=== PATIENT | female | born 1980 | race Caucasian/White ===

== ENCOUNTER → 2016-08-25 | Outpatient (CLI) | payer BC ==
[2016-08-25 12:31] LABS: ALT 38 U/L (9-52); AST 30 U/L (14-36); Alkaline Phosphatase 64 U/L (38-126); Anion Gap 10 mmol/L; Blood Urea Nitrogen 12 mg/dL (7-17); Calcium 10.2 mg/dL (8.4-10.2); Carbon Dioxide 21 mmol/L (22-30); Chloride 110 mmol/L (98-107); Glucose 83 mg/dL (74-99); Non-African American GFR(MDRD) >60 (>60 ml/min/1.73 sqM); Potassium 4.5 mmol/L (3.5-5.1); Sodium 141 mmol/L (137-145); Total Bilirubin 0.5 mg/dL (0.2-1.3)
[2016-08-25 12:33] LABS: CH 31.5; CHCM 33.8; HCT 46.2 % (34.0-46.0); HDW 2.52; HGB 15.7 gm/dL (11.4-16.0); MCH 31.9 pg (25.0-35.0); MCV 93.9 fL (80.0-100.0); Mean Platelet Volume 7.4; RBC 4.91 m/uL (3.80-5.40); RDW 13.9 % (11.5-15.5)
== END | disposition home or self-care (01) ==
LOC: LABWHC1 11:41
PROVIDERS: ATTEND Internal Medicine Cardiovascular Disease
DX: R00.0 Tachycardia, unspecified (principal)
CPT/HCPCS: 36415; 80053; 84439; 84443; 85027

== ENCOUNTER 2017-08-24 07:58 | Emergency (ER) | payer BC ==
[2017-08-24 08:08] VITALS: RESP 18
[2017-08-24] MEDS ORDERED: KETOROLAC 30 MG/ML 1 ML VIAL IVP STA (08:30)
[2017-08-24] MEDS ORDERED: SODIUM CHLORIDE 0.9% 1,000 ML IV STA ×2 (08:30)
[2017-08-24] MEDS ORDERED: METOCLOPRAMIDE 5 MG/ML 2 ML VIAL IVP STA (08:30)
[2017-08-24] MEDS ORDERED: diphenhydrAMINE 50 MG/ML 1 ML VIAL IVP STA (08:30)
[2017-08-24] MEDS ORDERED: MECLIZINE 12.5 MG TAB PO STA (08:32)
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
[2017-08-24 09:12] LABS: Basophils % (A) 1 %; Eosinophils # (A) 0.1 k/uL (0-0.7); Eosinophils % (A) 3 %; HCT 47.1 % (34.0-46.0); HGB 15.8 gm/dL (11.4-16.0); Lymphocytes # (A) 1.4 k/uL (1.0-4.8); Lymphocytes % (A) 27 %; MCH 30.8 pg (25.0-35.0); MCHC 33.6 g/dL (31.0-37.0); MCV 91.5 fL (80.0-100.0); Mean Platelet Volume 7.2; Monocytes # (A) 0.2 k/uL (0-1.0); Monocytes % (A) 5 %; Neutrophils # (A) 3.3 k/uL (1.3-7.7); Neutrophils % (A) 64 %; Platelet Count 214 k/uL (150-450); RBC 5.15 m/uL (3.80-5.40); RDW 12.8 % (11.5-15.5); WBC 5.2 k/uL (3.8-10.6)
[2017-08-24 09:25] LABS: Anion Gap 6 mmol/L; Blood Urea Nitrogen 14 mg/dL (7-17); Carbon Dioxide 23 mmol/L (22-30); Chloride 112 mmol/L (98-107); Glucose 86 mg/dL (74-99); Potassium 4.1 mmol/L (3.5-5.1); Sodium 141 mmol/L (137-145)
[2017-08-24 10:22] VITALS: BP 110/63; PULSE 71; TEMP 97.9
== END 2017-08-24 10:23 | disposition home or self-care (01) ==
LOC: EC 07:58
DX: R42 Dizziness and giddiness (principal); R51 Headache; R11.0 Nausea; J45.909 Unspecified asthma, uncomplicated; Z79.52 Long term (current) use of systemic steroids; Z79.899 Other long term (current) drug therapy; Z88.1 Allergy status to other antibiotic agents; Z88.5 Allergy status to narcotic agent
CPT/HCPCS: 36415; 80048; 85025; 96361; 96374; 96375; 99284

== ENCOUNTER → 2018-01-03 | Outpatient (CLI) | payer BC ==
--- NOTE | 2018-01-04 09:02 | XR ---
EXAM TYPE: LUMBAR SPINE X RAY SERIES COMPARISON: NONE HISTORY: Low back pain TECHNIQUE: 3 views are submitted. FINDINGS: Alignment is anatomic. The pedicles are intact. The transverse processes are intact. There is no s pondylolysis or spondylolisthesis. Degenerative disc disease and hypertrophic change lower thoracic spine. IMPRESSION: 1. Degenerative disc disease lower thoracic spine with minimal changes involving the lumbar spine..
== END | disposition home or self-care (01) ==
LOC: RADXRMAIN 15:26
PROVIDERS: ATTEND Family Medicine
DX: M54.5 Low back pain (principal)
CPT/HCPCS: 72100

== ENCOUNTER → 2018-01-19 | Outpatient (CLI) | payer BC ==
--- NOTE | 2018-01-19 09:21 | CT ---
EXAMINATION TYPE: CT sinus wo con DATE OF EXAM: 01/19/2018 COMPARISON: Prior CT sinus dated 05/14/2014 HISTORY: Chronic sinusitis CT DLP: 583.7 mGycm. Automated Exposure Control for Dose Reduction was Utilized. TECHNIQUE: CT scan of the sinuses is performed without contrast, axial images are obtained, coronal r eformatted images are also reviewed. FINDINGS: The paranasal sinuses including the frontal, ethmoid, sphenoid, and maxillary sinuses bila terally are remarkable for mucoperiosteal thickening in the maxillary and sphenoid sinuses, possible polyp or mucus retention cyst laterally within the right maxillary sinus. Inflammatory change present in the ethmoid air cells. Shayna bullosa present on the right. Visualized portion of mastoid air cells show no abnormal opacification. The globes are intact bilate rally. IMPRESSION: Inflammatory changes as described compatible with chronic sinusitis.
== END | disposition home or self-care (01) ==
LOC: RADCTMAIN 06:50
PROVIDERS: ATTEND Otolaryngology
DX: J32.9 Chronic sinusitis, unspecified (principal)
CPT/HCPCS: 70486

== ENCOUNTER → 2018-03-30 | Outpatient (CLI) | payer BC ==
--- NOTE | 2018-03-30 11:27 | MM ---
Reason for exam: screening (asymptomatic). Baseline mammogram. History: Patient is nulliparous. Family history of breast cancer in mother at age 56. Taking hormonal contraceptives beginning at age 15. Physical Findings: Nurse did not find any significant physical abnormalities on exam. MG Screening Mammo w CAD Bilateral CC and MLO view(s) were taken. The breast tissue is heterogeneously dense. This may lower the sensitivity of mammography. There is no discrete abnormality. These results were verbally communicated with the patient and result sheet given to the patient on 03/30/18. ASSESSMENT: Benign, BI-RAD 2 RECOMMENDATION: Routine screening mammogram of both breasts at age 41.
== END ==
LOC: RADMAMWWP 07:02
PROVIDERS: ATTEND Family Medicine
DX: Z12.31 Encounter for screening mammogram for malignant neoplasm of breast (principal)
CPT/HCPCS: 77067

== ENCOUNTER → 2018-04-16 | Outpatient (CLI) | payer BC ==
--- NOTE | 2018-04-16 16:26 | MR ---
EXAMINATION TYPE: MR cervical spine wo con DATE OF EXAM: 04/16/2018 COMPARISON: None HISTORY: Cervicalgia TECHNIQUE: Multiplanar, multisequence images of the cervical spine were acquired. FINDINGS: The cervical spine vertebral bodies maintain normal vertebral body heights and alignment. B one marrow signal is slightly decreased throughout. C2-C3: There is a small right paracentral disc herniation without spinal canal stenosis or neural for aminal narrowing. C3-C4: There is a small posterior disc osteophyte complex without spinal canal stenosis nor neural fo raminal narrowing. C4-C5: There is a broad-based disc bulge and uncovertebral hypertrophy resulting in minimal neural fo raminal narrowing. No spinal canal stenosis. C5-C6: There is a left foraminal disc herniation superimposed upon a broad-based disc bulge resulting in moderate left neural foraminal narrowing. Right neuroforamen is patent. There is resultant mild s allison canal stenosis. C6-C7: Left eccentric broad-based disc bulge mildly narrows the ventral subarachnoid space. This also results in mild left neural foraminal narrowing and mild spinal canal stenosis. Right neuroforamen i s patent. C7-T1: No evidence for degenerative disc disease. No disc bulge/herniation or protrusion. No Canal stenosis. Foramina are patent bilaterally. IMPRESSION: 1. Left foraminal disc herniation at C5-C6 creating moderate left neural foraminal narrowing. There i s also mild resultant spinal canal stenosis. 2. Broad-based disc bulge at C6-C7 creating mild spinal canal stenosis. 3. Small right paracentral disc herniation at C2-C3 without spinal canal stenosis or neural foraminal narrowing. 4. Diminished bone marrow signal throughout. Correlate with CBC to exclude myeloproliferative disorde r or more commonly anemia.
== END ==
LOC: RADMRIMAIN 15:14
PROVIDERS: ATTEND Family Medicine
DX: M48.02 Spinal stenosis, cervical region (principal); M50.21 Other cervical disc displacement, high cervical region
CPT/HCPCS: 72141

== ENCOUNTER → 2018-10-16 | Outpatient (CLI) | payer BC ==
[2018-10-17 09:03] VITALS: BMI 22.3
== END | disposition home or self-care (01) ==
LOC: DBWHC3 13:01
PROVIDERS: ATTEND Family Medicine
DX: T78.1XXA Other adverse food reactions, not elsewhere classified, initial encounter (principal); Z71.3 Dietary counseling and surveillance
CPT/HCPCS: 97802

== ENCOUNTER → 2018-12-27 | Outpatient (CLI) | payer BC ==
[2018-12-27 17:25] LABS: HCT 39.9 % (34.0-46.0); HGB 13.5 gm/dL (11.4-16.0); MCH 32.2 pg (25.0-35.0); MCHC 33.9 g/dL (31.0-37.0); MCV 94.9 fL (80.0-100.0); Mean Platelet Volume 6.9; Platelet Count 196 k/uL (150-450); RDW 12.6 % (11.5-15.5); WBC 4.9 k/uL (3.8-10.6)
[2018-12-27 17:27] LABS: African American GFR (CKD) >90 (>60 ml/min/1.73 sqM); Anion Gap 6 mmol/L; Blood Urea Nitrogen 12 mg/dL (7-17); Carbon Dioxide 22 mmol/L (22-30); Chloride 111 mmol/L (98-107); Glucose 81 mg/dL (74-99); Non-African American GFR(CKD) 87 (>60 ml/min/1.73 sqM); Potassium 4.2 mmol/L (3.5-5.1); Sodium 139 mmol/L (137-145)
== END ==
LOC: LABPAT 16:32
PROVIDERS: ATTEND Internal Medicine Clinical Cardiac Electrophysiology
DX: Z01.812 Encounter for preprocedural laboratory examination (principal); I47.2 Ventricular tachycardia; R00.2 Palpitations
CPT/HCPCS: 36415; 80051; 82565; 82947; 84520; 85027

== ENCOUNTER 2019-01-08 09:03 | Day surgery (SDC) | payer BC ==
[2019-01-01 14:59] VITALS: BMI 20.7
[~2019-01-08 09:03] MED LIST: LACTATED RINGERS 1,000 ML IV SCH; MIDAZOLAM 2 MG/2 ML VIAL IV PRN; SODIUM CHLORIDE 0.9% 1,000 ML IV SCH; fentaNYL (PF) 50 MCG/ML 2 ML AMP IV PRN
[2019-01-08] MEDS ORDERED: IV FLUID CONTINUATION 1,000 ML IV ONE (10:05)
[2019-01-08] MEDS ORDERED: PROPOFOL 10 MG/ML 20 ML VIAL IV ONE (13:20)
[2019-01-08] MEDS ORDERED: fentaNYL (PF) 50 MCG/ML 2 ML AMP ONE (13:20)
[2019-01-08] MEDS ORDERED: MIDAZOLAM 2 MG/2 ML VIAL ONE (13:20)
--- NOTE | 2019-01-08 13:39 | P.HPCAR ---
History of Present Illness This is Lucy Regan PA-C dictating an H&P on this patient The patient was interviewed and examined by me as well as by Dr. Almendarez Case discussed with Dr. Almendarez and he agrees with the plan of care IMPRESSION / ASSESSMENT: Recurrent palpitations and dizzy spells, long run of nonsustained wide complex tachycardia on event monitor History of hypertension PLAN: Proceed with tilt table test and diagnostic EP study to further evaluate her symptoms and evaluate the wide complex tachycardia, and possible RF ablation if indicated HPI Patient is a 38-year-old female with a past medical history of hypertension who presents for evaluation and management of palpitations and dizzy spells. She has had recurrent episodes of palpitations, chest tightness, and dizziness for the last 3 years. No syncope. She underwent a workup including a stress test which was negative, 2-D echocardiogram showing preserved LV size and systolic function, cardiac MRI showing structurally normal heart, and an event monitor which showed a long run of nonsustained wide complex tachycardia with a short RS duration. Patient seen and examined resting comfortably in bed. States she continues to have mild chest discomfort. She is otherwise feeling well. Denies any shortness of breath, no recent episodes of palpitation or dizziness, no syncope. No recent infections. ROS: No fevers, chills or rigors, no cough, phlegm or expectoration, no nausea, vomiting or diarrhea, no hematuria, dysuria, no musculoskeletal complaints, no strokes or seizures, no skin lesions. EXAMINATION: Patient is afebrile, pulse 94, respirations 18, blood pressure 131/79, oxygen saturation 100% on room air Patient seen and examined resting comfortably in bed, in no acute distress Heart is regular, normal S1 and S2, no murmurs rubs or gallops Lungs clear to auscultation bilaterally No elevated JVD or lower extremity edema Abdomen soft and nontender REVIEW OF LABS, ECG & MEDICAL DATA WBC 4.9, hemoglobin 13.5, platelet 196, potassium 4.2, BUN 12, creatinine 0.86 Previous EKG showed sinus mechanism with incomplete right bundle branch block Physical Exam Vitals: Vital Signs Temp Pulse Resp BP Pulse Ox 01/08/19 09:30 98.3 F 94 18 131/79 100 Intake and Output 01/07/19 01/08/19 01/08/19 22:59 06:59 14:59 Intake Total 70 Balance 70 Intake: IV 70 Past Medical History Past Medical History: Asthma, Chest Pain / Angina, Hypertension Additional Past Medical History / Comment(s): Migraines, asthma R/T allergies, TMJ-D. Tachycardia, palpitations. Feels lightheaded w/ stair climbing. History of Any Multi-Drug Resistant Organisms: None Reported Past Surgical History: Adenoidectomy, Tonsillectomy Additional Past Surgical History / Comment(s): lateral internal sphincterotomy Past Anesthesia/Blood Transfusion Reactions: Previous Problems w/ Anesthesia, Motion Sickness Additional Past Anesthesia/Blood Transfusion Reaction / Comment(s): Itching, red skin after last surg 2016 ("had Versed, Propofol, Zofran, Decadron given") Smoking Status: Former smoker - Past Family History Mother Family Medical History: Cancer Additional Family Medical History / Comment(s): Breast, Pancreatic CA Father Family Medical History: Cancer Additional Family Medical History / Comment(s): Pancreatic CA Physical Examination Vital Signs Temp Pulse Resp BP Pulse Ox 01/08/19 09:30 98.3 F 94 18 131/79 100 Intake and Output 01/07/19 01/08/19 01/08/19 22:59 06:59 14:59 Intake Total 70 Balance 70 Intake: IV 70 Results Current Medications Generic Name Dose Route Start Last Admin Trade Name Freq PRN Reason Stop Dose Admin Fentanyl Citrate 50 mcg 01/08/19 06:14 Sublimaze IV 01/09/19 06:15 Q3M PRN Pain Control Sodium Chloride 1,000 mls @ 20 mls/hr 01/08/19 06:14 01/08/19 09:34 Saline 0.9% IV 20 mls .Q24H LIZETH Administration Sodium Chloride 1,000 mls @ 20 mls/hr 01/08/19 06:14 Saline 0.9% IV .Q24H LIZETH Lactated Ringer's 1,000 mls @ 20 mls/hr 01/08/19 06:14 Lactated Ringers IV .Q24H LIZETH Midazolam HCl 2 mg 01/08/19 06:14 Versed IV 01/09/19 06:15 ONCE PRN Anxiety Intake and Output 01/07/19 01/08/19 01/08/19 22:59 06:59 14:59 Intake Total 70 Balance 70 Intake: IV 70
[2019-01-08] MEDS ORDERED: LIDOCAINE 1% INJ 10MG/ML (20 ML MDV) ONE (13:47)
--- NOTE | 2019-01-08 13:50 | P.PCN ---
Preoperative Diagnosis: Diagnosis: Recurrent dizzy spells Twelve-lead EKG shows sinus mechanism with normal AL, incomplete right bundle branch block morphology, normal ST segments, normal QT interval, no delta or epsilon waves Baseline heart rate was 86 bpm, baseline blood pressure was 127/86 mmHg Patient was tilted upright at 70 per protocol, her heart rate increased to 110 bpm at that time she felt lightheaded. Her heart rate increased to 110s to 120s average within the first ten minutes and remained elevated throughout the study. She was symptomatic with heaviness in her arms chest and legs. Blood pressure remained stable without any significant changes throughout the study. At the end of the procedure she was laid flat and her heart rate came down to 98 bpm. Impression Orthostatic intolerance/mild postural orthostatic tachycardia syndrome Normal 12-lead EKG
[2019-01-08] MEDS ORDERED: LIDOCAINE 1% INJ 10MG/ML (20 ML MDV) SQ ONE (14:02)
[2019-01-08] MEDS ORDERED: ACETAMINOPHEN TAB 325 MG TAB PO PRN (15:22)
[2019-01-08] MEDS ORDERED: MELOXICAM 7.5 MG TAB PO PRN (15:26)
[2019-01-08] MEDS: TOPIRAMATE 25 MG TAB PO SCH (20:17)
[2019-01-08] MEDS ORDERED: METOPROLOL SUCCINATE (ER) 50 MG TAB.ER.24H PO SCH (21:00)
[2019-01-08] MEDS ORDERED: MAGNESIUM OXIDE 400 MG TAB PO SCH (21:00)
--- NOTE | 2019-01-08 23:17 | PCN ---
PROCEDURE NOTE Edel Dunham is a 38-year-old female who has dizzy spells and palpitations. She underwent a diagnostic EP study. She was brought to the EP lab in a fasting state informed consent was obtained prior to the procedure. The right groin was prepped and draped as per protocol. Three venous sheaths were placed in the right femoral vein. Via these, 3 diagnostic catheters were positioned in the right heart (high right atrium, His bundle and RV catheter). Baseline measurements were as follows: Sinus cycle length 818 milliseconds; SD interval 157 milliseconds; QRS 84 milliseconds; QT 389 milliseconds. AH interval 69 milliseconds, HV interval 38 milliseconds. Sinus node recovery times at 600, 500 and 400 milliseconds were 1248, 1381 and 1154 milliseconds, respectively. Corresponding corrected sinus node recovery times were within normal limits. AV node Wenckebach block 300 milliseconds, VA Wenckebach block 590 milliseconds. With atrial pacing at a cycle length of 300 milliseconds, rate-related aberrancy was noted, right bundle branch block type. Atrial extrastimulation from the high right atrium was performed. A jump was noted at 600/240 milliseconds, but no echo beats were noted. Ventricular extrastimulation was performed at 2 drivetrains up to double extrastimuli. No sustained ventricular tachycardia was noted. No runs of nonsustained ventricular tachycardia noted. In the baseline state, no arrhythmias were noted. There was clear evidence for aberrant conduction with atrial pacing. Isuprel was then started wide open and then at 1 mcg. AV node Wenckebach block improved to 220 milliseconds. There was evidence of antegrade slow pathway conduction, but no echo beats were noted. The VA conduction showed minimal improvement. Atrial extrastimulation was performed from the high right atrium. Right ventricular extrastimulation was performed up to double extrastimuli. Burst stimulation was performed in the right ventricle. No arrhythmias were induced. All catheters were then removed. The patient was transferred back to telemetry. RESULT: Diagnostic EP study revealin. Normal baseline measurements. 2. Normal sinus node function. 3. Evidence of dual AV nakul physiology with antegrade slow pathway conduction without any echo beats. 4. No evidence for accessory pathway conduction. 5. No evidence for any atrial or ventricular arrhythmias. 6. Rate-related right bundle branch block aberrancy was noted. This is consistent with the wide-complex tachycardia that she had on the monitor. It is quite likely that she had an atrial tachycardia with aberrancy, nonsustained, rather than ventricular tachycardia. PLAN: Continue low-dose beta blockers. MMODL / IJN: [id number] /
--- NOTE | 2019-01-08 23:23 | PCN ---
PROCEDURE NOTE January 08, 2019 To: Dr. Arthur Burns Re: Edel Dunham (82) Dear Arthur Edel Dunham underwent an EP evaluation in the hospital. She first underwent a tilt table test which revealed orthostatic intolerance and it reproduced some of her symptoms. Thereafter she underwent a diagnostic EP study because her monitor had revealed a run of wide-complex tachycardia, nonsustained. At the EP study, she had clear evidence of right bundle branch block aberrancy with atrial pacing. No ventricular tachycardia was induced. Therefore it is quite likely that she had a short run of atrial tachycardia with aberrant conduction rather than ventricular tachycardia that we noted on her monitor. At this time, I will treat her with beta blockers only and increase her fluid and salt intake and treat her for orthostatic intolerance with lower extremity weight training. Thank you for entrusting me with the care of your patient. Warm regards. Sincerely, Chencho Almendarez M.D. LORA / ESPERANZA: [id number] /
[2019-01-09 00:05] VITALS: RESP 18
--- NOTE | 2019-01-09 07:53 | P.DS ---
Providers Attending physician: Chencho Almendarez Primary care physician: [facility] Course: Patient is doing well. Minimal tenderness in the right groin but no hematoma She's been ablating in the hallways no chest discomfort dizziness lightheadedness or palpitations On examination blood pressure 115/72 mmHg pulse rate in the 60s afebrile Breath sounds are clear no rhonchi no crackles Heart sounds S1 and S2 are normal no murmurs no gallops Abdomen soft Dextrose warm Impression Mild orthostatic intolerance Rate related apparent conduction with atrial pacing Likely nonsustained atrial tachycardia with aberrancy on event monitor as an outpatient Suggest Increase fluid and salt intake Continue beta blockers Lower extremity muscle strengthening exercises/weight training Discussed in detail with the patient We'll see her next week Plan - Discharge Summary Discharge Rx Participant: Yes New Discharge Prescriptions: No Action Magnesium Oxide [Mag-Ox] 250 mg PO HS Topiramate [Topamax] 50 mg PO BID Metoprolol Succinate [Toprol Xl] 50 mg PO HS Cholecalciferol [Vitamin D3] 1,000 unit PO DAILY Ketorolac [Toradol] 10 mg PO Q8HR PRN PRN Reason: Migraine Headache Celecoxib [CeleBREX] 200 mg PO DAILY PRN PRN Reason: Pain Galcanezumab-Gnlm [Emgality Syringe] 120 mg SQ Q30D Levonorgestrel-Ethin Estradiol [Levora-28 Tablet] 1 tab PO DAILY Vitamin B Complex 1 each PO Q48H Gnc Ultra Indra Mvi 1 tab PO DAILY Discharge Medication List Cholecalciferol [Vitamin D3] 1,000 unit PO DAILY 08/24/17 [History] Magnesium Oxide [Mag-Ox] 250 mg PO HS 08/24/17 [History] Metoprolol Succinate [Toprol Xl] 50 mg PO HS 08/24/17 [History] Topiramate [Topamax] 50 mg PO BID 08/24/17 [History] Celecoxib [CeleBREX] 200 mg PO DAILY PRN 01/01/19 [History] Galcanezumab-Gnlm [Emgality Syringe] 120 mg SQ Q30D 01/01/19 [History] Gnc Ultra Indra Mvi 1 tab PO DAILY 01/01/19 [History] Ketorolac [Toradol] 10 mg PO Q8HR PRN 01/01/19 [History] Levonorgestrel-Ethin Estradiol [Levora-28 Tablet] 1 tab PO DAILY 01/01/19 [History] Vitamin B Complex 1 each PO Q48H 01/01/19 [History] Follow up Appointment(s)/Referral(s): Chencho Almendarez MD [STAFF PHYSICIAN] - 1 Week (follow up with Dr. Almendarez/Lucy Regan/Shwetha Lewis in one to 2 weeks) Activity/Diet/Wound Care/Special Instructions: Post EP study - Ablation instructions 1. Keep access sites dry for 2 days. 2. No heavy lifting or straining for 2 days. 3. Avoid bending the hips repeatedly for 2 days. 4. You may go up and down stairs slowly Call if the following is noted 1. Bleeding, increasing swelling or pain at the access sites. 2. Increasing chest discomfort, especially upon taking a deep breath. 3. Increasing shortness of breath, at rest or with exertion. 4. Undue cough / phlegm 5. Difficulty or pain while swallowing. 6. Pain or change in color in the extremities. 7. Fever, chills, rigors. 8. Increasing headache or neurologic symptoms. 9. Dizziness, fainting, palpitations Continue all cardiac medications as previously prescribed Discharge Disposition: HOME SELF-CARE
[2019-01-09 08:05] VITALS: BP 111/70; PULSE 75; TEMP 97.8
[2019-01-09] MEDS: TOPIRAMATE 25 MG TAB PO SCH (08:22)
[2019-01-09] MEDS ORDERED: LEVONORGESTREL ETHIN ESTRADIOL PO SCH (09:00)
== END 2019-01-09 10:00 | disposition home or self-care (01) ==
LOC: CATHEP 09:03 → 1SOBS 15:19 → CATHEP 01-09 10:00
PROVIDERS: ATTEND Internal Medicine Clinical Cardiac Electrophysiology
DX: I49.8 Other specified cardiac arrhythmias (principal); I45.10 Unspecified right bundle-branch block; I10 Essential (primary) hypertension; G43.909 Migraine, unspecified, not intractable, without status migrainosus; J44.9 Chronic obstructive pulmonary disease, unspecified; F39 Unspecified mood [affective] disorder; Z88.1 Allergy status to other antibiotic agents; Z88.5 Allergy status to narcotic agent; Z91.018 Allergy to other foods; Z91.011 Allergy to milk products; Z87.891 Personal history of nicotine dependence; Z79.3 Long term (current) use of hormonal contraceptives; Z79.899 Other long term (current) drug therapy; Z98.890 Other specified postprocedural states; Z90.89 Acquired absence of other organs; Z80.3 Family history of malignant neoplasm of breast; Z80.0 Family history of malignant neoplasm of digestive organs
CPT/HCPCS: 93623; 93620; 93660; C1894; C1769 ×2; C1730 ×3; J2250; J2001; J3010; J2704

== ENCOUNTER → 2019-09-26 | Outpatient (CLI) | payer BC ==
--- NOTE | 2019-09-26 08:49 | FL ---
EXAMINATION TYPE: FL barium swallow DATE OF EXAM: 09/26/2019 CLINICAL HISTORY: Pain TECHNIQUE: A double contrast esophagram is performed utilizing air and barium. A total of 33 second s of fluoroscopic time was utilized during procedure. 23 images submitted. COMPARISON: None FINDINGS: The esophagus shows normal motility and emptying into the stomach. No evidence of hiatal h ernia or stricture noted. No significant gastroesophageal reflux was seen during real time performanc e of this study. IMPRESSION: No significant abnormality is seen to account for patient's symptoms. Correlate with di rect visualization as clinically warranted.
== END | disposition home or self-care (01) ==
LOC: RADUSWWP 07:52
PROVIDERS: ATTEND Surgery Plastic and Reconstructive Surgery
DX: K21.9 Gastro-esophageal reflux disease without esophagitis (principal)
CPT/HCPCS: 74220

== ENCOUNTER 2019-10-03 09:20 | Day surgery (SDC) | payer BC ==
[2019-09-30 13:08] VITALS: BMI 21.8
--- NOTE | 2019-10-03 08:47 | P.GSHP ---
History of Present Illness H&P Date: 10/03/19 CHIEF COMPLAINT: GERD HISTORY OF PRESENT ILLNESS: The patient is a 38-year-old female who presents reports gastroesophageal reflux disease. Upper endoscopy was offered for further evaluation and management. PAST MEDICAL HISTORY: Please see list. PAST SURGICAL HISTORY: Please see list. MEDICATIONS: Please see list. ALLERGIES: Please see list. SOCIAL HISTORY: No illicit drug use FAMILY HISTORY: No reports of Crohn disease or ulcerative colitis. REVIEW OF ORGAN SYSTEMS: CONSTITUTIONAL: No reports of fevers or chills. GI: Denies any blood in stools or constipation. PHYSICAL EXAM: VITAL SIGNS: Stable GENERAL: Well-developed and pleasant in no acute distress. HEENT: No scleral icterus. Extraocular movements grossly intact. Moist buccal mucosa. NECK: Supple without lymphadenopathy. CHEST: Unlabored respirations. Equal bilateral excursions. CARDIOVASCULAR: Regular rate and rhythm. Distal 2+ pulses. ABDOMEN: Soft, nondistended. MUSCULOSKELETAL: No clubbing, cyanosis, or edema. ASSESSMENT: 1. Gastroesophageal reflux disease PLAN: 1. Recommend proceeding with an upper endoscopy Past Medical History Past Medical History: Asthma, Hypertension Additional Past Medical History / Comment(s): Migraines, tachycardia, V-Tach on EKG prevoiusly, had EP Study, everything ok, no problems since. 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 History of Any Multi-Drug Resistant Organisms: None Reported Past Surgical History: Adenoidectomy, Tonsillectomy Additional Past Surgical History / Comment(s): Lateral internal sphincterotomy, EP Study. Past Anesthesia/Blood Transfusion Reactions: Previous Problems w/ Anesthesia, Motion Sickness Additional Past Anesthesia/Blood Transfusion Reaction / Comment(s): Itching, red skin after last surg 2016 ("had Versed, Propofol, Zofran, Decadron") Past Psychological History: No Psychological Hx Reported Smoking Status: Former smoker Past Alcohol Use History: None Reported Additional Past Alcohol Use History / Comment(s): Smoked 13 years, 1/2 ppd, quit 2012. Past Drug Use History: None Reported - Past Family History Mother Family Medical History: Cancer Additional Family Medical History / Comment(s): Breast, Pancreatic CA. Father Family Medical History: Cancer Additional Family Medical History / Comment(s): Pancreatic CA. Medications and Allergies Home Medications Medication Instructions Recorded Confirmed Type Cholecalciferol [Vitamin D3] 1,000 unit PO DAILY 08/24/17 09/30/19 History Magnesium Oxide [Mag-Ox] 500 mg PO HS 08/24/17 09/30/19 History Metoprolol Succinate [Toprol Xl] 50 mg PO HS 08/24/17 09/30/19 History Topiramate [Topamax] 50 mg PO BID 08/24/17 09/30/19 History Galcanezumab-Gnlm [Emgality 120 mg SQ Q30D 01/01/19 09/30/19 History Syringe] Gnc Ultra Indra Mvi 1 tab PO DAILY 01/01/19 09/30/19 History Levonorgestrel-Ethin Estradiol 1 tab PO DAILY 01/01/19 09/30/19 History [Levora-28 Tablet] Vitamin B Complex 1 each PO DAILY 01/01/19 09/30/19 History Omeprazole 20 mg PO DAILY 09/30/19 09/30/19 History Allergies Allergy/AdvReac Type Severity Reaction Status Date / Time Beef Containing Products Allergy Pos on Verified 09/30/19 12:54 allergy test cefuroxime [From Ceftin] Allergy Rash/Hives Verified 09/30/19 12:54 chicken derived [Chicken] Allergy Pos on Verified 09/30/19 12:54 allergy test gluten Allergy Rash/Hives Verified 09/30/19 12:54 hydrocodone Allergy Rash/Hives Verified 09/30/19 12:54 levofloxacin [From Levaquin] Allergy Rash/Hives Verified 09/30/19 12:54 Milk Containing Products Allergy Rash/Hives Verified 09/30/19 12:54 Pork/Porcine Containing Allergy Pos on Verified 09/30/19 12:54 Products allergy [Pork] test soybean Allergy Rash/Hives Verified 09/30/19 12:54
[~2019-10-03 09:20] MED LIST changes: -MIDAZOLAM 2 MG/2 ML VIAL IV PRN; -SODIUM CHLORIDE 0.9% 1,000 ML IV SCH; -fentaNYL (PF) 50 MCG/ML 2 ML AMP IV PRN
[2019-10-03 09:47] VITALS: TEMP 97.6
[2019-10-03] MEDS ORDERED: LACTATED RINGERS 1,000 ML IV ONE (09:48)
[2019-10-03] MEDS ORDERED: LIDOCAINE 1% (10MG/ML) FOR IV START INTRADERMA ONE (09:48)
[2019-10-03] MEDS ORDERED: LIDOCAINE 1% INJ 10MG/ML (20 ML MDV) ONE (10:29)
[2019-10-03] MEDS ORDERED: PROPOFOL 10 MG/ML 20 ML VIAL IV ONE (10:29)
--- NOTE | 2019-10-03 11:21 | P.PCN ---
Date of Procedure: 10/03/19 Description of Procedure: PREOPERATIVE DIAGNOSIS: Gastroesophageal reflux disease. Epigastric abdominal pain POSTOPERATIVE DIAGNOSIS: Gastroesophageal reflux disease. Epigastric abdominal pain Gastritis. OPERATION: Esophagogastroduodenoscopy with biopsies along antrum. SURGEON: Ami Diaz MD ANESTHESIA: MAC. INDICATIONS: The patient is a 38-year-old female who presents with a history of reflux disease. Benefits and risks of the procedure were described. Informed consent was obtained. DESCRIPTION: The patient was brought into the endoscopy suite and laid in the left lateral decubitus position. An Olympus gastroscope was passed along the posterior oropharynx down to the distal esophagus where the squamocolumnar junction was encountered at 37 cm from the incisors. The stomach was entered and no bile reflux was found. Additional findings are listed below. Biopsies with cold forceps were obtained of the antrum. The first through third portion of the duodenum was examined and unremarkable. Retroflexion of the scope confirmed Hill grade 1 lower esophageal valve. The squamocolumnar junction demonstrated no LA grade A erosive esophagitis. The stomach was desufflated. The patient tolerated the procedure well. FINDINGS: Squamocolumnar junction 37 cm from the incisors. Diaphragmatic hiatus at 37 cm. Hill grade 1 lower esophageal valve. No LA grade A erosive esophagitis. No active duodenitis. Chronic gastritis, mild RECOMMENDATIONS: Upper endoscopy as needed. Plan - Discharge Summary Discharge Rx Participant: Yes New Discharge Prescriptions: Continue Magnesium Oxide [Mag-Ox] 500 mg PO HS Topiramate [Topamax] 50 mg PO BID Metoprolol Succinate [Toprol Xl] 50 mg PO HS Cholecalciferol [Vitamin D3 (25 Mcg = 1000 Iu)] 1,000 unit PO DAILY Galcanezumab-Gnlm [Emgality Syringe] 120 mg SQ Q30D Levonorgestrel-Ethin Estradiol [Levora-28 Tablet] 1 tab PO DAILY Vitamin B Complex 1 each PO DAILY Gnc Ultra Indra Mvi 1 tab PO DAILY Omeprazole 20 mg PO DAILY Discharge Medication List Cholecalciferol [Vitamin D3 (25 Mcg = 1000 Iu)] 1,000 unit PO DAILY 08/24/17 [History] Magnesium Oxide [Mag-Ox] 500 mg PO HS 08/24/17 [History] Metoprolol Succinate [Toprol Xl] 50 mg PO HS 08/24/17 [History] Topiramate [Topamax] 50 mg PO BID 08/24/17 [History] Galcanezumab-Gnlm [Emgality Syringe] 120 mg SQ Q30D 01/01/19 [History] Gnc Ultra Indra Mvi 1 tab PO DAILY 01/01/19 [History] Levonorgestrel-Ethin Estradiol [Levora-28 Tablet] 1 tab PO DAILY 01/01/19 [History] Vitamin B Complex 1 each PO DAILY 01/01/19 [History] Omeprazole 20 mg PO DAILY 09/30/19 [History] Follow up Appointment(s)/Referral(s): Ami Diaz MD [STAFF PHYSICIAN] - 10/22/19 Patient Instructions/Handouts: *[facility] - (Anesthesia) Endoscopy Discharge Instructions, *[facility] - (Anesthesia) Discharge Instructions Outpatient Surgery, Upper Endoscopy (DC), Gastritis (DC) Discharge Disposition: HOME SELF-CARE
[2019-10-03 11:40] VITALS: PULSE 88
[2019-10-03 11:41] VITALS: BP 122/74; RESP 14
== END 2019-10-03 11:41 | disposition home or self-care (01) ==
LOC: ORWHC2ENDO 09:20
PROVIDERS: ATTEND Surgery Plastic and Reconstructive Surgery
DX: K21.0 Gastro-esophageal reflux disease with esophagitis (principal); K29.50 Unspecified chronic gastritis without bleeding; I10 Essential (primary) hypertension; J45.909 Unspecified asthma, uncomplicated; G43.909 Migraine, unspecified, not intractable, without status migrainosus; Z90.89 Acquired absence of other organs; Z98.890 Other specified postprocedural states; Z87.891 Personal history of nicotine dependence; Z80.3 Family history of malignant neoplasm of breast; Z80.0 Family history of malignant neoplasm of digestive organs; Z79.890 Hormone replacement therapy; Z79.899 Other long term (current) drug therapy; Z91.018 Allergy to other foods; Z88.1 Allergy status to other antibiotic agents; Z91.02 Food additives allergy status; Z88.5 Allergy status to narcotic agent; Z91.011 Allergy to milk products
CPT/HCPCS: 81025; 88305; 43239; J2001; J2704

== ENCOUNTER → 2019-10-11 | Outpatient (CLI) | payer BC ==
--- NOTE | 2019-10-11 15:48 | US ---
EXAMINATION TYPE: US pelvis complete transvag DATE OF EXAM: 10/11/2019 COMPARISON: NONE CLINICAL HISTORY: 38-year-old female R10.2 Pelvic and perineal pain. Pain TECHNIQUE: Transabdominal sonographic images of the pelvis were acquired. Transvaginal sonographic i mages were medically necessary to better assess the following anatomy: Ovaries FINDINGS: EXAM MEASUREMENTS: Uterus: 6.6 x 2.3 x 3.5 cm Endometrial Stripe: .4 cm 1. Uterus: Anteverted wnl 2. Endometrium: wnl 3. Right Ovary: Obscured by overlying bowel gas 4. Left Ovary: Obscured by overlying bowel gas 5. Bilateral Adnexa: wnl 6. Posterior cul-de-sac: wnl IMPRESSION: Endometrial stripe measured at 4 mm. Anteverted uterus. Neither ovary could be visualized due to overlying bowel gas. No pelvic free fluid.
== END | disposition home or self-care (01) ==
LOC: RADUSWWP 12:46
PROVIDERS: ATTEND Internal Medicine
DX: N85.4 Malposition of uterus (principal)
CPT/HCPCS: 76830; 76856

== ENCOUNTER 2020-01-19 14:50 | Emergency (ER) | payer BC ==
[2020-01-19] MEDS ORDERED: SODIUM CHLORIDE 0.9% 500 ML 500 ML IV STA (15:29)
[2020-01-19] MEDS ORDERED: ONDANSETRON 4 MG/2 ML VIAL IVP STA (15:29)
[2020-01-19] MEDS ORDERED: SODIUM CHLORIDE 0.9% 1,000 ML IV STA ×2 (15:29)
--- NOTE | 2020-01-19 15:36 | ED ---
Abdominal Pain HPI - General Chief Complaint: Abdominal Pain Stated Complaint: fever, abd pain Time Seen by Provider: 01/19/20 15:12 Source: patient Mode of arrival: ambulatory Limitations: no limitations - History of Present Illness Initial Comments: 39-year-old female presenting today for chief complaint of upper abdominal pain nausea vomiting diarrhea fevers. Patient states that Monday she had upper abdominal pain vomiting diarrhea and had a fever she states the fever broke yesterday but the abdominal pain persists. She states she has not had vomiting or diarrhea since the first day of onset of the symptoms. Patient admits to decreased appetite. She denies lower abdominal pain denies urinary symptoms chest pain shortness of breath or upper respiratory symptoms. Patient had talked her primary care provider provided her Zofran and told patient if pain persists to come to the ER patient states that is why she is here today. Remaining review of system negative - Related Data Home Medications Medication Instructions Recorded Confirmed Cholecalciferol [Vitamin D3 (25 1,000 unit PO DAILY 08/24/17 01/19/20 Mcg = 1000 Iu)] Magnesium Oxide [Mag-Ox] 500 mg PO HS 08/24/17 01/19/20 Metoprolol Succinate [Toprol Xl] 50 mg PO HS 08/24/17 01/19/20 Topiramate [Topamax] 50 mg PO BID 08/24/17 01/19/20 Levonorgestrel-Ethin Estradiol 1 tab PO DAILY 01/01/19 01/19/20 [Levora-28 Tablet] Erenumab-Aooe [Aimovig 70 mg SQ Q30D 01/19/20 01/19/20 Autoinjector] Multivitamins, Thera [Multivitamin 1 tab PO DAILY 01/19/20 01/19/20 (formulary)] Naratriptan HCl 2.5 mg PO DAILY PRN 01/19/20 01/19/20 Omeprazole Magnesium [PriLOSEC OTC] 20 mg PO DAILY 01/19/20 01/19/20 Ondansetron HCl [Zofran] 4 mg PO Q8H PRN 01/19/20 01/19/20 Allergies Allergy/AdvReac Type Severity Reaction Status Date / Time Beef Containing Products Allergy Pos on Verified 01/19/20 17:33 allergy test cefuroxime [From Ceftin] Allergy Rash/Hives Verified 01/19/20 17:33 chicken derived [Chicken] Allergy Pos on Verified 01/19/20 17:33 allergy test gluten Allergy Rash/Hives Verified 01/19/20 17:33 hydrocodone Allergy Rash/Hives Verified 01/19/20 17:33 levofloxacin [From Levaquin] Allergy Rash/Hives Verified 01/19/20 17:33 Milk Containing Products Allergy Rash/Hives Verified 01/19/20 17:33 Pork/Porcine Containing Allergy Pos on Verified 01/19/20 17:33 Products allergy [Pork] test soybean Allergy Rash/Hives Verified 01/19/20 17:33 Review of Systems ROS Statement: Those systems with pertinent positive or pertinent negative responses have been documented in the HPI. ROS Other: All systems not noted in ROS Statement are negative. Past Medical History Past Medical History: Asthma, Hypertension Additional Past Medical History / Comment(s): Migraines, tachycardia, V-Tach on EKG prevoiusly, had EP Study, everything ok, no problems since. 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 History of Any Multi-Drug Resistant Organisms: None Reported Past Surgical History: Adenoidectomy, Tonsillectomy Additional Past Surgical History / Comment(s): Lateral internal sphincterotomy, EP Study. Past Anesthesia/Blood Transfusion Reactions: Previous Problems w/ Anesthesia, Motion Sickness Additional Past Anesthesia/Blood Transfusion Reaction / Comment(s): Itching, red skin after last surg 2016 ("had Versed, Propofol, Zofran, Decadron") Past Psychological History: No Psychological Hx Reported Smoking Status: Former smoker Past Alcohol Use History: None Reported Past Drug Use History: None Reported - Past Family History Mother Family Medical History: Cancer Additional Family Medical History / Comment(s): Breast, Pancreatic CA. Father Family Medical History: Cancer Additional Family Medical History / Comment(s): Pancreatic CA. General Exam - General Exam Comments Initial Comments: General: The patient is awake and alert, in no distress Eye: +3 mm pupils are equal, round and reactive to light, extra-ocular movements are intact. No nystagmus. There is normal conjunctiva bilaterally. No signs of icterus. Ears, nose, mouth and throat: There are moist mucous membranes and no oral lesions. Neck: The neck is supple, there is no tenderness or JVD. Cardiovascular: There is a regular rate and rhythm. No murmur, rub or gallop is appreciated. Respiratory: Lungs are clear to auscultation, respirations are non-labored, breath sounds are equal. No wheezes, stridor, rales, or rhonchi. Gastrointestinal: Soft, non-distended, tenderness diffusely to the upper abdomen, abdomen without masses or organomegaly noted. There is no rebound or guarding present. Musculoskeletal: Normal ROM, no tenderness. Strength 5/5. Sensation intact. Radial pulses equal bilaterally 2+. Neurological: A&O x 3. CN II-XII intact grossly, There are no obvious motor or sensory deficits. Coordination appears grossly intact. Speech is normal. Skin: Skin is warm and dry and no rashes or lesions are noted. Psychiatric: Cooperative, appropriate mood & affect, normal judgment. Limitations: no limitations Course Vital Signs 01/19/20 01/19/20 15:04 17:29 Temperature 97.8 F Pulse Rate 99 79 Respiratory 18 16 Rate Blood Pressure 142/96 121/84 O2 Sat by Pulse 100 100 Oximetry Medical Decision Making - Medical Decision Making Lipased elevated but no 3x upper limit of normal. RUQ/epigastric pain that radiates to back. patient pain controlled with dilaudid. pt hydrated. patient case discussed with attending at this time we feel patient is stable for disc harge with repeat lipase and monitoring outpatient including GI f/u. Patient is agreeable to this care plan and discharge. Return parameters discussed including return for increased pain/inability to tolerate oral intake. Recommended liquid diet x 3 days, increased home fluids. - Lab Data Result diagrams: 01/19/20 15:49 01/19/20 15:49 Lab Results 01/19/20 01/19/20 01/19/20 Range/Units 15:49 15:49 15:49 WBC 10.7 H (3.8-10.6) k/uL RBC 5.09 (3.80-5.40) m/uL Hgb 16.0 (11.4-16.0) gm/dL Hct 46.6 H (34.0-46.0) % MCV 91.5 (80.0-100.0) fL MCH 31.5 (25.0-35.0) pg MCHC 34.4 (31.0-37.0) g/dL RDW 12.1 (11.5-15.5) % Plt Count 217 (150-450) k/uL MPV 8.2 Neutrophils % 75 % Lymphocytes % 12 % Monocytes % 7 % Eosinophils % 1 % Basophils % 1 % Neutrophils # 8.1 H (1.3-7.7) k/uL Lymphocytes # 1.3 (1.0-4.8) k/uL Monocytes # 0.7 (0-1.0) k/uL Eosinophils # 0.1 (0-0.7) k/uL Basophils # 0.1 (0-0.2) k/uL Sodium (137-145) mmol/L Potassium (3.5-5.1) mmol/L Chloride (98-107) mmol/L Carbon Dioxide (22-30) mmol/L Anion Gap mmol/L BUN (7-17) mg/dL Creatinine (0.52-1.04) mg/dL Est GFR (CKD-EPI)AfAm (>60 ml/min/1.73 sqM) Est GFR (CKD-EPI)NonAf (>60 ml/min/1.73 sqM) Glucose (74-99) mg/dL Plasma Lactic Acid [place] (0.7-2.0) mmol/L Calcium (8.4-10.2) mg/dL Total Bilirubin (0.2-1.3) mg/dL AST (14-36) U/L ALT (4-34) U/L Alkaline Phosphatase (38-126) U/L Total Protein (6.3-8.2) g/dL Albumin (3.5-5.0) g/dL Amylase (30-110) U/L Lipase (23-300) U/L Urine Color Yellow Urine Appearance Cloudy H (Clear) Urine pH 6.0 (5.0-8.0) Ur Specific Quentin 1.026 (1.001-1.035) Urine Protein 1+ H (Negative) Urine Glucose (UA) Negative (Negative) Urine Ketones 2+ H (Negative) Urine Blood Large H (Negative) Urine Nitrite Negative (Negative) Urine Bilirubin 1+ H (Negative) Urine Urobilinogen 2.0 (<2.0) mg/dL Ur Leukocyte Esterase Trace H (Negative) Urine RBC 34 H (0-5) /hpf Urine WBC 9 H (0-5) /hpf Ur Squamous Epith Cells 6 H (0-4) /hpf Urine Bacteria Rare H (None) /hpf Hyaline Casts 2 (0-2) /lpf Urine Mucus Many H (None) /hpf Urine HCG, Qual Not Detected (Not Detectd) Coronavirus (PCR) (Not Detectd) 01/19/20 01/19/20 01/19/20 Range/Units 15:49 15:49 15:59 WBC (3.8-10.6) k/uL RBC (3.80-5.40) m/uL Hgb (11.4-16.0) gm/dL Hct (34.0-46.0) % MCV (80.0-100.0) fL MCH (25.0-35.0) pg MCHC (31.0-37.0) g/dL RDW (11.5-15.5) % Plt Count (150-450) k/uL MPV Neutrophils % % Lymphocytes % % Monocytes % % Eosinophils % % Basophils % % Neutrophils # (1.3-7.7) k/uL Lymphocytes # (1.0-4.8) k/uL Monocytes # (0-1.0) k/uL Eosinophils # (0-0.7) k/uL Basophils # (0-0.2) k/uL Sodium 137 (137-145) mmol/L Potassium 3.7 (3.5-5.1) mmol/L Chloride 105 (98-107) mmol/L Carbon Dioxide 22 (22-30) mmol/L Anion Gap 10 mmol/L BUN 14 (7-17) mg/dL Creatinine 0.96 (0.52-1.04) mg/dL Est GFR (CKD-EPI)AfAm 87 (>60 ml/min/1.73 sqM) Est GFR (CKD-EPI)NonAf 75 (>60 ml/min/1.73 sqM) Glucose 95 (74-99) mg/dL Plasma Lactic Acid K[place] 0.9 (0.7-2.0) mmol/L Calcium 9.9 (8.4-10.2) mg/dL Total Bilirubin 0.5 (0.2-1.3) mg/dL AST 27 (14-36) U/L ALT 30 (4-34) U/L Alkaline Phosphatase 90 (38-126) U/L Total Protein 7.2 (6.3-8.2) g/dL Albumin 4.1 (3.5-5.0) g/dL Amylase 96 (30-110) U/L Lipase 507 H (23-300) U/L Urine Color Urine Appearance (Clear) Urine pH (5.0-8.0) Ur Specific Quentin (1.001-1.035) Urine Protein (Negative) Urine Glucose (UA) (Negative) Urine Ketones (Negative) Urine Blood (Negative) Urine Nitrite (Negative) Urine Bilirubin (Negative) Urine Urobilinogen (<2.0) mg/dL Ur Leukocyte Esterase (Negative) Urine RBC (0-5) /hpf Urine WBC (0-5) /hpf Ur Squamous Epith Cells (0-4) /hpf Urine Bacteria (None) /hpf Hyaline Casts (0-2) /lpf Urine Mucus (None) /hpf Urine HCG, Qual (Not Detectd) Coronavirus (PCR) Not Detected (Not Detectd) Disposition Clinical Impression: Pancreatitis, Epigastric pain, Nausea vomiting and diarrhea, Hematuria Disposition: HOME SELF-CARE Condition: Good Instructions (If sedation given, give patient instructions): Pancreatitis (ED) Additional Instructions: Please use medication as discussed. Please follow-up with family doctor in the next 2 days, repeat lipase Monday or Monday--return for worsening pain. Please return to emergency room if the symptoms increase or worsen or for any other concerns. Is patient prescribed a controlled substance at d/c from ED?: No Referrals: Arthur Burns DO [Primary Care Provider] - 1-2 days Franc Tobar MD [STAFF PHYSICIAN] - 1-2 days Time of Disposition: 17:53
--- NOTE | 2020-01-19 15:47 | XR ---
EXAMINATION TYPE: XR chest 2V DATE OF EXAM: 01/19/2020 COMPARISON: NONE HISTORY: Pain and fever. TECHNIQUE: Frontal and lateral views of the chest are obtained. FINDINGS: There is no focal air space opacity, pleural effusion, or pneumothorax seen. The cardiac silhouette size is within normal limits. The osseous structures are intact. IMPRESSION: No acute cardiopulmonary process.
[2020-01-19 15:59] LABS: Basophils # (A) 0.1 k/uL (0-0.2); Basophils % (A) 1 %; Eosinophils # (A) 0.1 k/uL (0-0.7); Eosinophils % (A) 1 %; HCT 46.6 % (34.0-46.0); Lymphocytes # (A) 1.3 k/uL (1.0-4.8); Lymphocytes % (A) 12 %; MCH 31.5 pg (25.0-35.0); MCHC 34.4 g/dL (31.0-37.0); MCV 91.5 fL (80.0-100.0); Mean Platelet Volume 8.2; Monocytes # (A) 0.7 k/uL (0-1.0); Monocytes % (A) 7 %; Neutrophils # (A) 8.1 k/uL (1.3-7.7); Neutrophils % (A) 75 %; Platelet Count 217 k/uL (150-450); RBC 5.09 m/uL (3.80-5.40); RDW 12.1 % (11.5-15.5); WBC 10.7 k/uL (3.8-10.6)
[2020-01-19 16:10] LABS: Appearance,Urine Cloudy (Clear); Bacteria,Urine Rare /hpf; Bilirubin,Urine 1+ (Negative); Blood,Urine Large (Negative); Color,Urine Yellow; Glucose,Urine (UA) Negative (Negative); Hyaline Casts,Urine 2 /lpf (0-2); Ketones,Urine 2+ (Negative); Leukocyte Esterase,Urine Trace (Negative); Mucus,Urine Many /hpf; Nitrite,Urine Negative (Negative); Protein,Urine 1+ (Negative); RBC,Urine 34 /hpf (0-5); Specific Gravity,Urine 1.026 (1.001-1.035); Squamous Epithelial Cell,Urine 6 /hpf (0-4); WBC,Urine 9 /hpf (0-5)
[2020-01-19 16:14] LABS: Albumin 4.1 g/dL (3.5-5.0); Calcium 9.9 mg/dL (8.4-10.2); Potassium 3.7 mmol/L (3.5-5.1); Total Bilirubin 0.5 mg/dL (0.2-1.3); Total Protein 7.2 g/dL (6.3-8.2)
[2020-01-19] MEDS ORDERED: HYDROmorphone 0.5 MG/0.5 ML SYRINGE IVP STA (17:03)
--- NOTE | 2020-01-19 17:14 | US ---
EXAMINATION TYPE: US abdomen limited DATE OF EXAM: 01/19/2020 COMPARISON: NONE CLINICAL HISTORY: upper abdominal pain. RUQ pain and N/V x 4 days EXAM MEASUREMENTS: Liver Length: 17.1 cm Gallbladder Wall: 0.2 cm CBD: 0.3 cm Right Kidney: 10.0 x 4.7 x 4.3 cm Pancreas: visualized portions wnl, limited by overlying midline bowel gas Liver: wnl Gallbladder: wnl Evidence for sonographic Pichardo's sign: no CBD: wnl Right Kidney: wnl IMPRESSION: No sonographic evidence of acute abnormality or cholelithiasis.
[2020-01-19 18:27] VITALS: BP 119/79; PULSE 86; RESP 18; TEMP 99.4
== END 2020-01-19 18:27 | disposition home or self-care (01) ==
LOC: EC 14:50
DX: K85.90 Acute pancreatitis without necrosis or infection, unspecified (principal); R19.7 Diarrhea, unspecified; R31.9 Hematuria, unspecified; I10 Essential (primary) hypertension; Z79.899 Other long term (current) drug therapy; Z88.1 Allergy status to other antibiotic agents; Z88.5 Allergy status to narcotic agent; Z91.011 Allergy to milk products; Z91.018 Allergy to other foods; Z20.828 Contact with and (suspected) exposure to other viral communicable diseases; Z87.891 Personal history of nicotine dependence; Z86.69 Personal history of other diseases of the nervous system and sense organs
CPT/HCPCS: 36415; 80053; 82150; 83605; 83690; 85025; 81001; 81025; 87635; 71046; 76705; 99284; 96374; 96375; 96361 ×3; J2405; J1170

== ENCOUNTER 2020-01-23 20:01 | Inpatient (IN) | payer BC ==
[2020-01-23] MEDS ORDERED: ONDANSETRON 4 MG/2 ML VIAL IVP STA (20:30)
[2020-01-23] MEDS ORDERED: SODIUM CHLORIDE 0.9% 1,000 ML IV ONE (20:30)
[2020-01-23] MEDS ORDERED: MORPHINE SULFATE 4 MG/ML SYRINGE IVP STA (20:30)
--- NOTE | 2020-01-23 20:45 | ED ---
Abdominal Pain HPI - General Source: patient Mode of arrival: ambulatory Limitations: no limitations <Anastasiia Delacruz - Last Filed: 01/23/20 22:39> <Irina Collins - Last Filed: 02/08/20 23:22> - General Chief Complaint: Abdominal Pain Stated Complaint: Revisit Abd Pain Time Seen by Provider: 01/23/20 20:22 - History of Present Illness Initial Comments: 39-year-old female patient presents to the emergency department today for evaluation of abdominal pain. Patient states that she has been having pain since last weekend. She was seen in this ED and diagnosed with mild pancreatitis and discharged home. Patient states that she has been doing a clear liquid diet but remains very nauseated. States the pain in her abdomen has worsened and is not radiating to her back. She states she has been having fevers mostly at night. Denies history of similar type pain. Denies a history of abdominal surgery. Denies any hematochezia, melena, hematemesis. She denies alcohol or drug use. Denies cigarette smoking. Patient did see her primary care physician does have a CAT scan scheduled for tomorrow. Patient denies any recent rash, cough, shortness of breath, chest pain, numbness, tingling, dizziness, weakness, hematuria, dysuria, urinary urgency, urinary frequency, headache, visual changes, or any other complaints. (Anastasiia Delacruz) - Related Data Home Medications Medication Instructions Recorded Confirmed Cholecalciferol [Vitamin D3 (25 1,000 unit PO DAILY 08/24/17 01/23/20 Mcg = 1000 Iu)] Magnesium Oxide [Mag-Ox] 500 mg PO HS 08/24/17 01/23/20 Metoprolol Succinate [Toprol Xl] 50 mg PO HS 08/24/17 01/23/20 Topiramate [Topamax] 50 mg PO BID 08/24/17 01/23/20 Levonorgestrel-Ethin Estradiol 1 tab PO DAILY 01/01/19 01/23/20 [Levora-28 Tablet] Erenumab-Aooe [Aimovig 70 mg SQ Q30D 01/19/20 01/23/20 Autoinjector] Multivitamins, Thera [Multivitamin 1 tab PO DAILY 01/19/20 01/23/20 (formulary)] Naratriptan HCl 2.5 mg PO DAILY PRN 01/19/20 01/23/20 Omeprazole Magnesium [PriLOSEC OTC] 20 mg PO DAILY 01/19/20 01/23/20 Ondansetron HCl [Zofran] 4 mg PO Q8H PRN 01/19/20 01/23/20 Previous Rx's Medication Instructions Recorded traMADol HCL [Ultram] 50 mg PO Q6HR PRN 3 Days #12 tab 01/29/20 Apixaban [Eliquis] 10 mg PO BID 7 Days #14 tab 02/04/20 Amoxic-Pot Clav 875-125Mg 1 tab PO Q12HR 7 Days #14 tab 02/06/20 [Augmentin 875-125] Allergies Allergy/AdvReac Type Severity Reaction Status Date / Time Beef Containing Products Allergy Pos on Verified 01/24/20 13:38 allergy test cefuroxime [From Ceftin] Allergy Rash/Hives Verified 01/24/20 13:38 chicken derived [Chicken] Allergy Pos on Verified 01/24/20 13:38 allergy test gluten Allergy Rash/Hives Verified 01/24/20 13:38 hydrocodone Allergy Rash/Hives Verified 01/24/20 13:38 levofloxacin [From Levaquin] Allergy Rash/Hives Verified 01/24/20 13:38 Pork/Porcine Containing Allergy Pos on Verified 01/24/20 13:38 Products allergy [Pork] test soybean Allergy Rash/Hives Verified 01/24/20 13:38 Review of Systems ROS Other: All systems not noted in ROS Statement are negative. <Anastasiia Delacruz - Last Filed: 01/23/20 22:39> ROS Other: All systems not noted in ROS Statement are negative. <Irina Collins - Last Filed: 02/08/20 23:22> ROS Statement: Those systems with pertinent positive or pertinent negative responses have been documented in the HPI. Past Medical History Past Medical History: Asthma, Hypertension Additional Past Medical History / Comment(s): Migraines, tachycardia, V-Tach on EKG prevoiusly, had EP Study, everything ok, no problems since. 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 History of Any Multi-Drug Resistant Organisms: None Reported Past Surgical History: Adenoidectomy, Tonsillectomy Additional Past Surgical History / Comment(s): Lateral internal sphincterotomy, EP Study. Past Anesthesia/Blood Transfusion Reactions: Previous Problems w/ Anesthesia, Motion Sickness Additional Past Anesthesia/Blood Transfusion Reaction / Comment(s): Itching, red skin after last surg 2017 ("had Versed, Propofol, Zofran, Decadron") Past Psychological History: No Psychological Hx Reported Smoking Status: Former smoker Past Alcohol Use History: None Reported Past Drug Use History: None Reported - Past Family History Mother Family Medical History: Cancer Additional Family Medical History / Comment(s): Breast, Pancreatic CA. Father Family Medical History: Cancer Additional Family Medical History / Comment(s): Pancreatic CA. <Anastasiia Delacruz M - Last Filed: 01/23/20 22:39> General Exam Limitations: no limitations General appearance: alert, in no apparent distress, other (This is a well- developed, well-nourished adult female patient in no acute distress. Vital s igns upon presentation are temperature 97.5F, pulse 108, respirations 18, blood pressure 133/80, pulse ox 99% on room air.) Eye exam: Present: normal appearance, PERRL, EOMI. Absent: scleral icterus, conjunctival injection, periorbital swelling ENT exam: Present: normal exam, normal oropharynx, mucous membranes moist Respiratory exam: Present: normal lung sounds bilaterally. Absent: respiratory distress, wheezes, rales, rhonchi, stridor Cardiovascular Exam: Present: normal rhythm, tachycardia, normal heart sounds. Absent: systolic murmur, diastolic murmur, rubs, gallop, clicks GI/Abdominal exam: Present: soft, tenderness (Midepigastric tenderness), normal bowel sounds. Absent: distended, guarding, rebound, rigid Back exam: Present: normal inspection, CVA tenderness (R), CVA tenderness (L) Neurological exam: Present: alert, oriented X3, CN II-XII intact Psychiatric exam: Present: normal affect, normal mood Skin exam: Present: warm, dry, intact, normal color. Absent: rash <Anastasiia Delacruz M - Last Filed: 01/23/20 22:39> Course Vital Signs 01/23/20 01/23/20 20:13 22:58 Temperature 97.5 F L Pulse Rate 108 H 104 H Respiratory 18 16 Rate Blood Pressure 133/80 135/99 O2 Sat by Pulse 99 100 Oximetry Medical Decision Making - Lab Data Result diagrams: 01/23/20 20:49 01/23/20 20:49 - Radiology Data Radiology results: report reviewed, image reviewed <Anastasiia Delacruz - Last Filed: 01/23/20 22:39> - Lab Data Result diagrams: 02/06/20 06:26 02/06/20 06:26 <Irina Collins - Last Filed: 02/08/20 23:22> - Medical Decision Making 39-year-old female patient presents to the emergency department today for evaluation of upper abdominal pain with radiation through to the back. Physical examination reveals mild generalized tenderness worse over the midepigastric right upper quadrant region. Labs reviewed and did reveal white blood cell count at 16.4 with neutrophils of 14.2. Urinalysis showed 1+ protein, 4+ ketones, moderate blood, 8 red blood cells, occasional bacteria, occasional mucous. She is not . CT abdomen and pelvis was obtained and did show evidence for small amount of free fluid in the pelvis with fat stranding over the paracolic gutter. Dr. Cox considers PID or possibly appendicitis as a cause for her symptoms and findings. Patient reports no vaginal discharge and states she has not been sexually active for the last 4 years so PID is less of a concern. I did discuss the case with on-call surgeon Dr. Andrews who agrees to admission. Requests to hold antibiotics at this time. We will consult medicine as well. (Anastasiia Delacruz) I was available for consultation in the emergency department. The history and physical exam were done by the midlevel provider. I was consulted for this patients care. I reviewed the case with the midlevel provider and based on their presentation of the patient, I agree with the assessment, medical decision making and plan of care as documented. Chart was dictated using [employer] dictation software. Attempts were made to correct any dictation errors however some typographical errors may persist. Patient was seen during a national state of emergency due to the Covid-19 pandemic. (Irina Collins) - Lab Data Lab Results 01/23/20 01/23/20 01/23/20 Range/Units 20:49 20:49 20:49 WBC 16.4 H (3.8-10.6) k/uL RBC 4.67 (3.80-5.40) m/uL Hgb 14.3 (11.4-16.0) gm/dL Hct 42.3 (34.0-46.0) % MCV 90.7 (80.0-100.0) fL MCH 30.6 (25.0-35.0) pg MCHC 33.7 (31.0-37.0) g/dL RDW 12.2 (11.5-15.5) % Plt Count 374 (150-450) k/uL MPV 7.7 Neutrophils % 86 % Lymphocytes % 8 % Monocytes % 4 % Eosinophils % 0 % Basophils % 0 % Neutrophils # 14.2 H (1.3-7.7) k/uL Lymphocytes # 1.3 (1.0-4.8) k/uL Monocytes # 0.6 (0-1.0) k/uL Eosinophils # 0.1 (0-0.7) k/uL Basophils # 0.1 (0-0.2) k/uL Sodium (137-145) mmol/L Potassium (3.5-5.1) mmol/L Chloride (98-107) mmol/L Carbon Dioxide (22-30) mmol/L Anion Gap mmol/L BUN (7-17) mg/dL Creatinine (0.52-1.04) mg/dL Est GFR (CKD-EPI)AfAm (>60 ml/min/1.73 sqM) Est GFR (CKD-EPI)NonAf (>60 ml/min/1.73 sqM) Glucose (74-99) mg/dL Plasma Lactic Acid Kuldeep (0.7-2.0) mmol/L Calcium (8.4-10.2) mg/dL Magnesium (1.6-2.3) mg/dL Total Bilirubin (0.2-1.3) mg/dL AST (14-36) U/L ALT (4-34) U/L Alkaline Phosphatase (38-126) U/L Total Protein (6.3-8.2) g/dL Albumin (3.5-5.0) g/dL Amylase (30-110) U/L Lipase (23-300) U/L Urine Color Yellow Urine Appearance Clear (Clear) Urine pH 6.0 (5.0-8.0) Ur Specific [place] 1.021 (1.001-1.035) Urine Protein 1+ H (Negative) Urine Glucose (UA) Negative (Negative) Urine Ketones 4+ H (Negative) Urine Blood Moderate H (Negative) Urine Nitrite Negative (Negative) Urine Bilirubin Negative (Negative) Urine Urobilinogen 2.0 (<2.0) mg/dL Ur Leukocyte Esterase Negative (Negative) Urine RBC 8 H (0-5) /hpf Urine WBC 2 (0-5) /hpf Ur Squamous Epith Cells 3 (0-4) /hpf Urine Bacteria Occasional H (None) /hpf Urine Mucus Occasional H (None) /hpf Urine HCG, Qual Not Detected (Not Detectd) Coronavirus (PCR) (Not Detectd) 01/23/20 01/23/20 01/24/20 Range/Units 20:49 20:49 05:49 WBC 14.1 H (3.8-10.6) k/uL RBC 4.28 (3.80-5.40) m/uL Hgb 13.1 (11.4-16.0) gm/dL Hct 38.9 (34.0-46.0) % MCV 91.0 (80.0-100.0) fL MCH 30.7 (25.0-35.0) pg MCHC 33.7 (31.0-37.0) g/dL RDW 12.2 (11.5-15.5) % Plt Count 335 (150-450) k/uL MPV 7.7 Neutrophils % 85 % Lymphocytes % 8 % Monocytes % 5 % Eosinophils % 1 % Basophils % 0 % Neutrophils # 12.0 H (1.3-7.7) k/uL Lymphocytes # 1.2 (1.0-4.8) k/uL Monocytes # 0.7 (0-1.0) k/uL Eosinophils # 0.1 (0-0.7) k/uL Basophils # 0.0 (0-0.2) k/uL Sodium 136 L (137-145) mmol/L Potassium 3.9 (3.5-5.1) mmol/L Chloride 105 (98-107) mmol/L Carbon Dioxide 17 L (22-30) mmol/L Anion Gap 14 mmol/L BUN 5 L (7-17) mg/dL Creatinine 0.69 (0.52-1.04) mg/dL Est GFR (CKD-EPI)AfAm >90 (>60 ml/min/1.73 sqM) Est GFR (CKD-EPI)NonAf >90 (>60 ml/min/1.73 sqM) Glucose 92 (74-99) mg/dL Plasma Lactic Acid Kuldeep 0.8 (0.7-2.0) mmol/L Calcium 9.6 (8.4-10.2) mg/dL Magnesium (1.6-2.3) mg/dL Total Bilirubin 0.7 (0.2-1.3) mg/dL AST 21 (14-36) U/L ALT 16 (4-34) U/L Alkaline Phosphatase 95 (38-126) U/L Total Protein 6.8 (6.3-8.2) g/dL Albumin 3.7 (3.5-5.0) g/dL Amylase 53 (30-110) U/L Lipase 258 (23-300) U/L Urine Color Urine Appearance (Clear) Urine pH (5.0-8.0) Ur Specific [place] (1.001-1.035) Urine Protein (Negative) Urine Glucose (UA) (Negative) Urine Ketones (Negative) Urine Blood (Negative) Urine Nitrite (Negative) Urine Bilirubin (Negative) Urine Urobilinogen (<2.0) mg/dL Ur Leukocyte Esterase (Negative) Urine RBC (0-5) /hpf Urine WBC (0-5) /hpf Ur Squamous Epith Cells (0-4) /hpf Urine Bacteria (None) /hpf Urine Mucus (None) /hpf Urine HCG, Qual (Not Detectd) Coronavirus (PCR) (Not Detectd) 01/24/20 01/24/20 01/25/20 Range/Units 05:49 09:25 07:34 WBC 20.1 H (3.8-10.6) k/uL RBC 4.04 (3.80-5.40) m/uL Hgb 12.5 (11.4-16.0) gm/dL Hct 37.1 (34.0-46.0) % MCV 91.8 (80.0-100.0) fL MCH 31.0 (25.0-35.0) pg MCHC 33.8 (31.0-37.0) g/dL RDW 12.4 (11.5-15.5) % Plt Count 360 (150-450) k/uL MPV 7.5 Neutrophils % 90 % Lymphocytes % 4 % Monocytes % 5 % Eosinophils % 0 % Basophils % 0 % Neutrophils # 18.1 H (1.3-7.7) k/uL Lymphocytes # 0.7 L (1.0-4.8) k/uL Monocytes # 1.0 (0-1.0) k/uL Eosinophils # 0.0 (0-0.7) k/uL Basophils # 0.0 (0-0.2) k/uL Sodium 138 (137-145) mmol/L Potassium 3.8 (3.5-5.1) mmol/L Chloride 111 H (98-107) mmol/L Carbon Dioxide 17 L (22-30) mmol/L Anion Gap 10 mmol/L BUN 4 L (7-17) mg/dL Creatinine 0.67 (0.52-1.04) mg/dL Est GFR (CKD-EPI)AfAm >90 (>60 ml/min/1.73 sqM) Est GFR (CKD-EPI)NonAf >90 (>60 ml/min/1.73 sqM) Glucose 81 (74-99) mg/dL Plasma Lactic Acid Kuldeep (0.7-2.0) mmol/L Calcium 9.1 (8.4-10.2) mg/dL Magnesium (1.6-2.3) mg/dL Total Bilirubin 0.6 (0.2-1.3) mg/dL AST 17 (14-36) U/L ALT 13 (4-34) U/L Alkaline Phosphatase 78 (38-126) U/L Total Protein 5.8 L (6.3-8.2) g/dL Albumin 3.1 L (3.5-5.0) g/dL Amylase (30-110) U/L Lipase 252 (23-300) U/L Urine Color Urine Appearance (Clear) Urine pH (5.0-8.0) Ur Specific [place] (1.001-1.035) Urine Protein (Negative) Urine Glucose (UA) (Negative) Urine Ketones (Negative) Urine Blood (Negative) Urine Nitrite (Negative) Urine Bilirubin (Negative) Urine Urobilinogen (<2.0) mg/dL Ur Leukocyte Esterase (Negative) Urine RBC (0-5) /hpf Urine WBC (0-5) /hpf Ur Squamous Epith Cells (0-4) /hpf Urine Bacteria (None) /hpf Urine Mucus (None) /hpf Urine HCG, Qual (Not Detectd) Coronavirus (PCR) Not Detected (Not Detectd) 01/25/20 Range/Units 07:34 WBC (3.8-10.6) k/uL RBC (3.80-5.40) m/uL Hgb (11.4-16.0) gm/dL Hct (34.0-46.0) % MCV (80.0-100.0) fL MCH (25.0-35.0) pg MCHC (31.0-37.0) g/dL RDW (11.5-15.5) % Plt Count (150-450) k/uL MPV Neutrophils % % Lymphocytes % % Monocytes % % Eosinophils % % Basophils % % Neutrophils # (1.3-7.7) k/uL Lymphocytes # (1.0-4.8) k/uL Monocytes # (0-1.0) k/uL Eosinophils # (0-0.7) k/uL Basophils # (0-0.2) k/uL Sodium 138 (137-145) mmol/L Potassium 4.4 (3.5-5.1) mmol/L Chloride 112 H (98-107) mmol/L Carbon Dioxide 17 L (22-30) mmol/L Anion Gap 9 mmol/L BUN 7 (7-17) mg/dL Creatinine 0.66 (0.52-1.04) mg/dL Est GFR (CKD-EPI)AfAm >90 (>60 ml/min/1.73 sqM) Est GFR (CKD-EPI)NonAf >90 (>60 ml/min/1.73 sqM) Glucose 175 H (74-99) mg/dL Plasma Lactic Acid Kuldeep (0.7-2.0) mmol/L Calcium 8.7 (8.4-10.2) mg/dL Magnesium 1.9 (1.6-2.3) mg/dL Total Bilirubin (0.2-1.3) mg/dL AST (14-36) U/L ALT (4-34) U/L Alkaline Phosphatase (38-126) U/L Total Protein (6.3-8.2) g/dL Albumin (3.5-5.0) g/dL Amylase (30-110) U/L Lipase (23-300) U/L Urine Color Urine Appearance (Clear) Urine pH (5.0-8.0) Ur Specific [place] (1.001-1.035) Urine Protein (Negative) Urine Glucose (UA) (Negative) Urine Ketones (Negative) Urine Blood (Negative) Urine Nitrite (Negative) Urine Bilirubin (Negative) Urine Urobilinogen (<2.0) mg/dL Ur Leukocyte Esterase (Negative) Urine RBC (0-5) /hpf Urine WBC (0-5) /hpf Ur Squamous Epith Cells (0-4) /hpf Urine Bacteria (None) /hpf Urine Mucus (None) /hpf Urine HCG, Qual (Not Detectd) Coronavirus (PCR) (Not Detectd) - Radiology Data CT abdomen and pelvis was obtained with contrast. Report is reviewed in its entirety. Impression by Dr. Cox shows small amount of free fluid in the pelvis and minimal stranding in the paracolic gutter. Appendix difficult to identify. Consider repeating the exam with oral contrast. I would consider possibilities of PID. Appendicitis is not excluded. (Anastasiia Delacruz) Disposition Decision to Admit Reason: Admit from EC Decision Date: 01/23/20 Decision Time: 22:33 <Anastasiia Delacruz - Last Filed: 01/23/20 22:39> <Irina Collins - Last Filed: 02/08/20 23:22> Clinical Impression: Abdominal pain, Leukocytosis Disposition: ADMITTED IP TO THIS [facility] Condition: Serious
[2020-01-23 20:59] LABS: Basophils # (A) 0.1 k/uL (0-0.2); Basophils % (A) 0 %; Eosinophils # (A) 0.1 k/uL (0-0.7); Eosinophils % (A) 0 %; HCT 42.3 % (34.0-46.0); HGB 14.3 gm/dL (11.4-16.0); Lymphocytes # (A) 1.3 k/uL (1.0-4.8); Lymphocytes % (A) 8 %; MCH 30.6 pg (25.0-35.0); MCHC 33.7 g/dL (31.0-37.0); MCV 90.7 fL (80.0-100.0); Mean Platelet Volume 7.7; Monocytes # (A) 0.6 k/uL (0-1.0); Monocytes % (A) 4 %; Neutrophils # (A) 14.2 k/uL (1.3-7.7); Neutrophils % (A) 86 %; Platelet Count 374 k/uL (150-450); RBC 4.67 m/uL (3.80-5.40); RDW 12.2 % (11.5-15.5); WBC 16.4 k/uL (3.8-10.6)
[2020-01-23 21:07] LABS: ALT 16 U/L (4-34); AST 21 U/L (14-36); African American GFR (CKD) >90 (>60 ml/min/1.73 sqM); Albumin 3.7 g/dL (3.5-5.0); Alkaline Phosphatase 95 U/L (38-126); Amylase 53 U/L (30-110); Anion Gap 14 mmol/L; Blood Urea Nitrogen 5 mg/dL (7-17); Calcium 9.6 mg/dL (8.4-10.2); Carbon Dioxide 17 mmol/L (22-30); Chloride 105 mmol/L (98-107); Glucose 92 mg/dL (74-99); Lipase 258 U/L (23-300); Non-African American GFR(CKD) >90 (>60 ml/min/1.73 sqM); Potassium 3.9 mmol/L (3.5-5.1); Sodium 136 mmol/L (137-145); Total Bilirubin 0.7 mg/dL (0.2-1.3); Total Protein 6.8 g/dL (6.3-8.2)
--- NOTE | 2020-01-23 21:52 | CT ---
EXAMINATION TYPE: CT abdomen pelvis w con DATE OF EXAM: 01/23/2020 COMPARISON: None HISTORY: Abdominal pain CT DLP: 545.4 mGycm Automated exposure control for dose reduction was used. CONTRAST: Performed with IV Contrast, patient injected with 100 mL of Isovue 300. Lung bases are clear. There is no pleural effusion. Heart size is normal. There is no pericardial eff usion. Liver spleen pancreas gallbladder appear normal. Bile ducts are not dilated. There is no adrenal mass. Kidneys show satisfactory contrast opacification. There is no hydronephrosi s. Ureters are not dilated. Delayed images show normal renal excretion. There is no inguinal hernia. Uterus is anteverted. There is small amount of free fluid in the pelvis. Appendix is difficult to identify. There is no evidence of a bowel obstruction. There is no ascites. There is no free air. Lumbar verteb ra have normal alignment. Disc spaces are normal. Bony pelvis is intact. IMPRESSION: There is small amount of free fluid in the pelvis and minimal stranding in the paracolic gutter. Appe ndix difficult to identify. Consider repeating the exam with oral contrast. I would consider possibil ities of PID. Appendicitis not excluded.
[2020-01-23 21:55] LABS: Appearance,Urine Clear (Clear); Bacteria,Urine Occasional /hpf; Bilirubin,Urine Negative (Negative); Blood,Urine Moderate (Negative); Color,Urine Yellow; Glucose,Urine (UA) Negative (Negative); Ketones,Urine 4+ (Negative); Leukocyte Esterase,Urine Negative (Negative); Mucus,Urine Occasional /hpf; Nitrite,Urine Negative (Negative); Protein,Urine 1+ (Negative); RBC,Urine 8 /hpf (0-5); Specific Gravity,Urine 1.021 (1.001-1.035); Squamous Epithelial Cell,Urine 3 /hpf (0-4); WBC,Urine 2 /hpf (0-5)
[2020-01-23] MEDS ORDERED: SODIUM CHLORIDE 0.9% 1,000 ML IV SCH (22:30)
[2020-01-23] MEDS ORDERED: NALOXONE 0.4 MG/ML 1 ML VIAL IV PRN (22:30)
[2020-01-23] MEDS: HYDROmorphone 0.5 MG/0.5 ML SYRINGE IVP PRN (23:23)
[2020-01-24] MEDS: HYDROmorphone 0.5 MG/0.5 ML SYRINGE IVP PRN ×5 (02:04→22:55)
[2020-01-24 06:05] LABS: Basophils % (A) 0 %; Eosinophils # (A) 0.1 k/uL (0-0.7); Eosinophils % (A) 1 %; HCT 38.9 % (34.0-46.0); HGB 13.1 gm/dL (11.4-16.0); Lymphocytes # (A) 1.2 k/uL (1.0-4.8); Lymphocytes % (A) 8 %; MCH 30.7 pg (25.0-35.0); MCHC 33.7 g/dL (31.0-37.0); Mean Platelet Volume 7.7; Monocytes # (A) 0.7 k/uL (0-1.0); Monocytes % (A) 5 %; Neutrophils % (A) 85 %; Platelet Count 335 k/uL (150-450); RBC 4.28 m/uL (3.80-5.40); RDW 12.2 % (11.5-15.5); WBC 14.1 k/uL (3.8-10.6)
[2020-01-24 06:20] LABS: ALT 13 U/L (4-34); AST 17 U/L (14-36); African American GFR (CKD) >90 (>60 ml/min/1.73 sqM); Albumin 3.1 g/dL (3.5-5.0); Alkaline Phosphatase 78 U/L (38-126); Anion Gap 10 mmol/L; Blood Urea Nitrogen 4 mg/dL (7-17); Calcium 9.1 mg/dL (8.4-10.2); Carbon Dioxide 17 mmol/L (22-30); Chloride 111 mmol/L (98-107); Glucose 81 mg/dL (74-99); Lipase 252 U/L (23-300); Non-African American GFR(CKD) >90 (>60 ml/min/1.73 sqM); Potassium 3.8 mmol/L (3.5-5.1); Sodium 138 mmol/L (137-145); Total Bilirubin 0.6 mg/dL (0.2-1.3); Total Protein 5.8 g/dL (6.3-8.2)
[2020-01-24] MEDS: ONDANSETRON 4 MG/2 ML VIAL IVP PRN ×2 (08:34→22:45)
[2020-01-24] MEDS ORDERED: METOPROLOL SUCCINATE (ER) 50 MG TAB.ER.24H PO STA (08:54)
--- NOTE | 2020-01-24 09:28 | P.GSHP ---
<Linnette Simon - Last Filed: 01/24/20 09:14> History of Present Illness H&P Date: 01/24/20 CHIEF COMPLAINT: Abdominal pain HISTORY OF PRESENT ILLNESS: This is a 39-year-old female with a known history of GERD, hypertension, asthma, atrial tachycardia and POTS. Patient presents to the emergency room with complaints of abdominal pain in the umbilical area that wraps around the abdomen to the back for the past week. She's also been having nausea and intermittent episodes of vomiting. She has been feverish with a temp of 102 at home. She initially came into the ER on 01/19/2020 for abdominal pain and had diagnosed with pancreatitis and was discharged from the ER with outpatient follow up. She did have an elevated lipase in the 500s and repeat lipase is normal. She had been on a clear liquid diet at home. Patient reports that her abdominal pain pain continued to worsen therefore she came back into the ER for further treatment. Computed tomography scan abdomen and pelvis with IV contrast has shown small moderate free fluid in the pelvis and minimal stranding in the paracolic gutter. Appendix difficult to identify. Appendicitis not excluded. Patient had elevated white count 16.4 tachycardic heart rate 104. There are concerns for a possible acute appendicitis. She's been placed on IV Zosyn and IV fluids. And admitted to surgical service. Patient denies any diarrhea, urinary symptoms or vaginal discharge. Patient does have a family history of mom and dad with pancreatic cancer. PAST MEDICAL HISTORY: See list. PAST SURGICAL HISTORY: See list. MEDICATIONS: See list. ALLERGIES: See list. SOCIAL HISTORY: No illicit drug use. REVIEW OF SYSTEMS: CONSTITUTIONAL: Denies fever or chills. HEENT: Denies blurred vision, vision changes, or eye pain. Denies hemoptysis CARDIOVASCULAR: Denies chest pain or pressure. RESPIRATORY: No shortness of breath. GASTROINTESTINAL: See HPI for pertinent findings HEMATOLOGIC: Denies bleeding disorders. GENITOURINARY: Denies any blood in urine or increased urinary frequency. SKIN: Denies pruitis. Denies rash. PHYSICAL EXAM: VITAL SIGNS: Reviewed GENERAL: Well-developed in no acute distress. HEENT: No sclera icterus. Extraocular movements grossly intact. Moist buccal mucosa. Head is atraumatic, normocephalic. No nasal drainage. ABDOMEN: Soft. Nondistended. Patient has tenderness at the umbilicus and right lower quadrant. When pushing on umbilicus she has increased pain in the right lower quadrant NEUROLOGIC: Alert and oriented. Cranial nerves II through XII grossly intact. LABORATORY DATA: WBC 16.4 down to 14.1 Hgb 13.1 lactic 0.8 LFTs normal lipase normal IMAGING: computed tomography scan abdomen and pelvis with IV contrast has shown small moderate free fluid in the pelvis and minimal stranding in the paracolic gutter. Appendix difficult to identify. Appendicitis not excluded. ASSESSMENT: 1. Possible acute appendicitis 2. Abdominal pain 3. History of atrial tachycardia PLAN: -Patient scheduled for diagnostic laparoscopy and possible appendectomy with Dr. Andrews today -Keep patient nothing by mouth -Increase IV fluids normal saline 125 mL an hour -And IV Zosyn -Consult medicine for medical management Physician Concrete Finisher note has been reviewed by physician. Signing provider agrees with the documented findings, assessment, and plan of care. Past Medical History Past Medical History: Asthma, Hypertension Additional Past Medical History / Comment(s): Migraines, tachycardia, V-Tach on EKG prevoiusly, had EP study (everything okay, no problems since). 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 History of Any Multi-Drug Resistant Organisms: None Reported Past Surgical History: Adenoidectomy, Tonsillectomy Additional Past Surgical History / Comment(s): Lateral internal sphincterotomy, EP study Past Anesthesia/Blood Transfusion Reactions: Previous Problems w/ Anesthesia, Motion Sickness Additional Past Anesthesia/Blood Transfusion Reaction / Comment(s): Itching, red skin after last surg 2016 ("had Versed, Propofol, Zofran, Decadron") Past Psychological History: No Psychological Hx Reported Smoking Status: Former smoker Past Alcohol Use History: None Reported Additional Past Alcohol Use History / Comment(s): Smoked 13 years, 1/2 ppd, quit 2012. Past Drug Use History: None Reported - Past Family History Mother Family Medical History: Cancer Additional Family Medical History / Comment(s): Breast, Pancreatic CA. Father Family Medical History: Cancer Additional Family Medical History / Comment(s): Pancreatic CA. Medications and Allergies Home Medications Medication Instructions Recorded Confirmed Type Cholecalciferol [Vitamin D3 (25 1,000 unit PO DAILY 08/24/17 01/23/20 History Mcg = 1000 Iu)] Magnesium Oxide [Mag-Ox] 500 mg PO HS 08/24/17 01/23/20 History Metoprolol Succinate [Toprol Xl] 50 mg PO HS 08/24/17 01/23/20 History Topiramate [Topamax] 50 mg PO BID 08/24/17 01/23/20 History Levonorgestrel-Ethin Estradiol 1 tab PO DAILY 01/01/19 01/23/20 History [Levora-28 Tablet] Erenumab-Aooe [Aimovig 70 mg SQ Q30D 01/19/20 01/23/20 History Autoinjector] Multivitamins, Thera [Multivitamin 1 tab PO DAILY 01/19/20 01/23/20 History (formulary)] Naratriptan HCl 2.5 mg PO DAILY PRN 01/19/20 01/23/20 History Omeprazole Magnesium [PriLOSEC OTC] 20 mg PO DAILY 01/19/20 01/23/20 History Ondansetron HCl [Zofran] 4 mg PO Q8H PRN 01/19/20 01/23/20 History Acetaminophen-Codeine 300-30mg 1 tab PO Q8H PRN 01/23/20 01/23/20 History [Tylenol w/codeine #3] Allergies Allergy/AdvReac Type Severity Reaction Status Date / Time Beef Containing Products Allergy Pos on Verified 01/24/20 00:15 allergy test cefuroxime [From Ceftin] Allergy Rash/Hives Verified 01/24/20 00:15 chicken derived [Chicken] Allergy Pos on Verified 01/24/20 00:15 allergy test gluten Allergy Rash/Hives Verified 01/24/20 00:15 hydrocodone Allergy Rash/Hives Verified 01/24/20 00:15 levofloxacin [From Levaquin] Allergy Rash/Hives Verified 01/24/20 00:15 Milk Containing Products Allergy Rash/Hives Verified 01/24/20 00:15 Pork/Porcine Containing Allergy Pos on Verified 01/24/20 00:15 Products allergy [Pork] test soybean Allergy Rash/Hives Verified 01/24/20 00:15 Surgical - Exam Vital Signs Temp Pulse Resp BP Pulse Ox 97.5 F L 108 H 18 133/80 99 01/23/20 20:13 01/23/20 20:13 01/23/20 20:13 01/23/20 20:13 01/23/20 20:13 Results - Labs 01/24/20 05:49 01/24/20 05:49 Abnormal Lab Results - Last 24 Hours (Table) 01/23/20 01/23/20 01/23/20 Range/Units 20:49 20:49 20:49 WBC 16.4 H (3.8-10.6) k/uL Neutrophils # 14.2 H (1.3-7.7) k/uL Sodium 136 L (137-145) mmol/L Chloride (98-107) mmol/L Carbon Dioxide 17 L (22-30) mmol/L BUN 5 L (7-17) mg/dL Total Protein (6.3-8.2) g/dL Albumin (3.5-5.0) g/dL Urine Protein 1+ H (Negative) Urine Ketones 4+ H (Negative) Urine Blood Moderate H (Negative) Urine RBC 8 H (0-5) /hpf Urine Bacteria Occasional H (None) /hpf Urine Mucus Occasional H (None) /hpf 01/24/20 01/24/20 Range/Units 05:49 05:49 WBC 14.1 H (3.8-10.6) k/uL Neutrophils # 12.0 H (1.3-7.7) k/uL Sodium (137-145) mmol/L Chloride 111 H (98-107) mmol/L Carbon Dioxide 17 L (22-30) mmol/L BUN 4 L (7-17) mg/dL Total Protein 5.8 L (6.3-8.2) g/dL Albumin 3.1 L (3.5-5.0) g/dL Urine Protein (Negative) Urine Ketones (Negative) Urine Blood (Negative) Urine RBC (0-5) /hpf Urine Bacteria (None) /hpf Urine Mucus (None) /hpf Diabetes panel 01/23/20 01/24/20 Range/Units 20:49 05:49 Sodium 136 L 138 (137-145) mmol/L Potassium 3.9 3.8 (3.5-5.1) mmol/L Chloride 105 111 H (98-107) mmol/L Carbon Dioxide 17 L 17 L (22-30) mmol/L BUN 5 L 4 L (7-17) mg/dL Creatinine 0.69 0.67 (0.52-1.04) mg/dL Glucose 92 81 (74-99) mg/dL Calcium 9.6 9.1 (8.4-10.2) mg/dL AST 21 17 (14-36) U/L ALT 16 13 (4-34) U/L Alkaline Phosphatase 95 78 (38-126) U/L Total Protein 6.8 5.8 L (6.3-8.2) g/dL Albumin 3.7 3.1 L (3.5-5.0) g/dL Calcium panel 01/23/20 01/24/20 Range/Units 20:49 05:49 Calcium 9.6 9.1 (8.4-10.2) mg/dL Albumin 3.7 3.1 L (3.5-5.0) g/dL Pituitary panel 01/23/20 01/24/20 Range/Units 20:49 05:49 Sodium 136 L 138 (137-145) mmol/L Potassium 3.9 3.8 (3.5-5.1) mmol/L Chloride 105 111 H (98-107) mmol/L Carbon Dioxide 17 L 17 L (22-30) mmol/L BUN 5 L 4 L (7-17) mg/dL Creatinine 0.69 0.67 (0.52-1.04) mg/dL Glucose 92 81 (74-99) mg/dL Calcium 9.6 9.1 (8.4-10.2) mg/dL Adrenal panel 01/23/20 01/24/20 Range/Units 20:49 05:49 Sodium 136 L 138 (137-145) mmol/L Potassium 3.9 3.8 (3.5-5.1) mmol/L Chloride 105 111 H (98-107) mmol/L Carbon Dioxide 17 L 17 L (22-30) mmol/L BUN 5 L 4 L (7-17) mg/dL Creatinine 0.69 0.67 (0.52-1.04) mg/dL Glucose 92 81 (74-99) mg/dL Calcium 9.6 9.1 (8.4-10.2) mg/dL Total Bilirubin 0.7 0.6 (0.2-1.3) mg/dL AST 21 17 (14-36) U/L ALT 16 13 (4-34) U/L Alkaline Phosphatase 95 78 (38-126) U/L Total Protein 6.8 5.8 L (6.3-8.2) g/dL Albumin 3.7 3.1 L (3.5-5.0) g/dL <[id number] - Last Filed: 01/24/20 13:36> History of Present Illness As above. Patient with atypical presentation. Appears slightly toxic with tachycardia and leukocytosis persisting. CAT scan reviewed this morning with Dr. Medrano. Appendicitis remains the most likely explanation for the CAT scan findings. Patient remains somewhat tender particularly in the right mid to lower abdomen. Clinical scenario discussed with the patient in detail. Plans for diagnostic laparoscopy and possible appendectomy agreed upon. Risks of bleeding, infection, abscess, leak, need for laparotomy, bladder bowel and ureteral injury, hernia, findings of other etiologies discussed. She understands and wishes to proceed. Surgical - Exam Vital Signs Temp Pulse Resp BP Pulse Ox 97.5 F L 108 H 18 133/80 99 01/23/20 20:13 01/23/20 20:13 01/23/20 20:13 01/23/20 20:13 01/23/20 20:13 Results - Labs 01/24/20 05:49 01/24/20 05:49 Abnormal Lab Results - Last 24 Hours (Table) 01/23/20 01/23/20 01/23/20 Range/Units 20:49 20:49 20:49 WBC 16.4 H (3.8-10.6) k/uL Neutrophils # 14.2 H (1.3-7.7) k/uL Sodium 136 L (137-145) mmol/L Chloride (98-107) mmol/L Carbon Dioxide 17 L (22-30) mmol/L BUN 5 L (7-17) mg/dL Total Protein (6.3-8.2) g/dL Albumin (3.5-5.0) g/dL Urine Protein 1+ H (Negative) Urine Ketones 4+ H (Negative) Urine Blood Moderate H (Negative) Urine RBC 8 H (0-5) /hpf Urine Bacteria Occasional H (None) /hpf Urine Mucus Occasional H (None) /hpf 01/24/20 01/24/20 Range/Units 05:49 05:49 WBC 14.1 H (3.8-10.6) k/uL Neutrophils # 12.0 H (1.3-7.7) k/uL Sodium (137-145) mmol/L Chloride 111 H (98-107) mmol/L Carbon Dioxide 17 L (22-30) mmol/L BUN 4 L (7-17) mg/dL Total Protein 5.8 L (6.3-8.2) g/dL Albumin 3.1 L (3.5-5.0) g/dL Urine Protein (Negative) Urine Ketones (Negative) Urine Blood (Negative) Urine RBC (0-5) /hpf Urine Bacteria (None) /hpf Urine Mucus (None) /hpf Diabetes panel 01/23/20 01/24/20 Range/Units 20:49 05:49 Sodium 136 L 138 (137-145) mmol/L Potassium 3.9 3.8 (3.5-5.1) mmol/L Chloride 105 111 H (98-107) mmol/L Carbon Dioxide 17 L 17 L (22-30) mmol/L BUN 5 L 4 L (7-17) mg/dL Creatinine 0.69 0.67 (0.52-1.04) mg/dL Glucose 92 81 (74-99) mg/dL Calcium 9.6 9.1 (8.4-10.2) mg/dL AST 21 17 (14-36) U/L ALT 16 13 (4-34) U/L Alkaline Phosphatase 95 78 (38-126) U/L Total Protein 6.8 5.8 L (6.3-8.2) g/dL Albumin 3.7 3.1 L (3.5-5.0) g/dL Calcium panel 01/23/20 01/24/20 Range/Units 20:49 05:49 Calcium 9.6 9.1 (8.4-10.2) mg/dL Albumin 3.7 3.1 L (3.5-5.0) g/dL Pituitary panel 01/23/20 01/24/20 Range/Units 20:49 05:49 Sodium 136 L 138 (137-145) mmol/L Potassium 3.9 3.8 (3.5-5.1) mmol/L Chloride 105 111 H (98-107) mmol/L Carbon Dioxide 17 L 17 L (22-30) mmol/L BUN 5 L 4 L (7-17) mg/dL Creatinine 0.69 0.67 (0.52-1.04) mg/dL Glucose 92 81 (74-99) mg/dL Calcium 9.6 9.1 (8.4-10.2) mg/dL Adrenal panel 01/23/20 01/24/20 Range/Units 20:49 05:49 Sodium 136 L 138 (137-145) mmol/L Potassium 3.9 3.8 (3.5-5.1) mmol/L Chloride 105 111 H (98-107) mmol/L Carbon Dioxide 17 L 17 L (22-30) mmol/L BUN 5 L 4 L (7-17) mg/dL Creatinine 0.69 0.67 (0.52-1.04) mg/dL Glucose 92 81 (74-99) mg/dL Calcium 9.6 9.1 (8.4-10.2) mg/dL Total Bilirubin 0.7 0.6 (0.2-1.3) mg/dL AST 21 17 (14-36) U/L ALT 16 13 (4-34) U/L Alkaline Phosphatase 95 78 (38-126) U/L Total Protein 6.8 5.8 L (6.3-8.2) g/dL Albumin 3.7 3.1 L (3.5-5.0) g/dL
[2020-01-24] MEDS: PIPERACILLIN-TAZOBACTAM 3.375 GM in SODIUM CHLORIDE 0.9% 100 ML IVPB SCH ×2 (09:49→19:18)
[2020-01-24] MEDS: PANTOPRAZOLE 40 MG/10 ML VIAL IVP SCH (09:49)
[2020-01-24] MEDS: SODIUM CHLORIDE 0.9% 1,000 ML IV SCH ×2 (11:02→21:04)
--- NOTE | 2020-01-24 11:40 | P.CNPUL ---
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, 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 does have a history of hypertension and POTS syndrome, those issues were has been stable, however she is been having diffuse intermittent abdominal pain for last 10 days, she does have significant history of pancreatic cancer both maternal and paternal side, she had one presentation earlier was discharged subsequently suspected pancreatitis at that time however again came back into the emergency department, recent abdominal CAT scan shows free fluid in the pelvis stranding in pericolic gutter appendix not seen patient is being considered for exploratory laparotomy, hemodynamically she is stable she did receive metipranolol earlier this morning the white cell count is up 16,400, LFTs and renal function is normal, covid is negative Review of Systems All systems: negative Past Medical History Past Medical History: Asthma, Hypertension Additional Past Medical History / Comment(s): Migraines, tachycardia, V-Tach on EKG prevoiusly, had EP study (everything okay, no problems since). 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 History of Any Multi-Drug Resistant Organisms: None Reported Past Surgical History: Adenoidectomy, Tonsillectomy Additional Past Surgical History / Comment(s): Lateral internal sphincterotomy, EP study Past Anesthesia/Blood Transfusion Reactions: Previous Problems w/ Anesthesia, Motion Sickness Additional Past Anesthesia/Blood Transfusion Reaction / Comment(s): Itching, red skin after last surg 2016 ("had Versed, Propofol, Zofran, Decadron") Past Psychological History: No Psychological Hx Reported Smoking Status: Former smoker Past Alcohol Use History: None Reported Additional Past Alcohol Use History / Comment(s): Smoked 13 years, 1/2 ppd, quit 2012. Past Drug Use History: None Reported - Past Family History Mother Family Medical History: Cancer Additional Family Medical History / Comment(s): Breast, Pancreatic CA. Father Family Medical History: Cancer Additional Family Medical History / Comment(s): Pancreatic CA. Medications and Allergies Home Medications Medication Instructions Recorded Confirmed Type Cholecalciferol [Vitamin D3 (25 1,000 unit PO DAILY 08/24/17 01/23/20 History Mcg = 1000 Iu)] Magnesium Oxide [Mag-Ox] 500 mg PO HS 08/24/17 01/23/20 History Metoprolol Succinate [Toprol Xl] 50 mg PO HS 08/24/17 01/23/20 History Topiramate [Topamax] 50 mg PO BID 08/24/17 01/23/20 History Levonorgestrel-Ethin Estradiol 1 tab PO DAILY 01/01/19 01/23/20 History [Levora-28 Tablet] Erenumab-Aooe [Aimovig 70 mg SQ Q30D 01/19/20 01/23/20 History Autoinjector] Multivitamins, Thera [Multivitamin 1 tab PO DAILY 01/19/20 01/23/20 History (formulary)] Naratriptan HCl 2.5 mg PO DAILY PRN 01/19/20 01/23/20 History Omeprazole Magnesium [PriLOSEC OTC] 20 mg PO DAILY 01/19/20 01/23/20 History Ondansetron HCl [Zofran] 4 mg PO Q8H PRN 01/19/20 01/23/20 History Acetaminophen-Codeine 300-30mg 1 tab PO Q8H PRN 01/23/20 01/23/20 History [Tylenol w/codeine #3] Allergies Allergy/AdvReac Type Severity Reaction Status Date / Time Beef Containing Products Allergy Pos on Verified 01/24/20 00:15 allergy test cefuroxime [From Ceftin] Allergy Rash/Hives Verified 01/24/20 00:15 chicken derived [Chicken] Allergy Pos on Verified 01/24/20 00:15 allergy test gluten Allergy Rash/Hives Verified 01/24/20 00:15 hydrocodone Allergy Rash/Hives Verified 01/24/20 00:15 levofloxacin [From Levaquin] Allergy Rash/Hives Verified 01/24/20 00:15 Milk Containing Products Allergy Rash/Hives Verified 01/24/20 00:15 Pork/Porcine Containing Allergy Pos on Verified 01/24/20 00:15 Products allergy [Pork] test soybean Allergy Rash/Hives Verified 01/24/20 00:15 Physical Exam Vitals: Vital Signs Temp Pulse Pulse Resp BP BP Pulse Ox 01/24/20 08:11 98.9 F 104 H 20 102/68 96 01/24/20 06:05 98.3 F 01/24/20 01:59 98.5 F 102 H 16 117/68 96 01/24/20 00:32 98.3 F 103 H 18 120/76 97 01/23/20 22:58 104 H 16 135/99 100 01/23/20 20:13 97.5 F L 108 H 18 133/80 99 Intake and Output 01/23/20 01/24/20 01/24/20 22:59 06:59 14:59 Other: Voiding Method Toilet # Voids 1 1 Weight 58.967 kg 60.3 kg - Constitutional General appearance: average body habitus, cooperative, disheveled - EENT Eyes: PERRLA ENT: hearing grossly normal Ears: bilateral: normal - Neck Neck: normal ROM Carotids: bilateral: upstroke normal Thyroid: bilateral: normal size - Respiratory Respiratory: bilateral: CTA - Cardiovascular Rhythm: regular Heart sounds: normal: S1, S2 - Gastrointestinal General gastrointestinal: decreased bowel sounds, soft - Neurologic Neurologic: CNII-XII intact - Musculoskeletal Musculoskeletal: gait normal, generalized weakness, strength equal bilaterally - Psychiatric Psychiatric: A&O x's 3, appropriate affect, intact judgment & insight Results - Laboratory Findings CBC and BMP: 01/24/20 05:49 01/24/20 05:49 Abnormal lab findings: Abnormal Labs 01/23/20 01/23/20 01/23/20 20:49 20:49 20:49 WBC 16.4 H Neutrophils # 14.2 H Sodium 136 L Chloride Carbon Dioxide 17 L BUN 5 L Total Protein Albumin Urine Protein 1+ H Urine Ketones 4+ H Urine Blood Moderate H Urine RBC 8 H Urine Bacteria Occasional H Urine Mucus Occasional H 01/24/20 01/24/20 05:49 05:49 WBC 14.1 H Neutrophils # 12.0 H Sodium Chloride 111 H Carbon Dioxide 17 L BUN 4 L Total Protein 5.8 L Albumin 3.1 L Urine Protein Urine Ketones Urine Blood Urine RBC Urine Bacteria Urine Mucus - Diagnostic Findings Chest x-ray: report reviewed (Computed tomography scan and lab findings reviewed) Assessment and Plan Assessment: Sepsis Intermittent abdominal pain for 10 days Acute pancreatitis/acute appendicitis Atrial tachycardia Pots syndrome History of hypertension Plan: Proceed with exploratory laparotomy as planned Continue gentle rehydration keep nothing by mouth Patient has received her med a prolonged with a sip of water earlier this morning Will monitor clinical course closely further recommendations pending plan of care as per clinical response of the patient Time with Patient: Greater than 30
[2020-01-24] MEDS ORDERED: IV FLUID CONTINUATION 1,000 ML IV ONE (13:12)
[2020-01-24] MEDS ORDERED: ONDANSETRON 4 MG/2 ML VIAL IVP ONE (14:19)
[2020-01-24] MEDS ORDERED: DEXAMETHASONE SOD PHOSPHATE 4 MG/ML 1 ML VIAL IVP ONE (14:20)
[2020-01-24] MEDS ORDERED: SCOPOLAMINE 1.5MG/72HR PATCH TRANSDERM ONE (14:20)
[2020-01-24] MEDS ORDERED: LIDOCAINE 1% INJ 10MG/ML (20 ML MDV) ONE (14:52)
[2020-01-24] MEDS ORDERED: MIDAZOLAM 2 MG/2 ML VIAL ONE (14:52)
[2020-01-24] MEDS ORDERED: PROPOFOL 10 MG/ML 20 ML VIAL IV ONE (14:52)
[2020-01-24] MEDS ORDERED: SUCCINYLCHOLINE CHLORIDE 100 MG/5 ML SYR IV ONE (14:52)
[2020-01-24] MEDS ORDERED: NEOSTIGMINE 1 MG/ML 10 ML VIAL ONE (14:52)
[2020-01-24] MEDS ORDERED: ONDANSETRON 4 MG/2 ML VIAL ONE (14:52)
[2020-01-24] MEDS ORDERED: ROCURONIUM 10 MG/ML (10 ML VIAL) IV ONE (14:52)
[2020-01-24] MEDS ORDERED: GLYCOPYRROLATE 0.2 MG/ML 2 ML VIAL ONE (14:52)
[2020-01-24] MEDS ORDERED: fentaNYL (PF) 50 MCG/ML 2 ML AMP ONE (14:52)
[2020-01-24] MEDS ORDERED: BUPIVACAINE (PF) 0.25% 30 ML VIAL SQ ONE (15:22)
[2020-01-24] MEDS ORDERED: metroNIDAZOLE-NS PMX 500 MG in SALINE 1 100ML.BAG IVPB STA (15:58)
[2020-01-24] MEDS ORDERED: LACTATED RINGERS 1,000 ML IV ONE (16:00)
[2020-01-24] MEDS ORDERED: SODIUM CHLORIDE 0.9% 100 ML with ceFAZolin 2,000 MG IV ONE ×2 (16:15)
[2020-01-24] MEDS ORDERED: KETOROLAC 15 MG/ML 1 ML VIAL IVP ONE (17:23)
[2020-01-24] MEDS ORDERED: HYDROmorphone 1 MG/ML 1 ML SYRINGE IVP ONE ×3 (17:39→18:16)
--- NOTE | 2020-01-24 17:42 | P.OP ---
Date of Procedure: 01/24/20 Procedure(s) Performed: PREOPERATIVE DIAGNOSIS: Acute appendicitis POSTOPERATIVE DIAGNOSIS: Ruptured appendicitis with pericecal abscess PROCEDURE: Diagnostic laparoscopy with conversion to open cecectomy SURGEON: Darryl EBL: 50 mL ANESTHESIA: General COMPLICATIONS: None OPERATIVE PROCEDURE: The patient was brought and placed on the operating table in the supine position. The patient was placed under general anesthesia. The abdomen was prepped and draped in the usual sterile fashion. A small vertical infraumbilical incision was made. The fascia was retracted anteriorly with Deshaun forceps. The Veress needle was advanced into the peritoneal cavity. The saline drop test was normal. Insufflation took place to 15 mmHg. A 5 mm trocar was then placed. An additional 5 mm suprapubic trocar was placed under direct visualization as well as a 12 mm left lower quadrant trocar under direct visualization. The patient had a small amount of serous fluid in the pelvis. There was no evidence of peritonitis however. The cecum and terminal ileum were significantly indurated however. The cecum was adherent to the fimbria of the fallopian tube on the right-hand side. Blunt dissection ensued and after dissecting away a small portion of the omentum a large abscess cavity was encountered. There was evidence of necrotic tissue in the abscess itself. It was impossible to identify the appendix however I did identify what appeared to represent an appendicolith away from the base of the cecum. Further dissection was attempted but unsuccessful. We converted to an open procedure at that point. A midline incision was made extending from the infraumbilical incision inferiorly. Dissection through the subcutaneous tissues and fascia took place using electrocautery. Blunt dissection was used to mobilize the terminal ileum and cecum along with the proximal ascending colon medially. Again numerous pockets of purulence were encountered in the mesentery and retrocecal location. The appendix was necrotic and removed in more than one piece. The bowel was divided at the terminal ileum and also in the proximal ascending colon. This was performed using a linear 75 blue load stapler. The mesentery was divided using a combination of 0 silk ties and the LigaSure device. No bleeding was seen. The area was irrigated. No bleeding was seen. A [id number] anastomosis then took place. The antimesenteric portion of the staple line was excised. The stapler was fired along the antimesenteric border of both portions of bowel. This was again a 75 blue load. The remaining defect was closed transversely using a TX 60 device. The TX 60 stapler line was imbricated using interrupted 3-0 GI silk Lambert sutures. A 3-0 GI silk crotch stitch was also placed. Again irrigation took place without evidence of bleeding. A drain was placed into the right lower quadrant and perianastomotic region exiting from our 12 mm trocar that was previously closed using a Nita 0 Vicryl stitch. The drain was adjacent to the 0 Vicryl stitch. This was sutured to the skin using a 3-0 silk stitch. The midline fascia was reapproximated using a looped PDS suture. Subcutaneous tissues were closed using 3-0 Vicryl sutures. The skin was closed using diann. The additional suprapubic incision site was closed using a 4-0 Monocryl suture. Sterile dressings were then applied. DISPOSITION: Stable to recovery room. Patient's close friend was updated by phone post surgery
[2020-01-24] MEDS: D5-0.45% NACL WITH KCL 20MEQ/L 1,000 ML IV SCH (21:04)
[2020-01-24] MEDS: ACETAMINOPHEN IV (For NPO) 1,000 MG in EMPTY BAG 1 BAG IVPB SCH (21:25)
[2020-01-25] MEDS ORDERED: HEPARIN SODIUM,PORCINE 5,000 UNIT/ML 1 ML VIAL SQ SCH
[2020-01-25] MEDS: metroNIDAZOLE-NS PMX 500 MG in SALINE 1 100ML.BAG IVPB SCH ×4 (00:13→23:45)
[2020-01-25] MEDS: HYDROmorphone 1 MG/ML 1 ML SYRINGE IVP PRN ×7 (01:41→23:53)
[2020-01-25] MEDS: PIPERACILLIN-TAZOBACTAM 3.375 GM in SODIUM CHLORIDE 0.9% 100 ML IVPB SCH ×4 (01:43→23:29)
[2020-01-25] MEDS: ACETAMINOPHEN IV (For NPO) 1,000 MG in EMPTY BAG 1 BAG IVPB SCH ×5 (01:53→23:13)
[2020-01-25] MEDS: D5-0.45% NACL WITH KCL 20MEQ/L 1,000 ML IV SCH ×3 (04:29→23:12)
[2020-01-25] MEDS: SODIUM CHLORIDE 0.9% 1,000 ML IV SCH (04:43)
[2020-01-25 07:53] LABS: Basophils % (A) 0 %; Eosinophils % (A) 0 %; HCT 37.1 % (34.0-46.0); HGB 12.5 gm/dL (11.4-16.0); Lymphocytes # (A) 0.7 k/uL (1.0-4.8); Lymphocytes % (A) 4 %; MCHC 33.8 g/dL (31.0-37.0); MCV 91.8 fL (80.0-100.0); Mean Platelet Volume 7.5; Monocytes % (A) 5 %; Neutrophils # (A) 18.1 k/uL (1.3-7.7); Neutrophils % (A) 90 %; Platelet Count 360 k/uL (150-450); RBC 4.04 m/uL (3.80-5.40); RDW 12.4 % (11.5-15.5); WBC 20.1 k/uL (3.8-10.6)
[2020-01-25 08:06] LABS: African American GFR (CKD) >90 (>60 ml/min/1.73 sqM); Anion Gap 9 mmol/L; Blood Urea Nitrogen 7 mg/dL (7-17); Calcium 8.7 mg/dL (8.4-10.2); Carbon Dioxide 17 mmol/L (22-30); Chloride 112 mmol/L (98-107); Glucose 175 mg/dL (74-99); Non-African American GFR(CKD) >90 (>60 ml/min/1.73 sqM); Sodium 138 mmol/L (137-145)
[2020-01-25 08:17] LABS: Potassium 4.4 mmol/L (3.5-5.1)
[2020-01-25 08:18] LABS: Magnesium 1.9 mg/dL (1.6-2.3)
[2020-01-25] MEDS: PANTOPRAZOLE 40 MG/10 ML VIAL IVP SCH (09:18)
[2020-01-25] MEDS: KETOROLAC 15 MG/ML 1 ML VIAL IVP SCH ×3 (11:19→23:31)
--- NOTE | 2020-01-25 14:01 | P.PN ---
Subjective Progress Note Date: 01/25/20 CHIEF COMPLAINT: Ruptured appendicitis HISTORY OF PRESENT ILLNESS: The patient is a 39-year-old female presented with ruptured appendicitis. She is status post appendectomy, 01/24/20. She is tolerating ice chips. Her white count is elevated. She is postoperative day 1. ROS: No reports of nausea and vomiting. No bowel movements. No fevers or chills. No new chest pain. No productive sputum PHYSICAL EXAM: VITAL SIGNS: Reviewed CONSTITUTIONAL: Well developed and in no acute distress. EYES: Conjuctivae without sclera icterus. Extraocular movements grossly intact. HEAD, EARS, NOSE, THROAT: Moist buccal mucosa. Head is atraumatic, normocephalic. Hears conversational speech. No nasal drainage. NECK: Supple. No thyroidomegaly. RESPIRATORY: Non-labored respirations and equal bilateral excursions. CARDIOVASCULAR: Palpable 2+ radial pulses. ABDOMEN: No peritonitis. MUSCULOSKELETAL: No gross deformity of the lower extremities noted. No clubbing. No cyanosis. SKIN: Good skin turgor. Well perfused. NEUROLOGIC: Cranial nerves II through XII grossly intact. No focal or lateralizing signs. PSYCH: Appropriate affect. Alert and oriented to person, place and time. CLINICAL LABS: White blood cell count elevated from 14.1 to 20.1 ASSESSMENT: 1. Ruptured appendicitis PLAN: 1. Continue ice chips 2. May add popsicles 3. IV antibiotics Objective - Vital Signs Vital signs: Vital Signs Temp 98.1 F 01/25/20 08:00 Pulse 87 01/25/20 08:00 Resp 16 01/25/20 08:00 BP 99/59 01/25/20 08:00 Pulse Ox 96 01/25/20 08:00 Intake & Output 01/24/20 01/25/20 01/25/20 18:59 06:59 18:59 Intake Total 2200 Output Total 150 5 Balance 2049 - Intake: IV 2200 Output: Drainage 5 Lower Abdomen 5 Estimated Blood Loss 150 Other: # Voids 1 5 1 - Labs CBC & Chem 7: 01/25/20 07:34 01/25/20 07:34 Labs: Abnormal Lab Results - Last 24 Hours (Table) 01/25/20 01/25/20 Range/Units 07:34 07:34 WBC 20.1 H (3.8-10.6) k/uL Neutrophils # 18.1 H (1.3-7.7) k/uL Lymphocytes # 0.7 L (1.0-4.8) k/uL Chloride 112 H (98-107) mmol/L Carbon Dioxide 17 L (22-30) mmol/L Glucose 175 H (74-99) mg/dL Microbiology - Last 24 Hours (Table) 01/24/20 16:58 Gram Stain - Preliminary Aspirate Body Fluid Culture - Preliminary 01/24/20 16:58 Anaerobic Culture - Preliminary Abdomen Assessment and Plan (1) Acute appendicitis Current Visit: Yes Status: Acute Code(s): K35.80 - UNSPECIFIED ACUTE A PPENDICITIS SNOMED Code(s): 20446311
--- NOTE | 2020-01-25 20:58 | P.PN ---
Subjective Progress Note Date: 01/25/20 Principal diagnosis: Sepsis due to ruptured acute appendicitis and pericecal abscess status post diagnostic laparoscopy and conversion to open cecectomy Ruptured acute appendicitis Pericecal abscess Intermittent abdominal pain for 10 days Acute appendicitis Atrial tachycardia Pots syndrome History of hypertension 01/25/2020, patient seen eval examined during the rounds labs reviewed medications reviewed care plan discussed, patient underwent laparoscopy and laparotomy noted to have a ruptured acute appendicitis as well as pericecal abscess, postop day #1 remains on broad-spectrum antibiotics she is complaining of some soreness however remains afebrile, on IV Zosyn and Flagyl 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, 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 does have a history of hypertension and POTS syndrome, those issues were has been stable, however she is been having diffuse intermittent abdominal pain for last 10 days, she does have significant history of pancreatic cancer both maternal and paternal side, she had one presentation earlier was discharged subsequently suspected pancreatitis at that time however again came back into the emergency department, recent abdominal CAT scan shows free fluid in the pelvis stranding in pericolic gutter appendix not seen patient is being considered for exploratory laparotomy, hemodynamically she is stable she did receive metipranolol earlier this morning the white cell count is up 16,400, LFTs and renal function is normal, covid is negative Objective - Vital Signs Vital signs: Vital Signs Temp 98 F 01/25/20 20:00 Pulse 89 01/25/20 20:00 Resp 16 01/25/20 20:00 BP 130/74 01/25/20 20:00 Pulse Ox 97 01/25/20 20:00 Intake & Output 01/25/20 01/25/20 01/26/20 06:59 18:59 06:59 Intake Total 45 Output Total 5 5 Balance -5 40 Intake: Oral 45 Output: Drainage 5 5 Lower Abdomen 5 5 Other: # Voids 5 1 - Exam Constitutional General appearance: average body habitus, cooperative, disheveled - EENT Eyes: PERRLA ENT: hearing grossly normal Ears: bilateral: normal - Neck Neck: normal ROM Carotids: bilateral: upstroke normal Thyroid: bilateral: normal size - Respiratory Respiratory: bilateral: CTA - Cardiovascular Rhythm: regular Heart sounds: normal: S1, S2 - Gastrointestinal General gastrointestinal: decreased bowel sounds, soft - Neurologic Neurologic: CNII-XII intact - Musculoskeletal Musculoskeletal: gait normal, generalized weakness, strength equal bilaterally - Psychiatric Psychiatric: A&O x's 3, appropriate affect, intact judgment & insight - Labs CBC & Chem 7: 01/25/20 07:34 01/25/20 07:34 Labs: Abnormal Lab Results - Last 24 Hours (Table) 01/25/20 01/25/20 Range/Units 07:34 07:34 WBC 20.1 H (3.8-10.6) k/uL Neutrophils # 18.1 H (1.3-7.7) k/uL Lymphocytes # 0.7 L (1.0-4.8) k/uL Chloride 112 H (98-107) mmol/L Carbon Dioxide 17 L (22-30) mmol/L Glucose 175 H (74-99) mg/dL Microbiology - Last 24 Hours (Table) 01/24/20 16:58 Gram Stain - Preliminary Aspirate Body Fluid Culture - Preliminary Gram Neg Bacilli 01/24/20 16:58 Anaerobic Culture - Preliminary Abdomen Assessment and Plan Assessment: Sepsis due to ruptured acute appendicitis and pericecal abscess status post diagnostic laparoscopy and conversion to open cecectomy Ruptured acute appendicitis Pericecal abscess Intermittent abdominal pain for 10 days Acute appendicitis Atrial tachycardia Pots syndrome History of hypertension Plan: Findings of exploratory laparotomy noted Continue broad-spectrum antibiotics Continue gentle rehydration keep nothing by mouth Will monitor clinical course closely further recommendations pending plan of care as per clinical response of the patient Time with Patient: Greater than 30
[2020-01-26] MEDS: D5-0.45% NACL WITH KCL 20MEQ/L 1,000 ML IV SCH ×3 (03:08→18:13)
[2020-01-26] MEDS: HYDROmorphone 0.5 MG/0.5 ML SYRINGE IVP PRN ×2 (04:08→14:03)
[2020-01-26] MEDS: HYDROmorphone 1 MG/ML 1 ML SYRINGE IVP PRN ×4 (05:47→20:44)
[2020-01-26] MEDS: ACETAMINOPHEN IV (For NPO) 1,000 MG in EMPTY BAG 1 BAG IVPB SCH ×4 (06:02→23:32)
[2020-01-26] MEDS: KETOROLAC 15 MG/ML 1 ML VIAL IVP SCH ×4 (06:03→23:32)
--- NOTE | 2020-01-26 06:24 | CONS ---
CONSULTATION DATE OF SERVICE: 01/25/2020 REASON FOR CONSULTATION: Perforated appendicitis. HISTORY OF PRESENT ILLNESS: The patient is a 39-year-old female who was having abdominal pain about a week ago on Monday and the patient states pain has been mostly in the periumbilical area. Subsequently, pain has been mostly lower abdominal discomfort. The pain to be more sharp in nature, intensity almost 7 to 8/10 with no radiation. The patient feels nauseated but no vomiting. Patient was previously evaluated in the ED and had been diagnosed with pancreatitis and discharged home. However, the patient did have worsening of her abdominal pain and vomiting that brought her back to the hospital. On arrival to the ER, the patient was afebrile. The patient did have a white count 16.4. Urine was negative. COVID PCR was negative. The patient did have a CT of abdomen and pelvis which showed free fluid in the pelvis and minimal stranding pericolic gutter. Appendix was difficult to identify. Subsequently the patient was taken to the OR last evening in this patient who is status post diagnostic laparoscopy with conversion to open cecectomy with evidence of ruptured appendicitis and pericecal abscess. The patient was started on Zosyn and Infectious Disease was consulted for further management of antibiotic therapy. REVIEW OF SYMPTOMS: Positive points have been mentioned in HPI. Rest of systems are negative. PAST MEDICAL HISTORY: Asthma, hypertension, migraine headaches. PAST SURGICAL HISTORY: Adenoidectomy, tonsillectomy. SOCIAL HISTORY: Remote history of smoking. No drinking or drug use. FAMILY HISTORY: Mother history of breast and pancreatic cancer. Father history of pancreatic cancer. ALLERGIES: CEFUROXIME, HYDROCODONE, LEVAQUIN. MEDICATIONS: The patient is currently on Tylenol, Dilaudid, Zosyn. PHYSICAL EXAMINATION: Blood pressure 130/74 with a pulse of 89, temp 98, she is 97% room air. GENERAL DESCRIPTION: A middle-aged female lying in bed in no distress. No tachypnea or accessory muscle of respiration use. HEENT: Examination shows no pallor or scleral icterus. Oral mucous membrane is dry. No pharyngeal erythema or thrush. NECK: Trachea central. No thyromegaly. LUNGS: Unlabored breathing, clear to auscultation anteriorly. No wheeze or crackle. HEART: S1, S2. Regular rate and rhythm. ABDOMEN: Soft, mildly tender. No guarding or rigidity. No organomegaly. EXTREMITIES: No edema of the feet. SKIN: No rash or mass palpable. NEUROLOGIC: The patient is awake, alert, oriented x3. Mood and affect normal. LABS: Hemoglobin is 12.5, white count 20.1, BUN of 7, creatinine 0.66. DIAGNOSTIC IMPRESSION: Patient with secondary peritonitis from perforated appendicitis in this patient status post open cecectomy and drainage of the abscess. Culture now showing gram- negative likely resistant gram-negative pathogen, the patient has not been on antibiotic in the recent past due to patient with multiple antibiotic allergy that will limit the number of antibiotics safe to use. PLAN: 1. Zosyn 3.75 q.8 hours to continue. Flagyl can be discontinued. 2. We will follow on clinical condition and culture to further adjust medication if needed. Thank you for this consultation. Will follow this patient along with you. LORA / ARABELLAN: [id number] / LEVON
[2020-01-26] MEDS: PIPERACILLIN-TAZOBACTAM 3.375 GM in SODIUM CHLORIDE 0.9% 100 ML IVPB SCH ×2 (08:15→16:02)
[2020-01-26] MEDS: metroNIDAZOLE-NS PMX 500 MG in SALINE 1 100ML.BAG IVPB SCH ×2 (08:15→16:01)
[2020-01-26] MEDS: PANTOPRAZOLE 40 MG/10 ML VIAL IVP SCH (09:11)
[2020-01-26 13:10] LABS: Basophils # (A) 0.1 k/uL (0-0.2); Basophils % (A) 1 %; Eosinophils # (A) 0.1 k/uL (0-0.7); Eosinophils % (A) 0 %; HCT 38.5 % (34.0-46.0); HGB 12.9 gm/dL (11.4-16.0); Lymphocytes # (A) 1.3 k/uL (1.0-4.8); Lymphocytes % (A) 8 %; MCH 31.3 pg (25.0-35.0); MCHC 33.5 g/dL (31.0-37.0); MCV 93.3 fL (80.0-100.0); Mean Platelet Volume 7.6; Monocytes # (A) 0.7 k/uL (0-1.0); Monocytes % (A) 4 %; Neutrophils # (A) 14.4 k/uL (1.3-7.7); Neutrophils % (A) 86 %; Platelet Count 386 k/uL (150-450); RBC 4.12 m/uL (3.80-5.40); RDW 12.5 % (11.5-15.5); WBC 16.7 k/uL (3.8-10.6)
--- NOTE | 2020-01-26 15:25 | P.PN ---
Subjective Progress Note Date: 01/26/20 CHIEF COMPLAINT: Ruptured appendicitis HISTORY OF PRESENT ILLNESS: The patient is a 39-year-old female presented with ruptured appendicitis. She is status post appendectomy, 01/24/20. Pain is well controlled. Tolerating ice chips and popsicles. Infectious disease following due to multiple drug ALLERGIES. ROS: No reports of nausea and vomiting. No bowel movements. No fevers or chills. PHYSICAL EXAM: VITAL SIGNS: Reviewed CONSTITUTIONAL: Well developed and in no acute distress. EYES: Conjuctivae without sclera icterus. Extraocular movements grossly intact. HEAD, EARS, NOSE, THROAT: Moist buccal mucosa. Head is atraumatic, normocephalic. Hears conversational speech. No nasal drainage. NECK: Supple. No thyroidomegaly. RESPIRATORY: Non-labored respirations and equal bilateral excursions. CARDIOVASCULAR: Palpable 2+ radial pulses. ABDOMEN: No peritonitis. MERYL serosanguineous. MUSCULOSKELETAL: No gross deformity of the lower extremities noted. No clubbing. No cyanosis. SKIN: Good skin turgor. Well perfused. NEUROLOGIC: Cranial nerves II through XII grossly intact. No focal or lateralizing signs. PSYCH: Appropriate affect. Alert and oriented to person, place and time. CLINICAL LABS: White blood cell count elevated from 14.1 to 20.1, now 16.7 ASSESSMENT: 1. Ruptured appendicitis PLAN: 1. Will advance diet to liquids 2. Antibiotic management per infectious disaease. Objective - Vital Signs Vital signs: Vital Signs Temp 98.1 F 01/26/20 08:22 Pulse 81 01/26/20 08:22 Resp 18 01/26/20 08:22 BP 128/75 01/26/20 08:22 Pulse Ox 98 01/26/20 08:22 Intake & Output 01/25/20 01/26/20 01/26/20 18:59 06:59 18:59 Intake Total 45 10 Output Total 5 Balance 40 10 Intake: IV 10 Invasive Line 2 10 Oral 45 Output: Drainage 5 Lower Abdomen 5 Other: # Voids 1 4 1 - Labs CBC & Chem 7: 01/26/20 12:39 01/25/20 07:34 Labs: Abnormal Lab Results - Last 24 Hours (Table) 01/26/20 Range/Units 12:39 WBC 16.7 H (3.8-10.6) k/uL Neutrophils # 14.4 H (1.3-7.7) k/uL Microbiology - Last 24 Hours (Table) 01/24/20 16:58 Gram Stain - Preliminary Aspirate Body Fluid Culture - Preliminary Gram Neg Bacilli Assessment and Plan (1) Acute appendicitis Current Visit: Yes Status: Acute Code(s): K35.80 - UNSPECIFIED ACUTE APPENDICITIS SNOMED Code(s): 21335322
[2020-01-26] MEDS: METOPROLOL SUCCINATE (ER) 50 MG TAB.ER.24H PO SCH (23:31)
[2020-01-26] MEDS: AMPICILLIN-SULBACTAM 3 GM in SODIUM CHLORIDE 0.9% 100 ML IVPB SCH (23:33)
--- NOTE | 2020-01-26 23:33 | P.PN ---
Subjective Progress Note Date: 01/26/20 Principal diagnosis: Sepsis due to ruptured acute appendicitis and pericecal abscess status post diagnostic laparoscopy and conversion to open cecectomy Ruptured acute appendicitis Pericecal abscess Intermittent abdominal pain for 10 days Acute appendicitis Atrial tachycardia Pots syndrome History of hypertension 01/26/2020, patient seen eval examined respiratory status remains stable some soreness at the surgical site is present, otherwise doing well patient has been started on clear liquid diet will resume home medications as well 01/25/2020, patient seen eval examined during the rounds labs reviewed medications reviewed care plan discussed, patient underwent laparoscopy and laparotomy noted to have a ruptured acute appendicitis as well as pericecal abscess, postop day #1 remains on broad-spectrum antibiotics she is complaining of some soreness however remains afebrile, on IV Zosyn and Flagyl 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, 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 does have a history of hypertension and POTS syndrome, those issues were has been stable, however she is been having diffuse intermittent abdominal pain for last 10 days, she does have significant history of pancreatic cancer both maternal and paternal side, she had one presentation earlier was discharged subsequently suspected pancreatitis at that time however again came back into the emergency department, recent abdominal CAT scan shows free fluid in the pelvis stranding in pericolic gutter appendix not seen patient is being considered for exploratory laparotomy, hemodynamically she is stable she did receive metipranolol earlier this morning the white cell count is up 16,400, LFTs and renal function is normal, covid is negative Objective - Vital Signs Vital signs: Vital Signs Temp 97.9 F 01/26/20 20:00 Pulse 88 01/26/20 20:00 Resp 16 01/26/20 20:00 BP 128/82 01/26/20 20:00 Pulse Ox 97 01/26/20 20:00 Intake & Output 01/26/20 01/26/20 01/27/20 06:59 18:59 06:59 Intake Total 10 100 Output Total 5 5 5 Balance 5 95 -5 Intake: IV 10 Invasive Line 2 10 Oral 100 Output: Drainage 5 5 5 Lower Abdomen 5 5 5 Other: Voiding Method Toilet Toilet # Voids 4 1 - Exam Constitutional General appearance: average body habitus, cooperative, disheveled - EENT Eyes: PERRLA ENT: hearing grossly normal Ears: bilateral: normal - Neck Neck: normal ROM Carotids: bilateral: upstroke normal Thyroid: bilateral: normal size - Respiratory Respiratory: bilateral: CTA - Cardiovascular Rhythm: regular Heart sounds: normal: S1, S2 - Gastrointestinal General gastrointestinal: decreased bowel sounds, soft - Neurologic Neurologic: CNII-XII intact - Musculoskeletal Musculoskeletal: gait normal, generalized weakness, strength equal bilaterally - Psychiatric Psychiatric: A&O x's 3, appropriate affect, intact judgment & insight - Labs CBC & Chem 7: 01/26/20 12:39 01/25/20 07:34 Labs: Abnormal Lab Results - Last 24 Hours (Table) 01/26/20 Range/Units 12:39 WBC 16.7 H (3.8-10.6) k/uL Neutrophils # 14.4 H (1.3-7.7) k/uL Microbiology - Last 24 Hours (Table) 01/24/20 16:58 Gram Stain - Preliminary Aspirate Body Fluid Culture - Preliminary Escherichia coli Non Hemolytic Strep Alpha Hemolytic Streptococcus Assessment and Plan Assessment: Sepsis due to ruptured acute appendicitis and pericecal abscess status post diagnostic laparoscopy and conversion to open cecectomy Ruptured acute appendicitis Pericecal abscess Intermittent abdominal pain for 10 days Acute appendicitis Atrial tachycardia Pots syndrome History of hypertension Plan: Continue clear liquid diet Resume home medications Findings of exploratory laparotomy noted Continue broad-spectrum antibiotics Will monitor clinical course closely further recommendations pending plan of care as per clinical response of the patient Time with Patient: Greater than 30
[2020-01-27] MEDS: HYDROmorphone 1 MG/ML 1 ML SYRINGE IVP PRN ×5 (00:13→22:31)
--- NOTE | 2020-01-27 03:35 | PN ---
PROGRESS NOTE DATE OF SERVICE: 01/26/2020 REASON FOR FOLLOWUP: Abdominal abscess from perforated appendicitis. INTERVAL HISTORY: The patient is currently afebrile. The patient's abdominal pain is currently controlled. Patient denies having any chest pain or shortness of breath or cough. No nausea, no vomiting or diarrhea. PHYSICAL EXAMINATION: Blood pressure 128/82 with a pulse of 88, temperature 97.9. She is 97% on room air. General description is a middle-aged female up in the room in no distress. RESPIRATORY SYSTEM: Unlabored breathing, clear to auscultation anteriorly. HEART: S1, S2. Regular rate and rhythm. ABDOMEN: Soft, nontender. No guarding or rigidity. LABS: Hemoglobin is 12.9, white count 16.7. Abdominal culture with E coli and strep. DIAGNOSTIC IMPRESSION AND PLAN: Patient with abdominal abscess from perforated appendicitis, status post cecectomy. Culture with sensitive pathogen. Antibiotic adjusted to Unasyn and possibly switch to oral on discharge. Continue with supportive care. MMODL / IJN: [id number] /
[2020-01-27] MEDS: D5-0.45% NACL WITH KCL 20MEQ/L 1,000 ML IV SCH ×4 (04:19→23:59)
[2020-01-27] MEDS: AMPICILLIN-SULBACTAM 3 GM in SODIUM CHLORIDE 0.9% 100 ML IVPB SCH ×4 (06:02→23:59)
[2020-01-27] MEDS: ACETAMINOPHEN IV (For NPO) 1,000 MG in EMPTY BAG 1 BAG IVPB SCH ×4 (06:03→23:59)
[2020-01-27] MEDS: KETOROLAC 15 MG/ML 1 ML VIAL IVP SCH (06:03)
[2020-01-27 07:55] LABS: Basophils % (A) 0 %; Eosinophils # (A) 0.2 k/uL (0-0.7); Eosinophils % (A) 1 %; HCT 38.4 % (34.0-46.0); HGB 12.3 gm/dL (11.4-16.0); Lymphocytes # (A) 1.5 k/uL (1.0-4.8); Lymphocytes % (A) 12 %; MCH 30.3 pg (25.0-35.0); MCHC 32.1 g/dL (31.0-37.0); MCV 94.3 fL (80.0-100.0); Mean Platelet Volume 7.8; Monocytes # (A) 0.5 k/uL (0-1.0); Monocytes % (A) 4 %; Neutrophils # (A) 10.1 k/uL (1.3-7.7); Neutrophils % (A) 82 %; Platelet Count 389 k/uL (150-450); RBC 4.07 m/uL (3.80-5.40); RDW 12.5 % (11.5-15.5); WBC 12.3 k/uL (3.8-10.6)
[2020-01-27] MEDS: PANTOPRAZOLE 40 MG/10 ML VIAL IVP SCH (09:01)
[2020-01-27] MEDS: LEVONORGESTREL ETHIN ESTRADIOL PO SCH (09:02)
[2020-01-27] MEDS: ONDANSETRON 4 MG/2 ML VIAL IVP PRN ×2 (09:24→20:57)
[2020-01-27] MEDS ORDERED: traMADol 50 MG TAB PO PRN (10:04)
--- NOTE | 2020-01-27 10:13 | P.PN ---
<Linnette Simon - Last Filed: 01/27/20 10:05> Subjective Progress Note Date: 01/27/20 CHIEF COMPLAINT: Abdominal pain HISTORY OF PRESENT ILLNESS: Patient is status post diagnostic laparoscopy with conversion to open cecectomy for ruptured appendicitis with pericecal abscess. Patient is postop day #3. Patient has been having mild intermittent nausea. She denies any flatus or bowel movement. She has been having abdominal pain requiring the IV Dilaudid. She reports her pain about a 5 out of 10. She is complaining of burning with urination. She is currently on a clear liquid diet. Afebrile. WBC 12.3 PHYSICAL EXAM: VITAL SIGNS: Reviewed. GENERAL: Well-developed in no acute distress. HEENT: No sclera icterus. Extraocular movements grossly intact. Moist buccal mucosa. Head is atraumatic, normocephalic. ABDOMEN: Soft. Distended. Incision site clean dry and intact. MERYL drain on left-sided abdomen with serosanguineous fluid NEUROLOGIC: Alert and oriented. Cranial nerves II through XII grossly intact. ASSESSMENT: 1. Ruptured appendicitis with pericecal abscess status post diagnostic laparoscopy with conversion to open cecectomy PLAN: -Continue antibiotic per infectious disease -And Ultram to help with pain control. -Continue clear liquid diet -Check urinalysis with reflex urine culture for burning with urination -Encouraged patient to ambulate -Add incentive spirometer -GI prophylaxis Protonix and DVT prophylaxis SCDs Physician Pick Up Worker note has been reviewed by physician. Signing provider agrees with the documented findings, assessment, and plan of care. Objective - Vital Signs Vital signs: Vital Signs Temp 97 F L 01/27/20 08:00 Pulse 98 01/27/20 08:00 Resp 16 01/27/20 08:00 BP 124/76 01/27/20 08:00 Pulse Ox 98 01/27/20 08:00 Intake & Output 01/26/20 01/27/20 01/27/20 18:59 06:59 18:59 Intake Total 100 Output Total 5 5 Balance 95 -5 Intake: Oral 100 Output: Drainage 5 5 Lower Abdomen 5 5 Other: Voiding Method Toilet Toilet # Voids 1 1 - Labs CBC & Chem 7: 01/27/20 06:41 01/25/20 07:34 Labs: Abnormal Lab Results - Last 24 Hours (Table) 01/26/20 01/27/20 Range/Units 12:39 06:41 WBC 16.7 H 12.3 H (3.8-10.6) k/uL Neutrophils # 14.4 H 10.1 H (1.3-7.7) k/uL Microbiology - Last 24 Hours (Table) 01/24/20 16:58 Gram Stain - Preliminary Aspirate Body Fluid Culture - Preliminary Escherichia coli Non Hemolytic Strep Alpha Hemolytic Streptococcus <Santo Anrdews - Last Filed: 01/27/20 17:16> Subjective As above. Patient with mild nausea this morning. Pain appears to be slowly improving. White blood cell count improved as well. She is afebrile. We'll gradually advance diet as nausea improves. Continue ambulation. Await bowel function. Continue antibiotics per infectious disease. Objective - Vital Signs Vital signs: Vital Signs Temp 97 F L 01/27/20 08:00 Pulse 98 01/27/20 08:00 Resp 16 01/27/20 08:00 BP 124/76 01/27/20 08:00 Pulse Ox 98 01/27/20 08:00 Intake & Output 01/26/20 01/27/20 01/27/20 18:59 06:59 18:59 Intake Total 100 Output Total 5 5 Balance 95 -5 Intake: Oral 100 Output: Drainage 5 5 Lower Abdomen 5 5 Other: Voiding Method Toilet Toilet # Voids 1 1 - Labs CBC & Chem 7: 01/27/20 06:41 01/25/20 07:34 Labs: Abnormal Lab Results - Last 24 Hours (Table) 01/27/20 Range/Units 06:41 WBC 12.3 H (3.8-10.6) k/uL Neutrophils # 10.1 H (1.3-7.7) k/uL Microbiology - Last 24 Hours (Table) 01/24/20 16:58 Gram Stain - Preliminary Aspirate Body Fluid Culture - Preliminary Escherichia coli Non Hemolytic Strep Alpha Hemolytic Streptococcus
--- NOTE | 2020-01-27 13:45 | P.PN ---
Subjective Progress Note Date: 01/27/20 Principal diagnosis: Sepsis due to ruptured acute appendicitis and pericecal abscess status post diagnostic laparoscopy and conversion to open cecectomy Ruptured acute appendicitis Pericecal abscess Intermittent abdominal pain for 10 days Acute appendicitis Atrial tachycardia Pots syndrome History of hypertension 01/27/2020, patient seen eval reexamined during the rounds labs reviewed medications reviewed care plan discussed, postop day #3 of exploratory laparotomy with the partial resection of cecum, and appendectomy. To have intermittent nausea has been present, for pain has been on Dilaudid 01/26/2020, patient seen eval examined respiratory status remains stable some soreness at the surgical site is present, otherwise doing well patient has been started on clear liquid diet will resume home medications as well 01/25/2020, patient seen eval examined during the rounds labs reviewed medications reviewed care plan discussed, patient underwent laparoscopy and laparotomy noted to have a ruptured acute appendicitis as well as pericecal abscess, postop day #1 remains on broad-spectrum antibiotics she is complaining of some soreness however remains afebrile, on IV Zosyn and Flagyl 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, 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 does have a history of hypertension and POTS syndrome, those issues were has been stable, however she is been having diffuse intermittent abdominal pain for last 10 days, she does have significant history of pancreatic cancer both maternal and paternal side, she had one presentation earlier was discharged subsequently suspected pancreatitis at that time however again came back into the emergency department, recent abdominal CAT scan shows free fluid in the pelvis stranding in pericolic gutter appendix not seen patient is being considered for exploratory laparotomy, hemodynamically she is stable she did receive metipranolol earlier this morning the white cell count is up 16,400, LFTs and renal function is normal, covid is negative Objective - Vital Signs Vital signs: Vital Signs Temp 97 F L 01/27/20 08:00 Pulse 98 01/27/20 08:00 Resp 16 01/27/20 08:00 BP 124/76 01/27/20 08:00 Pulse Ox 98 01/27/20 08:00 Intake & Output 01/26/20 01/27/20 01/27/20 18:59 06:59 18:59 Intake Total 100 Output Total 5 5 Balance 95 -5 Intake: Oral 100 Output: Drainage 5 5 Lower Abdomen 5 5 Other: Voiding Method Toilet Toilet # Voids 1 1 - Exam Constitutional General appearance: average body habitus, cooperative, disheveled - EENT Eyes: PERRLA ENT: hearing grossly normal Ears: bilateral: normal - Neck Neck: normal ROM Carotids: bilateral: upstroke normal Thyroid: bilateral: normal size - Respiratory Respiratory: bilateral: CTA - Cardiovascular Rhythm: regular Heart sounds: normal: S1, S2 - Gastrointestinal General gastrointestinal: decreased bowel sounds, soft - Neurologic Neurologic: CNII-XII intact - Musculoskeletal Musculoskeletal: gait normal, generalized weakness, strength equal bilaterally - Psychiatric Psychiatric: A&O x's 3, appropriate affect, intact judgment & insight - Labs CBC & Chem 7: 01/27/20 06:41 01/25/20 07:34 Labs: Abnormal Lab Results - Last 24 Hours (Table) 01/27/20 Range/Units 06:41 WBC 12.3 H (3.8-10.6) k/uL Neutrophils # 10.1 H (1.3-7.7) k/uL Microbiology - Last 24 Hours (Table) 01/24/20 16:58 Gram Stain - Preliminary Aspirate Body Fluid Culture - Preliminary Escherichia coli Non Hemolytic Strep Alpha Hemolytic Streptococcus Assessment and Plan Assessment: Sepsis due to ruptured acute appendicitis and pericecal abscess status post diagnostic laparoscopy and conversion to open cecectomy Ruptured acute appendicitis Pericecal abscess Intermittent abdominal pain for 10 days Acute appendicitis Atrial tachycardia Pots syndrome History of hypertension Plan: Continue clear liquid diet Resume home medications Findings of exploratory laparotomy noted Continue broad-spectrum antibiotics Will monitor clinical course closely further recommendations pending plan of care as per clinical response of the patient Time with Patient: Greater than 30
[2020-01-27] MEDS: HYDROmorphone 0.5 MG/0.5 ML SYRINGE IVP PRN (14:06)
[2020-01-27 14:33] LABS: Appearance,Urine Clear (Clear); Bilirubin,Urine Negative (Negative); Blood,Urine Negative (Negative); Color,Urine Light Yellow; Glucose,Urine (UA) Negative (Negative); Ketones,Urine Negative (Negative); Leukocyte Esterase,Urine Negative (Negative); Nitrite,Urine Negative (Negative); PH, Urine 6.5 (5.0-8.0); Protein,Urine Negative (Negative); Specific Gravity,Urine 1.008 (1.001-1.035); Urobilinogen,Urine <2.0 mg/dL (<2.0)
[2020-01-27] MEDS: METOPROLOL SUCCINATE (ER) 50 MG TAB.ER.24H PO SCH (20:47)
--- NOTE | 2020-01-27 23:24 | PN ---
PROGRESS NOTE DATE OF SERVICE: 01/27/2020 REASON FOR FOLLOWUP: Perforated appendicitis and abdominal abscess. INTERVAL HISTORY: The patient is currently afebrile. The patient is breathing comfortably. The patient's abdominal pain is currently controlled. She has been started on a clear liquid diet. She has been tolerating it so far. No chest pain, shortness of breath or cough. PHYSICAL EXAMINATION: Blood pressure 121/75, pulse of 94, temperature 99.3. She is 99% on room air. General description is a middle-aged female up in the bed in no distress. RESPIRATORY SYSTEM: Unlabored breathing with decreased intensity of breath sounds. No wheeze. HEART: S1, S2. Regular rate and rhythm. ABDOMEN: Soft. No tenderness. LABS: Hemoglobin is 12.3, white count 12.3. DIAGNOSTIC IMPRESSION AND PLAN: Patient with abdominal abscess from perforated appendicitis, status post open cecectomy. Abdominal culture is positive for Streptococcus, E coli and anaerobes. Patient is covered with Unasyn. Will continue while inpatient and transition to oral antibiotic on discharge if the patient continues to improve. Continue supportive care. MMODL / IJN: [id number] /
[2020-01-28] MEDS: HYDROmorphone 1 MG/ML 1 ML SYRINGE IVP PRN ×6 (02:37→22:10)
[2020-01-28] MEDS: ACETAMINOPHEN IV (For NPO) 1,000 MG in EMPTY BAG 1 BAG IVPB SCH ×4 (05:28→23:18)
[2020-01-28] MEDS: AMPICILLIN-SULBACTAM 3 GM in SODIUM CHLORIDE 0.9% 100 ML IVPB SCH ×4 (05:28→23:55)
[2020-01-28 07:49] LABS: Basophils % (A) 0 %; Eosinophils # (A) 0.3 k/uL (0-0.7); Eosinophils % (A) 3 %; HCT 37.3 % (34.0-46.0); Lymphocytes # (A) 1.3 k/uL (1.0-4.8); Lymphocytes % (A) 15 %; MCH 29.9 pg (25.0-35.0); MCHC 32.3 g/dL (31.0-37.0); MCV 92.4 fL (80.0-100.0); Mean Platelet Volume 7.9; Monocytes # (A) 0.4 k/uL (0-1.0); Monocytes % (A) 4 %; Neutrophils # (A) 6.7 k/uL (1.3-7.7); Neutrophils % (A) 77 %; Platelet Count 390 k/uL (150-450); RBC 4.03 m/uL (3.80-5.40); RDW 12.8 % (11.5-15.5); WBC 8.7 k/uL (3.8-10.6)
[2020-01-28 08:04] LABS: African American GFR (CKD) >90 (>60 ml/min/1.73 sqM); Anion Gap 3 mmol/L; Blood Urea Nitrogen <2 mg/dL (7-17); Calcium 8.4 mg/dL (8.4-10.2); Carbon Dioxide 27 mmol/L (22-30); Chloride 106 mmol/L (98-107); Glucose 96 mg/dL (74-99); Non-African American GFR(CKD) >90 (>60 ml/min/1.73 sqM); Potassium 3.8 mmol/L (3.5-5.1); Sodium 136 mmol/L (137-145)
[2020-01-28] MEDS: ONDANSETRON 4 MG/2 ML VIAL IVP PRN ×2 (08:30→21:26)
[2020-01-28] MEDS: PANTOPRAZOLE 40 MG/10 ML VIAL IVP SCH (08:47)
[2020-01-28] MEDS: LEVONORGESTREL ETHIN ESTRADIOL PO SCH (09:21)
[2020-01-28] MEDS: METOCLOPRAMIDE 5 MG/ML 2 ML VIAL IVP PRN ×2 (10:00→18:40)
[2020-01-28] MEDS ORDERED: bisacodyL 10 MG SUPP RECTAL SCH (10:15)
--- NOTE | 2020-01-28 10:44 | P.PN ---
<Linnette Simon - Last Filed: 01/28/20 10:40> Subjective Progress Note Date: 01/28/20 CHIEF COMPLAINT: Abdominal pain HISTORY OF PRESENT ILLNESS: Patient is status post diagnostic laparoscopy with conversion to open cecectomy for ruptured appendicitis with pericecal abscess. Patient is postop day #4. Patient is reporting a new and increase abdominal pain below the incision site. She rates her pain 8 out of 10. She is also been nauseous. No vomiting. She denies any flatus or bowel movement. She reports a decreased appetite this morning. She is ambulating. Afebrile. WBC 8.7 UA negative MERYL drain serous output 245 mL PHYSICAL EXAM: VITAL SIGNS: Reviewed. GENERAL: Well-developed in no acute distress. HEENT: No sclera icterus. Extraocular movements grossly intact. Moist buccal mucosa. Head is atraumatic, normocephalic. ABDOMEN: Soft. Nondistended. Tenderness with palpation lower abdomen below t he incision site. Dressing clean dry and intact. MERYL drain on left-sided abdomen with serous fluid NEUROLOGIC: Alert and oriented. Cranial nerves II through XII grossly intact. ASSESSMENT: 1. Ruptured appendicitis with pericecal abscess status post diagnostic laparoscopy with conversion to open cecectomy PLAN: -Due to increased abdominal pain will make patient nothing by mouth -Check abdominal x-ray -Continue antibiotic per infectious disease -Encouraged patient to ambulate -Add incentive spirometer -GI prophylaxis Protonix and DVT prophylaxis SCDs Physician Splitting Machine Feeder note has been reviewed by physician. Signing provider agrees with the documented findings, assessment, and plan of care. Objective - Vital Signs Vital signs: Vital Signs Temp 97.8 F 01/28/20 08:56 Pulse 84 01/28/20 08:56 Resp 18 01/28/20 08:56 BP 126/80 01/28/20 08:56 Pulse Ox 97 01/28/20 08:56 Intake & Output 01/27/20 01/28/20 01/28/20 18:59 06:59 18:59 Intake Total 1300 1890 Output Total 190 260 45 Balance 1110 1630 -45 Intake: Intake, IV Titration 800 1450 Amount ACETAMINOPHEN IV (For NPO 100 ) 1,000 mg In Empty Bag 1 bag @ 400 mls/hr IVPB Q6HR [facility] Rx#:[id number] Ampicillin-Sulbactam 3 gm 100 In Sodium Chloride 0.9% 100 ml @ 200 mls/hr IVPB Q6HR [facility] Rx#:[id number] D5-0.45% NaCl with KCl 800 1250 20Meq/l 1,000 ml @ 125 mls/hr IV .Q8H [facility] Rx#: [id number] Oral 500 440 Output: Drainage 190 260 45 Lower Abdomen 190 260 45 Other: # Voids 1 1 - Labs CBC & Chem 7: 01/28/20 07:06 01/28/20 07:06 Labs: Abnormal Lab Results - Last 24 Hours (Table) 01/28/20 Range/Units 07:06 Sodium 136 L (137-145) mmol/L BUN <2 L (7-17) mg/dL Microbiology - Last 24 Hours (Table) 01/24/20 16:58 Anaerobic Culture - Final Abdomen Anaerobic Gm Negative Bacilli 01/24/20 16:58 Gram Stain - Final Aspirate Body Fluid Culture - Final Escherichia coli Non Hemolytic Strep Alpha Hemolytic Streptococcus 01/27/20 14:20 Urine Culture - Preliminary Urine,Clean Catch <Santo Andrews - Last Filed: 01/28/20 17:53> Subjective As above. Patient with increased discomfort today. Describes it as crampy at times. No flatus. Mild nausea. No vomiting. Abdominal x-ray obtained which shows slight distention of the colon. No pneumoperitoneum. Present on plain film. Today's white blood cell count normal. No tachycardia. MERYL drain remained serous. Will add Dulcolax suppository. Ambulate. Recheck labs tomorrow. Nothing by mouth for now. Objective - Vital Signs Vital signs: Vital Signs Temp 97.6 F 01/28/20 14:33 Pulse 79 01/28/20 14:33 Resp 16 01/28/20 14:33 BP 137/82 01/28/20 14:33 Pulse Ox 98 01/28/20 14:33 Intake & Output 01/27/20 01/28/20 01/28/20 18:59 06:59 18:59 Intake Total 1300 1890 Output Total 190 260 565 Balance 1110 1630 -565 Intake: Intake, IV Titration 800 1450 Amount ACETAMINOPHEN IV (For NPO 100 ) 1,000 mg In Empty Bag 1 bag @ 400 mls/hr IVPB Q6HR [facility] Rx#:[id number] Ampicillin-Sulbactam 3 gm 100 In Sodium Chloride 0.9% 100 ml @ 200 mls/hr IVPB Q6HR [facility] Rx#:[id number] D5-0.45% NaCl with KCl 800 1250 20Meq/l 1,000 ml @ 125 mls/hr IV .Q8H [facility] Rx#: [id number] Oral 500 440 Output: Drainage 190 260 115 Lower Abdomen 190 260 115 Urine 450 Other: # Voids 1 1 - Labs CBC & Chem 7: 01/28/20 07:06 01/28/20 07:06 Labs: Abnormal Lab Results - Last 24 Hours (Table) 01/28/20 Range/Units 07:06 Sodium 136 L (137-145) mmol/L BUN <2 L (7-17) mg/dL Microbiology - Last 24 Hours (Table) 01/27/20 14:20 Urine Culture - Final Urine,Clean Catch 01/24/20 16:58 Anaerobic Culture - Final Abdomen Anaerobic Gm Negative Bacilli 01/24/20 16:58 Gram Stain - Final Aspirate Body Fluid Culture - Final Escherichia coli Non Hemolytic Strep Alpha Hemolytic Streptococcus
--- NOTE | 2020-01-28 12:17 | XR ---
EXAMINATION TYPE: XR abdomen 2V DATE OF EXAM: 01/28/2020 COMPARISON: 01/23/2020 HISTORY: Post right colectomy TECHNIQUE: One view abdominal series FINDINGS: Surgical diann and drain are noted. Air is seen throughout the colon to the level of the rectum. r-fluid levels are seen in the right abdomen which could be related to localized ileus or enteritis. Bibasilar infiltrate and tiny effusion noted. Osseous structures intact. IMPRESSION: 1. Right abdominal air-fluid levels can be associated with an ileus or enteritis. 2. Right lateral lower lobe infiltrate and small effusion.
[2020-01-28] MEDS: KETOROLAC 15 MG/ML 1 ML VIAL IVP SCH ×3 (12:28→23:54)
--- NOTE | 2020-01-28 13:56 | P.PN ---
Subjective Progress Note Date: 01/28/20 Principal diagnosis: Sepsis due to ruptured acute appendicitis and pericecal abscess status post diagnostic laparoscopy and conversion to open cecectomy Ruptured acute appendicitis Pericecal abscess Intermittent abdominal pain for 10 days Acute appendicitis Atrial tachycardia Pots syndrome History of hypertension 01/28/2020, patient seen and evaluated examined during the rounds labs reviewed medications reviewed care plan discussed, patient is slightly nauseous, she is back on chips ice chips only, cell count continue to go down, labs reviewed and chemistry reviewed, Osei x-ray revealed ileus-like Petrin 01/27/2020, patient seen eval reexamined during the rounds labs reviewed medications reviewed care plan discussed, postop day #3 of exploratory laparotomy with the partial resection of cecum, and appendectomy. To have intermittent nausea has been present, for pain has been on Dilaudid 01/26/2020, patient seen eval examined respiratory status remains stable some soreness at the surgical site is present, otherwise doing well patient has been started on clear liquid diet will resume home medications as well 01/25/2020, patient seen eval examined during the rounds labs reviewed medications reviewed care plan discussed, patient underwent laparoscopy and laparotomy noted to have a ruptured acute appendicitis as well as pericecal abscess, postop day #1 remains on broad-spectrum antibiotics she is complaining of some soreness however remains afebrile, on IV Zosyn and Flagyl 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, 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 does have a history of hypertension and POTS syndrome, those issues were has been stable, however she is been having diffuse intermittent abdominal pain for last 10 days, she does have significant history of pancreatic cancer both maternal and paternal side, she had one presentation earlier was discharged subsequently suspected pancreatitis at that time however again came back into the emergency department, recent abdominal CAT scan shows free fluid in the pelvis stranding in pericolic gutter appendix not seen patient is being considered for exploratory laparotomy, hemodynamically she is stable she did receive metipranolol earlier this morning the white cell count is up 16,400, LFTs and renal function is normal, covid is negative Objective - Vital Signs Vital signs: Vital Signs Temp 97.8 F 01/28/20 08:56 Pulse 84 01/28/20 08:56 Resp 18 01/28/20 08:56 BP 126/80 01/28/20 08:56 Pulse Ox 97 01/28/20 08:56 Intake & Output 01/27/20 01/28/20 01/28/20 18:59 06:59 18:59 Intake Total 1300 1890 Output Total 190 260 495 Balance 1110 1630 -495 Intake: Intake, IV Titration 800 1450 Amount ACETAMINOPHEN IV (For NPO 100 ) 1,000 mg In Empty Bag 1 bag @ 400 mls/hr IVPB Q6HR [facility] Rx#:[id number] Ampicillin-Sulbactam 3 gm 100 In Sodium Chloride 0.9% 100 ml @ 200 mls/hr IVPB Q6HR [facility] Rx#:[id number] D5-0.45% NaCl with KCl 800 1250 20Meq/l 1,000 ml @ 125 mls/hr IV .Q8H [facility] Rx#: [id number] Oral 500 440 Output: Drainage 190 260 45 Lower Abdomen 190 260 45 Urine 450 Other: # Voids 1 1 - Exam Constitutional General appearance: average body habitus, cooperative, disheveled - EENT Eyes: PERRLA ENT: hearing grossly normal Ears: bilateral: normal - Neck Neck: normal ROM Carotids: bilateral: upstroke normal Thyroid: bilateral: normal size - Respiratory Respiratory: bilateral: CTA - Cardiovascular Rhythm: regular Heart sounds: normal: S1, S2 - Gastrointestinal General gastrointestinal: decreased bowel sounds, soft - Neurologic Neurologic: CNII-XII intact - Musculoskeletal Musculoskeletal: gait normal, generalized weakness, strength equal bilaterally - Psychiatric Psychiatric: A&O x's 3, appropriate affect, intact judgment & insight - Labs CBC & Chem 7: 01/28/20 07:06 01/28/20 07:06 Labs: Abnormal Lab Results - Last 24 Hours (Table) 01/28/20 Range/Units 07:06 Sodium 136 L (137-145) mmol/L BUN <2 L (7-17) mg/dL Microbiology - Last 24 Hours (Table) 01/24/20 16:58 Anaerobic Culture - Final Abdomen Anaerobic Gm Negative Bacilli 01/24/20 16:58 Gram Stain - Final Aspirate Body Fluid Culture - Final Escherichia coli Non Hemolytic Strep Alpha Hemolytic Streptococcus 01/27/20 14:20 Urine Culture - Preliminary Urine,Clean Catch Assessment and Plan Assessment: Postoperative nausea and vomiting Postoperative ileus Sepsis due to ruptured acute appendicitis and pericecal abscess status post diagnostic laparoscopy and conversion to open cecectomy Ruptured acute appendicitis Pericecal abscess Intermittent abdominal pain for 10 days Acute appendicitis Atrial tachycardia Pots syndrome History of hypertension Plan: Continue nothing by mouth, ice chips for now X-ray finding reviewed and noted We'll repeat labs in the morning Resume home medications Findings of exploratory laparotomy noted Continue broad-spectrum antibiotics Will monitor clinical course closely further recommendations pending plan of care as per clinical response of the patient
[2020-01-28] MEDS: D5-0.45% NACL WITH KCL 20MEQ/L 1,000 ML IV SCH ×2 (14:56→22:51)
[2020-01-28] MEDS: METOPROLOL SUCCINATE (ER) 50 MG TAB.ER.24H PO SCH (20:20)
--- NOTE | 2020-01-28 23:23 | PN ---
PROGRESS NOTE DATE OF SERVICE: 01/28/2020 REASON FOR FOLLOWUP: Abdominal abscess from perforated appendicitis. INTERVAL HISTORY: The patient is currently afebrile. She was complaining of feeling nauseated and not feeling well. Denies having any chest pain. No shortness of breath or cough. Tolerating a clear liquid diet. PHYSICAL EXAMINATION: Blood pressure 136/84, pulse of 80, temperature 98.3. She is 97% on room air. General description: The patient is a middle-aged female lying in bed in no distress. Respiratory system: Unlabored breathing. Clear to auscultation anteriorly. Heart S1, S2. Regular rate and rhythm. Abdomen soft, mildly tender. No guarding. No rigidity. LABS: Hemoglobin is 12.7, white count 8.7, BUN of 2 and creatinine 0.59. DIAGNOSTIC IMPRESSION AND PLAN: Patient with abdominal abscess from a perforated appendicitis, status post cecectomy in this patient with possible ileus. Abdominal culture with strep and E coli and is covered with Unasyn to continue. Hopefully transition to oral on discharge. Continue supportive care. MMODL / IJN: [id number] /
[2020-01-29] MEDS: D5-0.45% NACL WITH KCL 20MEQ/L 1,000 ML IV SCH ×3 (00:44→14:01)
[2020-01-29] MEDS: HYDROmorphone 1 MG/ML 1 ML SYRINGE IVP PRN ×5 (02:03→21:03)
[2020-01-29] MEDS: METOCLOPRAMIDE 5 MG/ML 2 ML VIAL IVP PRN ×3 (02:07→17:25)
[2020-01-29] MEDS: ACETAMINOPHEN IV (For NPO) 1,000 MG in EMPTY BAG 1 BAG IVPB SCH ×4 (06:14→23:16)
[2020-01-29] MEDS: KETOROLAC 15 MG/ML 1 ML VIAL IVP SCH ×4 (06:34→23:33)
[2020-01-29] MEDS: AMPICILLIN-SULBACTAM 3 GM in SODIUM CHLORIDE 0.9% 100 ML IVPB SCH ×4 (06:35→23:34)
[2020-01-29 06:52] LABS: Basophils % (A) 0 %; Eosinophils # (A) 0.3 k/uL (0-0.7); Eosinophils % (A) 3 %; HCT 38.3 % (34.0-46.0); HGB 12.7 gm/dL (11.4-16.0); Lymphocytes # (A) 1.6 k/uL (1.0-4.8); Lymphocytes % (A) 20 %; MCH 30.8 pg (25.0-35.0); MCHC 33.1 g/dL (31.0-37.0); MCV 92.8 fL (80.0-100.0); Mean Platelet Volume 7.6; Monocytes # (A) 0.4 k/uL (0-1.0); Monocytes % (A) 5 %; Neutrophils # (A) 5.8 k/uL (1.3-7.7); Neutrophils % (A) 71 %; Platelet Count 431 k/uL (150-450); RBC 4.12 m/uL (3.80-5.40); RDW 12.7 % (11.5-15.5); WBC 8.3 k/uL (3.8-10.6)
[2020-01-29] MEDS: PANTOPRAZOLE 40 MG/10 ML VIAL IVP SCH (09:24)
[2020-01-29] MEDS: LEVONORGESTREL ETHIN ESTRADIOL PO SCH (09:24)
[2020-01-29] MEDS: bisacodyL 5 MG TABLET.DR PO SCH ×2 (09:27→21:06)
[2020-01-29] MEDS: ONDANSETRON 4 MG/2 ML VIAL IVP PRN ×2 (09:59→23:33)
--- NOTE | 2020-01-29 10:47 | P.PN ---
<Linnette Simon - Last Filed: 01/29/20 10:42> Subjective Progress Note Date: 01/29/20 CHIEF COMPLAINT: Abdominal pain HISTORY OF PRESENT ILLNESS: Patient is status post diagnostic laparoscopy with conversion to open cecectomy for ruptured appendicitis with pericecal abscess. Patient is postop day #5. Patient is reporting decreased abdominal pain today. She reports improvement in her nausea. She had 2 loose stools yesterday and 1 bowel movement this morning. She is passing flatus. She is asking for the duplex suppositories to be discontinued. She is currently nothing by mouth except for ice chips. She's afebrile. WBC 8.3. PHYSICAL EXAM: VITAL SIGNS: Reviewed. GENERAL: Well-developed in no acute distress. HEENT: No sclera icterus. Extraocular movements grossly intact. Moist buccal mucosa. Head is atraumatic, normocephalic. ABDOMEN: Soft. Nondistended. Minimal tenderness with palpation of lower abdomen. Dressing clean dry and intact. MERYL drain on left-sided abdomen with serous fluid NEUROLOGIC: Alert and oriented. Cranial nerves II through XII grossly intact. ASSESSMENT: 1. Ruptured appendicitis with pericecal abscess status post diagnostic laparoscopy with conversion to open cecectomy 2. Possible postoperative ileus now improving PLAN: -Advance diet to clear liquids -Discontinue Dulcolax suppository -Dulcolax oral daily -Continue antibiotic per infectious disease -Encouraged patient to ambulate -Add incentive spirometer -GI prophylaxis Protonix and DVT prophylaxis SCDs Physician Core Mounter note has been reviewed by physician. Signing provider agrees with the documented findings, assessment, and plan of care. Objective - Vital Signs Vital signs: Vital Signs Temp 98.1 F 01/29/20 08:00 Pulse 92 01/29/20 08:00 Resp 18 01/29/20 08:00 BP 125/83 01/29/20 08:00 Pulse Ox 100 01/29/20 08:00 Intake & Output 01/28/20 01/29/20 01/29/20 18:59 06:59 18:59 Intake Total 30 Output Total 565 75 Balance -535 -75 Intake: Oral 30 Output: Drainage 115 75 Lower Abdomen 115 75 Urine 450 Other: Voiding Method Toilet # Voids 1 1 # Bowel Movements 1 - Labs CBC & Chem 7: 01/29/20 06:21 01/28/20 07:06 Labs: Microbiology - Last 24 Hours (Table) 01/27/20 14:20 Urine Culture - Final Urine,Clean Catch <Santo Andrews - Last Filed: 01/29/20 20:05> Subjective As above. Patient doing better today. Pain is improved. She is having bowel activity. White blood cell count remains normal. Resume diet. Continue ambulation. Continue antibiotics. Objective - Vital Signs Vital signs: Vital Signs Temp 97.3 F L 01/29/20 16:07 Pulse 94 01/29/20 16:07 Resp 20 01/29/20 16:07 BP 138/89 01/29/20 16:07 Pulse Ox 100 01/29/20 16:07 Intake & Output 01/29/20 01/29/20 01/30/20 06:59 18:59 06:59 Intake Total 570 Output Total 75 90 Balance -75 480 Weight 60.3 kg Intake: Oral 570 Output: Drainage 75 90 Lower Abdomen 75 90 Other: Voiding Method Toilet Toilet # Voids 1 1 # Bowel Movements 1 - Labs CBC & Chem 7: 01/29/20 06:21 01/28/20 07:06 Labs: Microbiology - Last 24 Hours (Table) 01/27/20 14:20 Urine Culture - Final Urine,Clean Catch
--- NOTE | 2020-01-29 13:48 | P.PN ---
Subjective Progress Note Date: 01/29/20 Principal diagnosis: Sepsis due to ruptured acute appendicitis and pericecal abscess status post diagnostic laparoscopy and conversion to open cecectomy Ruptured acute appendicitis Pericecal abscess Intermittent abdominal pain for 10 days Acute appendicitis Atrial tachycardia Pots syndrome History of hypertension 01/29/2020, patient seen eval examined during the rounds REVIEWED medications reviewed, has been on a daily quit diet, remains on broad-spectrum antibiotics I D service has been followed by general surgery is following, patient is still have a MERYL drain draining, 01/28/2020, patient seen and evaluated examined during the rounds labs reviewed medications reviewed care plan discussed, patient is slightly nauseous, she is back on chips ice chips only, cell count continue to go down, labs reviewed and chemistry reviewed, Osei x-ray revealed ileus-like Petrin 01/27/2020, patient seen eval reexamined during the rounds labs reviewed medications reviewed care plan discussed, postop day #3 of exploratory laparotomy with the partial resection of cecum, and appendectomy. To have intermittent nausea has been present, for pain has been on Dilaudid 01/26/2020, patient seen eval examined respiratory status remains stable some soreness at the surgical site is present, otherwise doing well patient has been started on clear liquid diet will resume home medications as well 01/25/2020, patient seen eval examined during the rounds labs reviewed medications reviewed care plan discussed, patient underwent laparoscopy and laparotomy noted to have a ruptured acute appendicitis as well as pericecal abscess, postop day #1 remains on broad-spectrum antibiotics she is complaining of some soreness however remains afebrile, on IV Zosyn and Flagyl 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, 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 does have a history of hypertension and POTS syndrome, those issues were has been stable, however she is been having diffuse intermittent abdominal pain for last 10 days, she does have significant history of pancreatic cancer both maternal and paternal side, she had one presentation earlier was discharged subsequently suspected pancreatitis at that time however again came back into the emergency department, recent abdominal CAT scan shows free fluid in the pelvis stranding in pericolic gutter appendix not seen patient is being considered for exploratory laparotomy, hemodynamically she is stable she did receive metipranolol earlier this morning the white cell count is up 16,400, LFTs and renal function is normal, covid is negative Objective - Vital Signs Vital signs: Vital Signs Temp 98.1 F 01/29/20 12:10 Pulse 79 01/29/20 12:10 Resp 18 01/29/20 12:10 BP 121/79 01/29/20 12:10 Pulse Ox 100 01/29/20 12:10 Intake & Output 01/28/20 01/29/20 01/29/20 18:59 06:59 18:59 Intake Total 30 Output Total 565 75 Balance -535 -75 Weight 60.3 kg Intake: Oral 30 Output: Drainage 115 75 Lower Abdomen 115 75 Urine 450 Other: Voiding Method Toilet Toilet # Voids 1 1 # Bowel Movements 1 - Exam Constitutional General appearance: average body habitus, cooperative, disheveled - EENT Eyes: PERRLA ENT: hearing grossly normal Ears: bilateral: normal - Neck Neck: normal ROM Carotids: bilateral: upstroke normal Thyroid: bilateral: normal size - Respiratory Respiratory: bilateral: CTA - Cardiovascular Rhythm: regular Heart sounds: normal: S1, S2 - Gastrointestinal General gastrointestinal: decreased bowel sounds, soft - Neurologic Neurologic: CNII-XII intact - Musculoskeletal Musculoskeletal: gait normal, generalized weakness, strength equal bilaterally - Psychiatric Psychiatric: A&O x's 3, appropriate affect, intact judgment & insight - Labs CBC & Chem 7: 01/29/20 06:21 01/28/20 07:06 Labs: Microbiology - Last 24 Hours (Table) 01/27/20 14:20 Urine Culture - Final Urine,Clean Catch Assessment and Plan Assessment: Postoperative nausea and vomiting Postoperative ileus Sepsis due to ruptured acute appendicitis and pericecal abscess status post diagnostic laparoscopy and conversion to open cecectomy Ruptured acute appendicitis Pericecal abscess Intermittent abdominal pain for 10 days Acute appendicitis Atrial tachycardia Pots syndrome History of hypertension Plan: Continue nothing by mouth, ice chips for now X-ray finding reviewed and noted We'll repeat labs in the morning Resume home medications Findings of exploratory laparotomy noted Continue broad-spectrum antibiotics Will monitor clinical course closely further recommendations pending plan of care as per clinical response of the patient Time with Patient: Greater than 30
[2020-01-29] MEDS: traMADol 50 MG TAB PO PRN (15:51)
[2020-01-29] MEDS: HYDROmorphone 0.5 MG/0.5 ML SYRINGE IVP PRN (17:29)
[2020-01-29] MEDS: METOPROLOL SUCCINATE (ER) 50 MG TAB.ER.24H PO SCH (21:06)
--- NOTE | 2020-01-29 23:05 | PN ---
PROGRESS NOTE DATE OF SERVICE: 01/29/2020 REASON FOR FOLLOWUP: Perforated appendicitis and abdominal abscess. INTERVAL HISTORY: The patient is currently afebrile. He is feeling slightly better today. The patient denies having any chest pain or cough. No nausea, no vomiting. Did have wound. PHYSICAL EXAMINATION: Blood pressure 130/76, pulse of 80, temperature 98.2. She is 100% on room air. General description is a middle-aged female lying in bed in no distress. Respiratory system: Unlabored breathing, clear to auscultation anteriorly. Heart S1, S2. Regular rate and rhythm. ABDOMEN: Soft, mildly tender, no rigidity. LABS: Hemoglobin is 12.7, white count 8.3. DIAGNOSTIC IMPRESSION AND PLAN: Patient with abdominal abscess from perforated appendicitis status post open cholecystectomy. Abdominal cultures with E coli, strep and anaerobes. Patient is covered with Unasyn to transition to oral Augmentin on discharge and continue supportive care. MMODL / IJN: [id number] /
[2020-01-30] MEDS: HYDROmorphone 1 MG/ML 1 ML SYRINGE IVP PRN ×2 (00:09→05:10)
[2020-01-30] MEDS: METOCLOPRAMIDE 5 MG/ML 2 ML VIAL IVP PRN (05:10)
[2020-01-30] MEDS: KETOROLAC 15 MG/ML 1 ML VIAL IVP SCH ×4 (06:10→23:25)
[2020-01-30] MEDS: ACETAMINOPHEN IV (For NPO) 1,000 MG in EMPTY BAG 1 BAG IVPB SCH ×4 (06:12→23:24)
[2020-01-30] MEDS: AMPICILLIN-SULBACTAM 3 GM in SODIUM CHLORIDE 0.9% 100 ML IVPB SCH ×4 (06:28→23:47)
[2020-01-30 06:42] LABS: Basophils % (A) 0 %; Eosinophils # (A) 0.2 k/uL (0-0.7); Eosinophils % (A) 3 %; HCT 38.2 % (34.0-46.0); HGB 12.4 gm/dL (11.4-16.0); Lymphocytes # (A) 1.2 k/uL (1.0-4.8); Lymphocytes % (A) 16 %; MCH 30.1 pg (25.0-35.0); MCHC 32.3 g/dL (31.0-37.0); MCV 93.2 fL (80.0-100.0); Mean Platelet Volume 7.5; Monocytes # (A) 0.3 k/uL (0-1.0); Monocytes % (A) 4 %; Neutrophils # (A) 5.7 k/uL (1.3-7.7); Neutrophils % (A) 75 %; Platelet Count 476 k/uL (150-450); RDW 12.7 % (11.5-15.5); WBC 7.6 k/uL (3.8-10.6)
[2020-01-30] MEDS: bisacodyL 5 MG TABLET.DR PO SCH (09:11)
[2020-01-30] MEDS: ONDANSETRON 4 MG/2 ML VIAL IVP PRN (09:13)
[2020-01-30] MEDS: PANTOPRAZOLE 40 MG/10 ML VIAL IVP SCH (09:13)
[2020-01-30] MEDS: LEVONORGESTREL ETHIN ESTRADIOL PO SCH (09:14)
[2020-01-30] MEDS ORDERED: bisacodyL 5 MG TABLET.DR PO PRN (14:05)
--- NOTE | 2020-01-30 14:21 | P.PN ---
Subjective Progress Note Date: 01/30/20 CHIEF COMPLAINT: Ruptured appendicitis HISTORY OF PRESENT ILLNESS: The patient is a 39-year-old female presented with ruptured appendicitis. She is status post appendectomy, 01/24/20. She reports diarrhea from stool softeners. She is intolerant to clear liquid diet and want more options. Patient reports slowly introducing gluten into her diet and tolerating. ROS: No reports of nausea and vomiting. No fevers or chills. PHYSICAL EXAM: VITAL SIGNS: Reviewed CONSTITUTIONAL: Well developed and in no acute distress. EYES: Conjuctivae without sclera icterus. Extraocular movements grossly intact. HEAD, EARS, NOSE, THROAT: Moist buccal mucosa. Head is atraumatic, normocephalic. Hears conversational speech. No nasal drainage. NECK: Supple. No thyroidomegaly. RESPIRATORY: Non-labored respirations and equal bilateral excursions. CARDIOVASCULAR: Palpable 2+ radial pulses. ABDOMEN: No peritonitis. MERYL serosanguineous. MUSCULOSKELETAL: No gross deformity of the lower extremities noted. No clubbing. No cyanosis. SKIN: Good skin turgor. Well perfused. NEUROLOGIC: Cranial nerves II through XII grossly intact. No focal or lateralizing signs. PSYCH: Appropriate affect. Alert and oriented to person, place and time. CLINICAL LABS: White count normal. ASSESSMENT: 1. Ruptured appendicitis PLAN: 1. We'll change diet to pured diet. 2. Stool softeners as needed. 3. Otherwise, clinically stable. 4. Continue hospitalization. Objective - Vital Signs Vital signs: Vital Signs Temp 97.9 F 01/30/20 08:17 Pulse 91 01/30/20 08:17 Resp 16 01/30/20 08:17 BP 131/90 01/30/20 08:17 Pulse Ox 99 01/30/20 08:17 Intake & Output 01/29/20 01/30/20 01/30/20 18:59 06:59 18:59 Intake Total 570 Output Total 90 50 Balance 480 -50 Weight 60.3 kg 60.3 kg Intake: Oral 570 Output: Drainage 90 50 Lower Abdomen 90 50 Other: Voiding Method Toilet Toilet # Voids 1 1 1 # Bowel Movements 1 - Labs CBC & Chem 7: 01/31/20 06:18 01/28/20 07:06 Labs: Abnormal Lab Results - Last 24 Hours (Table) 01/30/20 Range/Units 06:23 Plt Count 476 H (150-450) k/uL Assessment and Plan (1) Acute appendicitis Current Visit: Yes Status: Acute Code(s): K35.80 - UNSPECIFIED ACUTE APPENDICITIS SNOMED Code(s): 29776197
--- NOTE | 2020-01-30 14:51 | P.PN ---
Subjective Progress Note Date: 01/30/20 Principal diagnosis: Sepsis due to ruptured acute appendicitis and pericecal abscess status post diagnostic laparoscopy and conversion to open cecectomy Ruptured acute appendicitis Pericecal abscess Intermittent abdominal pain for 10 days Acute appendicitis Atrial tachycardia Pots syndrome History of hypertension 01/30/2020, patient seen eval examined during the rounds labs and medications reviewed, patient is still have some abdominal discomfort pain and she however s ymptoms are significantly improved patient is cleared for clear liquid diet, 01/29/2020, patient seen eval examined during the rounds REVIEWED medications reviewed, has been on a daily quit diet, remains on broad-spectrum antibiotics ID service has been followed by general surgery is following, patient is still have a MERYL drain draining, 01/28/2020, patient seen and evaluated examined during the rounds labs reviewed medications reviewed care plan discussed, patient is slightly nauseous, she is back on chips ice chips only, cell count continue to go down, labs reviewed and chemistry reviewed, Osei x-ray revealed ileus-like Petrin 01/27/2020, patient seen eval reexamined during the rounds labs reviewed medications reviewed care plan discussed, postop day #3 of exploratory laparotomy with the partial resection of cecum, and appendectomy. To have intermittent nausea has been present, for pain has been on Dilaudid 01/26/2020, patient seen eval examined respiratory status remains stable some soreness at the surgical site is present, otherwise doing well patient has been started on clear liquid diet will resume home medications as well 01/25/2020, patient seen eval examined during the rounds labs reviewed medications reviewed care plan discussed, patient underwent laparoscopy and laparotomy noted to have a ruptured acute appendicitis as well as pericecal abscess, postop day #1 remains on broad-spectrum antibiotics she is complaining of some soreness however remains afebrile, on IV Zosyn and Flagyl 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, 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 does have a history of hypertension and POTS syndrome, those issues were has been stable, however she is been having diffuse intermittent abdominal pain for last 10 days, she does have significant history of pancreatic cancer both maternal and paternal side, she had one presentation earlier was discharged subsequently suspected pancreatitis at that time however again came back into the emergency department, recent abdominal CAT scan shows free fluid in the pelvis stranding in pericolic gutter appendix not seen patient is being considered for exploratory laparotomy, hemodynamically she is stable she did receive metipranolol earlier this morning the white cell count is up 16,400, LFTs and renal function is normal, covid is negative Objective - Vital Signs Vital signs: Vital Signs Temp 97.9 F 01/30/20 08:17 Pulse 91 01/30/20 08:17 Resp 16 01/30/20 08:17 BP 131/90 01/30/20 08:17 Pulse Ox 99 01/30/20 08:17 Intake & Output 01/29/20 01/30/20 01/30/20 18:59 06:59 18:59 Intake Total 570 Output Total 90 50 Balance 480 -50 Weight 60.3 kg 60.3 kg Intake: Oral 570 Output: Drainage 90 50 Lower Abdomen 90 50 Other: Voiding Method Toilet Toilet # Voids 1 1 1 # Bowel Movements 1 - Exam Constitutional General appearance: average body habitus, cooperative, disheveled - EENT Eyes: PERRLA ENT: hearing grossly normal Ears: bilateral: normal - Neck Neck: normal ROM Carotids: bilateral: upstroke normal Thyroid: bilateral: normal size - Respiratory Respiratory: bilateral: CTA - Cardiovascular Rhythm: regular Heart sounds: normal: S1, S2 - Gastrointestinal General gastrointestinal: decreased bowel sounds, soft - Neurologic Neurologic: CNII-XII intact - Musculoskeletal Musculoskeletal: gait normal, generalized weakness, strength equal bilaterally - Psychiatric Psychiatric: A&O x's 3, appropriate affect, intact judgment & insight - Labs CBC & Chem 7: 01/30/20 06:23 01/28/20 07:06 Labs: Abnormal Lab Results - Last 24 Hours (Table) 01/30/20 Range/Units 06:23 Plt Count 476 H (150-450) k/uL Assessment and Plan Assessment: Postoperative nausea and vomiting Postoperative ileus Sepsis due to ruptured acute appendicitis and pericecal abscess status post diagnostic laparoscopy and conversion to open cecectomy Ruptured acute appendicitis Pericecal abscess Intermittent abdominal pain for 10 days Acute appendicitis Atrial tachycardia Pots syndrome History of hypertension Plan: Continue nothing by mouth, ice chips for now X-ray finding reviewed and noted We'll repeat labs in the morning Resume home medications Findings of exploratory laparotomy noted Continue broad-spectrum antibiotics Will monitor clinical course closely further recommendations pending plan of care as per clinical response of the patient
[2020-01-30] MEDS: METOPROLOL SUCCINATE (ER) 50 MG TAB.ER.24H PO SCH (19:54)
[2020-01-30] MEDS ORDERED: CHOLESTYRAMINE (WITH SUGAR) 4 GM PACKET PO SCH (21:35)
--- NOTE | 2020-01-30 22:02 | PN ---
PROGRESS NOTE DATE OF SERVICE: 01/30/2020 REASON FOR FOLLOWUP: Abdominal abscess from perforated appendicitis. INTERVAL HISTORY: The patient is currently afebrile. The patient is feeling slightly better, breathing comfortably. Denies having any chest pain or shortness of breath or cough. No nausea, vomiting. Did have bowel movement. PHYSICAL EXAMINATION: Blood pressure 129/81 with a pulse of 99, temperature 99.3. She is 100% on room air. General description is a middle-aged female lying in bed in no distress. RESPIRATORY SYSTEM: Unlabored breathing. Clear to auscultation anteriorly. HEART: S1, S2. Regular rate and rhythm. ABDOMEN: Soft. Mildly distended. No guarding or rigidity. LABS: Hemoglobin is 12.4, white count 7.6. DIAGNOSTIC IMPRESSION AND PLAN: Patient with abdominal abscess, perforated appendicitis in this patient who is status post open cecectomy. Abdominal culture with E coli, strep and anaerobes. Patient is covered with Unasyn. White count normal. Finishing therapy with oral Augmentin. Continue with supportive care. MMODL / IJN: [id number] /
[2020-01-31] MEDS: KETOROLAC 15 MG/ML 1 ML VIAL IVP SCH ×3 (06:14→17:32)
[2020-01-31] MEDS: ACETAMINOPHEN IV (For NPO) 1,000 MG in EMPTY BAG 1 BAG IVPB SCH ×3 (06:18→17:35)
[2020-01-31] MEDS: AMPICILLIN-SULBACTAM 3 GM in SODIUM CHLORIDE 0.9% 100 ML IVPB SCH ×3 (06:40→17:57)
[2020-01-31] MEDS: ONDANSETRON 4 MG/2 ML VIAL IVP PRN (06:42)
[2020-01-31 07:15] LABS: Basophils % (A) 0 %; Eosinophils # (A) 0.1 k/uL (0-0.7); Eosinophils % (A) 1 %; HCT 39.1 % (34.0-46.0); HGB 12.9 gm/dL (11.4-16.0); Lymphocytes # (A) 1.5 k/uL (1.0-4.8); Lymphocytes % (A) 17 %; MCH 30.5 pg (25.0-35.0); MCHC 32.9 g/dL (31.0-37.0); MCV 92.7 fL (80.0-100.0); Mean Platelet Volume 7.5; Monocytes # (A) 0.4 k/uL (0-1.0); Monocytes % (A) 4 %; Neutrophils # (A) 6.2 k/uL (1.3-7.7); Neutrophils % (A) 75 %; Platelet Count 510 k/uL (150-450); RBC 4.21 m/uL (3.80-5.40); RDW 12.6 % (11.5-15.5); WBC 8.3 k/uL (3.8-10.6)
[2020-01-31] MEDS: LEVONORGESTREL ETHIN ESTRADIOL PO SCH (08:33)
[2020-01-31] MEDS: PANTOPRAZOLE 40 MG/10 ML VIAL IVP SCH (08:33)
--- NOTE | 2020-01-31 13:34 | P.PN ---
Subjective Progress Note Date: 01/31/20 CHIEF COMPLAINT: Ruptured appendicitis HISTORY OF PRESENT ILLNESS: The patient is a 39-year-old female presented with ruptured appendicitis. She is status post appendectomy, 01/24/20. She is tolerating soft diet including mashed potatoes and green beans. She is very happy. She reports serosanguineous drainage from her MERYL. Her pain is controlled. Diarrhea resolved. ROS: No reports of nausea and vomiting. No fevers or chills. PHYSICAL EXAM: VITAL SIGNS: Reviewed CONSTITUTIONAL: Well developed and in no acute distress. EYES: Conjuctivae without sclera icterus. Extraocular movements grossly intact. HEAD, EARS, NOSE, THROAT: Moist buccal mucosa. Head is atraumatic, normocephalic. Hears conversational speech. No nasal drainage. NECK: Supple. No thyroidomegaly. RESPIRATORY: Non-labored respirations and equal bilateral excursions. CARDIOVASCULAR: Palpable 2+ radial pulses. ABDOMEN: No peritonitis. MERYL serosanguineous. MUSCULOSKELETAL: No gross deformity of the lower extremities noted. No clubbing. No cyanosis. SKIN: Good skin turgor. Well perfused. NEUROLOGIC: Cranial nerves II through XII grossly intact. No focal or lateralizing signs. PSYCH: Appropriate affect. Alert and oriented to person, place and time. CLINICAL LABS: Reviewed. WBC within normal limits. Platelets mildly elevated. ASSESSMENT: 1. Ruptured appendicitis PLAN: 1. Discharge pending tolerating diet including resolution of diarrhea. 2. Antibiotic management per infectious disease. Objective - Vital Signs Vital signs: Vital Signs Temp 97.9 F 01/31/20 08:41 Pulse 88 01/31/20 08:41 Resp 18 01/31/20 08:41 BP 118/77 01/31/20 08:41 Pulse Ox 97 01/31/20 08:41 Intake & Output 01/30/20 01/31/20 01/31/20 18:59 06:59 18:59 Output Total 40 30 Balance -40 -30 Weight 60.3 kg Output: Drainage 40 30 Lower Abdomen 40 30 Other: Voiding Method Toilet # Voids 2 2 1 # Bowel Movements 1 1 - Labs CBC & Chem 7: 01/31/20 06:18 01/28/20 07:06 Labs: Abnormal Lab Results - Last 24 Hours (Table) 01/31/20 Range/Units 06:18 Plt Count 510 H (150-450) k/uL Assessment and Plan (1) Acute appendicitis Current Visit: Yes Status: Acute Code(s): K35.80 - UNSPECIFIED ACUTE APPENDICITIS SNOMED Code(s): 29185601
[2020-01-31] MEDS: METOPROLOL SUCCINATE (ER) 50 MG TAB.ER.24H PO SCH (20:45)
[2020-01-31] MEDS: ACETAMINOPHEN TAB 325 MG TAB PO SCH (22:30)
[2020-01-31] MEDS: AMOXIC-POT CLAV 875-125MG 1 EACH TAB PO SCH (22:30)
--- NOTE | 2020-01-31 23:10 | PN ---
PROGRESS NOTE DATE OF SERVICE: 01/31/2020 REASON FOR FOLLOWUP: Abdominal abscess from ruptured appendicitis. INTERVAL HISTORY: Patient is currently afebrile. The patient is breathing comfortably. Denies having any chest pain. No shortness of breath or cough. Abdominal pain is currently controlled. No nausea, vomiting. Did have bowel movement. PHYSICAL EXAMINATION: Blood pressure 135/81, pulse of 89, temperature 98.6. He is 97% on room air. General description is a middle-aged female up in the room in no distress. Respiratory system: Unlabored breathing. Clear to auscultation anteriorly. HEART: S1, S2. Regular rate and rhythm. ABDOMEN: Soft. No tenderness. No guarding. No rigidity. LABS: Hemoglobin is 12.1, white count 8.3. DIAGNOSTIC IMPRESSION AND PLAN: Patient with abdominal abscess from a perforated appendicitis status post appendectomy. Abdominal culture with strep E coli and anaerobes. Patient has recent IV to be restarted, supposed to be changed. Antibiotic will be switched to oral Augmentin. She will continue for another week and close outpatient followup. MMODL / IJN: [id number] /
[2020-02-01] MEDS: traMADol 50 MG TAB PO PRN ×4 (03:39→20:18)
[2020-02-01 05:22] LABS: Basophils % (A) 0 %; Eosinophils # (A) 0.1 k/uL (0-0.7); Eosinophils % (A) 2 %; HCT 34.3 % (34.0-46.0); Lymphocytes # (A) 1.5 k/uL (1.0-4.8); Lymphocytes % (A) 20 %; MCH 29.7 pg (25.0-35.0); Mean Platelet Volume 7.9; Monocytes # (A) 0.3 k/uL (0-1.0); Monocytes % (A) 5 %; Neutrophils # (A) 5.4 k/uL (1.3-7.7); Neutrophils % (A) 71 %; Platelet Count 502 k/uL (150-450); RBC 3.68 m/uL (3.80-5.40); WBC 7.6 k/uL (3.8-10.6)
[2020-02-01 05:42] LABS: African American GFR (CKD) >90 (>60 ml/min/1.73 sqM); Anion Gap 2 mmol/L; Blood Urea Nitrogen 7 mg/dL (7-17); C Reactive Protein 31.9 mg/L (<10.0); Calcium 8.6 mg/dL (8.4-10.2); Carbon Dioxide 26 mmol/L (22-30); Chloride 106 mmol/L (98-107); Glucose 95 mg/dL (74-99); Non-African American GFR(CKD) >90 (>60 ml/min/1.73 sqM); Potassium 4.1 mmol/L (3.5-5.1); Sodium 134 mmol/L (137-145)
[2020-02-01] MEDS: ACETAMINOPHEN TAB 325 MG TAB PO SCH ×3 (06:44→17:58)
[2020-02-01] MEDS: PANTOPRAZOLE 40 MG TABLET PO SCH (06:44)
[2020-02-01] MEDS: AMOXIC-POT CLAV 875-125MG 1 EACH TAB PO SCH (08:53)
[2020-02-01] MEDS: LEVONORGESTREL ETHIN ESTRADIOL PO SCH (08:55)
--- NOTE | 2020-02-01 10:11 | P.PN ---
Subjective Progress Note Date: 02/01/20 CHIEF COMPLAINT: Ruptured appendicitis HISTORY OF PRESENT ILLNESS: The patient is a 39-year-old female presented with ruptured appendicitis. She is status post appendectomy including sacrectomy, 01/24/20. Yesterday she was started on regular diet vegetarian. This morning she complains of mild abdominal gas cramping. Additionally she reports having blood in her stools. ROS: No reports of nausea and vomiting. No fevers or chills. PHYSICAL EXAM: VITAL SIGNS: Reviewed CONSTITUTIONAL: Well developed and in no acute distress. EYES: Conjuctivae without sclera icterus. Extraocular movements grossly intact. HEAD, EARS, NOSE, THROAT: Moist buccal mucosa. Head is atraumatic, normocephalic. Hears conversational speech. No nasal drainage. NECK: Supple. No thyroidomegaly. RESPIRATORY: Non-labored respirations and equal bilateral excursions. CARDIOVASCULAR: Palpable 2+ radial pulses. ABDOMEN: No peritonitis. MERYL serosanguineous. Mild abdominal gas bloat MUSCULOSKELETAL: No gross deformity of the lower extremities noted. No clubbing. No cyanosis. SKIN: Good skin turgor. Well perfused. NEUROLOGIC: Cranial nerves II through XII grossly intact. No focal or lateralizing signs. PSYCH: Appropriate affect. Alert and oriented to person, place and time. CLINICAL LABS: Reviewed. Hemoglobin down 12.9-11.0. WBC normal 7.6. Platelets over 500 ASSESSMENT: 1. Ruptured appendicitis 2. Acute blood loss anemia PLAN: 1. We'll obtain CT of the abdomen and pelvis as she has a clinical change with drop in hemoglobin including persistently elevated thrombocytosis 2. Continue antibiotics 3. Continue MERYL drain Objective - Vital Signs Vital signs: Vital Signs Temp 98.3 F 02/01/20 08:00 Pulse 81 02/01/20 08:00 Resp 16 02/01/20 08:00 BP 128/85 02/01/20 08:00 Pulse Ox 96 02/01/20 08:00 Intake & Output 01/31/20 02/01/20 02/01/20 18:59 06:59 18:59 Intake Total 100 Output Total 25 15 10 Balance 75 -15 -10 Intake: Oral 100 Output: Drainage 25 15 10 Lower Abdomen 25 15 10 Other: Voiding Method Toilet # Voids 1 3 1 - Labs CBC & Chem 7: 02/01/20 05:14 02/01/20 05:14 Labs: Abnormal Lab Results - Last 24 Hours (Table) 02/01/20 02/01/20 Range/Units 05:14 05:14 RBC 3.68 L (3.80-5.40) m/uL Hgb 11.0 L (11.4-16.0) gm/dL Plt Count 502 H (150-450) k/uL Sodium 134 L (137-145) mmol/L C-Reactive Protein 31.9 H (<10.0) mg/L Assessment and Plan (1) Acute appendicitis Current Visit: Yes Status: Acute Code(s): K35.80 - UNSPECIFIED ACUTE APPENDICITIS SNOMED Code(s): 86985140
[2020-02-01] MEDS: IOPAMIDOL CONTRAST (ORAL USE) VIAL PO PRN ×2 (10:30→11:36)
--- NOTE | 2020-02-01 12:40 | CT ---
EXAMINATION TYPE: CT abdomen pelvis w con DATE OF EXAM: 02/01/2020 COMPARISON: 01/23/2020 HISTORY: 39-year-old female RLQ pain post appendectomy TECHNIQUE: Contiguous axial scanning of the abdomen and pelvis following administration of 100 ml Iso kota 300 IV contrast. Delayed images through the kidneys and coronal/sagittal reconstructions perform ed. CT DLP: 532.4 mGycm Automated exposure control for dose reduction was used. FINDINGS: Heart normal size without pericardial effusion. Lung bases clear without pleural effusion. No focal liver lesion or biliary ductal dilatation. Gallbladder within normal limits. There is long segment filling defect within the SMV, referred to coronal image 37 and axial series 6 image 32. Surgical drain in the right lower quadrant with surgical material at the cecum from appendectomy. The re is moderate stool wording. Interval resection of the appendix. No dilated small bowel, free fluid, or free air is seen. Some residual inflammatory fat stranding rem ains in the right lower quadrant. Kidneys, adrenal glands, spleen, pancreas within normal limits. There is moderate pelvic ascites with some corresponding within peritoneal enhancement. Uterus anteve rted. Unable to clearly delineate the ovaries from adjacent bowel loops. Left-sided pelvic phlebolith . Bones: No osseous destructive process. IMPRESSION: 1. INTERVAL APPENDECTOMY WITH A RIGHT LOWER QUADRANT SURGICAL DRAIN. SOME RESIDUAL POSTSURGICAL INFLA MMATION IN THIS REGION. 2. MODERATE PELVIC ASCITES WITH SOME THIN PERITONEAL ENHANCEMENT THAT MAY BE REACTIVE. CORRELATE TO E XCLUDE INFECTIVE ASCITES. 3. IN ADDITION, THERE IS COMPLICATION NOW WITH SMV THROMBOSIS (CORONAL IMAGE 37 AND AXIAL SERIES 6 IM AGE 33). A Harlan level critical message alert has been initiated for Ami Diaz via the [employer] Critical Results System on 02/01/2020 12:38 PM. This message alert has been sent to Ami díaz via the preferences provided by the clinician for the receipt of Radiology Critical Findings. [employer] ID [id number].
[2020-02-01 17:07] LABS: Basophils # (A) 0.1 k/uL (0-0.2); Basophils % (A) 1 %; Eosinophils # (A) 0.1 k/uL (0-0.7); Eosinophils % (A) 1 %; HCT 38.5 % (34.0-46.0); HGB 12.8 gm/dL (11.4-16.0); Lymphocytes # (A) 1.7 k/uL (1.0-4.8); Lymphocytes % (A) 17 %; MCH 31.1 pg (25.0-35.0); MCHC 33.2 g/dL (31.0-37.0); MCV 93.8 fL (80.0-100.0); Mean Platelet Volume 7.4; Monocytes # (A) 0.5 k/uL (0-1.0); Monocytes % (A) 5 %; Neutrophils # (A) 7.4 k/uL (1.3-7.7); Neutrophils % (A) 74 %; Platelet Count 517 k/uL (150-450); RBC 4.11 m/uL (3.80-5.40); RDW 12.6 % (11.5-15.5); WBC 9.9 k/uL (3.8-10.6)
[2020-02-01] MEDS: AMPICILLIN-SULBACTAM 3 GM in SODIUM CHLORIDE 0.9% 100 ML IVPB SCH (17:58)
[2020-02-01] MEDS: METOPROLOL SUCCINATE (ER) 50 MG TAB.ER.24H PO SCH (20:18)
--- NOTE | 2020-02-01 23:22 | P.PN ---
Progress Note - Text Progress Note Date: 02/01/20 Full consult to follow. Pt's chart reviewed. Pt came in with ruptured appendix, s/p emergent appendectomy on 01/24/20. Course complicated by recent abdominal pain earlier today (02/01/20), CT reveals new SMV thormobosis. Pt also complained today of bloody BM. Hgb overall stable, decreased from 12's to 11 earlier today however on repeat back to 12's. SMV is provoked due to recent surgery. Pt would benefit from anticoagulation and bowel rest and close monitoring for persistent bleeding and Hgb. Would treat with heparin drip until pt overall stabilizes.
[2020-02-02] MEDS: ACETAMINOPHEN TAB 325 MG TAB PO SCH ×5 (00:05→23:00)
[2020-02-02] MEDS: AMPICILLIN-SULBACTAM 3 GM in SODIUM CHLORIDE 0.9% 100 ML IVPB SCH ×5 (00:06→23:28)
--- NOTE | 2020-02-02 01:38 | PN ---
PROGRESS NOTE DATE OF SERVICE: 02/01/2020. REASON FOR FOLLOW UP: Abdominal abscess from perforated appendicitis. INTERVAL HISTORY: The patient is currently afebrile. She was noted to have slight bleeding from her MERYL drain for which the patient did have a repeat CT. Patient denies any worsening abdominal pain. No chest pain, shortness of breath or cough. No diarrhea. PHYSICAL EXAMINATION: Blood pressure 130/80 with a pulse of 103. Temperature 98. She is 99% on room air. General description: The patient is a middle-aged female up in the room in no distress. Respiratory system: Decreased breath sounds in the bases with no wheeze. Heart S1, S2. Regular rate and rhythm. ABDOMEN: Soft, no tenderness. LABORATORY DATA: Hemoglobin 12.1, white count 9.9. DIAGNOSTIC IMPRESSION AND PLAN: Patient with abdominal abscess from ruptured appendicitis, status post open cystectomy in this patient got another IV antibiotic, switch back to Unasyn. Repeat CT did not show any evidence of any abdominal abscess but there was evidence of thrombosis to be managed by the admitting and surgery team. Continue supportive care. MMODL / IJN: [id number] /
[2020-02-02] MEDS: traMADol 50 MG TAB PO PRN ×3 (02:31→17:36)
[2020-02-02] MEDS: PANTOPRAZOLE 40 MG TABLET PO SCH (06:23)
[2020-02-02 06:56] LABS: Basophils % (A) 0 %; Eosinophils # (A) 0.2 k/uL (0-0.7); Eosinophils % (A) 2 %; HCT 34.2 % (34.0-46.0); HGB 11.3 gm/dL (11.4-16.0); Lymphocytes # (A) 1.9 k/uL (1.0-4.8); Lymphocytes % (A) 22 %; MCH 30.7 pg (25.0-35.0); MCHC 32.9 g/dL (31.0-37.0); MCV 93.4 fL (80.0-100.0); Mean Platelet Volume 7.4; Monocytes # (A) 0.4 k/uL (0-1.0); Monocytes % (A) 5 %; Neutrophils # (A) 6.1 k/uL (1.3-7.7); Neutrophils % (A) 69 %; Platelet Count 467 k/uL (150-450); RBC 3.66 m/uL (3.80-5.40); RDW 12.7 % (11.5-15.5); WBC 8.8 k/uL (3.8-10.6)
[2020-02-02 07:14] LABS: African American GFR (CKD) >90 (>60 ml/min/1.73 sqM); Anion Gap 2 mmol/L; Blood Urea Nitrogen 9 mg/dL (7-17); Calcium 8.5 mg/dL (8.4-10.2); Carbon Dioxide 29 mmol/L (22-30); Chloride 104 mmol/L (98-107); Glucose 80 mg/dL (74-99); Non-African American GFR(CKD) >90 (>60 ml/min/1.73 sqM); Potassium 4.3 mmol/L (3.5-5.1); Sodium 135 mmol/L (137-145)
[2020-02-02] MEDS: LEVONORGESTREL ETHIN ESTRADIOL PO SCH (08:08)
--- NOTE | 2020-02-02 11:36 | P.PN ---
Subjective Progress Note Date: 02/02/20 CHIEF COMPLAINT: Ruptured appendicitis HISTORY OF PRESENT ILLNESS: The patient is a 39-year-old female presented with ruptured appendicitis. She is status post appendectomy including cecectomy, 01/24/20. Yesterday, she had intermittent blood diarrhea over 400-mL in total per nursing. She developed new abdominal cramping with increased redness of her MERYL. A CT of the abdomen and pelvis was ordered. Her diet has been adjusted from regular to clear liquid diet. Her hemoglobin is stable. No further blood bowel movements today. Hematology is consulted for new finding of SMV thrombosis. ROS: No reports of nausea and vomiting. No fevers or chills. PHYSICAL EXAM: VITAL SIGNS: Reviewed CONSTITUTIONAL: Well developed and in no acute distress. EYES: Conjuctivae without sclera icterus. Extraocular movements grossly intact. HEAD, EARS, NOSE, THROAT: Moist buccal mucosa. Head is atraumatic, nor mocephalic. Hears conversational speech. No nasal drainage. RESPIRATORY: Non-labored respirations and equal bilateral excursions. CARDIOVASCULAR: Palpable 2+ radial pulses. ABDOMEN: Tender right lower quadrant. No peritonitis. MERYL more sanguineous in the last 2 days. Mild abdominal gas bloat MUSCULOSKELETAL: No gross deformity of the lower extremities noted. No clubbing. No cyanosis. SKIN: Good skin turgor. Well perfused. NEUROLOGIC: Cranial nerves II through XII grossly intact. No focal or lateralizing signs. PSYCH: Appropriate affect. Alert and oriented to person, place and time. CLINICAL LABS: Reviewed. Hemoglobin 12.9 to 11.0 now up to 11.3. ASSESSMENT: 1. Ruptured appendicitis 2. Acute blood loss anemia 3. SMV thrombosis PLAN: 1. I personally spoke with hydroelectric machinery mechanic regarding her care. Patient reported allergies to pork and as a result, avoid porcine products including heparin. 2. As she is symptomatic from her SMV thrombosis, heparin gtt was described and agreed up with discussion hematology finance consultant, myself and Dr. Andrews who was notified over phone. 3. Transfer to med/surg for increased complexity of care. 4. Patient being closely monitored for allergic reaction to heparin gtt. Objective - Vital Signs Vital signs: Vital Signs Temp 97.9 F 02/02/20 08:10 Pulse 86 02/02/20 08:10 Resp 16 02/02/20 08:10 BP 114/77 02/02/20 08:10 Pulse Ox 97 02/02/20 08:10 Intake & Output 02/01/20 02/02/20 02/02/20 18:59 06:59 18:59 Intake Total 1100 Output Total 10 100 Balance 1090 -100 Intake: Oral 1100 Output: Drainage 10 50 Lower Abdomen 10 50 Stool 50 Other: Voiding Method Toilet # Voids 1 1 1 # Bowel Movements 1 1 - Labs CBC & Chem 7: 02/02/20 06:33 02/02/20 06:33 Labs: Abnormal Lab Results - Last 24 Hours (Table) 02/01/20 02/02/20 02/02/20 Range/Units 16:53 06:33 06:33 RBC 3.66 L (3.80-5.40) m/uL Hgb 11.3 L (11.4-16.0) gm/dL Plt Count 517 H 467 H (150-450) k/uL Sodium 135 L (137-145) mmol/L Assessment and Plan (1) Acute appendicitis Current Visit: Yes Status: Acute Code(s): K35.80 - UNSPECIFIED ACUTE APPENDICITIS SNOMED Code(s): 04824800 (2) Superior mesenteric vein thrombosis Current Visit: Yes Status: Acute Code(s): K55.069 - ACUTE INFARCTION OF INTESTINE, PART AND EXTENT UNSPECIFIED SNOMED Code(s): 455890692 (3) Ruptured appendicitis Current Visit: Yes Status: Acute Code(s): K35.32 - ACUTE APPENDICITIS WITH PERF AND LOC PERITONITIS, W/O ABSCS SNOMED Code(s): 66936951 (4) Acute blood loss anemia Current Visit: Yes Status: Acute Code(s): D62 - ACUTE POSTHEMORRHAGIC ANEMIA SNOMED Code(s): 529913018
--- NOTE | 2020-02-02 12:46 | P.CONS ---
History of Present Illness - Reason for Consult Consult date: 02/02/20 SMV thrombosis Requesting physician: Ami Diaz - Chief Complaint Abdominal pain - History of Present Illness Ms. Dunham is a very pleasant 39-year-old female who is here for ruptured appendix, status post appendectomy on 01/24/20. She was healing well and starting her diet up until 02/01/20 a.m. when she began having abdominal pain and bloody bowel movements. CBC revealed hemoglobin slightly decreased at 11 from 12, thrombocytosis for the past several days in the 500s. Repeat CBC with hemoglobin back up to 12.8. She underwent a CT of the abdomen and pelvis which revealed appendectomy with right lower quadrant drain and residual inflammation as well as moderate pelvic ascites and SMV thrombosis. 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 States she was having hives randomly and underwent a skin test which revealed several allergies including pigs. She was tolerating pig products prior to that without problems prior to that however has avoided all meats since then and is not sure if she truly would have a reaction to pork/pig products. She was able to slowly introduce several foods back into her diet however continues to have some side effects to certain things such as dairy products. Continue to have bloody bowel movements throughout the day which slightly decreased overnight. Last bowel movement was last night. Pain today is overall unchanged. We were called for anticoagulation recommendations. This morning her CBC reveals a hemoglobin of 11.3, platelets stable. Review of Systems All systems: negative Constitutional: Reports as per HPI Past Medical History Past Medical History: Asthma, Hypertension Additional Past Medical History / Comment(s): Migraines, tachycardia, V-Tach on EKG prevoiusly, had EP study (everything okay, no problems since). 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 History of Any Multi-Drug Resistant Organisms: None Reported Past Surgical History: Adenoidectomy, Tonsillectomy Additional Past Surgical History / Comment(s): Lateral internal sphincterotomy, EP study Past Anesthesia/Blood Transfusion Reactions: Previous Problems w/ Anesthesia, Motion Sickness Additional Past Anesthesia/Blood Transfusion Reaction / Comm: Itching, red skin after last surg 2016 ("had Versed, Propofol, Zofran, Decadron") Past Psychological History: No Psychological Hx Reported Smoking Status: Former smoker Past Alcohol Use History: None Reported Additional Past Alcohol Use History / Comment(s): Smoked 13 years, 1/2 ppd, quit 2012. Past Drug Use History: None Reported - Past Family History Mother Family Medical History: Cancer Additional Family Medical History / Comment(s): Breast, Pancreatic CA. Father Family Medical History: Cancer Additional Family Medical History / Comment(s): Pancreatic CA. Medications and Allergies Home Medications Medication Instructions Recorded Confirmed Type Cholecalciferol [Vitamin D3 (25 1,000 unit PO DAILY 08/24/17 01/23/20 History Mcg = 1000 Iu)] Magnesium Oxide [Mag-Ox] 500 mg PO HS 08/24/17 01/23/20 History Metoprolol Succinate [Toprol Xl] 50 mg PO HS 08/24/17 01/23/20 History Topiramate [Topamax] 50 mg PO BID 08/24/17 01/23/20 History Levonorgestrel-Ethin Estradiol 1 tab PO DAILY 01/01/19 01/23/20 History [Levora-28 Tablet] Erenumab-Aooe [Aimovig 70 mg SQ Q30D 01/19/20 01/23/20 History Autoinjector] Multivitamins, Thera [Multivitamin 1 tab PO DAILY 01/19/20 01/23/20 History (formulary)] Naratriptan HCl 2.5 mg PO DAILY PRN 01/19/20 01/23/20 History Omeprazole Magnesium [PriLOSEC OTC] 20 mg PO DAILY 01/19/20 01/23/20 History Ondansetron HCl [Zofran] 4 mg PO Q8H PRN 01/19/20 01/23/20 History traMADol HCL [Ultram] 50 mg PO Q6HR PRN 3 Days #12 tab 01/29/20 Rx Allergies Allergy/AdvReac Type Severity Reaction Status Date / Time Beef Containing Products Allergy Pos on Verified 01/24/20 13:38 allergy test cefuroxime [From Ceftin] Allergy Rash/Hives Verified 01/24/20 13:38 chicken derived [Chicken] Allergy Pos on Verified 01/24/20 13:38 allergy test gluten Allergy Rash/Hives Verified 01/24/20 13:38 hydrocodone Allergy Rash/Hives Verified 01/24/20 13:38 levofloxacin [From Levaquin] Allergy Rash/Hives Verified 01/24/20 13:38 Pork/Porcine Containing Allergy Pos on Verified 01/24/20 13:38 Products allergy [Pork] test soybean Allergy Rash/Hives Verified 01/24/20 13:38 Physical Exam Vitals: Vital Signs Temp Pulse Resp BP Pulse Ox 02/02/20 08:10 97.9 F 86 16 114/77 97 02/02/20 04:09 98.7 F 89 16 118/78 98 02/02/20 00:09 105 H 18 127/77 98 02/01/20 20:16 98.0 F 103 H 18 130/80 99 02/01/20 16:12 97.8 F 91 16 144/92 100 02/01/20 13:48 107 H 16 136/89 97 02/01/20 12:45 98.3 F 102 H 16 140/90 97 Intake and Output 02/01/20 02/02/20 02/02/20 22:59 06:59 14:59 Output Total 50 50 Balance -50 -50 Output: Drainage 0 50 Lower Abdomen 0 50 Stool 50 Other: # Voids 1 1 # Bowel Movements 1 Gen.: No acute distress. HEENT: No conjunctival pallor or scleral icterus. Mucosa moist. Neck: Supple. Lungs: No respiratory distress. Heart: Regular rate. No lower extremity edema. Abdomen: Soft, tender. MSK: Appropriate strength in all 4 extremities. Neuro: Alert and oriented 3. Skin: No jaundice. Psych: Appropriate affect. Results CBC & Chem 7: 02/02/20 06:33 02/02/20 06:33 Labs: Abnormal Lab Results - Last 24 Hours (Table) 02/01/20 02/02/20 02/02/20 Range/Units 16:53 06:33 06:33 RBC 3.66 L (3.80-5.40) m/uL Hgb 11.3 L (11.4-16.0) gm/dL Plt Count 517 H 467 H (150-450) k/uL Sodium 135 L (137-145) mmol/L CT scan - abdomen: report reviewed Assessment and Plan Assessment: 1. Ruptured appendix s/p appendectomy on 01/24/20 2. SMV thrombosis 3. Hematochezia/melena 4. Mild normocytic anemia 5. Reactive thrombocytosis Plan: Ms. Dunham is a very pleasant 39-year-old female who is here for ruptured appendix status post appendectomy in 01/24/20. Course complicated by CT of the abdomen pelvis obtained on 02/01/20 for abdominal pain and hematochezia/melena, revealing SMV thrombosis. Hemoglobin overall has been stable around 1112. She does have reactive thrombocytosis postop which is expected, platelets around 500. She also has a pig allergy from childhood, and AC with preferred agent, heparin, is porcine derived. AC has not yet been started due to pig allergy as well as hematochezia/melena. I discussed her current can addition with her. I would recommend antico agulation for her SMV thrombosis, which is provoked from her recent surgery and infection. Short acting heparin drip would be the best agent to start off with due to the concern of GI bleed. Her hemoglobin has remained stable and I think it's reasonable to start her on anticoagulation. I did discuss the low likelihood that she would react a heparin drip however if she did we would monitor her very closely and stop the heparin drip as this is porcine derived, and if she does develop a reaction that we would know that she truly has an allergy to pig products. She has never had a reaction to eating pork prior to her having her skin testing and has not had pork intake since then. Discussed with patient and she is agreeable to the plan. Discussed with surgery as well as nursing staff. All of her questions were answered.
[2020-02-02 13:56] LABS: INR 1.2 (<1.2); Partial Thromboplastin Time 25.6 sec (22.0-30.0); Prothrombin Time 11.7 sec (9.0-12.0)
[2020-02-02 15:08] VITALS: BMI 23.1
[2020-02-02] MEDS ORDERED: HEPARIN SODIUM,PORCINE 5,000 UNIT/ML 1 ML VIAL IV PRN (15:33)
[2020-02-02] MEDS ORDERED: HEPARIN SODIUM,PORCINE 5,000 UNIT/ML 1 ML VIAL IV ONE (16:00)
[2020-02-02] MEDS: SODIUM CHLORIDE 0.9% 1,000 ML IV SCH (16:37)
[2020-02-02] MEDS: HEPARIN SOD,PORK IN 0.45% NACL 25,000 UNIT in 0.45% NACL 1 250ML.BAG IV SCH (16:51)
[2020-02-02] MEDS: METOPROLOL SUCCINATE (ER) 50 MG TAB.ER.24H PO SCH (20:24)
--- NOTE | 2020-02-02 23:44 | PN ---
PROGRESS NOTE DATE OF SERVICE: 02/02/2020 REASON FOR FOLLOWUP: Abdominal abscess from perforated appendicitis. INTERVAL HISTORY: Patient is currently afebrile. Patient is breathing comfortably. The patient abdominal pain is currently controlled. No chest pain. No shortness of breath or cough. No nausea, vomiting or diarrhea. PHYSICAL EXAMINATION: Blood pressure 134/84 with a pulse of 93. Temperature is 98.5. She is 99% on room air. General description: The patient is a middle-aged female up in the room in no distress. Respiratory system: Unlabored breathing, clear to auscultation anteriorly. Heart S1, S2. Regular rate and rhythm. ABDOMEN: Soft, no tenderness. LABS: Hemoglobin is 11.8, white count 8.8, creatinine 0.66. DIAGNOSTIC IMPRESSION AND PLAN: Patient with abdominal abscess from perforated appendicitis status post open cecectomy in this patient repeat CT did show evidence of SMV thrombosis with the patient started on heparin per Hematology-Oncology. Patient on Unasyn for underlying infection and clinical course will be monitored closely. MMODL / IJN: [id number] /
[2020-02-03] MEDS: traMADol 50 MG TAB PO PRN ×3 (00:15→22:22)
[2020-02-03] MEDS: AMPICILLIN-SULBACTAM 3 GM in SODIUM CHLORIDE 0.9% 100 ML IVPB SCH ×3 (05:08→17:25)
[2020-02-03] MEDS: ACETAMINOPHEN TAB 325 MG TAB PO SCH ×3 (05:30→17:24)
[2020-02-03 06:18] LABS: Basophils % (A) 1 %; Eosinophils # (A) 0.1 k/uL (0-0.7); Eosinophils % (A) 2 %; HCT 31.8 % (34.0-46.0); HGB 10.4 gm/dL (11.4-16.0); Hypochromasia Slight; Lymphocytes # (A) 2.2 k/uL (1.0-4.8); Lymphocytes % (A) 30 %; MCH 30.8 pg (25.0-35.0); MCHC 32.7 g/dL (31.0-37.0); MCV 94.1 fL (80.0-100.0); Mean Platelet Volume 7.3; Monocytes # (A) 0.3 k/uL (0-1.0); Monocytes % (A) 5 %; Neutrophils # (A) 4.3 k/uL (1.3-7.7); Neutrophils % (A) 61 %; Platelet Count 487 k/uL (150-450); RBC 3.38 m/uL (3.80-5.40); RDW 12.9 % (11.5-15.5); WBC 7.1 k/uL (3.8-10.6)
[2020-02-03 06:23] LABS: Ionized Calcium 5.1 mg/dL (4.5-5.3)
[2020-02-03] MEDS: PANTOPRAZOLE 40 MG TABLET PO SCH (07:49)
[2020-02-03] MEDS: LEVONORGESTREL ETHIN ESTRADIOL PO SCH (07:49)
[2020-02-03 09:50] LABS: BUN/Creat Ratio 13.33 Ratio (12.00-20.00); Calcium 8.3 mg/dL (8.7-10.3); Magnesium 1.7 mg/dL (1.5-2.4); Non-African American GFR(CKD) 115.6 (60.0-200.0); Phosphorus 2.8 mg/dL (2.4-5.1)
--- NOTE | 2020-02-03 10:18 | P.PN ---
Subjective Progress Note Date: 02/03/20 Principal diagnosis: Ruptured appendicitis Patient doing fairly well today. Over the weekend the patient developed bloody stools. A CAT scan was performed after that was identified. The evening prior the patient had started on solid foods. Said she was tolerating it fairly well with some mild nausea. After the bloody stools was identified a CAT scan was obtained. CAT scan identified some mild postoperative inflammatory changes. No evidence of leak. Superior mesenteric thrombosis was suspected. Consult was placed to hematology given the patient's history of possible ALLERGIES to anticoagulation. She was then started on a heparin drip. The patient's bleeding actually has slowed down significantly. No stools yesterday. A small brownish soft stool today with a slight blood tinge was noted. The patient's pain is improved. She would like to try food. PICC line was ordered for the administration of heparin, antibiotics, and TPN. Patient would like to avoid TPN if possible. MERYL drain is serosanguineous. She is afebrile. White blood cell count is normal. Hemoglobin stable. Objective - Vital Signs Vital signs: Vital Signs Temp 98.3 F 02/03/20 07:32 Pulse 90 02/03/20 07:32 Resp 16 02/03/20 08:34 BP 128/79 02/03/20 07:32 Pulse Ox 99 02/03/20 07:32 Intake & Output 02/02/20 02/03/20 02/03/20 18:59 06:59 18:59 Intake Total 100 303.456 Output Total 165 25 50 Balance -65 278.456 -50 Weight 61 kg Intake: Intake, IV Titration 103.456 Amount Heparin Sod,Pork in 0.45% 103.456 NaCl 25,000 unit In 0.45 % NaCl 1 250ml.bag @ 12 UNITS/KG/HR 7.32 mls/hr IV .Q24H [facility] Rx#: [id number] Oral 100 200 Output: Drainage 15 25 Lower Abdomen 15 25 Urine 150 Stool 50 Other: Voiding Method Toilet Toilet # Voids 1 2 - Exam Abdomen: Soft, mild incisional tenderness, incision clean and dry, MERYL drain removed, nondistended - Labs CBC & Chem 7: 02/03/20 05:39 02/03/20 05:39 Labs: Abnormal Lab Results - Last 24 Hours (Table) 1202/02/20 02/03/20 Range/Units 13:36 21:34 05:39 RBC 3.38 L (3.80-5.40) m/uL Hgb 10.4 L (11.4-16.0) gm/dL Hct 31.8 L (34.0-46.0) % Plt Count 487 H (150-450) k/uL INR 1.2 H (<1.2) APTT 49.0 H (22.0-30.0) sec BUN (9.0-27.0) mg/dL Glucose (70-110) mg/dL Calcium (8.7-10.3) mg/dL 02/03/20 02/03/20 Range/Units 05:39 05:39 RBC (3.80-5.40) m/uL Hgb (11.4-16.0) gm/dL Hct (34.0-46.0) % Plt Count (150-450) k/uL INR (<1.2) APTT 42.8 H (22.0-30.0) sec BUN 8.0 L (9.0-27.0) mg/dL Glucose 54 L (70-110) mg/dL Calcium 8.3 L (8.7-10.3) mg/dL Assessment and Plan (1) Ruptured appendicitis Narrative/Plan: 39-year-old female doing fairly well after right colectomy for complicated appendicitis. Patient's recent CAT scan demonstrates acute superior mesenteric thrombosis. Consult to hematology appreciated. Continue heparin drip for now. Clinical scenario was discussed in detail with the patient. Overall patient is improving. I suspect the mesenteric thrombosis explains her increased pain early last week. The bloody stools that the patient described as appearing like jelly I'm sure is related to her mesenteric thrombosis as well. Continue supportive care. Continue antibiotics per infectious disease. Will advance di et and hold on TPN for now. Continue ambulation. Drain was removed. Patient complaining of some film on her tongue and mild sore throat. Will give 3 doses of oral Diflucan for possible candidiasis. Current Visit: Yes Status: Acute Code(s): K35.32 - ACUTE APPENDICITIS WITH PERF AND LOC PERITONITIS, W/O ABSCS SNOMED Code(s): 22446167
[2020-02-03 10:27] LABS: Glucose,Whole Blood 53 mg/dL (75-99)
[2020-02-03] MEDS: FLUCONAZOLE 100 MG TAB PO SCH (11:14)
[2020-02-03 11:40] LABS: Glucose,Whole Blood 102 mg/dL (75-99)
[2020-02-03] MEDS: SODIUM CHLORIDE 0.9% 1,000 ML IV SCH (11:46)
[2020-02-03] MEDS ORDERED: LIDOCAINE 1% INJ 10MG/ML (20 ML MDV) ONE (12:20)
[2020-02-03] MEDS ORDERED: LIDOCAINE 1% INJ 10MG/ML (20 ML MDV) SQ ONE (12:53)
[2020-02-03 14:46] LABS: Partial Thromboplastin Time 26.1 sec (22.0-30.0)
[2020-02-03 14:52] LABS: INR 1.2 (<1.2); Prothrombin Time 11.7 sec (9.0-12.0)
--- NOTE | 2020-02-03 15:00 | IR ---
EXAMINATION TYPE: IR cvc insert >=5 years DATE OF EXAM: 02/03/2020 COMPARISON: NONE CLINICAL HISTORY: Infection, superficial venous thrombosis. Needs long-term intravenous access for an tibiotics. PROCEDURE: Hand hygiene obtained with soap and water and alcohol-based hand rub. After informed consent, the skin overlying the left brachial vein was localized with ultrasound and n oted to be compressible and patent. An ultrasound image was obtained and submitted on the patient's chart. The overlying skin was prepped and draped and Lidocaine was used for local anesthesia. A ski n eric was made with a scalpel. Access was gained to the vein under ultrasound guidance with a 21 ga uge needle and a 0.018 inch wire was advanced. Access site was dilated with Peel-Away sheath and cat heter tailored to the appropriate length and advanced such that the distal tip is at the cavoatrial j unction. Spot image was obtained verifying placement. Catheter was fixed to the skin and a sterile dressing was placed following hemostasis. Catheter was aspirated and flushed with saline. Patient w as discharged in stable condition without complication. Maximal barrier technique is utilized. Ultra sound image is documented on the chart. Ultrasound used with sterile technique. Fluoro time and fluoroscopic images submitted to document procedure: 0.4 minutes fluoroscopy time, no images saved of the procedure Incidental note made of noncompressibility, low-level internal echoes within the left basilic vein IMPRESSION: STATUS POST ULTRASOUND AND FLUOROSCOPIC GUIDED PICC LINE PLACEMENT, READY FOR USE. THIS PROCEDURE WAS PERFORMED BY THE UNDERSIGNED. Superficial venous thrombosis left basilic vein.
[2020-02-03] MEDS: HEPARIN SOD,PORK IN 0.45% NACL 25,000 UNIT in 0.45% NACL 1 250ML.BAG IV SCH (15:17)
[2020-02-03] MEDS: METOPROLOL SUCCINATE (ER) 50 MG TAB.ER.24H PO SCH (20:10)
--- NOTE | 2020-02-03 21:21 | P.PN ---
Subjective Progress Note Date: 02/03/20 Principal diagnosis: SMV Thrombus post operative She is returning from picc line placement, she states one BM dark blood in stool, no red blood and hemoglobin stable Family history of pancreatic and breast cancer and polycythemia. She was taking control pills and was asking if she should return to this. Tolerating heparin well. Objective - Vital Signs Vital signs: Vital Signs Temp 98.4 F 02/03/20 18:55 Pulse 100 02/03/20 18:55 Resp 17 02/03/20 18:55 BP 131/82 02/03/20 18:55 Pulse Ox 97 02/03/20 18:55 Intake & Output 02/03/20 02/03/20 02/04/20 06:59 18:59 06:59 Intake Total 303.456 70.882 Output Total 25 50 Balance 278.456 20.882 Intake: Intake, IV Titration 103.456 70.882 Amount Heparin Sod,Pork in 0.45% 103.456 70.882 NaCl 25,000 unit In 0.45 % NaCl 1 250ml.bag @ 12 UNITS/KG/HR 7.32 mls/hr IV .Q24H [facility] Rx#: [id number] Oral 200 Output: Drainage 25 Lower Abdomen 25 Stool 50 Other: Voiding Method Toilet # Voids 2 1 # Bowel Movements 2 - Exam Gen.: No acute distress. HEENT: No conjunctival pallor or scleral icterus. Mucosa moist. Neck: Supple. Lungs: No respiratory distress. Heart: Regular rate. No lower extremity edema. Abdomen: Soft, tender. MSK: Appropriate strength in all 4 extremities. Neuro: Alert and oriented 3. Skin: No jaundice. Psych: Appropriate affect. - Labs CBC & Chem 7: 02/03/20 05:39 02/03/20 05:39 Labs: Abnormal Lab Results - Last 24 Hours (Table) 02/02/20 02/03/20 02/03/20 Range/Units 21:34 05:39 05:39 RBC 3.38 L (3.80-5.40) m/uL Hgb 10.4 L (11.4-16.0) gm/dL Hct 31.8 L (34.0-46.0) % Plt Count 487 H (150-450) k/uL INR (<1.2) APTT 49.0 H (22.0-30.0) sec BUN 8.0 L (9.0-27.0) mg/dL Glucose 54 L (70-110) mg/dL POC Glucose (mg/dL) (75-99) mg/dL Calcium 8.3 L (8.7-10.3) mg/dL 02/03/20 02/03/20 02/03/20 Range/Units 05:39 10:24 11:38 RBC (3.80-5.40) m/uL Hgb (11.4-16.0) gm/dL Hct (34.0-46.0) % Plt Count (150-450) k/uL INR (<1.2) APTT 42.8 H (22.0-30.0) sec BUN (9.0-27.0) mg/dL Glucose (70-110) mg/dL POC Glucose (mg/dL) 53 L 102 H (75-99) mg/dL Calcium (8.7-10.3) mg/dL 02/03/20 Range/Units 13:59 RBC (3.80-5.40) m/uL Hgb (11.4-16.0) gm/dL Hct (34.0-46.0) % Plt Count (150-450) k/uL INR 1.2 H (<1.2) APTT (22.0-30.0) sec BUN (9.0-27.0) mg/dL Glucose (70-110) mg/dL POC Glucose (mg/dL) (75-99) mg/dL Calcium (8.7-10.3) mg/dL Assessment and Plan Plan: SMV Thrombosis post surgery: - Proviked after surgery and post operative complications - COntinue heparin drip - Monitor hemoglobin and for signs of bleeding.
[2020-02-03 22:02] LABS: Partial Thromboplastin Time 75.1 sec (22.0-30.0)
--- NOTE | 2020-02-03 23:35 | PN ---
PROGRESS NOTE DATE OF SERVICE: 02/03/2020 REASON FOR FOLLOWUP: Ruptured appendicitis with abdominal abscess. INTERVAL HISTORY: The patient is currently afebrile. The patient is breathing comfortably. The patient denies having any chest pain or shortness of breath or cough. Abdominal pain is currently controlled. No nausea, no vomiting. No diarrhea. PHYSICAL EXAMINATION: Blood pressure is 131/82 with a pulse of 100, temperature 98.4. She is 97% on room air. General description is a middle-aged female lying in bed in no distress. RESPIRATORY SYSTEM: Unlabored breathing. Clear to auscultation anteriorly. HEART: S1, S2. Regular rate and rhythm. ABDOMEN: Soft. No tenderness. LABS: Hemoglobin is 10.4, white count 7.1, BUN of 8, creatinine 0.6. DIAGNOSTIC IMPRESSION AND PLAN: Patient with abdominal abscess from perforated appendicitis in this patient who is status post open cecectomy. Abdominal culture patient is currently covered with Unasyn. Did have evidence of DVT for which the patient is covered with heparin. Oncology is following the patient closely. Continue with IV antibiotic while inpatient. Transition to oral antibiotic on discharge. Continue with supportive care. MMODL / IJN: [id number] / MTDD
[2020-02-04] MEDS: AMPICILLIN-SULBACTAM 3 GM in SODIUM CHLORIDE 0.9% 100 ML IVPB SCH ×5 (00:10→23:15)
[2020-02-04] MEDS: ACETAMINOPHEN TAB 325 MG TAB PO SCH ×5 (00:11→23:15)
[2020-02-04 03:30] LABS: Basophils # (A) 0.1 k/uL (0-0.2); Basophils % (A) 1 %; Eosinophils # (A) 0.1 k/uL (0-0.7); Eosinophils % (A) 1 %; HCT 32.9 % (34.0-46.0); HGB 10.5 gm/dL (11.4-16.0); Lymphocytes % (A) 34 %; MCH 29.9 pg (25.0-35.0); MCHC 31.9 g/dL (31.0-37.0); MCV 93.9 fL (80.0-100.0); Mean Platelet Volume 7.2; Monocytes # (A) 0.3 k/uL (0-1.0); Monocytes % (A) 6 %; Neutrophils # (A) 3.3 k/uL (1.3-7.7); Neutrophils % (A) 55 %; Platelet Count 486 k/uL (150-450); RDW 12.8 % (11.5-15.5); WBC 5.9 k/uL (3.8-10.6)
[2020-02-04 04:04] LABS: INR 1.3 (<1.2); Prothrombin Time 12.9 sec (9.0-12.0)
[2020-02-04 04:22] LABS: African American GFR (CKD) >90 (>60 ml/min/1.73 sqM); Anion Gap 1 mmol/L; Blood Urea Nitrogen 6 mg/dL (7-17); Calcium 8.6 mg/dL (8.4-10.2); Carbon Dioxide 27 mmol/L (22-30); Chloride 105 mmol/L (98-107); Glucose 102 mg/dL (74-99); Magnesium 1.8 mg/dL (1.6-2.3); Non-African American GFR(CKD) >90 (>60 ml/min/1.73 sqM); Phosphorus 2.4 mg/dL (2.5-4.5); Potassium 3.8 mmol/L (3.5-5.1); Sodium 133 mmol/L (137-145)
[2020-02-04] MEDS: FLUCONAZOLE 100 MG TAB PO SCH (07:46)
[2020-02-04] MEDS: PANTOPRAZOLE 40 MG TABLET PO SCH (07:46)
[2020-02-04] MEDS: traMADol 50 MG TAB PO PRN ×2 (07:46→19:40)
[2020-02-04] MEDS: LEVONORGESTREL ETHIN ESTRADIOL PO SCH (07:47)
--- NOTE | 2020-02-04 11:28 | P.PN ---
Subjective Progress Note Date: 01/31/20 Principal diagnosis: Sepsis due to ruptured acute appendicitis and pericecal abscess status post diagnostic laparoscopy and conversion to open cecectomy Ruptured acute appendicitis Pericecal abscess Intermittent abdominal pain for 10 days Acute appendicitis Atrial tachycardia Pots syndrome History of hypertension 01/31/2020, patient seen eval examined during the rounds labs reviewed medications, white cell count is stable, platelet count slightly up to 510,000, the service following and adjusting the antibiotics changed to oral Augmentin 01/30/2020, patient seen eval examined during the rounds labs and medications reviewed, patient is still have some abdominal discomfort pain and she however symptoms are significantly improved patient is cleared for clear liquid diet, 01/29/2020, patient seen eval examined during the rounds REVIEWED medications reviewed, has been on a daily quit diet, remains on broad-spectrum antibiotics ID service has been followed by general surgery is following, patient is still have a MERYL drain draining, 01/28/2020, patient seen and evaluated examined during the rounds labs reviewed medications reviewed care plan discussed, patient is slightly nauseous, she is back on chips ice chips only, cell count continue to go down, labs reviewed and chemistry reviewed, Osei x-ray revealed ileus-like Petrin 01/27/2020, patient seen eval reexamined during the rounds labs reviewed medications reviewed care plan discussed, postop day #3 of exploratory laparotomy with the partial resection of cecum, and appendectomy. To have intermittent nausea has been present, for pain has been on Dilaudid 01/26/2020, patient seen eval examined respiratory status remains stable some soreness at the surgical site is present, otherwise doing well patient has been started on clear liquid diet will resume home medications as well 01/25/2020, patient seen eval examined during the rounds labs reviewed medications reviewed care plan discussed, patient underwent laparoscopy and laparotomy noted to have a ruptured acute appendicitis as well as pericecal abscess, postop day #1 remains on broad-spectrum antibiotics she is complaining of some soreness however remains afebrile, on IV Zosyn and Flagyl 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, 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 does have a history of hypertension and POTS syndrome, those issues were has been stable, however she is been having diffuse intermittent abdominal pain for last 10 days, she does have significant history of pancreatic cancer both maternal and paternal side, she had one presentation earlier was discharged subsequently suspected pancreatitis at that time however again came back into the emergency department, recent abdominal CAT scan shows free fluid in the pelvis stranding in pericolic gutter appendix not seen patient is being considered for exploratory laparotomy, hemodynamically she is stable she did receive metipranolol earlier this morning the white cell count is up 16,400, LFTs and renal function is normal, covid is negative Objective - Vital Signs Vital signs: Vital Signs Temp 98.7 F 01/31/20 15:21 Pulse 101 H 01/31/20 15:22 Resp 16 01/31/20 15:21 BP 132/90 01/31/20 15:21 Pulse Ox 96 01/31/20 15:21 Intake & Output 01/30/20 01/31/20 01/31/20 18:59 06:59 18:59 Output Total 40 30 25 Balance -40 -30 -25 Weight 60.3 kg Output: Drainage 40 30 25 Lower Abdomen 40 30 25 Other: Voiding Method Toilet # Voids 2 2 1 # Bowel Movements 1 1 - Exam Constitutional General appearance: average body habitus, cooperative, disheveled - EENT Eyes: PERRLA ENT: hearing grossly normal Ears: bilateral: normal - Neck Neck: normal ROM Carotids: bilateral: upstroke normal Thyroid: bilateral: normal size - Respiratory Respiratory: bilateral: CTA - Cardiovascular Rhythm: regular Heart sounds: normal: S1, S2 - Gastrointestinal General gastrointestinal: decreased bowel sounds, soft - Neurologic Neurologic: CNII-XII intact - Musculoskeletal Musculoskeletal: gait normal, generalized weakness, strength equal bilaterally - Psychiatric Psychiatric: A&O x's 3, appropriate affect, intact judgment & insight - Labs CBC & Chem 7: 02/04/20 02:52 02/04/20 02:52 Labs: Abnormal Lab Results - Last 24 Hours (Table) 01/31/20 Range/Units 06:18 Plt Count 510 H (150-450) k/uL Assessment and Plan Assessment: Postoperative nausea and vomiting Postoperative ileus Sepsis due to ruptured acute appendicitis and pericecal abscess status post diagnostic laparoscopy and conversion to open cecectomy Ruptured acute appendicitis Pericecal abscess Intermittent abdominal pain for 10 days Acute appendicitis Atrial tachycardia Pots syndrome History of hypertension Plan: Continue nothing by mouth, ice chips for now X-ray finding reviewed and noted We'll repeat labs in the morning Resume home medications Findings of exploratory laparotomy noted Continue broad-spectrum antibiotics Will monitor clinical course closely further recommendations pending plan of care as per clinical response of the patient Time with Patient: Greater than 30
--- NOTE | 2020-02-04 11:31 | P.PN ---
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, college he has been consulted patient on heparin 01/31/2020, patient seen eval examined during the rounds labs reviewed medications, white cell count is stable, platelet count slightly up to 510,000, the service following and adjusting the antibiotics changed to oral Augmentin 01/30/2020, patient seen eval examined during the rounds labs and medications reviewed, patient is still have some abdominal discomfort pain and she however symptoms are significantly improved patient is cleared for clear liquid diet, 01/29/2020, patient seen eval examined during the rounds REVIEWED medications reviewed, has been on a daily quit diet, remains on broad-spectrum antibiotics ID service has been followed by general surgery is following, patient is still have a MERYL drain draining, 01/28/2020, patient seen and evaluated examined during the rounds labs reviewed medications reviewed care plan discussed, patient is slightly nauseous, she is back on chips ice chips only, cell count continue to go down, labs reviewed and chemistry reviewed, Osei x-ray revealed ileus-like Petrin 01/27/2020, patient seen eval reexamined during the rounds labs reviewed medications reviewed care plan discussed, postop day #3 of exploratory laparotomy with the partial resection of cecum, and appendectomy. To have intermittent nausea has been present, for pain has been on Dilaudid 01/26/2020, patient seen eval examined respiratory status remains stable some soreness at the surgical site is present, otherwise doing well patient has been started on clear liquid diet will resume home medications as well 01/25/2020, patient seen eval examined during the rounds labs reviewed medications reviewed care plan discussed, patient underwent laparoscopy and l aparotomy noted to have a ruptured acute appendicitis as well as pericecal abscess, postop day #1 remains on broad-spectrum antibiotics she is complaining of some soreness however remains afebrile, on IV Zosyn and Flagyl 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, 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 does have a history of hypertension and POTS syndrome, those issues were has been stable, however she is been having diffuse intermittent abdominal pain for last 10 days, she does have significant history of pancreatic cancer both maternal and paternal side, she had one presentation earlier was discharged subsequently suspected pancreatitis at that time however again came back into the emergency department, recent abdominal CAT scan shows free fluid in the pelvis stranding in pericolic gutter appendix not seen patient is being considered for exploratory laparotomy, hemodynamically she is stable she did receive metipranolol earlier this morning the white cell count is up 16,400, LFTs and renal function is normal, covid is negative Objective - Vital Signs Vital signs: Vital Signs Temp 98.3 F 02/01/20 08:00 Pulse 81 02/01/20 08:00 Resp 16 02/01/20 08:00 BP 128/85 02/01/20 08:00 Pulse Ox 96 02/01/20 08:00 Intake & Output 01/31/20 02/01/20 02/01/20 18:59 06:59 18:59 Intake Total 100 500 Output Total 25 15 10 Balance 75 -15 490 Intake: Oral 100 500 Output: Drainage 25 15 10 Lower Abdomen 25 15 10 Other: Voiding Method Toilet # Voids 1 3 1 - Exam Constitutional General appearance: average body habitus, cooperative, disheveled - EENT Eyes: PERRLA ENT: hearing grossly normal Ears: bilateral: normal - Neck Neck: normal ROM Carotids: bilateral: upstroke normal Thyroid: bilateral: normal size - Respiratory Respiratory: bilateral: CTA - Cardiovascular Rhythm: regular Heart sounds: normal: S1, S2 - Gastrointestinal General gastrointestinal: decreased bowel sounds, soft - Neurologic Neurologic: CNII-XII intact - Musculoskeletal Musculoskeletal: gait normal, generalized weakness, strength equal bilaterally - Psychiatric Psychiatric: A&O x's 3, appropriate affect, intact judgment & insight - Labs CBC & Chem 7: 02/04/20 02:52 02/04/20 02:52 Labs: Abnormal Lab Results - Last 24 Hours (Table) 02/01/20 02/01/20 Range/Units 05:14 05:14 RBC 3.68 L (3.80-5.40) m/uL Hgb 11.0 L (11.4-16.0) gm/dL Plt Count 502 H (150-450) k/uL Sodium 134 L (137-145) mmol/L C-Reactive Protein 31.9 H (<10.0) mg/L Assessment and Plan Assessment: Superior vein thrombosis Postoperative nausea and vomiting Postoperative ileus Sepsis due to ruptured acute appendicitis and pericecal abscess status post diagnostic laparoscopy and conversion to open cecectomy Ruptured acute appendicitis Pericecal abscess Intermittent abdominal pain for 10 days Acute appendicitis Atrial tachycardia Pots syndrome History of hypertension Plan: Into new IV heparin further evaluation pending by oncology hematology services Continue nothing by mouth, ice chips for now X-ray finding reviewed and noted We'll repeat labs in the morning Resume home medications Findings of exploratory laparotomy noted Continue broad-spectrum antibiotics Will monitor clinical course closely further recommendations pending plan of care as per clinical response of the patient Time with Patient: Greater than 30
--- NOTE | 2020-02-04 11:35 | P.PN ---
Subjective Progress Note Date: 02/02/20 Principal diagnosis: Superior mesenteric vein thrombosis Sepsis due to ruptured acute appendicitis and pericecal abscess status post diagnostic laparoscopy and conversion to open cecectomy Ruptured acute appendicitis Pericecal abscess Intermittent abdominal pain for 10 days Acute appendicitis Atrial tachycardia Pots syndrome History of hypertension 02/02/2020, patient seen eval examined, remains on heparin, tenderness for PICC line, ID service has been evaluating patient, all her she recommending IV heparin for now and subsequently oral agent once stable 02/01/2020, overall denies any chest pain tolerating by mouth well diet is slowly being advanced, patient is getting some physical therapy as well, 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, college he has been consulted patient on heparin 01/31/2020, patient seen eval examined during the rounds labs reviewed medications, white cell count is stable, platelet count slightly up to 510,000, the service following and adjusting the antibiotics changed to oral Augmentin 01/30/2020, patient seen eval examined during the rounds labs and medications reviewed, patient is still have some abdominal discomfort pain and she however symptoms are significantly improved patient is cleared for clear liquid diet, 01/29/2020, patient seen eval examined during the rounds REVIEWED medications reviewed, has been on a daily quit diet, remains on broad-spectrum antibiotics ID service has been followed by general surgery is following, patient is still have a MERYL drain draining, 01/28/2020, patient seen and evaluated examined during the rounds labs reviewed medications reviewed care plan discussed, patient is slightly nauseous, she is back on chips ice chips only, cell count continue to go down, labs reviewed and chemistry reviewed, Osei x-ray revealed ileus-like Petrin 01/27/2020, patient seen eval reexamined during the rounds labs reviewed medications reviewed care plan discussed, postop day #3 of exploratory laparotomy with the partial resection of cecum, and appendectomy. To have intermittent nausea has been present, for pain has been on Dilaudid 01/26/2020, patient seen eval examined respiratory status remains stable some soreness at the surgical site is present, otherwise doing well patient has been started on clear liquid diet will resume home medications as well 01/25/2020, patient seen eval examined during the rounds labs reviewed medications reviewed care plan discussed, patient underwent laparoscopy and laparotomy noted to have a ruptured acute appendicitis as well as pericecal abscess, postop day #1 remains on broad-spectrum antibiotics she is complaining of some soreness however remains afebrile, on IV Zosyn and Flagyl 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, 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 does have a history of hypertension and POTS syndrome, those issues were has been stable, however she is been having diffuse intermittent abdominal pain for last 10 days, she does have significant history of pancreatic cancer both maternal and paternal side, she had one presentation earlier was discharged subsequently suspected pancreatitis at that time however again came back into the emergency department, recent abdominal CAT scan shows free fluid in the pelvis stranding in pericolic gutter appendix not seen patient is being considered for exploratory laparotomy, hemodynamically she is stable she did receive metipranolol earlier this morning the white cell count is up 16,400, LFTs and renal function is normal, covid is negative Objective - Vital Signs Vital signs: Vital Signs Temp 98.5 F 02/02/20 14:30 Pulse 101 H 02/02/20 14:30 Resp 17 02/02/20 14:30 BP 147/90 02/02/20 14:30 Pulse Ox 99 02/02/20 14:30 Intake & Output 02/01/20 02/02/20 02/02/20 18:59 06:59 18:59 Intake Total 1100 Output Total 10 100 165 Balance 1090 -100 -165 Weight 61 kg Intake: Oral 1100 Output: Drainage 10 50 15 Lower Abdomen 10 50 15 Urine 150 Stool 50 Other: Voiding Method Toilet # Voids 1 1 1 # Bowel Movements 1 1 - Exam Constitutional General appearance: average body habitus, cooperative, disheveled - EENT Eyes: PERRLA ENT: hearing grossly normal Ears: bilateral: normal - Neck Neck: normal ROM Carotids: bilateral: upstroke normal Thyroid: bilateral: normal size - Respiratory Respiratory: bilateral: CTA - Cardiovascular Rhythm: regular Heart sounds: normal: S1, S2 - Gastrointestinal General gastrointestinal: decreased bowel sounds, soft - Neurologic Neurologic: CNII-XII intact - Musculoskeletal Musculoskeletal: gait normal, generalized weakness, strength equal bilaterally - Psychiatric Psychiatric: A&O x's 3, appropriate affect, intact judgment & insight - Labs CBC & Chem 7: 02/04/20 02:52 02/04/20 02:52 Labs: Abnormal Lab Results - Last 24 Hours (Table) 02/01/20 02/02/2002/01/20 Range/Units 16:53 06:33 06:33 RBC 3.66 L (3.80-5.40) m/uL Hgb 11.3 L (11.4-16.0) gm/dL Plt Count 517 H 467 H (150-450) k/uL INR (<1.2) Sodium 135 L (137-145) mmol/L 02/02/20 Range/Units 13:36 RBC (3.80-5.40) m/uL Hgb (11.4-16.0) gm/dL Plt Count (150-450) k/uL INR 1.2 H (<1.2) Sodium (137-145) mmol/L Assessment and Plan Assessment: Superior mesenteric vein thrombosis Postoperative nausea and vomiting Postoperative ileus Sepsis due to ruptured acute appendicitis and pericecal abscess status post diagnostic laparoscopy and conversion to open cecectomy Ruptured acute appendicitis Pericecal abscess Intermittent abdominal pain for 10 days Acute appendicitis Atrial tachycardia Pots syndrome History of hypertension Plan: Continue IV heparin PICC line tomorrow Continue nothing by mouth, ice chips for now X-ray finding reviewed and noted We'll repeat labs in the morning Resume home medications Findings of exploratory laparotomy noted Continue broad-spectrum antibiotics Will monitor clinical course closely further recommendations pending plan of care as per clinical response of the patient Time with Patient: Greater than 30
--- NOTE | 2020-02-04 11:37 | P.PN ---
Subjective Progress Note Date: 02/03/20 Principal diagnosis: Superior mesenteric vein thrombosis on anticoagulation with heparin Sepsis due to ruptured acute appendicitis and pericecal abscess status post diagnostic laparoscopy and conversion to open cecectomy Ruptured acute appendicitis Pericecal abscess Intermittent abdominal pain for 10 days Acute appendicitis Atrial tachycardia Pots syndrome History of hypertension 02/03/2020, patient seen eval examined during the rounds labs reviewed medications reviewed overall continued to do well appetite is better, nausea vomiting has improved tolerating by mouth well, she remains on heparin tolerating well, patient remains on IV Unasyn tolerating very well ID hematology also following patient along with general surgery 02/02/2020, patient seen eval examined, remains on heparin, tenderness for PICC line, ID service has been evaluating patient, all her she recommending IV heparin for now and subsequently oral agent once stable 02/01/2020, overall denies any chest pain tolerating by mouth well diet is slowly being advanced, patient is getting some physical therapy as well, 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, college he has been consulted patient on heparin 01/31/2020, patient seen eval examined during the rounds labs reviewed medications, white cell count is stable, platelet count slightly up to 510,000, the service following and adjusting the antibiotics changed to oral Augmentin 01/30/2020, patient seen eval examined during the rounds labs and medications reviewed, patient is still have some abdominal discomfort pain and she however symptoms are significantly improved patient is cleared for clear liquid diet, 01/29/2020, patient seen eval examined during the rounds REVIEWED medications reviewed, has been on a daily quit diet, remains on broad-spectrum antibiotics ID service has been followed by general surgery is following, patient is still have a MERYL drain draining, 01/28/2020, patient seen and evaluated examined during the rounds labs reviewed medications reviewed care plan discussed, patient is slightly nauseous, she is back on chips ice chips only, cell count continue to go down, labs reviewed and chemistry reviewed, Osei x-ray revealed ileus-like Petrin 01/27/2020, patient seen eval reexamined during the rounds labs reviewed medications reviewed care plan discussed, postop day #3 of exploratory laparotomy with the partial resection of cecum, and appendectomy. To have intermittent nausea has been present, for pain has been on Dilaudid 01/26/2020, patient seen eval examined respiratory status remains stable some soreness at the surgical site is present, otherwise doing well patient has been started on clear liquid diet will resume home medications as well 01/25/2020, patient seen eval examined during the rounds labs reviewed medications reviewed care plan discussed, patient underwent laparoscopy and laparotomy noted to have a ruptured acute appendicitis as well as pericecal abscess, postop day #1 remains on broad-spectrum antibiotics she is complaining of some soreness however remains afebrile, on IV Zosyn and Flagyl 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, 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 does have a history of hypertension and POTS syndrome, those issues were has been stable, however she is been having diffuse intermittent abdominal pain for last 10 days, she does have significant history of pancreatic cancer both maternal and paternal side, she had one presentation earlier was discharged subsequently suspected pancreatitis at that time however again came back into the emergency department, recent abdominal CAT scan shows free fluid in the pelvis stranding in pericolic gutter appendix not seen patient is being considered for exploratory laparotomy, hemodynamically she is stable she did receive metipranolol earlier this morning the white cell count is up 16,400, LFTs and renal function is normal, covid is negative Objective - Vital Signs Vital signs: Vital Signs Temp 98.4 F 02/03/20 18:55 Pulse 100 02/03/20 18:55 Resp 17 02/03/20 18:55 BP 131/82 02/03/20 18:55 Pulse Ox 97 02/03/20 18:55 Intake & Output 02/03/20 02/03/20 02/04/20 06:59 18:59 06:59 Intake Total 303.456 70.882 Output Total 25 50 Balance 278.456 20.882 Intake: Intake, IV Titration 103.456 70.882 Amount Heparin Sod,Pork in 0.45% 103.456 70.882 NaCl 25,000 unit In 0.45 % NaCl 1 250ml.bag @ 12 UNITS/KG/HR 7.32 mls/hr IV .Q24H [facility] Rx#: [id number] Oral 200 Output: Drainage 25 Lower Abdomen 25 Stool 50 Other: Voiding Method Toilet # Voids 2 1 # Bowel Movements 2 - Exam Constitutional General appearance: average body habitus, cooperative, disheveled - EENT Eyes: PERRLA ENT: hearing grossly normal Ears: bilateral: normal - Neck Neck: normal ROM Carotids: bilateral: upstroke normal Thyroid: bilateral: normal size - Respiratory Respiratory: bilateral: CTA - Cardiovascular Rhythm: regular Heart sounds: normal: S1, S2 - Gastrointestinal General gastrointestinal: decreased bowel sounds, soft - Neurologic Neurologic: CNII-XII intact - Musculoskeletal Musculoskeletal: gait normal, generalized weakness, strength equal bilaterally - Psychiatric Psychiatric: A&O x's 3, appropriate affect, intact judgment & insight - Labs CBC & Chem 7: 02/04/20 02:52 02/04/20 02:52 Labs: Abnormal Lab Results - Last 24 Hours (Table) 02/02/20 02/03/20 02/03/20 Range/Units 21:34 05:39 05:39 RBC 3.38 L (3.80-5.40) m/uL Hgb 10.4 L (11.4-16.0) gm/dL Hct 31.8 L (34.0-46.0) % Plt Count 487 H (150-450) k/uL INR (<1.2) APTT 49.0 H (22.0-30.0) sec BUN 8.0 L (9.0-27.0) mg/dL Glucose 54 L (70-110) mg/dL POC Glucose (mg/dL) (75-99) mg/dL Calcium 8.3 L (8.7-10.3) mg/dL 02/03/20 02/03/20 02/03/20 Range/Units 05:39 10:24 11:38 RBC (3.80-5.40) m/uL Hgb (11.4-16.0) gm/dL Hct (34.0-46.0) % Plt Count (150-450) k/uL INR (<1.2) APTT 42.8 H (22.0-30.0) sec BUN (9.0-27.0) mg/dL Glucose (70-110) mg/dL POC Glucose (mg/dL) 53 L 102 H (75-99) mg/dL Calcium (8.7-10.3) mg/dL 02/03/20 Range/Units 13:59 RBC (3.80-5.40) m/uL Hgb (11.4-16.0) gm/dL Hct (34.0-46.0) % Plt Count (150-450) k/uL INR 1.2 H (<1.2) APTT (22.0-30.0) sec BUN (9.0-27.0) mg/dL Glucose (70-110) mg/dL POC Glucose (mg/dL) (75-99) mg/dL Calcium (8.7-10.3) mg/dL Assessment and Plan Assessment: Postoperative nausea and vomiting Postoperative ileus Sepsis due to ruptured acute appendicitis and pericecal abscess status post diagnostic laparoscopy and conversion to open cecectomy Ruptured acute appendicitis Pericecal abscess Intermittent abdominal pain for 10 days Acute appendicitis Atrial tachycardia Pots syndrome History of hypertension Plan: Continue nothing by mouth, ice chips for now X-ray finding reviewed and noted We'll repeat labs in the morning Resume home medications Findings of exploratory laparotomy noted Continue broad-spectrum antibiotics Will monitor clinical course closely further recommendations pending plan of care as per clinical response of the patient Time with Patient: Greater than 30
--- NOTE | 2020-02-04 11:39 | P.PN ---
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 Sepsis due to ruptured acute appendicitis and pericecal abscess status post diagnostic laparoscopy and conversion to open cecectomy Ruptured acute appendicitis Pericecal abscess Intermittent abdominal pain for 10 days Acute appendicitis Atrial tachycardia Pots syndrome History of hypertension 02/04/2020, patient seen eval examined during the rounds labs reviewed medications reviewed, he is afebrile oxygen saturation 98% hemodynamic status stable, as from today reviewed hemoglobin stable 10.5 PTT is therapeutic range IV heparin 02/03/2020, patient seen eval examined during the rounds labs reviewed medications reviewed overall continued to do well appetite is better, nausea vo miting has improved tolerating by mouth well, she remains on heparin tolerating well, patient remains on IV Unasyn tolerating very well ID hematology also following patient along with general surgery 02/02/2020, patient seen eval examined, remains on heparin, tenderness for PICC line, ID service has been evaluating patient, all her she recommending IV heparin for now and subsequently oral agent once stable 02/01/2020, overall denies any chest pain tolerating by mouth well diet is slowly being advanced, patient is getting some physical therapy as well, 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, college he has been consulted patient on heparin 01/31/2020, patient seen eval examined during the rounds labs reviewed medications, white cell count is stable, platelet count slightly up to 510,000, the service following and adjusting the antibiotics changed to oral Augmentin 01/30/2020, patient seen eval examined during the rounds labs and medications reviewed, patient is still have some abdominal discomfort pain and she however symptoms are significantly improved patient is cleared for clear liquid diet, 01/29/2020, patient seen eval examined during the rounds REVIEWED medications reviewed, has been on a daily quit diet, remains on broad-spectrum antibiotics ID service has been followed by general surgery is following, patient is still have a MERYL drain draining, 01/28/2020, patient seen and evaluated examined during the rounds labs reviewed medications reviewed care plan discussed, patient is slightly nauseous, she is back on chips ice chips only, cell count continue to go down, labs reviewed and chemistry reviewed, Osei x-ray revealed ileus-like Petrin 01/27/2020, patient seen eval reexamined during the rounds labs reviewed medications reviewed care plan discussed, postop day #3 of exploratory laparotomy with the partial resection of cecum, and appendectomy. To have intermittent nausea has been present, for pain has been on Dilaudid 01/26/2020, patient seen eval examined respiratory status remains stable some soreness at the surgical site is present, otherwise doing well patient has been started on clear liquid diet will resume home medications as well 01/25/2020, patient seen eval examined during the rounds labs reviewed medica tions reviewed care plan discussed, patient underwent laparoscopy and laparotomy noted to have a ruptured acute appendicitis as well as pericecal abscess, postop day #1 remains on broad-spectrum antibiotics she is complaining of some soreness however remains afebrile, on IV Zosyn and Flagyl This is a pleasant 39-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, 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 does have a history of hypertension and POTS syndrome, those issues were has been stable, however she is been having diffuse intermittent abdominal pain for last 10 days, she does have significant history of pancreatic cancer both maternal and paternal side, she had one presentation earlier was discharged subsequently suspected pancreatitis at that time however again came back into the emergency department, recent abdominal CAT scan shows free fluid in the pelvis stranding in pericolic gutter appendix not seen patient is being considered for exploratory laparotomy, hemodynamically she is stable she did receive metipranolol earlier this morning the white cell count is up 16,400, LFTs and renal function is normal, covid is negative Objective - Vital Signs Vital signs: Vital Signs Temp 98.5 F 02/04/20 07:16 Pulse 96 02/04/20 07:16 Resp 18 02/04/20 07:16 BP 136/92 02/04/20 07:16 Pulse Ox 99 02/04/20 07:16 Intake & Output 02/03/20 02/04/20 02/04/20 18:59 06:59 18:59 Intake Total 70.882 121.430 Output Total 50 Balance 20.882 121.430 Intake: Intake, IV Titration 70.882 121.430 Amount Heparin Sod,Pork in 0.45% 70.882 121.430 NaCl 25,000 unit In 0.45 % NaCl 1 250ml.bag @ 12 UNITS/KG/HR 7.32 mls/hr IV .Q24H [facility] Rx#: [id number] Output: Stool 50 Other: Voiding Method Toilet Toilet # Voids 1 1 # Bowel Movements 2 1 - Exam Constitutional General appearance: average body habitus, cooperative, disheveled - EENT Eyes: PERRLA ENT: hearing grossly normal Ears: bilateral: normal - Neck Neck: normal ROM Carotids: bilateral: upstroke normal Thyroid: bilateral: normal size - Respiratory Respiratory: bilateral: CTA - Cardiovascular Rhythm: regular Heart sounds: normal: S1, S2 - Gastrointestinal General gastrointestinal: decreased bowel sounds, soft - Neurologic Neurologic: CNII-XII intact - Musculoskeletal Musculoskeletal: gait normal, generalized weakness, strength equal bilaterally - Psychiatric Psychiatric: A&O x's 3, appropriate affect, intact judgment & insight - Labs CBC & Chem 7: 02/04/20 02:52 02/04/20 02:52 Labs: Abnormal Lab Results - Last 24 Hours (Table) 02/03/20 02/03/20 02/03/20 Range/Units 11:38 13:59 21:06 RBC (3.80-5.40) m/uL Hgb (11.4-16.0) gm/dL Hct (34.0-46.0) % Plt Count (150-450) k/uL PT 12.9 H (9.0-12.0) sec INR 1.2 H 1.3 H (<1.2) APTT 75.1 H (22.0-30.0) sec Sodium (137-145) mmol/L BUN (7-17) mg/dL Glucose (74-99) mg/dL POC Glucose (mg/dL) 102 H (75-99) mg/dL Phosphorus (2.5-4.5) mg/dL 02/04/20 02/04/20 02/04/20 Range/Units 02:52 02:52 02:52 RBC 3.50 L (3.80-5.40) m/uL Hgb 10.5 L (11.4-16.0) gm/dL Hct 32.9 L (34.0-46.0) % Plt Count 486 H (150-450) k/uL PT (9.0-12.0) sec INR (<1.2) APTT 52.2 H (22.0-30.0) sec Sodium 133 L (137-145) mmol/L BUN 6 L (7-17) mg/dL Glucose 102 H (74-99) mg/dL POC Glucose (mg/dL) (75-99) mg/dL Phosphorus 2.4 L (2.5-4.5) mg/dL Assessment and Plan Assessment: Postoperative nausea and vomiting Postoperative ileus Sepsis due to ruptured acute appendicitis and pericecal abscess status post diagnostic laparoscopy and conversion to open cecectomy Ruptured acute appendicitis Pericecal abscess Intermittent abdominal pain for 10 days Acute appendicitis Atrial tachycardia Pots syndrome History of hypertension Plan: Continue nothing by mouth, ice chips for now X-ray finding reviewed and noted We'll repeat labs in the morning Resume home medications Findings of exploratory laparotomy noted Continue broad-spectrum antibiotics Will monitor clinical course closely further recommendations pending plan of care as per clinical response of the patient Time with Patient: Greater than 30
[2020-02-04] MEDS: HEPARIN SOD,PORK IN 0.45% NACL 25,000 UNIT in 0.45% NACL 1 250ML.BAG IV SCH (12:50)
[2020-02-04] MEDS: SODIUM CHLORIDE 0.9% 1,000 ML IV SCH (13:43)
--- NOTE | 2020-02-04 14:17 | CDI ---
Documentation Clarification Form Date: 02/04/2020 01:13:43 PM From: Michaela Joy RN, CCDS Admit Date: 01/25/2020 03:09:00 PM Patient Name: Edel Dunham Visit Number: [id number] Discharge Date: ATTENTION: The Clinical Documentation Specialists (CDI) and [facility] Coding Staff appreciate your assistance in clarifying documentation. Please respond to the clarification below the line at the bottom and electronically sign. The CDI & [facility] Coding staff will review the response and follow-up if needed. Please note: Queries are made part of the Legal Health Record. If you have any questions, please contact the author of this message via ITS. Dr. Ami Diaz Acute blood loss anemia] is documented 01/31 and subsequent progress note on 02/01. She is post appendectomy including cecectomy, 01/24/20. Please further specify acute blood loss anemia. Patients Admitting Diagnosis: Ruptured appendicitis Post-Operative Diagnosis: Same Procedure performed: Appendectomy including cecectomy History/Risk Factors: Ruptured appendicitis Clinical Indicators: 39-year-old female who is post op day 8 ruptured appendicitis with pericecal abscess and open cecectomy. On 01/31 she complained of mild abdominal gas cramping and reports having blood in her stools. Increased redness of her MERYL drain. 01/31 Vital signs at 08:00 128/85 81 16 98.3 96 % RA. 01/30 HGB 12.9 HCT 39.1 01/31 HGB 11.0, HCT 34.3 01/02 HGB 11.3, HCT 34.2 02/02 HGB 10.4 HCT 31.8 01/31 CT Abdomen/pelvis: SMV thrombosis Treatment: Heparin drip per orders Monitor PT/PTT/INR Monitor hemoglobin and for signs of bleeding. 02/01 Oncology progress note: hematochezia/melena. Mild normocytic anemia, reactive thrombocytosis, expected platelets around 500. In order to accurately reflect this patients severity of illness, please clarify if the acute blood loss anemia: -is a complication of surgical procedure -is an expected outcome of the surgical procedure -is related to co-morbid condition(s) of -Other please specify -Unable to determine (Last Revision: March 2019) Please differ to admitting attending. 02/05/20 0610 [facility]
--- NOTE | 2020-02-04 14:47 | PN ---
PROGRESS NOTE DATE OF SERVICE: 02/04/2020 REASON FOR FOLLOWUP: Perforated appendicitis with abdominal abscess. INTERVAL HISTORY: The patient is currently afebrile. The patient is feeling better. Breathing comfortably. Abdominal pain is currently controlled. No chest pain, shortness of breath or cough. No nausea, no vomiting. Tolerating her diet. PHYSICAL EXAMINATION: Blood pressure 136/92 with a pulse of 96, temperature 98.5. She is 99% on room air. General description is a middle-aged female up in the room in no distress. RESPIRATORY SYSTEM: Unlabored breathing, clear to auscultation anteriorly. HEART: S1, S2. Regular rate and rhythm. ABDOMEN: Soft, no tenderness. LABS: Hemoglobin is 10.5, white count 5.9. BUN of 6 creatinine 0.61. DIAGNOSTIC IMPRESSION AND PLAN: Patient with abdominal abscess from a perforated appendicitis in this patient status post open cecectomy covered with Unasyn and plan to finish therapy with oral Augmentin. She was cleared for discharge home from other consultants. Continue supportive care. MMODL / IJN: [id number] / LEVON
[2020-02-04] MEDS ORDERED: HYDROCORTISONE 1% CREAM 30 GM TUBE TOPICAL PRN (14:59)
--- NOTE | 2020-02-04 15:06 | P.PN ---
Subjective Progress Note Date: 02/04/20 Principal diagnosis: Ruptured appendicitis Patient doing better today. Her pain is improved. She is tolerating diet. Labs noted. She is afebrile. She had one soft stool today that had some evidence of old blood. Complaining of a small hemorrhoid. Objective - Vital Signs Vital signs: Vital Signs Temp 98.4 F 02/04/20 14:00 Pulse 93 02/04/20 14:00 Resp 16 02/04/20 14:00 BP 130/75 02/04/20 14:00 Pulse Ox 100 02/04/20 14:00 Intake & Output 02/03/20 02/04/20 02/04/20 18:59 06:59 18:59 Intake Total 70.882 121.430 84.027 Output Total 50 Balance 20.882 121.430 84.027 Intake: Intake, IV Titration 70.882 121.430 84.027 Amount Heparin Sod,Pork in 0.45% 70.882 121.430 84.027 NaCl 25,000 unit In 0.45 % NaCl 1 250ml.bag @ 12 UNITS/KG/HR 7.32 mls/hr IV .Q24H [facility] Rx#: [id number] Output: Stool 50 Other: Voiding Method Toilet Toilet Toilet # Voids 1 1 # Bowel Movements 2 1 1 - Exam Abdomen: Soft, nondistended, mild tenderness, incision clean and dry - Labs CBC & Chem 7: 02/04/20 02:52 02/04/20 02:52 Labs: Abnormal Lab Results - Last 24 Hours (Table) 02/03/20 02/04/20 02/04/20 Range/Units 21:06 02:52 02:52 RBC 3.50 L (3.80-5.40) m/uL Hgb 10.5 L (11.4-16.0) gm/dL Hct 32.9 L (34.0-46.0) % Plt Count 486 H (150-450) k/uL PT 12.9 H (9.0-12.0) sec INR 1.3 H (<1.2) APTT 75.1 H (22.0-30.0) sec Sodium 133 L (137-145) mmol/L BUN 6 L (7-17) mg/dL Glucose 102 H (74-99) mg/dL Phosphorus 2.4 L (2.5-4.5) mg/dL 02/04/20 Range/Units 02:52 RBC (3.80-5.40) m/uL Hgb (11.4-16.0) gm/dL Hct (34.0-46.0) % Plt Count (150-450) k/uL PT (9.0-12.0) sec INR (<1.2) APTT 52.2 H (22.0-30.0) sec Sodium (137-145) mmol/L BUN (7-17) mg/dL Glucose (74-99) mg/dL Phosphorus (2.5-4.5) mg/dL Assessment and Plan (1) Ruptured appendicitis Narrative/Plan: Patient overall doing well. Continue diet as ordered. May shower today. Continue anticoagulation and antibiotics. Anticipate discharge . Current Visit: Yes Status: Acute Code(s): K35.32 - ACUTE APPENDICITIS WITH PERF AND LOC PERITONITIS, W/O ABSCS SNOMED Code(s): 16182938
--- NOTE | 2020-02-04 16:03 | P.PN ---
Subjective Progress Note Date: 02/04/20 Principal diagnosis: SMV Thrombus post operative Hemoglobin remains stable, tolerating diet. Objective - Vital Signs Vital signs: Vital Signs Temp 98.4 F 02/04/20 14:00 Pulse 93 02/04/20 14:00 Resp 16 02/04/20 14:00 BP 130/75 02/04/20 14:00 Pulse Ox 100 02/04/20 14:00 Intake & Output 02/03/20 02/04/20 02/04/20 18:59 06:59 18:59 Intake Total 70.882 121.430 84.027 Output Total 50 Balance 20.882 121.430 84.027 Intake: Intake, IV Titration 70.882 121.430 84.027 Amount Heparin Sod,Pork in 0.45% 70.882 121.430 84.027 NaCl 25,000 unit In 0.45 % NaCl 1 250ml.bag @ 12 UNITS/KG/HR 7.32 mls/hr IV .Q24H [facility] Rx#: [id number] Output: Stool 50 Other: Voiding Method Toilet Toilet Toilet # Voids 1 1 # Bowel Movements 2 1 1 - Exam Gen.: No acute distress. HEENT: No conjunctival pallor or scleral icterus. Mucosa moist. Neck: Supple. Lungs: No respiratory distress. Heart: Regular rate. No lower extremity edema. Abdomen: Soft, tender. MSK: Appropriate strength in all 4 extremities. Neuro: Alert and oriented 3. Skin: No jaundice. Psych: Appropriate affect. - Labs CBC & Chem 7: 02/04/20 02:52 02/04/20 02:52 Labs: Abnormal Lab Results - Last 24 Hours (Table) 02/03/20 02/04/20 02/04/20 Range/Units 21:06 02:52 02:52 RBC 3.50 L (3.80-5.40) m/uL Hgb 10.5 L (11.4-16.0) gm/dL Hct 32.9 L (34.0-46.0) % Plt Count 486 H (150-450) k/uL PT 12.9 H (9.0-12.0) sec INR 1.3 H (<1.2) APTT 75.1 H (22.0-30.0) sec Sodium 133 L (137-145) mmol/L BUN 6 L (7-17) mg/dL Glucose 102 H (74-99) mg/dL Phosphorus 2.4 L (2.5-4.5) mg/dL 02/04/20 Range/Units 02:52 RBC (3.80-5.40) m/uL Hgb (11.4-16.0) gm/dL Hct (34.0-46.0) % Plt Count (150-450) k/uL PT (9.0-12.0) sec INR (<1.2) APTT 52.2 H (22.0-30.0) sec Sodium (137-145) mmol/L BUN (7-17) mg/dL Glucose (74-99) mg/dL Phosphorus (2.5-4.5) mg/dL Assessment and Plan Plan: SMV Thrombosis post surgery: - Provoked Thrombus from ruptured appendicitis, post operative and on control - Stop future control - Will as case management to help with coverage for DOAC, education on prevention of discussed with patient and understanding stated. PLan 3- 6months AC therapy - Convert from heparin drip to DOAC as she is tolerating diet, hemoglobin stable, and anticipated discharge is for . - Monitor hemoglobin and for signs of bleeding. Physcian Attest: I have completed the full history and physical and agree with above dictation, dictated as a scribe.
[2020-02-04] MEDS: METOPROLOL SUCCINATE (ER) 50 MG TAB.ER.24H PO SCH (19:40)
[2020-02-04] MEDS: APIXABAN 5 MG TAB PO SCH (19:40)
[2020-02-05] MEDS: ACETAMINOPHEN TAB 325 MG TAB PO SCH ×4 (05:24→23:09)
[2020-02-05] MEDS: traMADol 50 MG TAB PO PRN ×2 (05:25→21:22)
[2020-02-05] MEDS: AMPICILLIN-SULBACTAM 3 GM in SODIUM CHLORIDE 0.9% 100 ML IVPB SCH ×4 (05:26→23:10)
[2020-02-05] MEDS: LEVONORGESTREL ETHIN ESTRADIOL PO SCH (08:09)
[2020-02-05] MEDS: FLUCONAZOLE 100 MG TAB PO SCH (08:09)
[2020-02-05] MEDS: APIXABAN 5 MG TAB PO SCH ×2 (08:09→21:21)
[2020-02-05] MEDS: PANTOPRAZOLE 40 MG TABLET PO SCH (08:09)
--- NOTE | 2020-02-05 09:30 | CDI ---
Documentation Clarification Form Date: 02/04/2020 01:13:00 PM From: Michaela Joy Phone: Admit Date: 01/25/2020 03:09:00 PM Patient Name: Edel Dunham Visit Number: [id number] Discharge Date: ATTENTION: The Clinical Documentation Specialists (CDI) and [facility] Coding Staff appreciate your assistance in clarifying documentation. Please respond to the clarification below the line at the bottom and electronically sign. The CDI & [facility] Coding staff will review the response and follow-up if needed. Please note: Queries are made part of the Legal Health Record. If you have any questions, please contact the author of this message via ITS. Dr. Santo Andrews Acute blood loss anemia is documented 01/31 and subsequent progress note on 02/01. She is post appendectomy including cecectomy, 01/24/20. Please further specify acute blood loss anemia. Patients Admitting Diagnosis: Ruptured appendicitis Post-Operative Diagnosis: Same Procedure performed: Appendectomy including cecectomy History/Risk Factors: Ruptured appendicitis Clinical Indicators: 39-year-old female who is post op day 8 ruptured appendicitis with pericecal abscess and open cecectomy. On 01/31 she complained of mild abdominal gas cramping and reports having blood in her stools. Increased redness of her MERYL drain. 01/31 Vital signs at 08:00 01/30 HGB 12.9 HCT 39.1 01/31 HGB 11.0, HCT 34.3 01/02 HGB 11.3, HCT 34.2 02/02 HGB 10.4 HCT 31.8 01/31 CT Abdomen/pelvis: SMV thrombosis Treatment: Heparin drip per orders Monitor PT/PTT/INR Monitor hemoglobin and for signs of bleeding. 02/01 Oncology progress note: hematochezia/melena. Mild normocytic anemia, reactive thrombocytosis expected, platelets around 500. In order to accurately reflect this patients severity of illness, please clarify if the acute blood loss anemia: -is a complication of surgical procedure -is an expected outcome of the surgical procedure -is related to co-morbid condition(s) of -Other please specify -Unable to determine (Last Revision: March 2019) MTDD
[2020-02-05 10:08] LABS: Anion Gap 8.5 mmol/L (4.00-12.00); BUN/Creat Ratio 8.33 Ratio (12.00-20.00); Calcium 8.5 mg/dL (8.7-10.3); Carbon Dioxide 25.5 mmol/L (21.6-31.8); Magnesium 1.6 mg/dL (1.5-2.4); Non-African American GFR(CKD) 115.6 (60.0-200.0); Phosphorus 2.4 mg/dL (2.4-5.1)
--- NOTE | 2020-02-05 10:12 | CDI ---
Documentation Clarification Form Date: 02/05/2020 09:34:52 AM From: Michaela Joy RN, CCDS Admit Date: 01/25/2020 03:09:00 PM Patient Name: Edel Dunham Visit Number: [id number] Discharge Date: ATTENTION: The Clinical Documentation Specialists (CDI) and [facility] Coding Staff appreciate your assistance in clarifying documentation. Please respond to the clarification below the line at the bottom and electronically sign. The CDI & [facility] Coding staff will review the response and follow-up if needed. Please note: Queries are made part of the Legal Health Record. If you have any questions, please contact the author of this message via ITS. Dr. Santo Andrews SMV Thrombosis post-operative is documented in the ongoing progress notes starting on 01/31. Please render your opinion on the cause and effect relationship if any. Patients Admitting Diagnosis: Acute Appendicitis Post-Operative Diagnosis: Ruptured appendicitis with pericecal abscess Procedure performed: Diagnostic laparoscopy with conversion to open cecectomy History/Risk Factors: Acute appendicitis Clinical Indicators: 39-year-old female present to ED on 01/23 with complaints of abdominal pain. She was ruled for ruptured appendix and had appendectomy on 01/24/20. On 02/01/20 she had complaints of abdominal pain and bloody BM. CT reveals new SMV thrombosis. 01/30 HGB 12.9, HCT 39.1 01/31 HGB 11.0, HCT 34.3 01/31 Oncology progress note: SMV is proved due to recent surgery. 02/02 Oncology progress note: SMV thrombosis post-surgery: provoked after surgery and post-operative complication 02/03 Oncology progress note: SMV thrombosis post-surgery: provoked thrombus from ruptured appendicitis, postoperative and on control. Treatment: Stop future control pills Heparin drip per orders Monitor hemoglobin and for signs of bleeding Monitor PT/INR In order to accurately reflect this patients severity of illness, please clarify if the SMV thrombosis: -is a complication of surgical procedure -is an expected outcome of the surgical procedure -is related to co-morbid condition(s) of (specify) -Other please specify -Unable to determine (Last Revision: March 2019) Is a complication of surgical procedure MTDD
[2020-02-05] MEDS: SODIUM CHLORIDE 0.9% 1,000 ML IV SCH (13:55)
--- NOTE | 2020-02-05 15:51 | P.PN ---
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 Sepsis due to ruptured acute appendicitis and pericecal abscess status post diagnostic laparoscopy and conversion to open cecectomy Ruptured acute appendicitis Pericecal abscess Intermittent abdominal pain for 10 days Acute appendicitis Atrial tachycardia Pots syndrome History of hypertension 02/05/2020, patient seen and examined, labs reviewed, overall continued do well tolerating by mouth well 02/04/2020, patient seen eval examined during the rounds labs reviewed medications reviewed, he is afebrile oxygen saturation 98% hemodynamic status stable, as from today reviewed hemoglobin stable 10.5 PTT is therapeutic range IV heparin 02/03/2020, patient seen eval examined during the rounds labs reviewed medications reviewed overall continued to do well appetite is better, nausea vomiting has improved tolerating by mouth well, she remains on heparin tolerating well, patient remains on IV Unasyn tolerating very well ID hematology also following patient along with general surgery 02/02/2020, patient seen eval examined, remains on heparin, tenderness for PICC line, ID service has been evaluating patient, all her she recommending IV heparin for now and subsequently oral agent once stable 02/01/2020, overall denies any chest pain tolerating by mouth well diet is slowly being advanced, patient is getting some physical therapy as well, 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, college he has been consulted patient on heparin 01/31/2020, patient seen eval examined during the rounds labs reviewed medications, white cell count is stable, platelet count slightly up to 510,000, the service following and adjusting the antibiotics changed to oral Augmentin 01/30/2020, patient seen eval examined during the rounds labs and medications reviewed, patient is still have some abdominal discomfort pain and she however symptoms are significantly improved patient is cleared for clear liquid diet, 01/29/2020, patient seen eval examined during the rounds REVIEWED medications reviewed, has been on a daily quit diet, remains on broad-spectrum antibiotics ID service has been followed by general surgery is following, patient is still have a MERYL drain draining, 01/28/2020, patient seen and evaluated examined during the rounds labs reviewed medications reviewed care plan discussed, patient is slightly nauseous, she is back on chips ice chips only, cell count continue to go down, labs reviewed and chemistry reviewed, Osei x-ray revealed ileus-like Petrin 01/27/2020, patient seen eval reexamined during the rounds labs reviewed medications reviewed care plan discussed, postop day #3 of exploratory laparotomy with the partial resection of cecum, and appendectomy. To have intermittent nausea has been present, for pain has been on Dilaudid 01/26/2020, patient seen eval examined respiratory status remains stable some soreness at the surgical site is present, otherwise doing well patient has been started on clear liquid diet will resume home medications as well 01/25/2020, patient seen eval examined during the rounds labs reviewed medications reviewed care plan discussed, patient underwent laparoscopy and laparotomy noted to have a ruptured acute appendicitis as well as pericecal abscess, postop day #1 remains on broad-spectrum antibiotics she is complaining of some soreness however remains afebrile, on IV Zosyn and Flagyl This is a pleasant 39-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, 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 does have a history of hypertension and POTS syndrome, those issues were has been stable, however she is been having diffuse intermittent abdominal pain for last 10 days, she does have significant history of pancreatic cancer both maternal and paternal side, she had one presentation earlier was discharged subsequently suspected pancreatitis at that time however again came back into the emergency department, recent abdominal CAT scan shows free fluid in the pelvis stranding in pericolic gutter appendix not seen patient is being considered for exploratory laparotomy, hemodynamically she is stable she did receive metipranolol earlier this morning the white cell count is up 16,400, LFTs and renal function is normal, covid is negative Objective - Vital Signs Vital signs: Vital Signs Temp 98.6 F 02/05/20 14:00 Pulse 100 02/05/20 14:00 Resp 16 02/05/20 14:00 BP 120/72 02/05/20 14:00 Pulse Ox 99 02/05/20 14:00 Intake & Output 02/04/20 02/05/20 02/05/20 18:59 06:59 18:59 Intake Total 84.027 Balance 84.027 Weight 61 kg Intake: Intake, IV Titration 84.027 Amount Heparin Sod,Pork in 0.45% 84.027 NaCl 25,000 unit In 0.45 % NaCl 1 250ml.bag @ 12 UNITS/KG/HR 7.32 mls/hr IV .Q24H [facility] Rx#: [id number] Other: Voiding Method Toilet Toilet Toilet # Voids 3 2 # Bowel Movements 1 1 - Exam Constitutional General appearance: average body habitus, cooperative, disheveled - EENT Eyes: PERRLA ENT: hearing grossly normal Ears: bilateral: normal - Neck Neck: normal ROM Carotids: bilateral: upstroke normal Thyroid: bilateral: normal size - Respiratory Respiratory: bilateral: CTA - Cardiovascular Rhythm: regular Heart sounds: normal: S1, S2 - Gastrointestinal General gastrointestinal: decreased bowel sounds, soft - Neurologic Neurologic: CNII-XII intact - Musculoskeletal Musculoskeletal: gait normal, generalized weakness, strength equal bilaterally - Psychiatric Psychiatric: A&O x's 3, appropriate affect, intact judgment & insight - Labs CBC & Chem 7: 02/04/20 02:52 02/05/20 05:59 Labs: Abnormal Lab Results - Last 24 Hours (Table) 02/05/20 Range/Units 05:59 BUN 5.0 L (9.0-27.0) mg/dL BUN/Creatinine Ratio 8.33 L (12.00-20.00) Ratio Calcium 8.5 L (8.7-10.3) mg/dL Assessment and Plan Assessment: Postoperative nausea and vomiting Postoperative ileus Sepsis due to ruptured acute appendicitis and pericecal abscess status post diagnostic laparoscopy and conversion to open cecectomy Ruptured acute appendicitis Pericecal abscess Intermittent abdominal pain for 10 days Acute appendicitis Atrial tachycardia Pots syndrome History of hypertension Plan: Continue nothing by mouth, ice chips for now X-ray finding reviewed and noted We'll repeat labs in the morning Resume home medications Findings of exploratory laparotomy noted Continue broad-spectrum antibiotics Will monitor clinical course closely further recommendations pending plan of care as per clinical response of the patient Time with Patient: Greater than 30
--- NOTE | 2020-02-05 19:15 | P.PN ---
Subjective Progress Note Date: 02/05/20 Principal diagnosis: Ruptured appendicitis Patient says she feels better today. Minimal discomfort unless she is moving about. Midline pain is essentially gone now. No pain at the previous MERYL site. Still having mild soreness right flank. Tolerating diet. No nausea or vomit ing. To bowel moments today nonbloody. No CBC today. Objective - Vital Signs Vital signs: Vital Signs Temp 98.6 F 02/05/20 14:00 Pulse 100 02/05/20 14:00 Resp 16 02/05/20 14:00 BP 120/72 02/05/20 14:00 Pulse Ox 99 02/05/20 14:00 Intake & Output 02/05/20 02/05/20 02/06/20 06:59 18:59 06:59 Weight 61 kg Other: Voiding Method Toilet Toilet # Voids 2 # Bowel Movements 1 - Exam Abdomen: Soft, nondistended, mild right-sided tenderness, incision clean and dry - Labs CBC & Chem 7: 02/04/20 02:52 02/05/20 05:59 Labs: Abnormal Lab Results - Last 24 Hours (Table) 02/05/20 Range/Units 05:59 BUN 5.0 L (9.0-27.0) mg/dL BUN/Creatinine Ratio 8.33 L (12.00-20.00) Ratio Calcium 8.5 L (8.7-10.3) mg/dL Assessment and Plan (1) Ruptured appendicitis Narrative/Plan: Patient doing better at this time. Continue antibiotics. Continue anticoagulation. Anticipate possible discharge tomorrow. Current Visit: Yes Status: Acute Code(s): K35.32 - ACUTE APPENDICITIS WITH PERF AND LOC PERITONITIS, W/O ABSCS SNOMED Code(s): 14500165
[2020-02-05] MEDS: METOPROLOL SUCCINATE (ER) 50 MG TAB.ER.24H PO SCH (21:21)
[2020-02-05] MEDS ORDERED: DOCUSATE 100 MG CAP PO PRN (23:05)
--- NOTE | 2020-02-05 23:26 | PN ---
PROGRESS NOTE DATE OF SERVICE: 02/05/2020 REASON FOR FOLLOWUP: Abdominal abscess from ruptured appendicitis. INTERVAL HISTORY: The patient is currently afebrile. The patient is breathing comfortably. The patient denies having any chest pain or shortness of breath or cough. No nausea, no vomiting. No diarrhea. PHYSICAL EXAMINATION: Blood pressure 133/92 with a pulse of 102, temperature 98.7. She is 100% on room air. General description is a middle-aged female lying in bed in no distress. RESPIRATORY SYSTEM: Unlabored breathing. Clear to auscultation anteriorly. HEART: S1, S2. Regular rate and rhythm. ABDOMEN: Soft. No tenderness. No guarding or rigidity. LABS: Hemoglobin is 10.5, white count 5.9. BUN of 5, creatinine 0.6. DIAGNOSTIC IMPRESSION AND PLAN: Patient with abdominal abscess from ruptured appendicitis in this patient currently covered with Unasyn, which will be continued. Finish therapy with oral Augmentin on discharge. Continue with supportive care. MMODL / IJN: [id number] /
[2020-02-06] MEDS: ACETAMINOPHEN TAB 325 MG TAB PO SCH ×2 (05:29→12:21)
[2020-02-06] MEDS: AMPICILLIN-SULBACTAM 3 GM in SODIUM CHLORIDE 0.9% 100 ML IVPB SCH ×2 (05:29→12:21)
[2020-02-06] MEDS: traMADol 50 MG TAB PO PRN ×2 (05:30→12:22)
[2020-02-06 06:54] LABS: Basophils % (A) 1 %; Eosinophils # (A) 0.1 k/uL (0-0.7); Eosinophils % (A) 2 %; HCT 29.8 % (34.0-46.0); HGB 9.7 gm/dL (11.4-16.0); Lymphocytes # (A) 2.1 k/uL (1.0-4.8); Lymphocytes % (A) 43 %; MCH 30.4 pg (25.0-35.0); MCHC 32.6 g/dL (31.0-37.0); MCV 93.4 fL (80.0-100.0); Mean Platelet Volume 7.5; Monocytes # (A) 0.3 k/uL (0-1.0); Monocytes % (A) 6 %; Neutrophils # (A) 2.2 k/uL (1.3-7.7); Neutrophils % (A) 46 %; Platelet Count 453 k/uL (150-450); RBC 3.19 m/uL (3.80-5.40); RDW 13.5 % (11.5-15.5); WBC 4.8 k/uL (3.8-10.6)
[2020-02-06] MEDS: APIXABAN 5 MG TAB PO SCH (07:38)
[2020-02-06] MEDS: LEVONORGESTREL ETHIN ESTRADIOL PO SCH (07:38)
[2020-02-06] MEDS: PANTOPRAZOLE 40 MG TABLET PO SCH (07:38)
[2020-02-06 08:03] VITALS: BP 135/89; PULSE 92; RESP 16; TEMP 97.3
--- NOTE | 2020-02-06 09:10 | CDI ---
Documentation Clarification Form Date: 02/04/2020 01:13:00 PM From: Michaela Joy RN, CCDS Admit Date: 01/25/2020 03:09:00 PM Patient Name: Edel Dunham Visit Number: [id number] Discharge Date: ATTENTION: The Clinical Documentation Specialists (CDI) and [facility] Coding Staff appreciate your assistance in clarifying documentation. Please respond to the clarification below the line at the bottom and electronically sign. The CDI & [facility] Coding staff will review the response and follow-up if needed. Please note: Queries are made part of the Legal Health Record. If you have any questions, please contact the author of this message via ITS. Dr. Santo Andrews Acute blood loss anemia] is documented 01/31 and subsequent progress note on 02/01. She is post appendectomy including cecectomy, 01/24/20. Please further specify acute blood loss anemia. Patients Admitting Diagnosis: Ruptured appendicitis Post-Operative Diagnosis: Same Procedure performed: Appendectomy including cecectomy History/Risk Factors: Ruptured appendicitis Clinical Indicators: 39-year-old female who is post op day 8 ruptured appendicitis with pericecal abscess and open cecectomy. On 01/31 she complained of mild abdominal gas cramping and reports having blood in her stools. Increased redness of her MERYL drain. 01/31 Vital signs at 08:00 01/30 HGB 12.9 HCT 39.1 01/31 HGB 11.0, HCT 34.3 01/02 HGB 11.3, HCT 34.2 02/02 HGB 10.4 HCT 31.8 01/31 CT Abdomen/pelvis: SMV thrombosis Treatment: Heparin drip per orders Monitor PT/PTT/INR Monitor hemoglobin and for signs of bleeding. 02/01 Oncology progress note: hematochezia/melena. Mild normocytic anemia, reactive thrombocytosis expected platelets around 500. In order to accurately reflect this patients severity of illness, please clarify if the acute blood loss anemia: -is a complication of surgical procedure -is an expected outcome of the surgical procedure -is related to co-morbid condition(s) of -Other please specify -Unable to determine (Last Revision: March 2019) No acute blood loss anemia. MTDD
[2020-02-06 10:08] LABS: Anion Gap 4.3 mmol/L (4.00-12.00); BUN/Creat Ratio 8.33 Ratio (12.00-20.00); Calcium 8.7 mg/dL (8.7-10.3); Carbon Dioxide 29.7 mmol/L (21.6-31.8); Non-African American GFR(CKD) 115.6 (60.0-200.0); Potassium 4.2 mmol/L (3.5-5.5)
--- NOTE | 2020-02-06 10:56 | P.DS ---
Providers Date of admission: 01/25/20 15:09 Expected date of discharge: 02/06/20 Attending physician: Santo Andrews Consults: 01/24/20 11:26 Consult Physician Routine Consulting Provider: David Maldonado Consult Reason/Comments: abd pain Do you want consulting provider notified?: Already Contacted 01/24/20 17:35 Consult Physician Routine Consulting Provider: Marvin Mosqueda Consult Reason/Comments: Ruptured appendix Do you want consulting provider notified?: Yes, Notify in am 02/01/20 14:58 Consult Physician Urgent Consulting Provider: Adelita Price Consult Reason/Comments: SMV THROMBOSIS Do you want consulting provider notified?: Yes Primary care physician: Arthur Burns - Discharge Diagnosis(es) (1) Ruptured appendicitis Patient doing well today. She was admitted with acute appendicitis. This was a ruptured appendix with retrocecal abscess. Patient required partial colonic resection. Postoperatively the patient developed a superior mesenteric vein thrombosis with some associated GI hemorrhage. Patient has been on anticoagulation now for the last several days and doing well. Her pain is minimal. She is ambulating. She is tolerating her diet. We'll discharge today. Follow-up with my office 1 week to have the rest of her diann removed. Prescriptions for pain medications will be provided by myself. Prescriptions for anticoagulation and antibiotics per consultants. Current Visit: Yes Status: Acute Patient Condition at Discharge: Serious Plan - Discharge Summary Discharge Rx Participant: No New Discharge Prescriptions: New traMADol HCL [Ultram] 50 mg PO Q6HR PRN 3 Days #12 tab PRN Reason: Pain Apixaban [Eliquis] 10 mg PO BID 7 Days #14 tab Continue Magnesium Oxide [Mag-Ox] 500 mg PO HS Topiramate [Topamax] 50 mg PO BID Metoprolol Succinate [Toprol Xl] 50 mg PO HS Cholecalciferol [Vitamin D3 (25 Mcg = 1000 Iu)] 1,000 unit PO DAILY Levonorgestrel-Ethin Estradiol [Levora-28 Tablet] 1 tab PO DAILY Erenumab-Aooe [Aimovig Autoinjector] 70 mg SQ Q30D Multivitamins, Thera [Multivitamin (formulary)] 1 tab PO DAILY Naratriptan HCl 2.5 mg PO DAILY PRN PRN Reason: Migraine Headache Ondansetron HCl [Zofran] 4 mg PO Q8H PRN PRN Reason: Nausea And Vomiting Omeprazole Magnesium [PriLOSEC OTC] 20 mg PO DAILY Discontinued Acetaminophen-Codeine 300-30mg [Tylenol w/codeine #3] 1 tab PO Q8H PRN PRN Reason: Pain Discharge Medication List Cholecalciferol [Vitamin D3 (25 Mcg = 1000 Iu)] 1,000 unit PO DAILY 08/24/17 [History] Magnesium Oxide [Mag-Ox] 500 mg PO HS 08/24/17 [History] Metoprolol Succinate [Toprol Xl] 50 mg PO HS 08/24/17 [History] Topiramate [Topamax] 50 mg PO BID 08/24/17 [History] Levonorgestrel-Ethin Estradiol [Levora-28 Tablet] 1 tab PO DAILY 01/01/19 [History] Erenumab-Aooe [Aimovig Autoinjector] 70 mg SQ Q30D 01/19/20 [History] Multivitamins, Thera [Multivitamin (formulary)] 1 tab PO DAILY 01/19/20 [History] Naratriptan HCl 2.5 mg PO DAILY PRN 01/19/20 [History] Omeprazole Magnesium [PriLOSEC OTC] 20 mg PO DAILY 01/19/20 [History] Ondansetron HCl [Zofran] 4 mg PO Q8H PRN 01/19/20 [History] traMADol HCL [Ultram] 50 mg PO Q6HR PRN 3 Days #12 tab 01/29/20 [Rx] Apixaban [Eliquis] 10 mg PO BID 7 Days #14 tab 02/04/20 [Rx] Follow up Appointment(s)/Referral(s): Santo Andrews MD [Medical Doctor] - 1 Week Arthur Burns DO [Primary Care Provider] - 1-2 days Activity/Diet/Wound Care/Special Instructions: Antibiotics per infectious disease recommendations control pills in med room No driving while taking Ultram No lifting over 10 pounds You may shower. No soaking or tub baths for 2 weeks Very light activity until you are reevaluated at your follow up appointment with your surgeon Discharge Disposition: HOME SELF-CARE
[2020-02-06] MEDS: SODIUM CHLORIDE 0.9% 1,000 ML IV SCH (13:28)
--- NOTE | 2020-02-06 13:34 | PN ---
PROGRESS NOTE DATE OF SERVICE: 02/06/2020 REASON FOR FOLLOWUP: Abdominal infection. INTERVAL HISTORY: The patient is currently afebrile. The patient is feeling better. Breathing comfortably. No chest pain or cough. Abdominal pain is currently improved. Some of the stitches have been removed. Incision remains to be intact. No vomiting. No diarrhea. PHYSICAL EXAMINATION: Blood pressure 135/89 with a pulse of 90. Temperature 97.7. General description: The patient is a middle-aged female up in the room in no distress. Respiratory system: Unlabored breathing, clear to auscultation anteriorly. Heart S1, S2. Regular rate and rhythm. ABDOMEN: Soft, no tenderness. LABS: Hemoglobin 9.2, white count 4.8. BUN of 5, creatinine 0.6. DIAGNOSTIC IMPRESSION AND PLAN: Patient with abdominal abscess from ruptured appendicitis, open cecectomy. The patient overall improvement on Unasyn, will give a short course of oral Augmentin on discharge and close outpatient followup. MMODL / IJN: [id number] /
--- NOTE | 2020-02-06 15:58 | P.PN ---
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 Sepsis due to ruptured acute appendicitis and pericecal abscess status post diagnostic laparoscopy and conversion to open cecectomy Ruptured acute appendicitis Pericecal abscess Intermittent abdominal pain for 10 days Acute appendicitis Atrial tachycardia Pots syndrome History of hypertension 02/06/2020, patient seen eval reexamined during the rounds labs reviewed medications reviewed care plan discussed respiratory status continued to improve, abdominal pain continued to improve patient is ambulating, agree with discharge planning 02/05/2020, patient seen and examined, labs reviewed, overall continued do well tolerating by mouth well 02/04/2020, patient seen eval examined during the rounds labs reviewed medications reviewed, he is afebrile oxygen saturation 98% hemodynamic status stable, as from today reviewed hemoglobin stable 10.5 PTT is therapeutic range IV heparin 02/03/2020, patient seen eval examined during the rounds labs reviewed medications reviewed overall continued to do well appetite is better, nausea vomiting has improved tolerating by mouth well, she remains on heparin tolerating well, patient remains on IV Unasyn tolerating very well ID hematology also following patient along with general surgery 02/02/2020, patient seen eval examined, remains on heparin, tenderness for PICC line, ID service has been evaluating patient, all her she recommending IV heparin for now and subsequently oral agent once stable 02/01/2020, overall denies any chest pain tolerating by mouth well diet is slowly being advanced, patient is getting some physical therapy as well, 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, college he has been consulted patient on heparin 01/31/2020, patient seen eval examined during the rounds labs reviewed medications, white cell count is stable, platelet count slightly up to 510,000, the service following and adjusting the antibiotics changed to oral Augmentin 01/30/2020, patient seen eval examined during the rounds labs and medications reviewed, patient is still have some abdominal discomfort pain and she however symptoms are significantly improved patient is cleared for clear liquid diet, 01/29/2020, patient seen eval examined during the rounds REVIEWED medications reviewed, has been on a daily quit diet, remains on broad-spectrum antibiotics ID service has been followed by general surgery is following, patient is still have a MERYL drain draining, 01/28/2020, patient seen and evaluated examined during the rounds labs reviewed medications reviewed care plan discussed, patient is slightly nauseous, she is back on chips ice chips only, cell count continue to go down, labs reviewed and chemistry reviewed, Osei x-ray revealed ileus-like Petrin 01/27/2020, patient seen eval reexamined during the rounds labs reviewed medications reviewed care plan discussed, postop day #3 of exploratory laparotomy with the partial resection of cecum, and appendectomy. To have intermittent nausea has been present, for pain has been on Dilaudid 01/26/2020, patient seen eval examined respiratory status remains stable some soreness at the surgical site is present, otherwise doing well patient has been started on clear liquid diet will resume home medications as well 01/25/2020, patient seen eval examined during the rounds labs reviewed medications reviewed care plan discussed, patient underwent laparoscopy and laparotomy noted to have a ruptured acute appendicitis as well as pericecal abs cess, postop day #1 remains on broad-spectrum antibiotics she is complaining of some soreness however remains afebrile, on IV Zosyn and Flagyl 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, 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 does have a history of hypertension and POTS sy ndrome, those issues were has been stable, however she is been having diffuse intermittent abdominal pain for last 10 days, she does have significant history of pancreatic cancer both maternal and paternal side, she had one presentation earlier was discharged subsequently suspected pancreatitis at that time however again came back into the emergency department, recent abdominal CAT scan shows free fluid in the pelvis stranding in pericolic gutter appendix not seen patient is being considered for exploratory laparotomy, hemodynamically she is stable she did receive metipranolol earlier this morning the white cell count is up 16,400, LFTs and renal function is normal, covid is negative Objective - Vital Signs Vital signs: Vital Signs Temp 97.3 F L 02/06/20 08:00 Pulse 92 02/06/20 08:00 Resp 16 02/06/20 08:00 BP 135/89 02/06/20 08:00 Pulse Ox 97 02/06/20 08:00 Intake & Output 02/05/20 02/06/20 02/06/20 18:59 06:59 18:59 Intake Total 440 Balance 440 Weight 61 kg Intake: Oral 440 Other: Voiding Method Toilet Toilet Toilet - Exam Constitutional General appearance: average body habitus, cooperative, disheveled - EENT Eyes: PERRLA ENT: hearing grossly normal Ears: bilateral: normal - Neck Neck: normal ROM Carotids: bilateral: upstroke normal Thyroid: bilateral: normal size - Respiratory Respiratory: bilateral: CTA - Cardiovascular Rhythm: regular Heart sounds: normal: S1, S2 - Gastrointestinal General gastrointestinal: decreased bowel sounds, soft - Neurologic Neurologic: CNII-XII intact - Musculoskeletal Musculoskeletal: gait normal, generalized weakness, strength equal bilaterally - Psychiatric Psychiatric: A&O x's 3, appropriate affect, intact judgment & insight - Labs CBC & Chem 7: 02/06/20 06:26 02/06/20 06:26 Labs: Abnormal Lab Results - Last 24 Hours (Table) 02/06/20 02/06/20 Range/Units 06:26 06:26 RBC 3.19 L (3.80-5.40) m/uL Hgb 9.7 L (11.4-16.0) gm/dL Hct 29.8 L (34.0-46.0) % Plt Count 453 H (150-450) k/uL BUN 5.0 L (9.0-27.0) mg/dL BUN/Creatinine Ratio 8.33 L (12.00-20.00) Ratio Assessment and Plan Assessment: Postoperative nausea and vomiting Postoperative ileus Sepsis due to ruptured acute appendicitis and pericecal abscess status post diagnostic laparoscopy and conversion to open cecectomy Ruptured acute appendicitis Pericecal abscess Intermittent abdominal pain for 10 days Acute appendicitis Atrial tachycardia Pots syndrome History of hypertension Plan: Continue nothing by mouth, ice chips for now X-ray finding reviewed and noted We'll repeat labs in the morning Resume home medications Findings of exploratory laparotomy noted Continue broad-spectrum antibiotics Will monitor clinical course closely further recommendations pending plan of care as per clinical response of the patient Time with Patient: Greater than 30
== END 2020-02-06 16:21 | disposition home or self-care (01) | DRG 853 ==
LOC: EC 20:01 → 6PED 22:35 → OBSVTOIN 01-25 15:09 → 4SSUR 02-02 14:26
PROVIDERS: ADMIT Surgery; ATTEND Surgery
PROC: 0DTJ0ZZ Resection of Appendix, Open Approach (ICD-10-PCS; principal; 2020-01-24 12:35)
PROC: 0DTH0ZZ Resection of Cecum, Open Approach (ICD-10-PCS; principal; 2020-01-24 12:35)
PROC: 0WJG4ZZ Inspection of Peritoneal Cavity, Percutaneous Endoscopic Approach (ICD-10-PCS; principal; 2020-01-24 12:35)
PROC: 02HV33Z Insertion of Infusion Device into Superior Vena Cava, Percutaneous Approach (ICD-10-PCS; 2020-02-03)
DX: A41.9 Sepsis, unspecified organism (principal); K35.33 Acute appendicitis with perforation, localized peritonitis, and gangrene, with abscess; K55.069 Acute infarction of intestine, part and extent unspecified; I81 Portal vein thrombosis; I82.890 Acute embolism and thrombosis of other specified veins; R18.8 Other ascites; I47.1 Supraventricular tachycardia; K56.7 Ileus, unspecified; K92.1 Melena; T81.72XA Complication of vein following a procedure, not elsewhere classified, initial encounter; I10 Essential (primary) hypertension; I49.8 Other specified cardiac arrhythmias; Z20.828 Contact with and (suspected) exposure to other viral communicable diseases; Z53.31 Laparoscopic surgical procedure converted to open procedure; R30.9 Painful micturition, unspecified; J45.909 Unspecified asthma, uncomplicated; K21.9 Gastro-esophageal reflux disease without esophagitis; G43.909 Migraine, unspecified, not intractable, without status migrainosus; K64.9 Unspecified hemorrhoids; M26.609 Unspecified temporomandibular joint disorder, unspecified side; R11.0 Nausea; T41.205A Adverse effect of unspecified general anesthetics, initial encounter; Z79.3 Long term (current) use of hormonal contraceptives; Z79.899 Other long term (current) drug therapy; Z90.89 Acquired absence of other organs; Z87.891 Personal history of nicotine dependence; Z87.19 Personal history of other diseases of the digestive system; Z98.890 Other specified postprocedural states; Z88.1 Allergy status to other antibiotic agents; Z88.5 Allergy status to narcotic agent; Z91.018 Allergy to other foods; Z91.011 Allergy to milk products; Z80.0 Family history of malignant neoplasm of digestive organs; Z80.3 Family history of malignant neoplasm of breast; Z83.2 Family history of diseases of the blood and blood-forming organs and certain disorders involving the immune mechanism; Y83.8 Other surgical procedures as the cause of abnormal reaction of the patient, or of later complication, without mention of misadventure at the time of the procedure
CPT/HCPCS: 36415; 36573; 74019; 74177; 80048; 80053; 81001; 81003; 81025; 82150; 82330; 83605; 83690; 83735; 84100; 84478; 85025; 85610; 85730; 86140; 87070; 87075; 87077; 87086; 87186; 87205; 87635; 88307; 99284

== ENCOUNTER → 2020-04-10 | Outpatient (CLI) | payer BC ==
--- NOTE | 2020-04-10 14:50 | CT ---
EXAMINATION TYPE: CT abdomen pelvis w con DATE OF EXAM: 04/10/2020 COMPARISON: CT 02/01/2020 HISTORY: Right lower quadrant pain. CT DLP: 433.4 mGycm Automated exposure control for dose reduction was used. TECHNIQUE: Helical acquisition of images from the lung bases through the pelvis have been completed. CONTRAST: Performed with Oral Contrast and with IV Contrast, patient injected with 100 mL of Isovue M300. FINDINGS: LUNG BASES: No significant abnormality is appreciated. AORTA: No significant abnormality is appreciated. LIVER/GB: No significant abnormality is appreciated. PANCREAS: No significant abnormality is seen. SPLEEN: No significant abnormality is seen. ADRENALS: No significant abnormality is seen. KIDNEYS: No significant abnormality is seen. REPRODUCTIVE ORGANS: No significant abnormality is seen BOWEL: No significant abnormality is seen. No evident appendicitis. Postop changes are present at th e rectosigmoid junction and at the level of the right lower quadrant1. The pelvic fluid collection se en on prior exam is no longer seen. SMV thrombosis is not seen, contrast mixing within the tributarie s is suspected FREE AIR: No Free Air visible. ASCITES: None visible. PELVIC ADENOPATHY: None visualized. RETROPERITONEAL ADENOPATHY: No Retroperitoneal Adenopathy visible. URINARY BLADDER: No significant abnormality is seen. OSSEOUS STRUCTURES: No significant abnormality is seen. IMPRESSION: POSTOP CHANGES WITH INTERVAL IMPROVEMENT DESCRIBED
== END ==
LOC: RADCTMAIN 12:06
PROVIDERS: ATTEND Surgery
DX: R10.31 Right lower quadrant pain (principal)
CPT/HCPCS: 74177; Q9967

== ENCOUNTER 2020-04-28 08:03 | Emergency (ER) | payer BC ==
[2020-04-28] MEDS ORDERED: ONDANSETRON ODT 4 MG TAB PO STA (08:34)
[2020-04-28] MEDS ORDERED: ACETAMINOPHEN TAB 325 MG TAB PO STA (08:34)
--- NOTE | 2020-04-28 08:41 | ED ---
General Adult HPI - General Chief complaint: Fall Stated complaint: fall/hit head Time Seen by Provider: 04/28/20 08:09 Source: patient, RN notes reviewed Mode of arrival: ambulatory Limitations: no limitations - History of Present Illness Initial comments: 39-year-old female with a past medical history of asthma, hypertension, migraines, currently on L a coitus for a blood clot after surgery in January presents to the emergency room for a chief complaint of fall. Patient states she slipped and fell down about 5 stairs. Patient did hit her head against the wall. She states that she waited to see if she would have any symptoms form and did feel a little nauseous so decided to come in given she is on blood thinners. No loss of consciousness She has left-sided neck pain. Patient denies chest or back pain. Admits to slight abdominal pain but states this has been constant since her surgery, nothing new. Patient states she had her left elbow but there is no bruising and it feels fine now. Patient has no other complaints at this time including shortness of breath, chest pain, abdominal pain, nausea or vomiting, headache, or visual changes. - Related Data Home Medications Medication Instructions Recorded Confirmed Magnesium Oxide [Mag-Ox] 500 mg PO HS 08/24/17 04/28/20 Metoprolol Succinate [Toprol Xl] 50 mg PO BID 08/24/17 04/28/20 Topiramate [Topamax] 50 mg PO BID 08/24/17 04/28/20 Multivitamins, Thera [Multivitamin 1 tab PO DAILY 01/19/20 04/28/20 (formulary)] Omeprazole Magnesium [PriLOSEC OTC] 20 mg PO DAILY 01/19/20 04/28/20 Apixaban [Eliquis] 5 mg PO BID 04/28/20 04/28/20 Fremanezumab-Vfrm [Ajovy 225 mg SQ QMONTHLY 04/28/20 04/28/20 Autoinjector] Kurvelo-28 1 tab PO DAILY 04/28/20 04/28/20 Lactobacillus Acidophilus 460 mg PO HS 04/28/20 04/28/20 [Florajen] Previous Rx's Medication Instructions Recorded traMADol HCL [Ultram] 50 mg PO Q6HR PRN 3 Days #12 tab 01/29/20 Allergies Allergy/AdvReac Type Severity Reaction Status Date / Time Beef Containing Products Allergy Pos on Verified 04/28/20 08:36 allergy test cefuroxime [From Ceftin] Allergy Rash/Hives Verified 04/28/20 08:36 chicken derived [Chicken] Allergy Pos on Verified 04/28/20 08:36 allergy test gluten Allergy Rash/Hives Verified 04/28/20 08:36 hydrocodone Allergy Rash/Hives Verified 04/28/20 08:36 levofloxacin [From Levaquin] Allergy Rash/Hives Verified 04/28/20 08:36 Pork/Porcine Containing Allergy Pos on Verified 04/28/20 08:36 Products allergy [Pork] test soybean Allergy Rash/Hives Verified 04/28/20 08:36 Review of Systems ROS Statement: Those systems with pertinent positive or pertinent negative responses have been documented in the HPI. ROS Other: All systems not noted in ROS Statement are negative. Past Medical History Past Medical History: Asthma, Hypertension Additional Past Medical History / Comment(s): Migraines, tachycardia, V-Tach on EKG prevoiusly, had EP study (everything okay, no problems since). 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 History of Any Multi-Drug Resistant Organisms: None Reported Past Surgical History: Adenoidectomy, Tonsillectomy Additional Past Surgical History / Comment(s): Lateral internal sphincterotomy, EP study Past Anesthesia/Blood Transfusion Reactions: Previous Problems w/ Anesthesia, Motion Sickness Additional Past Anesthesia/Blood Transfusion Reaction / Comment(s): Itching, red skin after last surg 2016 ("had Versed, Propofol, Zofran, Decadron") Past Psychological History: No Psychological Hx Reported Smoking Status: Former smoker Past Alcohol Use History: None Reported Past Drug Use History: None Reported - Past Family History Mother Family Medical History: Cancer Additional Family Medical History / Comment(s): Breast, Pancreatic CA. Father Family Medical History: Cancer Additional Family Medical History / Comment(s): Pancreatic CA. General Exam Limitations: no limitations General appearance: alert, in no apparent distress Head exam: Present: atraumatic, normocephalic, normal inspection Eye exam: Present: normal appearance, PERRL, EOMI. Absent: scleral icterus, conjunctival injection, periorbital swelling, periorbital tenderness, other (Negative raccoon sign) ENT exam: Present: normal exam, normal oropharynx, mucous membranes moist, TM's normal bilaterally (Negative hemotympanum), normal external ear exam (Negative Echeverria sign) Neck exam: Present: normal inspection, tenderness (Tenderness noted to the left paraspinal muscles. No cervical spine tenderness.), full ROM. Absent: meningismus, lymphadenopathy Respiratory exam: Present: normal lung sounds bilaterally. Absent: respiratory distress, wheezes, rales, rhonchi, stridor Cardiovascular Exam: Present: regular rate, normal rhythm, normal heart sounds. Absent: systolic murmur, diastolic murmur, rubs, gallop, clicks GI/Abdominal exam: Present: soft, normal bowel sounds, other (Well healing scar. No abdominal tenderness. No ecchymosis or contusions.). Absent: distended, tenderness, guarding, rebound, rigid Back exam: Absent: CVA tenderness (R), CVA tenderness (L), vertebral tenderness, other (No ecchymosis or contusions) Neurological exam: Present: alert, oriented X3, CN II-XII intact, normal gait, other (GCS 15) Course Vital Signs 04/28/20 08:04 Temperature 98.1 F Pulse Rate 82 Respiratory 16 Rate Blood Pressure 136/87 O2 Sat by Pulse 100 Oximetry Medical Decision Making - Medical Decision Making Vitals are stable. Patient is well-appearing. HPI physical exam is documented. No ecchymosis. No chest abdominal or back pain. Patient only complaining of nausea and slight headache. Patient is on eliquis. Therefore CT was ordered. CT cervical spine shows no acute fracture or dislocation. CT brain shows no acute cranial hemorrhage or midline shift. No significant change from prior. At this time patient can be discharged home in stable condition with concussion precautions recommend she follow up with her doctor. She will return here for any worsening symptoms. Disposition Clinical Impression: Head injury, Fall Disposition: HOME SELF-CARE Condition: Good Instructions (If sedation given, give patient instructions): Concussion (ED) Additional Instructions: Please take Tylenol for pain. Drink plenty of fluids and rest. Follow-up with your doctor in one to 2 days for a recheck. Return to the emergency room for any worsening symptoms. Is patient prescribed a controlled substance at d/c from ED?: No Referrals: Arthur Burns DO [Primary Care Provider] - 1-2 days Time of Disposition: :45
--- NOTE | 2020-04-28 09:28 | CT ---
EXAMINATION TYPE: CT brain sara elmore con DATE OF EXAM: 04/28/2020 COMPARISON: CT brain January 04, 2016 HISTORY: Left posterior injury. Fall on thinners. Head and neck pain CT DLP: 1274.2 mGycm. Automated Exposure Control for Dose Reduction was Utilized. TECHNIQUE: CT scan of the head and cervical spine are performed without contrast. FINDINGS: There is no acute intracranial hemorrhage, mass effect, or midline shift identified. The ventricles and sulci are within normal limits in size. Dickinson-white matter differentiation is maintai adela. The calvarium is intact. The globes are intact and the visualized sinuses are clear. Cervical spine is visualized in its entirety from C1 through upper thoracic levels and demonstrates s atisfactory alignment without evidence of acute fracture or dislocation. Prevertebral soft tissue ap pears within normal limits. The C1-C2 articulation is within normal limits on the coronal images. V ertebral body heights are maintained. Slight grade 1 retrolisthesis C5 on C6 with tpta-he-aiwiaepf di sc space narrowing and spurring. Posterior spur disc complex effaces the anterior thecal sac at this level. This space heights otherwise maintained. Thyroid gland within normal limits on axial images. L castro apices show no pneumothorax. IMPRESSION: 1. There is no acute fracture or dislocation evident in the cervical spine. 2. No acute intracranial hemorrhage or midline shift is seen. No significant change from prior.
[2020-04-28 09:44] VITALS: RESP 18
[2020-04-28 10:09] VITALS: BP 117/78; PULSE 68; TEMP 98.3
== END 2020-04-28 10:11 | disposition home or self-care (01) ==
LOC: EC 08:03
DX: S09.90XA Unspecified injury of head, initial encounter (principal); M54.2 Cervicalgia; J45.909 Unspecified asthma, uncomplicated; I10 Essential (primary) hypertension; Z87.891 Personal history of nicotine dependence; W01.198A Fall on same level from slipping, tripping and stumbling with subsequent striking against other object, initial encounter
CPT/HCPCS: 70450; 72125; 99284

== ENCOUNTER → 2020-06-16 | Outpatient (CLI) | payer BC ==
--- NOTE | 2020-06-16 13:37 | US ---
EXAMINATION TYPE: US pelvic complete DATE OF EXAM: 06/16/2020 COMPARISON: CT CLINICAL HISTORY: R10.2 pelvic pain. Patient states her labs came back postmenopausal. TECHNIQUE: Transabdominal (TA). Transabdominal sonographic images of the pelvis were acquired. Date of LMP: February 082020 EXAM MEASUREMENTS: Uterus: 7.1 x 2.5 x 3.6 cm Endometrial Stripe: 0.4 cm Right Ovary: 1.5 x 1.2 x 1.0 cm Left Ovary: 2.8 x 2.0 x 2.1 cm 1. Uterus: Anteverted wnl 2. Endometrium: wnl 3. Right Ovary: wnl 4. Left Ovary: cyst measuring 2.5 x 1.9 x 1.6cm 5. Bilateral Adnexa: wnl 6. Posterior cul-de-sac: wnl IMPRESSION: 1. 2.5 cm left ovarian cyst.
== END | disposition home or self-care (01) ==
LOC: RADUSWWP 13:00
PROVIDERS: ATTEND Obstetrics & Gynecology
DX: N83.202 Unspecified ovarian cyst, left side (principal); Z78.0 Asymptomatic menopausal state
CPT/HCPCS: 76856

== ENCOUNTER → 2020-06-18 | Outpatient (CLI) | payer BC | END | disposition home or self-care (01) | LOC: LABWHC1 08:38 | PROVIDERS: ATTEND Internal Medicine | DX: R53.82 Chronic fatigue, unspecified (principal) | CPT/HCPCS: 36415; 82024; 82533 ==

== ENCOUNTER → 2020-07-29 | Outpatient (CLI) | payer BC | END | disposition home or self-care (01) | LOC: LABWHC1 07:13 | PROVIDERS: ATTEND Obstetrics & Gynecology | DX: N92.6 Irregular menstruation, unspecified (principal) | CPT/HCPCS: 36415; 84702 ==

== ENCOUNTER → 2020-11-25 | Outpatient (CLI) | payer BC ==
--- NOTE | 2020-11-26 12:10 | XR ---
Left hip HISTORY: Pain, M25.559 2 views of the left hip Postoperative changes are noted in the pelvis, intrauterine contraceptive device is noted. Left hip shows preserved and bone mineralization, joint space and alignment. There is mild marginal s purring noted. No fracture or dislocation. There are overlying artifacts. There is likely a phlebolit h in the left hemipelvis. IMPRESSION: Suspect some mild osteoarthritic change.
== END | disposition home or self-care (01) ==
LOC: LABWHC1 17:04
PROVIDERS: ATTEND Family Medicine
DX: M25.559 Pain in unspecified hip (principal)
CPT/HCPCS: 73502

== ENCOUNTER → 2021-08-26 | Outpatient (CLI) | payer OTHER ==
--- NOTE | 2021-08-26 08:19 | CT ---
EXAMINATION TYPE: CT abdomen pelvis w con CT DLP: 413.7 mGycm, Automated exposure control for dose reduction was used. DATE OF EXAM: 08/26/2021 8:06 AM COMPARISON: 04/10/2020 CT abdomen pelvis. CLINICAL INDICATION:Female, 40 years old with history of R10.13 Epigastric pain, R10.9 Abd pain; Epig astric pain. Change in bowel habits. Family Hx of pancreatic cancer. 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 TECHNIQUE: Axial CT of the abdomen and pelvis. Sagittal and coronal reformats were created on a [employer] workstation. Contrast used:70 ML mL of Isovue 300 with IV Contrast, Oral contrast used: with Oral Contrast FINDINGS: LOWER CHEST: Unremarkable ABDOMEN LIVER: Unremarkable GALLBLADDER AND BILE DUCTS: Unremarkable. PANCREAS: Unremarkable. SPLEEN: Unremarkable. ADRENAL GLANDS: Unremarkable. KIDNEYS AND URETERS: No evidence of hydronephrosis or renal calculus. The ureters are unremarkable. PELVIS BLADDER: Unremarkable REPRODUCTIVE: Intrauterine device seen within the endometrium. ABDOMEN & PELVIS STOMACH AND BOWEL: No evidence of bowel obstruction. PERITONEUM: No evidence of pneumoperitoneum or free fluid. VASCULATURE: No evidence of aortic aneurysm. MUSCULOSKELETAL: No acute osseous abnormalities LYMPH NODES: No gross evidence for lymphadenopathy. SOFT TISSUE/ABDOMINAL WALL: Unremarkable IMPRESSION: 1. No evidence of acute intra-abdominal process to explain the patient's pain. 2. IUD in place.
== END | disposition home or self-care (01) ==
LOC: RADCTMAIN 05:55
PROVIDERS: ATTEND Family Medicine
DX: R10.13 Epigastric pain (principal)
CPT/HCPCS: 74177; Q9967 ×2

== ENCOUNTER → 2022-06-29 | Outpatient (CLI) | payer BC ==
--- NOTE | 2022-06-30 12:10 | MM ---
Reason for Exam: Screening (asymptomatic). Last mammogram was performed 4 year(s) and 3 month(s) ago. Patient History: Menarche at age 11. Patient has no children. Hormonal Contraceptives for 25 years from age 15 until age 39. Mother had breast cancer, age 56. Risk Values: Mila 5 year model risk: 1.2%. NCI Lifetime model risk: 20.4%. Prior Study Comparison: 03/30/2018 Bilateral Screening Mammogram, [facility]. Tissue Density: The breast tissue is heterogeneously dense. This may lower the sensitivity of mammography. Findings: Analyzed By CAD. There is no suspicious group of microcalcifications or new suspicious mass in either breast. Overall Assessment: Negative, BI-RAD 1 Management: Screening Mammogram of both breasts in [address] [facility] will attempt to contact patient to return for supplemental views and ultrasound if indicated. Patient should continue monthly self-breast exams. A clinical breast exam by your physician is recommended on an annual basis. This exam should not preclude additional follow-up of suspicious palpable abnormalities. Note on Mila scores and lifetime risk: 1. A Mila score greater than 3% is considered moderate risk. If this is the case, consider specialist referral to assess eligibility for a risk reducing agent. 2. If overall lifetime risk for the development of breast cancer is 20% or higher, the patient may qualify for future screening with alternating mammogram and breast MRI. Electronically signed and approved by: Unruly Gamboa DO
== END | disposition home or self-care (01) ==
LOC: RADMAMWWP 09:37
PROVIDERS: ATTEND Family Medicine
DX: Z12.31 Encounter for screening mammogram for malignant neoplasm of breast (principal); Z80.3 Family history of malignant neoplasm of breast
CPT/HCPCS: 77067

== ENCOUNTER → 2022-09-02 | Outpatient (CLI) | payer BC ==
--- NOTE | 2022-09-02 14:04 | US ---
EXAMINATION TYPE: US pelvic complete DATE OF EXAM: 09/02/2022 COMPARISON: NONE CLINICAL INDICATION: Female, 41 years old with history of Z97.[address],N92.1 IRREGULAR MENSES; abn menses IUD TECHNIQUE: Transabdominal (TA). Transabdominal sonographic images of the pelvis were acquired. EXAM MEASUREMENTS: Uterus: 7.9 x 3.9 x 4.7 cm Endometrial Stripe: .5 cm Right Ovary: 2.2 x 1.6 x 2.2 cm Left Ovary: 2.6 x 1.2 x 1.8 cm 1. Uterus: Anteverted IUD in place 2. Endometrium: wnl 3. Right Ovary: wnl 4. Left Ovary: wnl 5. Bilateral Adnexa: wnl 6. Posterior cul-de-sac: wnl IMPRESSION: IUD noted to be in place. Otherwise unremarkable study.
== END | disposition home or self-care (01) ==
LOC: RADUSWWP 13:26
PROVIDERS: ATTEND Obstetrics & Gynecology
DX: N92.1 Excessive and frequent menstruation with irregular cycle (principal); Z97.5 Presence of (intrauterine) contraceptive device
CPT/HCPCS: 76856

== ENCOUNTER 2022-09-06 08:37 | Emergency (ER) | payer BC ==
[2022-09-06] MEDS ORDERED: KETOROLAC 15 MG/ML 1 ML VIAL IVP STA (08:57)
[2022-09-06] MEDS ORDERED: SODIUM CHLORIDE 0.9% 1,000 ML IV STA ×2 (08:57→11:21)
[2022-09-06] MEDS ORDERED: ONDANSETRON 4 MG/2 ML VIAL IVP STA ×2 (08:58→16:03)
[2022-09-06] MEDS ORDERED: HYDROmorphone 1 MG/ML 1 ML SYRINGE IVP STA (08:59)
--- NOTE | 2022-09-06 09:09 | ED ---
Abdominal Pain HPI - General Chief Complaint: Abdominal Pain Stated Complaint: vomiting Time Seen by Provider: 09/06/22 08:42 Source: patient, RN notes reviewed Mode of arrival: wheelchair Limitations: no limitations - History of Present Illness Initial Comments: This is a 41-year-old female who presents to the emergency department for abdominal pain. Patient states that this is in the upper abdomen and started last night. Reports associated nausea and vomiting. She has had similar symptoms in the past, but states that this is worse. Denies any known history of gallstones. Unsure if she had any foods that may have triggered this pain. Denies any changes in bowel/bladder habits. Also denies any fevers or chills. Denies any fevers, chills, sore throat, cough, dyspnea, chest pain, palpitations, diarrhea, back pain, or headaches. MD Complaint: abdominal pain Onset/Timin -: days(s) Location: epigastric - Related Data Home Medications Medication Instructions Recorded Confirmed Metoprolol Succinate [Toprol Xl] 50 mg PO QAM 08/24/17 09/06/22 Fremanezumab-Vfrm [Ajovy 225 mg SQ QMONTHLY 04/28/20 09/06/22 Autoinjector] Ascorbic Acid [Vitamin C] 500 mg PO DAILY 09/06/22 09/06/22 Aspirin EC [Ecotrin Low Dose] 81 mg PO DAILY 09/06/22 09/06/22 Cholecalciferol [Vitamin D3 (25 25 mcg PO DAILY 09/06/22 09/06/22 Mcg = 1000 Iu)] Famotidine [Pepcid] 10 mg PO DAILY 09/06/22 09/06/22 Ferrous Sulfate [Slow Fe] 142 mg PO DAILY 09/06/22 09/06/22 Metoprolol Succinate (ER) [Toprol 25 mg PO HS 09/06/22 09/06/22 Xl] Topiramate 50 mg PO BID 09/06/22 09/06/22 Vitamin B Complex [B-Complex] 1 tab PO DAILY 09/06/22 09/06/22 Previous Rx's Medication Instructions Recorded Ketorolac [Toradol] 10 mg PO Q6HR PRN #15 tab 09/06/22 Ondansetron Odt [Zofran Odt] 4 mg PO Q8HR PRN #15 tab 09/06/22 traMADol HCL 50 mg PO Q6H PRN 3 Days #12 tab 09/06/22 Allergies Allergy/AdvReac Type Severity Reaction Status Date / Time Beef Containing Products Allergy Pos on Verified 09/06/22 15:14 allergy test cefuroxime [From Ceftin] Allergy Rash/Hives Verified 09/06/22 15:14 chicken derived [Chicken] Allergy Pos on Verified 09/06/22 15:14 allergy test gluten Allergy Rash/Hives Verified 09/06/22 15:14 hydrocodone Allergy Rash/Hives Verified 09/06/22 15:14 levofloxacin [From Levaquin] Allergy Rash/Hives Verified 09/06/22 15:14 Pork/Porcine Containing Allergy Pos on Verified 09/06/22 15:14 Products allergy [Pork] test soybean Allergy Rash/Hives Verified 09/06/22 15:14 Review of Systems ROS Statement: Those systems with pertinent positive or pertinent negative responses have been documented in the HPI. ROS Other: All systems not noted in ROS Statement are negative. Past Medical History Past Medical History: Asthma, Hypertension Additional Past Medical History / Comment(s): Migraines, tachycardia, V-Tach on EKG prevoiusly, had EP study (everything okay, no problems since). 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 History of Any Multi-Drug Resistant Organisms: None Reported Past Surgical History: Adenoidectomy, Cardiac Ablation, Tonsillectomy Additional Past Surgical History / Comment(s): Lateral internal sphincterotomy, EP study Past Anesthesia/Blood Transfusion Reactions: Previous Problems w/ Anesthesia, Motion Sickness Additional Past Anesthesia/Blood Transfusion Reaction / Comment(s): Itching, red skin after last surg 2016 ("had Versed, Propofol, Zofran, Decadron") Past Psychological History: No Psychological Hx Reported Smoking Status: Former smoker Past Alcohol Use History: None Reported Past Drug Use History: None Reported - Past Family History Mother Family Medical History: Cancer Additional Family Medical History / Comment(s): Breast, Pancreatic CA. Father Family Medical History: Cancer Additional Family Medical History / Comment(s): Pancreatic CA. General Exam Limitations: no limitations General appearance: alert, in distress Head exam: Present: atraumatic, normocephalic, normal inspection Respiratory exam: Present: normal lung sounds bilaterally. Absent: respiratory distress, wheezes, rales, rhonchi, stridor Cardiovascular Exam: Present: regular rate, normal rhythm, normal heart sounds. Absent: systolic murmur, diastolic murmur, rubs, gallop, clicks GI/Abdominal exam: Present: soft, tenderness (epigastric and RUQ), normal bowel sounds. Absent: distended Neurological exam: Present: alert, oriented X3, CN II-XII intact Psychiatric exam: Present: normal affect, normal mood Skin exam: Present: warm, dry, intact, normal color. Absent: rash Course Vital Signs 09/06/22 08:48 Temperature 98.0 F Pulse Rate 86 Respiratory 24 Rate Blood Pressure 127/85 O2 Sat by Pulse 99 Oximetry Medical Decision Making - Medical Decision Making This is a 41-year-old female who presents to the emergency department for abdominal pain. Was pt. sent in by a medical professional or institution? @ -No Did you speak to anyone other than the patient for history? @ -No Did you review nursing and triage notes? @ -Yes, and I agree, it is accurate with regards to the patient's symptoms. Were old charts reviewed? @ -No Differential Diagnosis? @ -Differential Abdominal Pain Women: Appendicitis, Cholecystitis, diverticulosis, ischemic bowel, pancreatitis, hepatitis, UTI, gastroenteritis, AAA, incarcerated hernia, bowel obstruction, constipation, inflammatory bowel, hepatitis, peptic ulcer disease, splenic infarction, perforated viscus, vulvitis, ovarian torsion, PID, kidney stone, placenta abruption, this is not meant to be an all-inclusive list EKG interpreted by me (3pts min.)? @ -EKG interpreted by me demonstrating the following: Sinus rhythm. Ventricular rate 76 beats per minute, MN interval 139 ms, QRS duration 93 ms, QTC 423 ms. X-rays interpreted by me (1pt min.)? @ -Not obtained CT interpreted by me (1pt min.)? @ -Computed tomography scan of the abdomen and pelvis obtained. My interpretation identifies no evidence of free air and a mildly distended small bowel. U/S interpreted by me (1pt. min.)? @ -Gallbladder ultrasound obtained. My interpretation identifies no evidence of gallbladder wall thickening or cholelithiasis. What testing was considered but not performed? (CT, X-rays, U/S, labs)? Why? @ -None What meds were considered but not given? Why? @ -None Did you discuss the management of the patient with other professionals? @ -No Did you reconcile home meds? @ -No Was smoking cessation discussed for >3mins.? @ -No Was critical care preformed (if so, how long)? @ -No Were there social determinants of health that impacted care today? How? ( Homelessness, low income, unemployed, alcoholism, drug addiction, transportation, low edu. Level, literacy, decrease access to med. care, halfway, rehab)? @ -No Was there de-escalation of care discussed even if they declined? (Discuss DNR or withdrawal of care, Hospice)? @ -No What co-morbidities impacted this encounter? (DM, HTN, Smoking, COPD, CAD, Cancer, CVA, Hep., AIDS, mental health diagnosis, sleep apnea, morbid obesity)? @ -None Was patient admitted / discharged? @ -Discharged. Lab work obtained revealing leukocytosis and an elevated lactic acid of 3.9. Urinalysis reveals a large amount of blood, consistent with the patient being on her period. Gallbladder ultrasound obtained revealing no acute findings. Symptoms well controlled with IV fluids, Dilaudid, and Zofran. Given the lab work irregularities and the extent of the patient's pain, computed tomography scan of the abdomen and pelvis was obtained for further evaluation. This revealed a mildly distended but nondilated fluid-filled small bowel suggestive of an enteritis. Findings discussed with the patient. She was given a total of 2 L of IV fluids and recheck of lactic acid was within normal limits at 0.7. She did start to have some of her pain return after a long period of time. We discussed admission for pain control and fluids versus discharge home. Patient would prefer to go home, if symptoms can be managed there. Advised that if we can get her symptoms under control here with oral medication, she should be safe for discharge home. We tried a dose of oral Tramadol with Zofran, and she felt like that adequately controlled her symptoms and she overall felt stable for discharge home. Prescription for Toradol, tramadol, and Zofran provided with dosing instructions reviewed. Patient is instructed to take the Toradol with Tylenol if needed and avoid any other [id number] anti-inflammatories such as ibuprofen with the Toradol. Also advised that the tramadol can be sedating and she should avoid driving or operating machinery when taking this. Otherwise advised close follow-up with her primary care provider. Undiagnosed new problem with uncertain prognosis? @ -None Drug Therapy requiring intensive monitoring for toxicity (Heparin, Nitro, Insulin, Cardizem)? @ -None Were any procedures done? @ -None Diagnosis/symptom? @ -Enteritis, N/V Acute, or Chronic, or Acute on Chronic? @ -Acute Uncomplicated (without systemic symptoms) or Complicated (systemic symptoms)? @ -Uncomplicated Side effects of treatment? @ -None Exacerbation, Progression, or Severe Exacerbation] @ -Not applicable Poses a threat to life or bodily function? @ -No Return precautions reviewed in depth, the patient is instructed to return to the emergency department with any new, worsening, or concerning symptoms. Patient v erbalized understanding. This case was discussed in detail with the attending ED physician, Dr. Sushil lopez. Presentation, findings, and treatment plan discussed in detail as well. - Lab Data Result diagrams: 09/06/22 09:25 09/06/22 09:25 Lab Results 09/06/22 09/06/22 09/06/22 Range/Units 09:25 09:25 09:25 WBC 13.3 H (3.8-10.6) k/uL RBC 4.99 (3.80-5.40) m/uL Hgb 15.1 (11.4-16.0) gm/dL Hct 44.2 (34.0-46.0) % MCV 88.6 (80.0-100.0) fL MCH 30.2 (25.0-35.0) pg MCHC 34.1 (31.0-37.0) g/dL RDW 13.5 (11.5-15.5) % Plt Count 215 (150-450) k/uL MPV 8.4 Neutrophils % 89 % Lymphocytes % 7 % Monocytes % 3 % Eosinophils % 0 % Basophils % 0 % Neutrophils # 11.9 H (1.3-7.7) k/uL Lymphocytes # 0.9 L (1.0-4.8) k/uL Monocytes # 0.3 (0-1.0) k/uL Eosinophils # 0.0 (0-0.7) k/uL Basophils # 0.0 (0-0.2) k/uL Sodium 138 (137-145) mmol/L Potassium 3.8 (3.5-5.1) mmol/L Chloride 112 H (98-107) mmol/L Carbon Dioxide 12 L (22-30) mmol/L Anion Gap 14 mmol/L BUN 14 (7-17) mg/dL Creatinine 0.69 (0.52-1.04) mg/dL Est GFR (CKD-EPI)AfAm >90 (>60 ml/min/1.73 sqM) Est GFR (CKD-EPI)NonAf >90 (>60 ml/min/1.73 sqM) Glucose 150 H (74-99) mg/dL Lactic Ac Sepsis Rflx Plasma Lactic Acid Kuldeep 3.9 H* (0.7-2.0) mmol/L Calcium 10.1 (8.4-10.2) mg/dL Total Bilirubin 0.9 (0.2-1.3) mg/dL AST 32 (14-36) U/L ALT 25 (4-34) U/L Alkaline Phosphatase 84 (38-126) U/L Total Protein 7.4 (6.3-8.2) g/dL Albumin 4.6 (3.5-5.0) g/dL Amylase 50 (30-110) U/L Lipase 88 (23-300) U/L HCG, Qual Not Detected Urine Color Urine Appearance (Clear) Urine pH (5.0-8.0) Ur Specific Bond[place] (1.001-1.035) Urine Protein (Negative) Urine Glucose (UA) (Negative) Urine Ketones (Negative) Urine Blood (Negative) Urine Nitrite (Negative) Urine Bilirubin (Negative) Urine Urobilinogen (<2.0) mg/dL Ur Leukocyte Esterase (Negative) Urine RBC (0-5) /hpf Urine WBC (0-5) /hpf Ur Squamous Epith Cells (0-4) /hpf 09/06/22 09/06/22 09/06/22 Range/Units 09:57 11:36 14:55 WBC (3.8-10.6) k/uL RBC (3.80-5.40) m/uL Hgb (11.4-16.0) gm/dL Hct (34.0-46.0) % MCV (80.0-100.0) fL MCH (25.0-35.0) pg MCHC (31.0-37.0) g/dL RDW (11.5-15.5) % Plt Count (150-450) k/uL MPV Neutrophils % % Lymphocytes % % Monocytes % % Eosinophils % % Basophils % % Neutrophils # (1.3-7.7) k/uL Lymphocytes # (1.0-4.8) k/uL Monocytes # (0-1.0) k/uL Eosinophils # (0-0.7) k/uL Basophils # (0-0.2) k/uL Sodium (137-145) mmol/L Potassium (3.5-5.1) mmol/L Chloride (98-107) mmol/L Carbon Dioxide (22-30) mmol/L Anion Gap mmol/L BUN (7-17) mg/dL Creatinine (0.52-1.04) mg/dL Est GFR (CKD-EPI)AfAm (>60 ml/min/1.73 sqM) Est GFR (CKD-EPI)NonAf (>60 ml/min/1.73 sqM) Glucose (74-99) mg/dL Lactic Ac Sepsis Rflx Y Plasma Lactic Acid Kuldeep 0.7 (0.7-2.0) mmol/L Calcium (8.4-10.2) mg/dL Total Bilirubin (0.2-1.3) mg/dL AST (14-36) U/L ALT (4-34) U/L Alkaline Phosphatase (38-126) U/L Total Protein (6.3-8.2) g/dL Albumin (3.5-5.0) g/dL Amylase (30-110) U/L Lipase (23-300) U/L HCG, Qual Urine Color Light Red Urine Appearance Turbid H (Clear) Urine pH 8.5 H (5.0-8.0) Ur Specific [place] 1.019 (1.001-1.035) Urine Protein 1+ H (Negative) Urine Glucose (UA) Negative (Negative) Urine Ketones 4+ H (Negative) Urine Blood Large H (Negative) Urine Nitrite Negative (Negative) Urine Bilirubin Negative (Negative) Urine Urobilinogen <2.0 (<2.0) mg/dL Ur Leukocyte Esterase Moderate H (Negative) Urine RBC 7 H (0-5) /hpf Urine WBC 1 (0-5) /hpf Ur Squamous Epith Cells 2 (0-4) /hpf - Radiology Data Radiology results: report reviewed, image reviewed Disposition Clinical Impression: Enteritis, Nausea and vomiting Disposition: HOME SELF-CARE Instructions (If sedation given, give patient instructions): Enteritis (ED) Additional Instructions: Return to the emergency department with any new, worsening, or concerning symptoms. Take the Toradol with Tylenol as needed for pain relief. If you choose to take the Toradol, do not take any other krlx-nud-hobkdik anti- inflammatories such as ibuprofen, take one or the other. Take the tramadol sparingly when your pain is the most severe, and be aware that it may make you drowsy. You can take the Zofran up to every 8 hours as needed for nausea and vomiting. Slowly advance your diet as tolerated and to remain well-hydrated. Follow up with your primary care provider in 1-2 days. Prescriptions: Ketorolac [Toradol] 10 mg PO Q6HR PRN #15 tab PRN Reason: Pain traMADol HCL 50 mg PO Q6H PRN 3 Days #12 tab PRN Reason: Pain Ondansetron Odt [Zofran Odt] 4 mg PO Q8HR PRN #15 tab PRN Reason: Nausea And Vomiting Is patient prescribed a controlled substance at d/c from ED?: Yes When asked, does pt state using other controlled substances?: No If prescribed controlled substance>3 days was MAPS reviewed?: Prescribed <3 Days Referrals: Arthur Burns DO [Primary Care Provider] - 1-2 days
[2022-09-06 09:42] LABS: Basophils % (A) 0 %; Eosinophils % (A) 0 %; HCT 44.2 % (34.0-46.0); HGB 15.1 gm/dL (11.4-16.0); Lymphocytes # (A) 0.9 k/uL (1.0-4.8); Lymphocytes % (A) 7 %; MCH 30.2 pg (25.0-35.0); MCHC 34.1 g/dL (31.0-37.0); MCV 88.6 fL (80.0-100.0); Mean Platelet Volume 8.4; Monocytes # (A) 0.3 k/uL (0-1.0); Monocytes % (A) 3 %; Neutrophils # (A) 11.9 k/uL (1.3-7.7); Neutrophils % (A) 89 %; Platelet Count 215 k/uL (150-450); RBC 4.99 m/uL (3.80-5.40); RDW 13.5 % (11.5-15.5); WBC 13.3 k/uL (3.8-10.6)
[2022-09-06 09:51] LABS: ALT 25 U/L (4-34); AST 32 U/L (14-36); African American GFR (CKD) >90 (>60 ml/min/1.73 sqM); Albumin 4.6 g/dL (3.5-5.0); Alkaline Phosphatase 84 U/L (38-126); Amylase 50 U/L (30-110); Anion Gap 14 mmol/L; Blood Urea Nitrogen 14 mg/dL (7-17); Calcium 10.1 mg/dL (8.4-10.2); Carbon Dioxide 12 mmol/L (22-30); Chloride 112 mmol/L (98-107); Glucose 150 mg/dL (74-99); Lipase 88 U/L (23-300); Non-African American GFR(CKD) >90 (>60 ml/min/1.73 sqM); Potassium 3.8 mmol/L (3.5-5.1); Sodium 138 mmol/L (137-145); Total Bilirubin 0.9 mg/dL (0.2-1.3); Total Protein 7.4 g/dL (6.3-8.2)
--- NOTE | 2022-09-06 10:08 | US ---
EXAMINATION TYPE: US gallbladder DATE OF EXAM: 09/06/2022 COMPARISON: Abdominal ultrasound 01/19/2020, CT abdomen pelvis 08/26/2021 CLINICAL INDICATION: Female, 41 years old with history of Epigastric and RUQ pain; Pain nausea and vo miting. TECHNIQUE: Multiple sonographic images of the right upper quadrant are obtained. 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 Liver is unremarkable without focal lesion. Gallblad anastasiia is unremarkable without evidence of cholelithiasis, pericholecystic fluid, or wall thickening. Pe r step down specialist, negative sonographic Pichardo sign. Common bile duct is within normal limits. Right kidn ey is unremarkable without evidence of hydronephrosis, shadowing calculi, or contour deforming solid mass. IMPRESSION: Unremarkable right upper quadrant ultrasound.
[2022-09-06 10:13] LABS: HCG,Qualitative Serum Not Detected
--- NOTE | 2022-09-06 10:58 | CT ---
EXAMINATION TYPE: CT abdomen pelvis w con CT DLP: 608.7 mGycm, Automated exposure control for dose reduction was used. DATE OF EXAM: 09/06/2022 10:44 AM COMPARISON: CT abdomen pelvis most recent from 08/26/2021 . CLINICAL INDICATION:Female, 41 years old with history of Epigastric pain; Abdominal pain, epigastric pain , hx omaira and intestinal sx. TECHNIQUE: Standard CT of the abdomen and pelvis following the administration of 100 cc of Isovue 3 00 IV contrast material. Coronal and sagittal reformats were performed. FINDINGS: LOWER CHEST: Unremarkable ABDOMEN LIVER: Unremarkable GALLBLADDER AND BILE DUCTS: Unremarkable. PANCREAS: Unremarkable. SPLEEN: Unremarkable. ADRENAL GLANDS: Unremarkable. KIDNEYS AND URETERS: No evidence of hydronephrosis or renal calculus. The kidneys enhance symmetrical ly without suspicious focal lesion. Contrast is demonstrated within both collecting systems on the de layed phase. PELVIS BLADDER: Unremarkable REPRODUCTIVE: IUD is present within the uterus. ABDOMEN & PELVIS STOMACH AND BOWEL: Stomach and duodenum are unremarkable. Post surgical changes with anastomosis iden tified in the region of the rectum and cecum. Mildly prominent appendix without surrounding inflammat ory changes to suggest acute appendicitis. Fluid-filled mildly distended small bowel in the pelvis. N o evidence of bowel obstruction. PERITONEUM: No evidence of pneumoperitoneum or free fluid. VASCULATURE: No evidence of aortic aneurysm. MUSCULOSKELETAL: No acute osseous abnormalities LYMPH NODES: No gross evidence for lymphadenopathy. SOFT TISSUE/ABDOMINAL WALL: Unremarkable IMPRESSION: Mildly distended but nondilated fluid-filled mid small bowel suggestive of an enteritis.
[2022-09-06 12:24] LABS: Appearance,Urine Turbid (Clear); Bilirubin,Urine Negative (Negative); Blood,Urine Large (Negative); Color,Urine Light Red; Glucose,Urine (UA) Negative (Negative); Ketones,Urine 4+ (Negative); Leukocyte Esterase,Urine Moderate (Negative); Nitrite,Urine Negative (Negative); PH, Urine 8.5 (5.0-8.0); Protein,Urine 1+ (Negative); Specific Gravity,Urine 1.019 (1.001-1.035); Urobilinogen,Urine <2.0 mg/dL (<2.0)
[2022-09-06 12:30] LABS: WBC,Urine 1 /hpf (0-5)
[2022-09-06 12:31] LABS: RBC,Urine 7 /hpf (0-5)
[2022-09-06 12:32] LABS: Squamous Epithelial Cell,Urine 2 /hpf (0-4)
[2022-09-06] MEDS ORDERED: traMADol 50 MG TAB PO STA (14:42)
[2022-09-06] MEDS ORDERED: traMADol 50 MG STARTER PACK 3 TAB BTL PO STA (16:34)
[2022-09-06] MEDS ORDERED: ONDANSETRON 4 MG ODT STARTER PACK 2 TAB BTL PO STA (16:34)
[2022-09-06] MEDS ORDERED: METOCLOPRAMIDE 5 MG/ML 2 ML VIAL IVP STA (16:34)
[2022-09-06 16:48] VITALS: BP 102/66; PULSE 93; RESP 18; TEMP 98.7
== END 2022-09-06 16:48 | disposition home or self-care (01) ==
LOC: EC 08:37
DX: K52.9 Noninfective gastroenteritis and colitis, unspecified (principal); I10 Essential (primary) hypertension; J45.909 Unspecified asthma, uncomplicated; Z87.891 Personal history of nicotine dependence; Z79.82 Long term (current) use of aspirin; Z79.899 Other long term (current) drug therapy; Z91.030 Bee allergy status; Z91.018 Allergy to other foods; Z88.8 Allergy status to other drugs, medicaments and biological substances
CPT/HCPCS: 36415; 93005; 80053; 82150; 83605; 83690; 85025; 81001; 84703; 76705; 74177; 99284; 96374; 96375 ×3; 96376; 96361 ×2; J2765; J2405; J1170; J1885; S0119; Q9967

== ENCOUNTER 2022-09-08 09:13 | Emergency (ER) | payer BC ==
[2022-09-08 09:22] VITALS: RESP 18; TEMP 98
[2022-09-08 10:26] LABS: Basophils % (A) 0 %; Eosinophils % (A) 0 %; HCT 42.3 % (34.0-46.0); HGB 14.4 gm/dL (11.4-16.0); Lymphocytes # (A) 0.5 k/uL (1.0-4.8); Lymphocytes % (A) 8 %; MCH 30.2 pg (25.0-35.0); MCV 88.8 fL (80.0-100.0); Mean Platelet Volume 8.2; Monocytes # (A) 0.5 k/uL (0-1.0); Monocytes % (A) 8 %; Neutrophils # (A) 4.9 k/uL (1.3-7.7); Neutrophils % (A) 82 %; Platelet Count 177 k/uL (150-450); RBC 4.76 m/uL (3.80-5.40); RDW 13.6 % (11.5-15.5)
[2022-09-08 10:52] LABS: ALT 16 U/L (4-34); AST 25 U/L (14-36); African American GFR (CKD) >90 (>60 ml/min/1.73 sqM); Alkaline Phosphatase 57 U/L (38-126); Anion Gap 9 mmol/L; Blood Urea Nitrogen 21 mg/dL (7-17); Calcium 9.2 mg/dL (8.4-10.2); Carbon Dioxide 21 mmol/L (22-30); Chloride 104 mmol/L (98-107); Glucose 108 mg/dL (74-99); Non-African American GFR(CKD) >90 (>60 ml/min/1.73 sqM); Potassium 4.5 mmol/L (3.5-5.1); Sodium 134 mmol/L (137-145); Total Bilirubin 0.8 mg/dL (0.2-1.3); Total Protein 6.4 g/dL (6.3-8.2)
[2022-09-08 11:27] LABS: Appearance,Urine Cloudy (Clear); Bilirubin,Urine 1+ (Negative); Blood,Urine Large (Negative); Color,Urine Light Red; Glucose,Urine (UA) Negative (Negative); Ketones,Urine 4+ (Negative); Leukocyte Esterase,Urine Negative (Negative); Mucus,Urine Many /hpf; Nitrite,Urine Negative (Negative); Protein,Urine 1+ (Negative); RBC,Urine 6 /hpf (0-5); Specific Gravity,Urine 1.037 (1.001-1.035); Squamous Epithelial Cell,Urine 19 /hpf (0-4); WBC,Urine 8 /hpf (0-5)
[2022-09-08] MEDS ORDERED: droPERidol 5 MG/2 ML VIAL IVP ONE (11:49)
[2022-09-08] MEDS ORDERED: SODIUM CHLORIDE 0.9% 1,000 ML IV ONE (11:49)
--- NOTE | 2022-09-08 11:54 | ED ---
General Adult HPI - General Chief complaint: Abdominal Pain Stated complaint: vomiting Time Seen by Provider: 09/08/22 11:15 Source: patient, family, RN notes reviewed, old records reviewed Mode of arrival: ambulatory - History of Present Illness Initial comments: This is a nontoxic-appearing 41-year-old female that presents to the emergency room with complaints of generalized abdominal pain for the past 4 days. States that it started on Monday after eating broccoli at [email or web address]. States no one else she ate with is sick. Denies any fevers. She came to the emergency room on Monday for this complaint and had labs, CAT scan and ultrasound performed, diagnosed with enteritis and dehydration. She was given a prescription for Zofran which she states does not always help. Has been tolerating fluids. She is vomiting small amounts in her mouth but reports no more projectile vomiting. Does have a history of asthma, migraines and hypertension. Surgical history of appendectomy. -: days(s) (4) Location: abdomen Radiation: non-radiation Severity scale (1-10): 9 Quality: constant Consistency: constant Improves with: none Associated Symptoms: nausea/vomiting, other (no BM since Monday) Treatments Prior to Arrival: other (zofran, seen in ER 09/06, labs us and ct) - Related Data Home Medications Medication Instructions Recorded Confirmed Metoprolol Succinate [Toprol Xl] 50 mg PO QAM 08/24/17 09/06/22 Fremanezumab-Vfrm [Ajovy 225 mg SQ QMONTHLY 04/28/20 09/06/22 Autoinjector] Ascorbic Acid [Vitamin C] 500 mg PO DAILY 09/06/22 09/06/22 Aspirin EC [Ecotrin Low Dose] 81 mg PO DAILY 09/06/22 09/06/22 Cholecalciferol [Vitamin D3 (25 25 mcg PO DAILY 09/06/22 09/06/22 Mcg = 1000 Iu)] Famotidine [Pepcid] 10 mg PO DAILY 09/06/22 09/06/22 Ferrous Sulfate [Slow Fe] 142 mg PO DAILY 09/06/22 09/06/22 Metoprolol Succinate (ER) [Toprol 25 mg PO HS 09/06/22 09/06/22 Xl] Topiramate 50 mg PO BID 09/06/22 09/06/22 Vitamin B Complex [B-Complex] 1 tab PO DAILY 09/06/22 09/06/22 Previous Rx's Medication Instructions Recorded Ketorolac [Toradol] 10 mg PO Q6HR PRN #15 tab 09/06/22 Ondansetron Odt [Zofran Odt] 4 mg PO Q8HR PRN #15 tab 09/06/22 traMADol HCL 50 mg PO Q6H PRN 3 Days #12 tab 09/06/22 Allergies Allergy/AdvReac Type Severity Reaction Status Date / Time Beef Containing Products Allergy Pos on Verified 09/08/22 09:23 allergy test cefuroxime [From Ceftin] Allergy Rash/Hives Verified 09/08/22 09:23 chicken derived [Chicken] Allergy Pos on Verified 09/08/22 09:23 allergy test gluten Allergy Rash/Hives Verified 09/08/22 09:23 hydrocodone Allergy Rash/Hives Verified 09/08/22 09:23 levofloxacin [From Levaquin] Allergy Rash/Hives Verified 09/08/22 09:23 Pork/Porcine Containing Allergy Pos on Verified 09/08/22 09:23 Products allergy [Pork] test soybean Allergy Rash/Hives Verified 09/08/22 09:23 sulfamethoxazole Allergy Rash/Hives Verified 09/08/22 09:23 [From Bactrim] trimethoprim [From Bactrim] Allergy Rash/Hives Verified 09/08/22 09:23 Review of Systems ROS Statement: Those systems with pertinent positive or pertinent negative responses have been documented in the HPI. ROS Other: All systems not noted in ROS Statement are negative. Past Medical History Past Medical History: Asthma, Hypertension Additional Past Medical History / Comment(s): Migraines, tachycardia, V-Tach on EKG prevoiusly, had EP study (everything okay, no problems since). 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 History of Any Multi-Drug Resistant Organisms: None Reported Past Surgical History: Adenoidectomy, Appendectomy, Cardiac Ablation, Tonsillectomy Additional Past Surgical History / Comment(s): Lateral internal sphincterotomy, EP study Past Anesthesia/Blood Transfusion Reactions: Previous Problems w/ Anesthesia, Motion Sickness Additional Past Anesthesia/Blood Transfusion Reaction / Comment(s): Itching, red skin after last surg 2016 ("had Versed, Propofol, Zofran, Decadron") Past Psychological History: No Psychological Hx Reported Smoking Status: Former smoker Past Alcohol Use History: None Reported Past Drug Use History: None Reported - Past Family History Mother Family Medical History: Cancer Additional Family Medical History / Comment(s): Breast, Pancreatic CA. Father Family Medical History: Cancer Additional Family Medical History / Comment(s): Pancreatic CA. General Exam Limitations: no limitations General appearance: alert, in no apparent distress Head exam: Present: atraumatic, normocephalic, normal inspection Eye exam: Present: normal appearance. Absent: scleral icterus, conjunctival injection, periorbital swelling ENT exam: Present: mucous membranes dry Neck exam: Present: normal inspection, full ROM. Absent: tenderness, meningismus, lymphadenopathy Respiratory exam: Present: normal lung sounds bilaterally. Absent: respiratory distress, accessory muscle use Cardiovascular Exam: Present: regular rate GI/Abdominal exam: Present: soft, tenderness (diffuse). Absent: distended, guarding, rebound, rigid Extremities exam: Present: full ROM, normal capillary refill. Absent: tenderness, pedal edema Back exam: Present: full ROM. Absent: tenderness, CVA tenderness (R), CVA tenderness (L), paraspinal tenderness, vertebral tenderness, rash noted Neurological exam: Present: alert, oriented X3 Psychiatric exam: Present: normal affect, normal mood Skin exam: Present: warm, dry, normal color. Absent: cyanosis, diaphoretic, petechiae, pallor Course Vital Signs 09/08/22 09/08/22 09:16 13:06 Temperature 98 F Pulse Rate 60 71 Respiratory 18 18 Rate Blood Pressure 122/79 104/69 O2 Sat by Pulse 99 100 Oximetry Medical Decision Making - Medical Decision Making Was pt. sent in by a medical professional or institution (, PA, PRODUCT DEVELOPMENT ASSISTANT, urgent care, hospital, or longterm...) When possible be specific @ -No Did you speak to anyone other than the patient for history (EMS, parent, family, police, friend...)? What history was obtained from this source @ -No Did you review nursing and triage notes (agree or disagree)? Why? @ -I reviewed and agree with nursing and triage notes Were old charts reviewed (outside hosp., previous admission, EMS record, old EKG, old radiological studies, urgent care reports/EKG's, longterm records)? Report findings @ -Previous CT and ultrasound and labs from September 06 Differential Diagnosis (chest pain, altered mental status, abdominal pain women, abdominal pain men, vaginal bleeding, weakness, fever, dyspnea, syncope, headache, dizziness, GI bleed, back pain, seizure, CVA, palpatations, mental health, musculoskeletal)? @ -Differential Abdominal Pain Women: Appendicitis, Cholecystitis, diverticulosis, ischemic bowel, pancreatitis, hepatitis, UTI, gastroenteritis, AAA, incarcerated hernia, bowel obstruction, constipation, inflammatory bowel, hepatitis, peptic ulcer disease, splenic in farction, perforated viscus, vulvitis, ovarian torsion, PID, kidney stone, placenta abruption, this is not meant to be an all-inclusive list EKG interpreted by me (3pts min.). @ -n/a X-rays interpreted by me (1pt min.). @ -None done CT interpreted by me (1pt min.). @ -None done U/S interpreted by me (1pt. min.). @ -None done What testing was considered but not performed or refused? (CT, X-rays, U/S, labs)? Why? @ -CT and ultrasound was performed 2 days ago negative. Labs are unremarkable today. What meds were considered but not given or refused? Why? @ -None Did you discuss the management of the patient with other professionals (professionals i.e. , PA, PRODUCT DEVELOPMENT ASSISTANT, lab, RT, psych nurse, social director, depot agent, teacher, small business banking officer, comp field case manager)? Give summary @ -No Was smoking cessation discussed for >3mins.? @ -No Was critical care preformed (if so, how long)? @ -No Were there social determinants of health that impacted care today? How? (Homelessness, low income, unemployed, alcoholism, drug addiction, transportation, low edu. Level, literacy, decrease access to med. care, snf, rehab)? @ -No Was there de-escalation of care discussed even if they declined (Discuss DNR or withdrawal of care, Hospice)? DNR status @ -No What co-morbidities impacted this encounter? (DM, HTN, Smoking, COPD, CAD, Cancer, CVA, ARF, Chemo, Hep., AIDS, mental health diagnosis, sleep apnea, morbid obesity)? @ -asthma, migraines and hypertension. Surgical history of appendectomy. Was patient admitted / discharged? Hospital course, mention meds given and route, prescriptions, significant lab abnormalities, going to OR and other pertinent info. @ -Discharged This is a nontoxic-appearing 41-year-old female that presents to the emergency room with complaints of generalized abdominal pain for the past 4 days. States that it started on Monday after eating broccoli at [facility]. States no one else she ate with is sick. Denies any fevers. She came to the emergency room on Monday for this complaint and had labs, CAT scan and ultrasound performed, diagnosed with enteritis and dehydration. She was given a prescription for Zofran which she states does not always help. Has been tolerating fluids. She is vomiting small amounts in her mouth but reports no more projectile vomiting. Patient had an ultrasound of the gallbladder on September 06, a CT abdomen and pelvis on September 06. These results were reviewed and show: CT abdomen and pelvis shows mildly distended but not dilated fluid-filled mid small bowel suggestive of an enteritis Gallbladder ultrasound shows an unremarkable right upper quadrant ultrasound Today labs show no evidence of leukocytosis. Hemoglobin and hematocrit is stabl e. BUN is slightly elevated at 21. GFR within normal limits. Urinalysis shows high specific gravity with 4+ ketones. Patient was given a liter of IV fluids and droperidol for nausea. She is feel ing much better. No vomiting in the emergency room. Abdomen is soft and minimally tender. Vital signs are stable. She is agreeable to being discharged. Directed to advance diet slowly, increase her fluid intake. States does have Zofran at home for nausea. This is likely discomfort related to enteritis which seems to be improving. She was directed to return to the emergency room with any new or concerning symptoms. Follow up with Dr. Burns's office as scheduled September 15. Patient and family are agreeable to this plan of care. Case discussed with Dr. Brito Undiagnosed new problem with uncertain prognosis? @ -No Drug Therapy requiring intensive monitoring for toxicity (Heparin, Nitro, Insulin, Cardizem)? @ -No Were any procedures done? @ -No Diagnosis/symptom? @ -Acute nausea vomiting, dehydration, abdominal pain Acute, or Chronic, or Acute on Chronic? @ -Acute Uncomplicated (without systemic symptoms) or Complicated (systemic symptoms)? @ -Uncomplicated Side effects of treatment? @ -No Exacerbation, Progression, or Severe Exacerbation? @ -No Poses a threat to life or bodily function? How? (Chest pain, [place], [place], pneumonia, PE, COPD, DKA, ARF, appy, cholecystitis, CVA, Diverticulitis, Homicidal, Suicidal, threat to staff... and all critical care pts) @ -No - Lab Data Result diagrams: 09/08/22 10:15 09/08/22 10:13 Lab Results 09/08/22 09/08/22 09/08/22 Range/Units 09:25 10:13 10:15 WBC 6.0 (3.8-10.6) k/uL RBC 4.76 (3.80-5.40) m/uL Hgb 14.4 (11.4-16.0) gm/dL Hct 42.3 (34.0-46.0) % MCV 88.8 (80.0-100.0) fL MCH 30.2 (25.0-35.0) pg MCHC 34.0 (31.0-37.0) g/dL RDW 13.6 (11.5-15.5) % Plt Count 177 (150-450) k/uL MPV 8.2 Neutrophils % 82 % Lymphocytes % 8 % Monocytes % 8 % Eosinophils % 0 % Basophils % 0 % Neutrophils # 4.9 (1.3-7.7) k/uL Lymphocytes # 0.5 L (1.0-4.8) k/uL Monocytes # 0.5 (0-1.0) k/uL Eosinophils # 0.0 (0-0.7) k/uL Basophils # 0.0 (0-0.2) k/uL Sodium 134 L (137-145) mmol/L Potassium 4.5 (3.5-5.1) mmol/L Chloride 104 (98-107) mmol/L Carbon Dioxide 21 L (22-30) mmol/L Anion Gap 9 mmol/L BUN 21 H (7-17) mg/dL Creatinine 0.79 (0.52-1.04) mg/dL Est GFR (CKD-EPI)AfAm >90 (>60 ml/min/1.73 sqM) Est GFR (CKD-EPI)NonAf >90 (>60 ml/min/1.73 sqM) Glucose 108 H (74-99) mg/dL Plasma Lactic Acid Kuldeep (0.7-2.0) mmol/L Calcium 9.2 (8.4-10.2) mg/dL Total Bilirubin 0.8 (0.2-1.3) mg/dL AST 25 (14-36) U/L ALT 16 (4-34) U/L Alkaline Phosphatase 57 (38-126) U/L Total Protein 6.4 (6.3-8.2) g/dL Albumin 4.0 (3.5-5.0) g/dL Urine Color Light Red Urine Appearance Cloudy H (Clear) Urine pH 6.0 (5.0-8.0) Ur Specific [place] 1.037 H (1.001-1.035) Urine Protein 1+ H (Negative) Urine Glucose (UA) Negative (Negative) Urine Ketones 4+ H (Negative) Urine Blood Large H (Negative) Urine Nitrite Negative (Negative) Urine Bilirubin 1+ H (Negative) Urine Urobilinogen 2.0 (<2.0) mg/dL Ur Leukocyte Esterase Negative (Negative) Urine RBC 6 H (0-5) /hpf Urine WBC 8 H (0-5) /hpf Ur Squamous Epith Cells 19 H (0-4) /hpf Amorphous Sediment (None) /hpf Urine Mucus Many H (None) /hpf Urine HCG, Qual (Not Detectd) 09/08/22 09/08/22 09/08/22 Range/Units 10:15 12:02 12:02 WBC (3.8-10.6) k/uL RBC (3.80-5.40) m/uL Hgb (11.4-16.0) gm/dL Hct (34.0-46.0) % MCV (80.0-100.0) fL MCH (25.0-35.0) pg MCHC (31.0-37.0) g/dL RDW (11.5-15.5) % Plt Count (150-450) k/uL MPV Neutrophils % % Lymphocytes % % Monocytes % % Eosinophils % % Basophils % % Neutrophils # (1.3-7.7) k/uL Lymphocytes # (1.0-4.8) k/uL Monocytes # (0-1.0) k/uL Eosinophils # (0-0.7) k/uL Basophils # (0-0.2) k/uL Sodium (137-145) mmol/L Potassium (3.5-5.1) mmol/L Chloride (98-107) mmol/L Carbon Dioxide (22-30) mmol/L Anion Gap mmol/L BUN (7-17) mg/dL Creatinine (0.52-1.04) mg/dL Est GFR (CKD-EPI)AfAm (>60 ml/min/1.73 sqM) Est GFR (CKD-EPI)NonAf (>60 ml/min/1.73 sqM) Glucose (74-99) mg/dL Plasma Lactic Acid [place] 0.8 (0.7-2.0) mmol/L Calcium (8.4-10.2) mg/dL Total Bilirubin (0.2-1.3) mg/dL AST (14-36) U/L ALT (4-34) U/L Alkaline Phosphatase (38-126) U/L Total Protein (6.3-8.2) g/dL Albumin (3.5-5.0) g/dL Urine Color Light Yellow Urine Appearance Clear (Clear) Urine pH 6.5 (5.0-8.0) Ur Specific [place] <1.005 (1.001-1.035) Urine Protein Negative (Negative) Urine Glucose (UA) Negative (Negative) Urine Ketones 1+ H (Negative) Urine Blood Moderate H (Negative) Urine Nitrite Negative (Negative) Urine Bilirubin Negative (Negative) Urine Urobilinogen <2.0 (<2.0) mg/dL Ur Leukocyte Esterase Negative (Negative) Urine RBC 1 (0-5) /hpf Urine WBC 1 (0-5) /hpf Ur Squamous Epith Cells <1 (0-4) /hpf Amorphous Sediment Rare H (None) /hpf Urine Mucus (None) /hpf Urine HCG, Qual Not Detected (Not Detectd) Disposition Clinical Impression: Abdominal pain, Acute nausea with nonbilious vomiting, Dehydration Disposition: HOME SELF-CARE Condition: Good Instructions (If sedation given, give patient instructions): Abdominal Pain (ED) Additional Instructions: Advance your diet slowly. Bananas, rice, applesauce and toast. Increase your fluid intake. Keep your appointment with your doctor September 15 as scheduled. Return to emergency room if any new or concerning symptoms including increased pain, persistent nausea vomiting or fevers. Is patient prescribed a controlled substance at d/c from ED?: No Referrals: Arthur Burns DO [Primary Care Provider] - 1-2 days Time of Disposition: 12:58
[2022-09-08 13:10] VITALS: BP 104/69; PULSE 71
[2022-09-08 13:23] LABS: Amorphous Sediment,Urine Rare /hpf; RBC,Urine 1 /hpf (0-5); Squamous Epithelial Cell,Urine <1 /hpf (0-4); WBC,Urine 1 /hpf (0-5)
[2022-09-08 13:24] LABS: Appearance,Urine Clear (Clear); Color,Urine Light Yellow; Specific Gravity,Urine <1.005 (1.001-1.035)
[2022-09-08 13:25] LABS: Bilirubin,Urine Negative (Negative); Blood,Urine Moderate (Negative); Glucose,Urine (UA) Negative (Negative); Ketones,Urine 1+ (Negative); PH, Urine 6.5 (5.0-8.0); Protein,Urine Negative (Negative)
[2022-09-08 13:26] LABS: Leukocyte Esterase,Urine Negative (Negative); Nitrite,Urine Negative (Negative); Urobilinogen,Urine <2.0 mg/dL (<2.0)
== END 2022-09-08 13:26 | disposition home or self-care (01) ==
LOC: EC 09:13
DX: E86.0 Dehydration (principal); R10.84 Generalized abdominal pain; R11.2 Nausea with vomiting, unspecified; I10 Essential (primary) hypertension; J45.909 Unspecified asthma, uncomplicated; Z87.891 Personal history of nicotine dependence; Z79.82 Long term (current) use of aspirin; Z79.899 Other long term (current) drug therapy; Z88.1 Allergy status to other antibiotic agents; Z88.2 Allergy status to sulfonamides; Z88.5 Allergy status to narcotic agent; Z91.018 Allergy to other foods; Z88.8 Allergy status to other drugs, medicaments and biological substances
CPT/HCPCS: 36415; 80053; 83605; 85025; 81001; 81025; 99284; 96374; 96361; J1790

== ENCOUNTER 2022-09-09 21:12 | Inpatient (IN) | payer BC ==
[2022-09-09 22:18] LABS: Basophils % (A) 0 %; Eosinophils % (A) 0 %; HCT 44.5 % (34.0-46.0); Lymphocytes % (A) 12 %; MCH 29.8 pg (25.0-35.0); MCHC 33.8 g/dL (31.0-37.0); MCV 88.4 fL (80.0-100.0); Mean Platelet Volume 8.7; Monocytes # (A) 0.9 k/uL (0-1.0); Monocytes % (A) 11 %; Neutrophils # (A) 6.1 k/uL (1.3-7.7); Neutrophils % (A) 73 %; Platelet Count 203 k/uL (150-450); RBC 5.04 m/uL (3.80-5.40); RDW 13.5 % (11.5-15.5); WBC 8.3 k/uL (3.8-10.6)
[2022-09-09 22:32] LABS: ALT 16 U/L (4-34); AST 22 U/L (14-36); African American GFR (CKD) >90 (>60 ml/min/1.73 sqM); Albumin 4.1 g/dL (3.5-5.0); Alkaline Phosphatase 55 U/L (38-126); Anion Gap 10 mmol/L; Blood Urea Nitrogen 20 mg/dL (7-17); Calcium 9.8 mg/dL (8.4-10.2); Carbon Dioxide 20 mmol/L (22-30); Chloride 101 mmol/L (98-107); Glucose 89 mg/dL (74-99); Lipase 66 U/L (23-300); Non-African American GFR(CKD) 90 (>60 ml/min/1.73 sqM); Potassium 3.7 mmol/L (3.5-5.1); Sodium 131 mmol/L (137-145); Total Bilirubin 0.7 mg/dL (0.2-1.3); Total Protein 6.6 g/dL (6.3-8.2)
[2022-09-09] MEDS ORDERED: PROCHLORPERAZINE INJ 10 MG/2 ML VIAL IVP STA (23:09)
[2022-09-09] MEDS ORDERED: SODIUM CHLORIDE 0.9% 1,000 ML IV ONE (23:09)
[2022-09-10 01:15] LABS: Appearance,Urine Clear (Clear); Bacteria,Urine Rare /hpf; Bilirubin,Urine Negative (Negative); Blood,Urine Moderate (Negative); Color,Urine Light Yellow; Glucose,Urine (UA) Negative (Negative); Ketones,Urine 4+ (Negative); Leukocyte Esterase,Urine Negative (Negative); Mucus,Urine Rare /hpf; Nitrite,Urine Negative (Negative); Protein,Urine Trace (Negative); RBC,Urine 6 /hpf (0-5); Squamous Epithelial Cell,Urine 21 /hpf (0-4); Urobilinogen,Urine <2.0 mg/dL (<2.0); WBC,Urine 4 /hpf (0-5)
[2022-09-10] MEDS ORDERED: SODIUM CHLORIDE 0.9% 1,000 ML IV STA (02:02)
[2022-09-10] MEDS ORDERED: MORPHINE SULFATE 4 MG/ML SYRINGE IVP STA (02:05)
[2022-09-10 02:09] LABS: Specific Gravity,Urine >1.050 (1.001-1.035)
--- NOTE | 2022-09-10 02:44 | CT ---
EXAM: CT Abdomen and Pelvis With Intravenous Contrast CLINICAL HISTORY: ITS.REASON CT Reason: vomiting, pain, distention, hx bowel resection TECHNIQUE: Axial computed tomography images of the abdomen and pelvis with intravenous contrast. CTDI is 27.6 mGy and DLP is 626.1 mGy-cm. This CT exam was performed using one or more of the following dose reduction techniques: automated exposure control, adjustment of the mA and/or kV according to patient size, and/or use of iterative reconstruction technique. COMPARISON: CT abdomen/pelvis on 08/26/2021. FINDINGS: Lung bases: Unremarkable. No mass. No consolidation. Mediastinum: Mild prominence of the wall of the distal esophagus may represent esophagitis. ABDOMEN: Liver: Unremarkable. No mass. Gallbladder and bile ducts: Hyperdense material in the gallbladder may represent vicarious excretion of contrast versus stones/sludge. No ductal dilation. Pancreas: Unremarkable. No mass. No ductal dilation. Spleen: Unremarkable. No splenomegaly. Adrenals: Unremarkable. No mass. Kidneys and ureters: Unremarkable. No hydronephrosis or obstructing stone. Stomach and bowel: Dilated fluid and gas-filled small bowel loops with a transition point in the right lower quadrant, concerning for small bowel obstruction. Evaluation of the stomach is limited by underdistention. Postsurgical changes of the rectum and cecum. Underdistended colon. No mucosal thickening. PELVIS: Appendix: Absent appendix. Bladder: Unremarkable. No mass. Reproductive: Unremarkable as visualized. ABDOMEN and PELVIS: Intraperitoneal space: Moderate ascites. No free air. Bones/joints: No acute fracture. No dislocation. Soft tissues: Mild body wall edema. Vasculature: Unremarkable. No abdominal aortic aneurysm. Lymph nodes: Unremarkable. No enlarged lymph nodes. Tubes, lines and devices: Intrauterine device in place. IMPRESSION: 1. Mild prominence of the wall of the distal esophagus may represent esophagitis. 2. Dilated fluid and gas-filled small bowel loops with a transition point in the right lower quadrant, concerning for small bowel obstruction. 3. Moderate ascites.
[2022-09-10] MEDS ORDERED: ONDANSETRON 4 MG/2 ML VIAL IVP PRN (03:19)
[2022-09-10] MEDS ORDERED: NALOXONE 0.4 MG/ML 1 ML VIAL IV PRN (03:19)
--- NOTE | 2022-09-10 03:19 | ED ---
Abdominal Pain HPI - General Chief Complaint: Abdominal Pain Stated Complaint: Severe Abd pain, vomiting bile Time Seen by Provider: 09/09/22 21:35 Source: patient Mode of arrival: ambulatory Limitations: no limitations - History of Present Illness Initial Comments: 41-year-old female with past medical history of hypertension, migraines who presents to the emergency department reporting abdominal pain, nausea and vomiting. Patient has been seen twice in the emergency department for similar complaints this week. States that her symptoms have progressed. She cannot hold anything down. She has not passing gas and has not had any bowel movements. She has had previous bowel resection by Dr. Andrews 2 years ago. Denies any history of bowel obstruction. Admits to fevers. No other alleviating, precipitating modifying factors - Related Data Home Medications Medication Instructions Recorded Confirmed Metoprolol Succinate [Toprol Xl] 50 mg PO QAM 08/24/17 09/06/22 Fremanezumab-Vfrm [Ajovy 225 mg SQ QMONTHLY 04/28/20 09/06/22 Autoinjector] Ascorbic Acid [Vitamin C] 500 mg PO DAILY 09/06/22 09/06/22 Aspirin EC [Ecotrin Low Dose] 81 mg PO DAILY 09/06/22 09/06/22 Cholecalciferol [Vitamin D3 (25 25 mcg PO DAILY 09/06/22 09/06/22 Mcg = 1000 Iu)] Famotidine [Pepcid] 10 mg PO DAILY 09/06/22 09/06/22 Ferrous Sulfate [Slow Fe] 142 mg PO DAILY 09/06/22 09/06/22 Metoprolol Succinate (ER) [Toprol 25 mg PO HS 09/06/22 09/06/22 Xl] Topiramate 50 mg PO BID 09/06/22 09/06/22 Vitamin B Complex [B-Complex] 1 tab PO DAILY 09/06/22 09/06/22 Previous Rx's Medication Instructions Recorded Ketorolac [Toradol] 10 mg PO Q6HR PRN #15 tab 09/06/22 Ondansetron Odt [Zofran Odt] 4 mg PO Q8HR PRN #15 tab 09/06/22 traMADol HCL 50 mg PO Q6H PRN 3 Days #12 tab 09/06/22 Allergies Allergy/AdvReac Type Severity Reaction Status Date / Time Beef Containing Products Allergy Pos on Verified 09/08/22 09:23 allergy test cefuroxime [From Ceftin] Allergy Rash/Hives Verified 09/08/22 09:23 chicken derived [Chicken] Allergy Pos on Verified 09/08/22 09:23 allergy test gluten Allergy Rash/Hives Verified 09/08/22 09:23 hydrocodone Allergy Rash/Hives Verified 09/08/22 09:23 levofloxacin [From Levaquin] Allergy Rash/Hives Verified 09/08/22 09:23 Pork/Porcine Containing Allergy Pos on Verified 09/08/22 09:23 Products allergy [Pork] test soybean Allergy Rash/Hives Verified 09/08/22 09:23 sulfamethoxazole Allergy Rash/Hives Verified 09/08/22 09:23 [From Bactrim] trimethoprim [From Bactrim] Allergy Rash/Hives Verified 09/08/22 09:23 Review of Systems ROS Statement: Those systems with pertinent positive or pertinent negative responses have been documented in the HPI. ROS Other: All systems not noted in ROS Statement are negative. Past Medical History Past Medical History: Asthma, Hypertension Additional Past Medical History / Comment(s): Migraines, tachycardia, V-Tach on EKG prevoiusly, had EP study (everything okay, no problems since). 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 History of Any Multi-Drug Resistant Organisms: None Reported Past Surgical History: Adenoidectomy, Appendectomy, Cardiac Ablation, Tonsillectomy Additional Past Surgical History / Comment(s): Lateral internal sphincterotomy, EP study Past Anesthesia/Blood Transfusion Reactions: Previous Problems w/ Anesthesia, Motion Sickness Additional Past Anesthesia/Blood Transfusion Reaction / Comment(s): Itching, red skin after last surg 2016 ("had Versed, Propofol, Zofran, Decadron") Past Psychological History: No Psychological Hx Reported Smoking Status: Former smoker Past Alcohol Use History: None Reported Past Drug Use History: None Reported - Past Family History Mother Family Medical History: Cancer Additional Family Medical History / Comment(s): Breast, Pancreatic CA. Father Family Medical History: Cancer Additional Family Medical History / Comment(s): Pancreatic CA. General Exam Limitations: no limitations General appearance: alert, in no apparent distress Head exam: Present: atraumatic, normocephalic, normal inspection Eye exam: Present: normal appearance, PERRL, EOMI. Absent: scleral icterus, conjunctival injection, periorbital swelling ENT exam: Present: normal exam, mucous membranes moist Neck exam: Present: normal inspection. Absent: tenderness, meningismus, lymphadenopathy Respiratory exam: Present: normal lung sounds bilaterally. Absent: respiratory distress, wheezes, rales, rhonchi, stridor Cardiovascular Exam: Present: regular rate, normal rhythm, normal heart sounds. Absent: systolic murmur, diastolic murmur, rubs, gallop, clicks GI/Abdominal exam: Present: distended, tenderness, hyperactive bowel sounds. Absent: guarding, rebound, rigid Extremities exam: Present: normal inspection, full ROM, normal capillary refill. Absent: tenderness, pedal edema, joint swelling, calf tenderness Back exam: Present: normal inspection Neurological exam: Present: alert, oriented X3, CN II-XII intact Psychiatric exam: Present: normal affect, normal mood Skin exam: Present: warm, dry, intact, normal color. Absent: rash Course Vital Signs 09/09/22 09/09/22 09/10/22 21:31 23:58 02:01 Temperature 99.0 F Pulse Rate 71 74 71 Respiratory 16 18 18 Rate Blood Pressure 141/90 138/79 135/92 O2 Sat by Pulse 100 98 99 Oximetry 09/10/22 03:03 Temperature Pulse Rate 71 Respiratory 18 Rate Blood Pressure 120/91 O2 Sat by Pulse 99 Oximetry Medical Decision Making - Medical Decision Making Was pt. sent in by a medical professional or institution (PHILIPPE Mcnamara, PROJECT DEVELOPMENT DIRECTOR, urgent care, hospital, or [facility]...) When possible be specific @ -No Did you speak to anyone other than the patient for history (EMS, parent, family, police, friend...)? What history was obtained from this source @ -No Did you review nursing and triage notes (agree or disagree)? Why? @ -I reviewed and agree with nursing and triage notes Were old charts reviewed (outside hosp., previous admission, EMS record, old EKG, old radiological studies, urgent care reports/EKG's, [facility] records)? Report findings @ -I reviewed the patient's 2 ED visits earlier this week Differential Diagnosis (chest pain, altered mental status, abdominal pain women, abdominal pain men, vaginal bleeding, weakness, fever, dyspnea, syncope, headache, dizziness, GI bleed, back pain, seizure, CVA, palpatations, mental health, musculoskeletal)? @ -Differential Abdominal Pain Women: Appendicitis, Cholecystitis, diverticulosis, ischemic bowel, pancreatitis, hepatitis, UTI, gastroenteritis, AAA, incarcerated hernia, bowel obstruction, constipation, inflammatory bowel, hepatitis, peptic ulcer disease, splenic infarction, perforated viscus, vulvitis, ovarian torsion, PID, kidney stone, placenta abruption, this is not meant to be an all-inclusive list EKG interpreted by me (3pts min.). @ -Not completed X-rays interpreted by me (1pt min.). @ -None done CT interpreted by me (1pt min.). @ -Yes and demonstrates small bowel obstruction U/S interpreted by me (1pt. min.). @ -None done What testing was considered but not performed or refused? (CT, X-rays, U/S, labs)? Why? @ -None What meds were considered but not given or refused? Why? @ -None Did you discuss the management of the patient with other professionals (professionals i.e. , PA, PROJECT DEVELOPMENT DIRECTOR, lab, RT, psych nurse, social work instructor, proof coins inspector, teacher, chemistry technical officer, pillowcase cutter)? Give summary @ -Spoke with nelia who will admit patient Was smoking cessation discussed for >3mins.? @ -No Was critical care preformed (if so, how long)? @ -No Were there social determinants of health that impacted care today? How? (Homelessness, low income, unemployed, alcoholism, drug addiction, transportation, low edu. Level, literacy, decrease access to med. care, custodial, rehab)? @ -No Was there de-escalation of care discussed even if they declined (Discuss DNR or withdrawal of care, Hospice)? DNR status @ -No What co-morbidities impacted this encounter? (DM, HTN, Smoking, COPD, CAD, Cancer, CVA, ARF, Chemo, Hep., AIDS, mental health diagnosis, sleep apnea, morbid obesity)? @ -Previous bowel resection Was patient admitted / discharged? Hospital course, mention meds given and route, prescriptions, significant lab abnormalities, going to OR and other pertinent info. @ -Upon arrival patient was placed in room 7. A thorough history and physical exam was performed. IV access was established. She was given fluids and antibiotics. CT is repeated as patient has worsening symptoms and it does demonstrate a small bowel obstruction. NG tube is placed. Patient was admitted to medicine with surgery on consult Undiagnosed new problem with uncertain prognosis? @ -Yes Drug Therapy requiring intensive monitoring for toxicity (Heparin, Nitro, Insulin, Cardizem)? @ -No Were any procedures done? @ -NG tube placement Diagnosis/symptom? @ -Acute abdominal pain, acute nausea and vomiting, acute bowel obstruction Acute, or Chronic, or Acute on Chronic? @ -Acute Uncomplicated (without systemic symptoms) or Complicated (systemic symptoms)? @ -Complicated Side effects of treatment? @ -No Exacerbation, Progression, or Severe Exacerbation? @ -No Poses a threat to life or bodily function? How? (Chest pain, [place], [place], pneumonia, PE, COPD, DKA, ARF, appy, cholecystitis, CVA, Diverticulitis, Homicidal, Suicidal, threat to staff... and all critical care pts) @ -yes, patient has acute bowel obstruction - Lab Data Result diagrams: 09/09/22 22:00 09/09/22 22:00 Lab Results 09/09/22 09/09/22 09/09/22 Range/Units 22:00 22:00 22:00 WBC 8.3 (3.8-10.6) k/uL RBC 5.04 (3.80-5.40) m/uL Hgb 15.0 (11.4-16.0) gm/dL Hct 44.5 (34.0-46.0) % MCV 88.4 (80.0-100.0) fL MCH 29.8 (25.0-35.0) pg MCHC 33.8 (31.0-37.0) g/dL RDW 13.5 (11.5-15.5) % Plt Count 203 (150-450) k/uL MPV 8.7 Neutrophils % 73 % Lymphocytes % 12 % Monocytes % 11 % Eosinophils % 0 % Basophils % 0 % Neutrophils # 6.1 (1.3-7.7) k/uL Lymphocytes # 1.0 (1.0-4.8) k/uL Monocytes # 0.9 (0-1.0) k/uL Eosinophils # 0.0 (0-0.7) k/uL Basophils # 0.0 (0-0.2) k/uL Sodium 131 L (137-145) mmol/L Potassium 3.7 (3.5-5.1) mmol/L Chloride 101 (98-107) mmol/L Carbon Dioxide 20 L (22-30) mmol/L Anion Gap 10 mmol/L BUN 20 H (7-17) mg/dL Creatinine 0.82 (0.52-1.04) mg/dL Est GFR (CKD-EPI)AfAm >90 (>60 ml/min/1.73 sqM) Est GFR (CKD-EPI)NonAf 90 (>60 ml/min/1.73 sqM) Glucose 89 (74-99) mg/dL Plasma Lactic Acid K[place]deep 0.9 (0.7-2.0) mmol/L Calcium 9.8 (8.4-10.2) mg/dL Total Bilirubin 0.7 (0.2-1.3) mg/dL AST 22 (14-36) U/L ALT 16 (4-34) U/L Alkaline Phosphatase 55 (38-126) U/L Total Protein 6.6 (6.3-8.2) g/dL Albumin 4.1 (3.5-5.0) g/dL Lipase 66 (23-300) U/L Urine Color Urine Appearance (Clear) Urine pH (5.0-8.0) Ur Specific [place] (1.001-1.035) Urine Protein (Negative) Urine Glucose (UA) (Negative) Urine Ketones (Negative) Urine Blood (Negative) Urine Nitrite (Negative) Urine Bilirubin (Negative) Urine Urobilinogen (<2.0) mg/dL Ur Leukocyte Esterase (Negative) Urine RBC (0-5) /hpf Urine WBC (0-5) /hpf Ur Squamous Epith Cells (0-4) /hpf Urine Bacteria (None) /hpf Urine Mucus (None) /hpf Urine HCG, Qual (Not Detectd) 09/10/22 09/10/22 Range/Units 01:00 01:00 WBC (3.8-10.6) k/uL RBC (3.80-5.40) m/uL Hgb (11.4-16.0) gm/dL Hct (34.0-46.0) % MCV (80.0-100.0) fL MCH (25.0-35.0) pg MCHC (31.0-37.0) g/dL RDW (11.5-15.5) % Plt Count (150-450) k/uL MPV Neutrophils % % Lymphocytes % % Monocytes % % Eosinophils % % Basophils % % Neutrophils # (1.3-7.7) k/uL Lymphocytes # (1.0-4.8) k/uL Monocytes # (0-1.0) k/uL Eosinophils # (0-0.7) k/uL Basophils # (0-0.2) k/uL Sodium (137-145) mmol/L Potassium (3.5-5.1) mmol/L Chloride (98-107) mmol/L Carbon Dioxide (22-30) mmol/L Anion Gap mmol/L BUN (7-17) mg/dL Creatinine (0.52-1.04) mg/dL Est GFR (CKD-EPI)AfAm (>60 ml/min/1.73 sqM) Est GFR (CKD-EPI)NonAf (>60 ml/min/1.73 sqM) Glucose (74-99) mg/dL Plasma Lactic Acid [place] (0.7-2.0) mmol/L Calcium (8.4-10.2) mg/dL Total Bilirubin (0.2-1.3) mg/dL AST (14-36) U/L ALT (4-34) U/L Alkaline Phosphatase (38-126) U/L Total Protein (6.3-8.2) g/dL Albumin (3.5-5.0) g/dL Lipase (23-300) U/L Urine Color Light Yellow Urine Appearance Clear (Clear) Urine pH 6.0 (5.0-8.0) Ur Specific [place] >1.050 H (1.001-1.035) Urine Protein Trace H (Negative) Urine Glucose (UA) Negative (Negative) Urine Ketones 4+ H (Negative) Urine Blood Moderate H (Negative) Urine Nitrite Negative (Negative) Urine Bilirubin Negative (Negative) Urine Urobilinogen <2.0 (<2.0) mg/dL Ur Leukocyte Esterase Negative (Negative) Urine RBC 6 H (0-5) /hpf Urine WBC 4 (0-5) /hpf Ur Squamous Epith Cells 21 H (0-4) /hpf Urine Bacteria Rare H (None) /hpf Urine Mucus Rare H (None) /hpf Urine HCG, Qual Not Detected (Not Detectd) Disposition Clinical Impression: Small bowel obstruction, Nausea and vomiting Disposition: ADMITTED IP TO THIS [facility] Condition: Serious Is patient prescribed a controlled substance at d/c from ED?: No Time of Disposition: 03:19 Decision to Admit Reason: Admit from EC Decision Date: 09/10/22 Decision Time: 03:19
[2022-09-10] MEDS: SODIUM CHLORIDE 0.9% 1,000 ML IV SCH ×2 (03:37→11:03)
[2022-09-10] MEDS: MORPHINE SULFATE 4 MG/ML SYRINGE IV PRN (07:57)
--- NOTE | 2022-09-10 08:25 | XR ---
EXAMINATION TYPE: XR chest 1V portable DATE OF EXAM: 09/10/2022 COMPARISON: 01/19/2020 INDICATION: NG tube placement TECHNIQUE: Single frontal view of the chest is obtained. FINDINGS: The heart size is normal. The pulmonary vasculature is normal. The lungs are clear. Note is made of air-filled small bowel loops left upper quadrant. There is placement of a nasogastric tube with the tip in the proximal left upper quadrant of the abdo men. This could be advanced for more typical seating. IMPRESSION: 1. Nasogastric tube tip proximal left upper quadrant abdomen. Consider advancing nasogastric tube 5 cm.
[2022-09-10] MEDS: TOPIRAMATE 25 MG TAB PO SCH ×2 (11:00→20:46)
[2022-09-10] MEDS ORDERED: ALBUTEROL NEBULIZED 2.5 MG/3 ML INHALATION PRN (11:46)
[2022-09-10] MEDS ORDERED: TRIMETHOBENZAMIDE 100 MG/ML 2 ML VIAL IM STA (11:50)
[2022-09-10] MEDS: PANTOPRAZOLE 40 MG/10 ML VIAL IVP SCH (12:29)
[2022-09-10] MEDS: KETOROLAC 15 MG/ML 1 ML VIAL IVP PRN ×2 (12:30→19:10)
[2022-09-10 12:35] LABS: African American GFR (CKD) >90 (>60 ml/min/1.73 sqM); Anion Gap 14 mmol/L; Blood Urea Nitrogen 16 mg/dL (7-17); Carbon Dioxide 16 mmol/L (22-30); Chloride 108 mmol/L (98-107); Glucose 81 mg/dL (74-99); Non-African American GFR(CKD) >90 (>60 ml/min/1.73 sqM); Potassium 3.6 mmol/L (3.5-5.1); Sodium 138 mmol/L (137-145)
--- NOTE | 2022-09-10 13:53 | P.HPIM ---
History of Present Illness 41-year-old female came in with comments of nausea vomiting abdominal pain found to have ileus. Patient had a ruptured appendix in the past for which patient underwent a laparotomy. Patient still doesn't have any bowel sounds patient is an NG tube without any significant drainage still quite a bit nauseous. Patient is bit hyponatremic on admission with elevated BNP which improved at this time. Patient is on IV normal saline at 150 which is being cut down to 75. REVIEW OF SYSTEMS: CONSTITUTIONAL: No fever, no malaise, no fatigue. HEENT: No recent visual problems or hearing problems. Denied any sore throat. CARDIOVASCULAR: No chest pain, orthopnea, PND, no palpitations, no syncope. PULMONARY: No shortness of breath, no cough, no hemoptysis. GASTROINTESTINAL: No diarrhea, no nausea, no vomiting, no abdominal pain. NEUROLOGICAL: No headaches, no weakness, no numbness. HEMATOLOGICAL: Denies any bleeding or petechiae. GENITOURINARY: Denies any burning micturition, frequency, or urgency. MUSCULOSKELETAL/RHEUMATOLOGICAL: Denies any joint pain, swelling, or any muscle pain. ENDOCRINE: Denies any polyuria or polydipsia. The rest of the 14-point review of systems is negative. PHYSICAL EXAMINATION: GENERAL: The patient is alert and oriented x3, not in any acute distress. Well developed, well nourished. HEENT: Pupils are round and equally reacting to light. EOMI. No scleral icterus. No conjunctival pallor. Normocephalic, atraumatic. No pharyngeal erythema. No thyromegaly. CARDIOVASCULAR: S1 and S2 present. No murmurs, rubs, or gallops. PULMONARY: Chest is clear to auscultation, no wheezing or crackles. ABDOMEN: Soft, nontender, nondistended, normoactive bowel sounds. No palpable organomegaly. MUSCULOSKELETAL: No joint swelling or deformity. EXTREMITIES: No cyanosis, clubbing, or pedal edema. NEUROLOGICAL: Gross neurological examination did not reveal any focal deficits. SKIN: No rashes. Assessment and plan -Ileus: Considered to management with bowel rest, NG tube suction, IV fluids. General surgery was consulted. -Hypervolemic hyponatremia patient is on IV fluids which will be continued on IV fluids will be switched to lactated Ringer's because of hyperkalemia -Hypertension History of migraines resumed her home medications -V. tach history of which patient is on beta blockers which will be resumed patient had ablation in the past. -DVT prophylaxis: Lovenox Past Medical History Past Medical History: Asthma, Hypertension Additional Past Medical History / Comment(s): Migraines, tachycardia, V-Tach on EKG prevoiusly, had EP study (everything okay, no problems since). 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 History of Any Multi-Drug Resistant Organisms: None Reported Past Surgical History: Adenoidectomy, Appendectomy, Cardiac Ablation, Tonsillectomy Additional Past Surgical History / Comment(s): Lateral internal sphincterotomy, EP study Past Anesthesia/Blood Transfusion Reactions: Previous Problems w/ Anesthesia, Motion Sickness Additional Past Anesthesia/Blood Transfusion Reaction / Comment(s): Itching, red skin after last surg 2016 ("had Versed, Propofol, Zofran, Decadron") Past Psychological History: No Psychological Hx Reported Smoking Status: Former smoker Past Alcohol Use History: None Reported Past Drug Use History: None Reported - Past Family History Mother Family Medical History: Cancer Additional Family Medical History / Comment(s): Breast, Pancreatic CA. Father Family Medical History: Cancer Additional Family Medical History / Comment(s): Pancreatic CA. Medications and Allergies Home Medications Medication Instructions Recorded Confirmed Type Metoprolol Succinate [Toprol Xl] 50 mg PO DAILY 08/24/17 09/10/22 History Fremanezumab-Vfrm [Ajovy 225 mg SQ QMONTHLY 04/28/20 09/10/22 History Autoinjector] Ascorbic Acid [Vitamin C] 500 mg PO DAILY 09/06/22 09/10/22 History Aspirin EC [Ecotrin Low Dose] 81 mg PO DAILY 09/06/22 09/10/22 History Cholecalciferol [Vitamin D3 (25 25 mcg PO DAILY 09/06/22 09/10/22 History Mcg = 1000 Iu)] Famotidine [Pepcid] 10 mg PO DAILY 09/06/22 09/10/22 History Ferrous Sulfate [Slow Fe] 142 mg PO DAILY 09/06/22 09/10/22 History Ketorolac [Toradol] 10 mg PO Q6HR PRN #15 tab 09/06/22 09/10/22 Rx Metoprolol Succinate (ER) [Toprol 25 mg PO HS 09/06/22 09/10/22 History Xl] Ondansetron Odt [Zofran Odt] 4 mg PO Q8HR PRN #15 tab 09/06/22 09/10/22 Rx Topiramate 50 mg PO BID 09/06/22 09/10/22 History Vitamin B Complex [B-Complex] 1 tab PO DAILY 09/06/22 09/10/22 History traMADol HCL 50 mg PO Q6H PRN 3 Days #12 tab 09/06/22 09/10/22 Rx Albuterol Inhaler [Ventolin Hfa 1 - 2 puff INHALATION RT-Q6H PRN 09/10/22 09/10/22 History Inhaler] Allergies Allergy/AdvReac Type Severity Reaction Status Date / Time Beef Containing Products Allergy Pos on Verified 09/08/22 09:23 allergy test cefuroxime [From Ceftin] Allergy Rash/Hives Verified 09/08/22 09:23 chicken derived [Chicken] Allergy Pos on Verified 09/08/22 09:23 allergy test gluten Allergy Rash/Hives Verified 09/08/22 09:23 hydrocodone Allergy Rash/Hives Verified 09/08/22 09:23 levofloxacin [From Levaquin] Allergy Rash/Hives Verified 09/08/22 09:23 Pork/Porcine Containing Allergy Pos on Verified 09/08/22 09:23 Products allergy [Pork] test soybean Allergy Rash/Hives Verified 09/08/22 09:23 sulfamethoxazole Allergy Rash/Hives Verified 09/08/22 09:23 [From Bactrim] trimethoprim [From Bactrim] Allergy Rash/Hives Verified 09/08/22 09:23 Physical Exam Vitals: Vital Signs Temp Pulse Pulse Resp BP BP Pulse Ox 09/10/22 07:00 98.6 F 70 14 125/81 98 09/10/22 04:17 98.9 F 69 15 132/87 99 09/10/22 03:03 71 18 120/91 99 09/10/22 02:01 71 18 135/92 99 09/09/22 23:58 74 18 138/79 98 09/09/22 21:31 99.0 F 71 16 141/90 100 Intake and Output 09/09/22 09/10/22 09/10/22 22:59 06:59 14:59 Other: # Voids 2 Weight 58.513 kg 58.513 kg Results CBC & Chem 7: 09/09/22 22:00 09/10/22 11:41 Labs: Abnormal Lab Results - Last 24 Hours (Table) 09/09/22 09/10/22 09/10/22 Range/Units 22:00 01:00 11:41 Sodium 131 L (137-145) mmol/L Chloride 108 H (98-107) mmol/L Carbon Dioxide 20 L 16 L (22-30) mmol/L BUN 20 H (7-17) mg/dL Ur Specific [place] >1.050 H (1.001-1.035) Urine Protein Trace H (Negative) Urine Ketones 4+ H (Negative) Urine Blood Moderate H (Negative) Urine RBC 6 H (0-5) /hpf Ur Squamous Epith Cells 21 H (0-4) /hpf Urine Bacteria Rare H (None) /hpf Urine Mucus Rare H (None) /hpf Thrombosis Risk Factor Assmnt - Choose All That Apply Any of the Below Risk Factors Present?: No Other Risk Factors: No Other congenital or acquired thrombophilia - If yes, enter type in comment: No Thrombosis Risk Factor Assessment Level: Very Low Risk
[2022-09-10] MEDS: ENOXAPARIN 40 MG/0.4 ML SYRINGE SQ SCH (15:56)
[2022-09-10] MEDS: LACTATED RINGERS 1,000 ML IV SCH (15:58)
[2022-09-10] MEDS: ACETAMINOPHEN IV (For NPO) 1,000 MG in EMPTY BAG 1 BAG IVPB PRN ×2 (16:15→22:19)
[2022-09-10] MEDS: ONDANSETRON 4 MG/2 ML VIAL IVP PRN ×2 (17:16→23:05)
--- NOTE | 2022-09-10 17:36 | P.GSCN ---
History of Present Illness Consult date: 09/10/22 History of present illness: Patient had pre-existing ruptured appendicitis with open cecostomy. This is her first bowel obstruction. She reports vomiting around the NGT. Symptoms have been progressive over [address] reveiwed with dilated small bowel. Recommend NGT. Ice chips and popsicles. Repeat AXR and reposition NGT due to nausea. SBFT study advised. Past Medical History Past Medical History: Asthma, Hypertension Additional Past Medical History / Comment(s): Migraines, tachycardia, V-Tach on EKG prevoiusly, had EP study (everything okay, no problems since). 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 History of Any Multi-Drug Resistant Organisms: None Reported Past Surgical History: Adenoidectomy, Appendectomy, Cardiac Ablation, Tonsill ectomy Additional Past Surgical History / Comment(s): Lateral internal sphincterotomy, EP study Past Anesthesia/Blood Transfusion Reactions: Previous Problems w/ Anesthesia, Motion Sickness Additional Past Anesthesia/Blood Transfusion Reaction / Comm: Itching, red skin after last surg 2016 ("had Versed, Propofol, Zofran, Decadron") Past Psychological History: No Psychological Hx Reported Smoking Status: Former smoker Past Alcohol Use History: None Reported Past Drug Use History: None Reported - Past Family History Mother Family Medical History: Cancer Additional Family Medical History / Comment(s): Breast, Pancreatic CA. Father Family Medical History: Cancer Additional Family Medical History / Comment(s): Pancreatic CA. Medications and Allergies Home Medications Medication Instructions Recorded Confirmed Type Metoprolol Succinate [Toprol Xl] 50 mg PO DAILY 08/24/17 09/10/22 History Fremanezumab-Vfrm [Ajovy 225 mg SQ QMONTHLY 04/28/20 09/10/22 History Autoinjector] Ascorbic Acid [Vitamin C] 500 mg PO DAILY 09/06/22 09/10/22 History Aspirin EC [Ecotrin Low Dose] 81 mg PO DAILY 09/06/22 09/10/22 History Cholecalciferol [Vitamin D3 (25 25 mcg PO DAILY 09/06/22 09/10/22 History Mcg = 1000 Iu)] Famotidine [Pepcid] 10 mg PO DAILY 09/06/22 09/10/22 History Ferrous Sulfate [Slow Fe] 142 mg PO DAILY 09/06/22 09/10/22 History Ketorolac [Toradol] 10 mg PO Q6HR PRN #15 tab 09/06/22 09/10/22 Rx Metoprolol Succinate (ER) [Toprol 25 mg PO HS 09/06/22 09/10/22 History Xl] Ondansetron Odt [Zofran Odt] 4 mg PO Q8HR PRN #15 tab 09/06/22 09/10/22 Rx Topiramate 50 mg PO BID 09/06/22 09/10/22 History Vitamin B Complex [B-Complex] 1 tab PO DAILY 09/06/22 09/10/22 History traMADol HCL 50 mg PO Q6H PRN 3 Days #12 tab 09/06/22 09/10/22 Rx Albuterol Inhaler [Ventolin Hfa 1 - 2 puff INHALATION RT-Q6H PRN 09/10/22 09/10/22 History Inhaler] Allergies Allergy/AdvReac Type Severity Reaction Status Date / Time Beef Containing Products Allergy Pos on Verified 09/08/22 09:23 allergy test cefuroxime [From Ceftin] Allergy Rash/Hives Verified 09/08/22 09:23 chicken derived [Chicken] Allergy Pos on Verified 09/08/22 09:23 allergy test gluten Allergy Rash/Hives Verified 09/08/22 09:23 hydrocodone Allergy Rash/Hives Verified 09/08/22 09:23 levofloxacin [From Levaquin] Allergy Rash/Hives Verified 09/08/22 09:23 Pork/Porcine Containing Allergy Pos on Verified 09/08/22 09:23 Products allergy [Pork] test soybean Allergy Rash/Hives Verified 09/08/22 09:23 sulfamethoxazole Allergy Rash/Hives Verified 09/08/22 09:23 [From Bactrim] trimethoprim [From Bactrim] Allergy Rash/Hives Verified 09/08/22 09:23 Surgical - Exam Vital Signs Temp Pulse Resp BP Pulse Ox 99.0 F 71 16 141/90 100 09/09/22 21:31 09/09/22 21:31 09/09/22 21:31 09/09/22 21:31 09/09/22 21:31 Results - Labs 09/09/22 22:00 09/10/22 11:41 Abnormal Lab Results - Last 24 Hours (Table) 09/09/22 09/10/22 09/10/22 Range/Units 22:00 01:00 11:41 Sodium 131 L (137-145) mmol/L Chloride 108 H (98-107) mmol/L Carbon Dioxide 20 L 16 L (22-30) mmol/L BUN 20 H (7-17) mg/dL Ur Specific [place] >1.050 H (1.001-1.035) Urine Protein Trace H (Negative) Urine Ketones 4+ H (Negative) Urine Blood Moderate H (Negative) Urine RBC 6 H (0-5) /hpf Ur Squamous Epith Cells 21 H (0-4) /hpf Urine Bacteria Rare H (None) /hpf Urine Mucus Rare H (None) /hpf Diabetes panel 09/09/22 09/10/22 Range/Units 22:00 11:41 Sodium 131 L 138 (137-145) mmol/L Potassium 3.7 3.6 (3.5-5.1) mmol/L Chloride 101 108 H (98-107) mmol/L Carbon Dioxide 20 L 16 L (22-30) mmol/L BUN 20 H 16 (7-17) mg/dL Creatinine 0.82 0.77 (0.52-1.04) mg/dL Glucose 89 81 (74-99) mg/dL Calcium 9.8 9.0 (8.4-10.2) mg/dL AST 22 (14-36) U/L ALT 16 (4-34) U/L Alkaline Phosphatase 55 (38-126) U/L Total Protein 6.6 (6.3-8.2) g/dL Albumin 4.1 (3.5-5.0) g/dL Calcium panel 09/09/22 09/10/22 Range/Units 22:00 11:41 Calcium 9.8 9.0 (8.4-10.2) mg/dL Albumin 4.1 (3.5-5.0) g/dL Pituitary panel 09/09/22 09/10/22 Range/Units 22:00 11:41 Sodium 131 L 138 (137-145) mmol/L Potassium 3.7 3.6 (3.5-5.1) mmol/L Chloride 101 108 H (98-107) mmol/L Carbon Dioxide 20 L 16 L (22-30) mmol/L BUN 20 H 16 (7-17) mg/dL Creatinine 0.82 0.77 (0.52-1.04) mg/dL Glucose 89 81 (74-99) mg/dL Calcium 9.8 9.0 (8.4-10.2) mg/dL Adrenal panel 09/09/22 09/10/22 Range/Units 22:00 11:41 Sodium 131 L 138 (137-145) mmol/L Potassium 3.7 3.6 (3.5-5.1) mmol/L Chloride 101 108 H (98-107) mmol/L Carbon Dioxide 20 L 16 L (22-30) mmol/L BUN 20 H 16 (7-17) mg/dL Creatinine 0.82 0.77 (0.52-1.04) mg/dL Glucose 89 81 (74-99) mg/dL Calcium 9.8 9.0 (8.4-10.2) mg/dL Total Bilirubin 0.7 (0.2-1.3) mg/dL AST 22 (14-36) U/L ALT 16 (4-34) U/L Alkaline Phosphatase 55 (38-126) U/L Total Protein 6.6 (6.3-8.2) g/dL Albumin 4.1 (3.5-5.0) g/dL
[2022-09-10] MEDS: METOPROLOL SUCCINATE (ER) 25 MG TAB.ER.24H PO SCH (20:46)
--- NOTE | 2022-09-10 23:18 | XR ---
EXAMINATION TYPE: XR abdomen 2V DATE OF EXAM: 09/10/2022 COMPARISON: 01/28/2020 INDICATION: Bowel obstruction TECHNIQUE: Single view abdomen upright view FINDINGS: Small bowel loops containing fluid. There is a fluid/fluid level without differential air-fluid level within the left upper quadrant. Small amount of bowel gas is in the ascending colon region. Nasogastric tube tip is in the left upper quadrant of the abdomen. IUD is in the pelvis. Psoas margin s are normal. No free air is evident. IMPRESSION: 1. Findings which can be compatible with small bowel obstruction.
[2022-09-11] MEDS: KETOROLAC 15 MG/ML 1 ML VIAL IVP PRN ×2 (01:13→09:16)
[2022-09-11] MEDS: ACETAMINOPHEN IV (For NPO) 1,000 MG in EMPTY BAG 1 BAG IVPB PRN (05:50)
[2022-09-11] MEDS: ONDANSETRON 4 MG/2 ML VIAL IVP PRN ×3 (05:50→21:34)
[2022-09-11] MEDS: LACTATED RINGERS 1,000 ML IV SCH ×2 (06:09→16:58)
[2022-09-11 09:05] LABS: Eosinophils % (A) 0 %; HGB 12.9 d/dL (12.0-15.0); Lymphocytes % (A) 15.2 %; MCH 29.3 pg (27.0-32.0); MCHC 33.9 d/dL (32.0-37.0); MCV 86.2 FL (80.0-97.0); Mean Platelet Volume 10.6 FL (9.5-12.2); Monocytes % (A) 18.1 %; NRBC Per 100 WBC 0 X 10*3/uL (0.00-0.01); Neutrophils % (A) 65.9 %; Platelet Count 219 X 10*3/uL (140-440); RBC 4.41 X 10*6/uL (4.10-5.20); RDW 13.5 % (11.5-14.5); WBC 4.93 X 10*3/uL (4.50-10.00)
[2022-09-11 09:06] LABS: Basophils # (A) 0.01 X 10*3/uL (0.00-0.10); Basophils % (A) 0.2 %; Eosinophils # (A) 0 X 10*3/uL (0.04-0.35); Lymphocytes # (A) 0.75 X 10*3/uL (0.90-5.00); Monocytes # (A) 0.89 X 10*3/uL (0.20-1.00); Neutrophils # (A) 3.25 X 10*3/uL (1.80-7.70)
[2022-09-11 09:14] LABS: BUN/Creat Ratio 18.71 Ratio (12.00-20.00); Blood Urea Nitrogen 13.1 mg/dL (9.0-27.0); Carbon Dioxide 17.4 mmol/L (21.6-31.8); Chloride 108 mmol/L (96-109); Glucose 92 mg/dL (70-110); Magnesium 1.9 mg/dL (1.5-2.4); Potassium 3.6 mmol/L (3.5-5.5); Sodium 140 mmol/L (135-145)
[2022-09-11] MEDS: ENOXAPARIN 40 MG/0.4 ML SYRINGE SQ SCH (09:15)
[2022-09-11] MEDS: PANTOPRAZOLE 40 MG/10 ML VIAL IVP SCH ×2 (09:15→21:34)
[2022-09-11] MEDS: METOPROLOL SUCCINATE (ER) 50 MG TAB.ER.24H PO SCH (09:15)
[2022-09-11] MEDS: TOPIRAMATE 25 MG TAB PO SCH ×2 (09:15→21:36)
--- NOTE | 2022-09-11 12:04 | P.PN ---
Subjective 41-year-old female came in with comments of nausea vomiting abdominal pain found to have ileus. Patient had a ruptured appendix in the past for which patient underwent a laparotomy. Patient still doesn't have any bowel sounds patient is an NG tube without any significant drainage still quite a bit nauseous. Patient is bit hyponatremic on admission with elevated BNP which improved at this time. Patient is on IV normal saline at 150 which is being cut down to 75. 09/11/2022 Patient is an NG tube with significant drainage about 800 mL's morning her serum sodium improved. Patient is still having severe nausea was comparing of acid reflux, Toradol was discontinued because of that reason. Reordered IV Tylenol along with morphine. Patient continues to be an lactated Ringer's. Still has significant abdominal pain Constitutional: Denied any fatigue denied any fever. Cardio vascular: denied any chest pain, palpitations Gastrointestinal as mentioned above Pulmonary: Denied any shortness of breath cough Neurologic denied any new focal deficits All inpatient medications were reviewed and appropriate changes in these medications as dictated in the interval history and assessment and plan. PHYSICAL EXAMINATION: GENERAL: The patient is alert and oriented x3, not in any acute distress. Well developed, well nourished. HEENT: Pupils are round and equally reacting to light. EOMI. No scleral icterus. No conjunctival pallor. Normocephalic, atraumatic. No pharyngeal erythema. No thyromegaly. CARDIOVASCULAR: S1 and S2 present. No murmurs, rubs, or gallops. PULMONARY: Chest is clear to auscultation, no wheezing or crackles. ABDOMEN: Soft, nontender, nondistended, absent bowel sounds No palpable organomegaly. MUSCULOSKELETAL: No joint swelling or deformity. EXTREMITIES: No cyanosis, clubbing, or pedal edema. NEUROLOGICAL: Gross neurological examination did not reveal any focal deficits. SKIN: No rashes. Assessment and plan -Ileus: Conservative management management with bowel rest, NG tube suction, IV fluids. General surgery valid to the patient patient continues to have severe nausea as mentioned above -Hypovolemic hyponatremia improved with IV fluids -Hypertension History of migraines resumed her home medications -V. tach history of which patient is on beta blockers which will be resumed patient had ablation in the past. -DVT prophylaxis: Lovenox Objective - Vital Signs Vital signs: Vital Signs Temp 98.2 F 09/11/22 07:00 Pulse 65 08/06/23 07:00 Resp 14 09/11/22 07:00 BP 143/91 09/11/22 07:00 Pulse Ox 98 09/11/22 07:00 FiO2 Intake & Output 09/10/22 09/11/22 09/11/22 18:59 06:59 18:59 Output Total 50 550 Balance -50 -550 Output: Gastric Drainage 50 550 Other: # Voids 4 - Labs CBC & Chem 7: 09/11/22 05:50 09/11/22 05:50 Labs: Abnormal Lab Results - Last 24 Hours (Table) 09/10/22 09/11/22 09/11/22 Range/Units 11:41 05:50 05:50 Lymphocytes # 0.75 L (0.90-5.00) X 10*3/uL Eosinophils # 0 L (0.04-0.35) X 10*3/uL Chloride 108 H (98-107) mmol/L Carbon Dioxide 16 L 17.4 L (22-30) mmol/L Anion Gap 14.60 H (4.00-12.00) mmol/L
--- NOTE | 2022-09-11 12:12 | P.PN ---
Subjective Progress Note Date: 09/11/22 She still complains of nausea. Per pt, scopolamine patch avoided due to past history of vtach 2 years ago. She has NG tube which is working AXR is reviewed without free air Small bowel dilation is present She complains of mild abdominal bloat "I do not want surgery." Recommend small bowel follow through for small bowel obstruction assessment Objective - Vital Signs Vital signs: Vital Signs Temp 98.2 F 09/11/22 07:00 Pulse 65 09/11/22 07:00 Resp 14 09/11/22 07:00 BP 143/91 09/11/22 07:00 Pulse Ox 98 09/11/22 07:00 FiO2 Intake & Output 09/10/22 09/11/22 09/11/22 18:59 06:59 18:59 Output Total 50 550 Balance -50 -550 Output: Gastric Drainage 50 550 Other: # Voids 4 - Labs CBC & Chem 7: 09/11/22 05:50 09/11/22 05:50 Labs: Abnormal Lab Results - Last 24 Hours (Table) 09/10/22 09/11/22 09/11/22 Range/Units 11:41 05:50 05:50 Lymphocytes # 0.75 L (0.90-5.00) X 10*3/uL Eosinophils # 0 L (0.04-0.35) X 10*3/uL Chloride 108 H (98-107) mmol/L Carbon Dioxide 16 L 17.4 L (22-30) mmol/L Anion Gap 14.60 H (4.00-12.00) mmol/L
[2022-09-11] MEDS: ACETAMINOPHEN IV (For NPO) 1,000 MG in EMPTY BAG 1 BAG IVPB SCH ×2 (12:22→17:57)
[2022-09-11] MEDS: LORazepam 2 MG/ML INJ IV PRN ×2 (14:21→21:42)
[2022-09-11] MEDS: METOPROLOL SUCCINATE (ER) 25 MG TAB.ER.24H PO SCH (21:36)
[2022-09-12] MEDS: ACETAMINOPHEN IV (For NPO) 1,000 MG in EMPTY BAG 1 BAG IVPB SCH ×5 (00:49→23:47)
--- NOTE | 2022-09-12 01:56 | XR ---
EXAM: XR Chest, 1 View CLINICAL HISTORY: ITS.REASON XR Reason: NG tube placement TECHNIQUE: Frontal view of the chest. COMPARISON: No relevant prior studies available. FINDINGS: Lungs: Unremarkable. No consolidation. Pleural space: Unremarkable. No pneumothorax. Heart: Unremarkable. No cardiomegaly. Mediastinum: Unremarkable. Bones/joints: Unremarkable. Tubes, lines and devices: Feeding tube terminates in the stomach. IMPRESSION: Feeding tube terminates in the stomach.
[2022-09-12] MEDS: ONDANSETRON 4 MG/2 ML VIAL IVP PRN ×2 (02:58→12:22)
[2022-09-12] MEDS: LORazepam 2 MG/ML INJ IV PRN ×3 (02:58→21:27)
[2022-09-12] MEDS: LACTATED RINGERS 1,000 ML IV SCH (05:33)
[2022-09-12 11:22] LABS: BUN/Creat Ratio 15.43 Ratio (12.00-20.00); Blood Urea Nitrogen 10.8 mg/dL (9.0-27.0); Calcium 9.1 mg/dL (8.7-10.3); Carbon Dioxide 19.9 mmol/L (21.6-31.8); Chloride 106 mmol/L (96-109); Glucose 87 mg/dL (70-110); Potassium 3.1 mmol/L (3.5-5.5); Sodium 140 mmol/L (135-145)
[2022-09-12] MEDS ORDERED: SCOPOLAMINE 1 MG/72 HR PATCH TRANSDERM SCH (12:45)
[2022-09-12] MEDS: PANTOPRAZOLE 40 MG/10 ML VIAL IVP SCH ×2 (12:47→20:21)
[2022-09-12] MEDS: ENOXAPARIN 40 MG/0.4 ML SYRINGE SQ SCH (12:47)
[2022-09-12] MEDS ORDERED: Magnesium Replacement Protocol 1 EACH MISC MISCELLANE PRN (14:33)
[2022-09-12] MEDS ORDERED: Potassium Replacement Protocol 1 EACH MISC MISCELLANE PRN (14:33)
[2022-09-12] MEDS: TOPIRAMATE 25 MG TAB PO SCH ×2 (14:56→20:22)
[2022-09-12] MEDS: METOPROLOL SUCCINATE (ER) 50 MG TAB.ER.24H PO SCH (14:56)
--- NOTE | 2022-09-12 16:27 | P.PN ---
Subjective Progress Note Date: 09/12/22 CHIEF COMPLAINT: Small bowel obstruction HISTORY OF PRESENT ILLNESS: Patient lying in bed comfortably. She did have flatus and a small bowel movement today. She completed the small bowel follow- through x-ray. Results are pending. Patient has NG tube in place with 400 mL output. Afebrile. Potassium 3.1 creatinine 0.7 PHYSICAL EXAM: VITAL SIGNS: Reviewed GENERAL: Well-developed in no acute distress. HEENT: No sclera icterus. Extraocular movements grossly intact. Moist buccal mucosa. Head is atraumatic, normocephalic. Hears conversational speech. No nasal drainage. NECK: Supple without lymphadenopathy. CHEST: Non-labored respirations and equal bilateral excursions. CARDIOVASCULAR: Palpable 2+ radial pulses. ABDOMEN: Soft. Mildly distended. Diffuse tenderness MUSCULOSKELETAL: No clubbing or cyanosis. NEUROLOGIC: No focal or lateralizing signs. Cranial nerves II through XII grossly intact. PSYCH: Appropriate affect. Alert and oriented to person, place and time. SKIN: Well perfused. Good skin turgor. ASSESSMENT: 1. Small bowel obstruction 2. History of open cecostomy PLAN: -Continue NG tube for decompression -Keep patient nothing by mouth -Further recommendations forthcoming per surgeon -Continue supportive care -Continue IV fluids -Scopolamine patch added for nausea. Telemetry monitoring added to monitor for any arrhythmia as due to possible side effect from the scopolamine patch. Case was discussed with cardiology service. They recommend to place patient on telemetry monitoring if any arrhythmia occurs then consult cardiology. Physician Sas Programmer Analyst note has been reviewed by physician. Signing provider agrees with the documented findings, assessment, and plan of care. Objective - Vital Signs Vital signs: Vital Signs Temp 98.4 F 09/12/22 15:00 Pulse 82 09/12/22 15:00 Resp 16 09/12/22 15:00 BP 150/53 09/12/22 15:00 Pulse Ox 100 09/12/22 15:00 FiO2 Intake & Output 09/11/22 09/12/22 09/12/22 18:59 06:59 18:59 Output Total 550 400 Balance -550 -400 Output: Gastric Drainage 550 400 Other: Voiding Method Toilet # Voids 3 2 2 - Labs CBC & Chem 7: 09/11/22 05:50 09/12/22 06:18 Labs: Abnormal Lab Results - Last 24 Hours (Table) 09/12/22 Range/Units 06:18 Potassium 3.1 L (3.5-5.5) mmol/L Carbon Dioxide 19.9 L (21.6-31.8) mmol/L Anion Gap 14.10 H (4.00-12.00) mmol/L
--- NOTE | 2022-09-12 16:38 | FL ---
EXAMINATION TYPE: FL small bowel follow through DATE OF EXAM: 09/12/2022 COMPARISON: None HISTORY: Small bowel obstruction constipation TECHNIQUE: Following the administration of contrast through nasogastric tube sequential overhead radi ographs were obtained. FINDINGS: Contrast passes through to the lower pelvis. At this juncture contrast does not continue to move. At 4 hours findings appear unchanged. Report was called to the referring physician. Procedure was terminated. Small bowel obstruction in the distal jejunum proximal ileum is suspected. IMPRESSION: 1. Small bowel obstruction within the lower left abdomen distal jejunal region suspected.
[2022-09-12] MEDS: 0.9% NACL WITH KCL 40 MEQ/L 1,000 ML IV SCH (17:35)
[2022-09-12] MEDS: METOPROLOL SUCCINATE (ER) 25 MG TAB.ER.24H PO SCH (20:22)
[2022-09-13] MEDS: 0.9% NACL WITH KCL 40 MEQ/L 1,000 ML IV SCH ×2 (05:37→18:11)
[2022-09-13] MEDS: ACETAMINOPHEN IV (For NPO) 1,000 MG in EMPTY BAG 1 BAG IVPB SCH (05:37)
--- NOTE | 2022-09-13 08:14 | PN ---
PROGRESS NOTE DATE OF SERVICE: 09/12/2022 SUBJECTIVE: This is a 41-year-old woman who was admitted with possible bowel obstruction versus ileus, had a small-bowel follow-through today. No chest pain, no palpitations, no fever. The patient is still on NG tube. OBJECTIVE: VITAL SIGNS: Pulse 65, blood pressure 120/88, respirations 16. CHEST: Clear to auscultation. CARDIOVASCULAR: S1, S2. ABDOMEN: Soft, mild diffuse discomfort. Bowel sounds diminished. LABORATORY DATA: Noted. ASSESSMENT: 1. Possible ileus versus small bowel obstruction. 2. Hypovolemic hyponatremia. 3. Hypertension. 4. Ventricular tachycardia history. RECOMMENDATIONS: Recommended to continue symptomatic treatment, recommend potassium and replacement. Closely follow with surgery. See orders for details. Further recommendations to follow. MMODL / IJN: [id number] /
[2022-09-13] MEDS: PANTOPRAZOLE 40 MG/10 ML VIAL IVP SCH ×2 (10:11→21:09)
[2022-09-13] MEDS: ENOXAPARIN 40 MG/0.4 ML SYRINGE SQ SCH (10:11)
[2022-09-13] MEDS: TOPIRAMATE 25 MG TAB PO SCH ×2 (10:12→21:08)
[2022-09-13] MEDS: METOPROLOL SUCCINATE (ER) 50 MG TAB.ER.24H PO SCH (10:12)
[2022-09-13 10:59] LABS: Basophils # (A) 0.02 X 10*3/uL (0.00-0.10); Basophils % (A) 0.2 %; Eosinophils # (A) 0.04 X 10*3/uL (0.04-0.35); Eosinophils % (A) 0.5 %; HGB 12.4 d/dL (12.0-15.0); Lymphocytes # (A) 1.63 X 10*3/uL (0.90-5.00); Lymphocytes % (A) 19.3 %; MCH 29.2 pg (27.0-32.0); MCHC 33.5 d/dL (32.0-37.0); MCV 87.1 FL (80.0-97.0); Mean Platelet Volume 10.9 FL (9.5-12.2); Monocytes # (A) 0.65 X 10*3/uL (0.20-1.00); Monocytes % (A) 7.7 %; NRBC Per 100 WBC 0 X 10*3/uL (0.00-0.01); Neutrophils # (A) 6.09 X 10*3/uL (1.80-7.70); Neutrophils % (A) 71.9 %; Platelet Count 208 X 10*3/uL (140-440); RBC 4.25 X 10*6/uL (4.10-5.20); RDW 13.7 % (11.5-14.5); WBC 8.46 X 10*3/uL (4.50-10.00)
[2022-09-13 11:08] LABS: ALT 8 U/L (8-44); AST 17 U/L (13-35); Albumin 3.6 d/dL (3.8-4.9); Albumin/Globulin Ratio 2.12 Ratio (1.60-3.17); Alkaline Phosphatase 49 U/L (41-126); BUN/Creat Ratio 13.29 Ratio (12.00-20.00); Blood Urea Nitrogen 9.3 mg/dL (9.0-27.0); Calcium 9.1 mg/dL (8.7-10.3); Chloride 106 mmol/L (96-109); Globulin 1.7 d/dL (1.6-3.3); Glucose 68 mg/dL (70-110); Magnesium 1.8 mg/dL (1.5-2.4); Potassium 3.3 mmol/L (3.5-5.5); Sodium 138 mmol/L (135-145); Total Bilirubin 0.3 mg/dL (0.3-1.2); Total Protein 5.3 d/dL (6.2-8.2)
[2022-09-13] MEDS ORDERED: ACETAMINOPHEN IV (For NPO) 1,000 MG in EMPTY BAG 1 BAG IVPB PRN (11:08)
--- NOTE | 2022-09-13 11:26 | P.CRDCN ---
History of Present Illness Consult date: 09/13/22 History of present illness: History of present illness: This is a 41-year-old female patient of Dr. Almendarez with past medical history of wide complex tachycardia, atrial tachycardia, superior mesenteric thrombosis, postural orthostatic hypotension, hypertension. She also has history of previous ruptured appendicitis with open cecostomy. Patient presented to the hospital due to abdominal pain, nausea and vomiting and diagnosed with a small bowel obstruction with plan for robotic lysis of adhesions on 09/14. We have been asked to see the patient for cardiac risk assessment. Patient denies having any chest pain or shortness of breath, no palpitations, no lightheadedness or dizziness. In 2018, patient had recurrent palpitations and dizzy spells and found to have nonsustained wide complex tachycardia on event monitor. Patient underwent EP study at that time revealed normal sinus node function with no evidence of atrial or ventricular arrhythmias. Rate related right bundle branch block appearance was noted. This is consistent with wide complex tachycardia that she has had on the monitor. Most likely patient had a atrial tachycardia with aberrancy nonsustained. Ventricular tachycardia was ruled out at that time and patient was to be maintained on low dose beta blockers. Telemetry sinus rhythm with no episodes of tachycardia. Chest x-ray: 09/12 feeding tube terminates in the stomach. Lungs are unremarkab CBC is unremarkable. His sodium 130, potassium 3.3 and replaced, BUN 9.3 creatinine 0.7. Blood sugar 68. Liver function tests normal. Magnesium 1.8. Home cardiac medications: Aspirin 81 mg daily, Toprol-XL 50 mg daily and 25 mg at bedtime Echocardiogram 12/2019 revealed EF of 60%, estimated RVSP 23 mmHg Exercise tolerance test 2020 no evidence of ischemia Cardiac MRI: Structurally normal heart Review Of Systems: At the time of my evaluation: Constitutional: No fever, no chills. No weakness, fatigue or lethargy. EENT: No headache. No dizziness. Lungs: No shortness of breath, cough, no sputum production. No wheezing. Cardiovascular: No chest pain, no lower extremity edema. No palpitations. No paroxysmal nocturnal dyspnea. No orthopnea. No lightheadedness or dizziness. No syncopal episodes. Abdominal: +abdominal pain. +nausea, vomiting. Musculoskeletal: No myalgias. No muscle weakness, no frequent falls. Integumentary: No wounds. No rash. Neurologic: No aphasia. No facial droop. No change in mentation. Physical examination: Gen: This is a 41-year-old female patient resting in bed and appears to be com fortable. VS: reviewed HEENT: Head is atraumatic, normocephalic. Pupils equal, round. Sclerae is ani cteric. NG tube in place NECK: Supple. No JVD. LUNGS: Clear to auscultation. No wheezes or rhonchi. No intercostal retractions. HEART: Regular rate and rhythm. No murmur. ABDOMEN: Soft No tenderness. EXTREMITIES: No pedal edema. No calf tenderness. NEUROLOGICAL: Patient is awake, alert and oriented x3. Assessment: Small bowel obstruction scheduled for lysis of adhesions on 09/14 History of atrial tachycardia Superior mesenteric thrombosis Postural orthostatic hypotension Hypertension Plan: Continue patient's home cardiac medications Repeat BMP Obtain EKG Obtain limited 2-D echocardiogram Patient is cleared from cardiology for surgery. Maintain patient on beta evelio as prescribed. Thank you kindly for this consultation. Nurse practitioner note has been reviewed, I agree with documented findings and plan of care. Patient was seen and examined. Past Medical History Past Medical History: Asthma, Hypertension Additional Past Medical History / Comment(s): Migraines, tachycardia, V-Tach on EKG prevoiusly, had EP study (everything okay, no problems since). 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 History of Any Multi-Drug Resistant Organisms: None Reported Past Surgical History: Adenoidectomy, Appendectomy, Cardiac Ablation, Tonsillectomy Additional Past Surgical History / Comment(s): Lateral internal sphincterotomy, EP study Past Anesthesia/Blood Transfusion Reactions: Previous Problems w/ Anesthesia, Motion Sickness Additional Past Anesthesia/Blood Transfusion Reaction / Comment(s): Itching, red skin after last surg 2016 ("had Versed, Propofol, Zofran, Decadron") Past Psychological History: No Psychological Hx Reported Smoking Status: Former smoker Past Alcohol Use History: None Reported Past Drug Use History: None Reported - Past Family History Mother Family Medical History: Cancer Additional Family Medical History / Comment(s): Breast, Pancreatic CA. Father Family Medical History: Cancer Additional Family Medical History / Comment(s): Pancreatic CA. Medications and Allergies Home Medications Medication Instructions Recorded Confirmed Type Metoprolol Succinate [Toprol Xl] 50 mg PO DAILY 08/24/17 09/10/22 History Fremanezumab-Vfrm [Ajovy 225 mg SQ QMONTHLY 04/28/20 09/10/22 History Autoinjector] Ascorbic Acid [Vitamin C] 500 mg PO DAILY 09/06/22 09/10/22 History Aspirin EC [Ecotrin Low Dose] 81 mg PO DAILY 09/06/22 09/10/22 History Cholecalciferol [Vitamin D3 (25 25 mcg PO DAILY 09/06/22 09/10/22 History Mcg = 1000 Iu)] Famotidine [Pepcid] 10 mg PO DAILY 09/06/22 09/10/22 History Ferrous Sulfate [Slow Fe] 142 mg PO DAILY 09/06/22 09/10/22 History Ketorolac [Toradol] 10 mg PO Q6HR PRN #15 tab 09/06/22 09/10/22 Rx Metoprolol Succinate (ER) [Toprol 25 mg PO HS 09/06/22 09/10/22 History Xl] Ondansetron Odt [Zofran Odt] 4 mg PO Q8HR PRN #15 tab 09/06/22 09/10/22 Rx Topiramate 50 mg PO BID 09/06/22 09/10/22 History Vitamin B Complex [B-Complex] 1 tab PO DAILY 09/06/22 09/10/22 History traMADol HCL 50 mg PO Q6H PRN 3 Days #12 tab 09/06/22 09/10/22 Rx Albuterol Inhaler [Ventolin Hfa 1 - 2 puff INHALATION RT-Q6H PRN 09/10/22 09/10/22 History Inhaler] Allergies Allergy/AdvReac Type Severity Reaction Status Date / Time Beef Containing Products Allergy Pos on Verified 09/08/22 09:23 allergy test cefuroxime [From Ceftin] Allergy Rash/Hives Verified 09/08/22 09:23 chicken derived [Chicken] Allergy Pos on Verified 09/08/22 09:23 allergy test gluten Allergy Rash/Hives Verified 09/08/22 09:23 hydrocodone Allergy Rash/Hives Verified 09/08/22 09:23 levofloxacin [From Levaquin] Allergy Rash/Hives Verified 09/08/22 09:23 Pork/Porcine Containing Allergy Pos on Verified 09/08/22 09:23 Products allergy [Pork] test soybean Allergy Rash/Hives Verified 09/08/22 09:23 sulfamethoxazole Allergy Rash/Hives Verified 09/08/22 09:23 [From Bactrim] trimethoprim [From Bactrim] Allergy Rash/Hives Verified 09/08/22 09:23 Physical Exam Vitals: Vital Signs Temp Pulse Resp BP Pulse Ox 09/13/22 08:00 97.7 F 74 16 127/84 98 09/13/22 02:27 98.5 F 68 15 123/76 98 09/12/22 19:14 98.3 F 72 16 148/92 99 09/12/22 15:00 98.4 F 82 16 150/53 100 09/12/22 14:00 65 16 09/12/22 12:34 98.3 F 65 16 128/80 100 Intake and Output 09/12/22 09/13/22 09/13/22 22:59 06:59 14:59 Output Total 150 400 Balance -150 -400 Output: Gastric Drainage 150 400 Other: Voiding Method Toilet # Voids 1 2 # Bowel Movements 2 Results 09/13/22 06:02 09/12/22 06:18 Comprehensive Metabolic Panel 09/12/22 Range/Units 06:18 Sodium 140 (135-145) mmol/L Potassium 3.1 L (3.5-5.5) mmol/L Chloride 106 (96-109) mmol/L Carbon Dioxide 19.9 L (21.6-31.8) mmol/L BUN 10.8 (9.0-27.0) mg/dL Creatinine 0.7 (0.6-1.5) mg/dL Glucose 87 (70-110) mg/dL Calcium 9.1 (8.7-10.3) mg/dL Current Medications Generic Name Dose Route Start Last Admin Trade Name Freq PRN Reason Stop Dose Admin Albuterol Sulfate 2.5 mg 09/10/22 11:46 Albuterol Nebulized 2.5 Mg/3 Ml INHALATION RT-Q6H PRN Shortness Of Breath Enoxaparin Sodium 40 mg 09/10/22 14:00 09/12/22 12:47 Enoxaparin 40 Mg/0.4 Ml Syringe SQ 40 mg DAILY LIZETH Administration Potassium Chloride/Sodium Chloride 1,000 mls @ 75 mls/hr 09/12/22 14:45 09/13/22 05:37 Ns-Kcl 40 Meq/L Iv Solution IV 75 mls/hr .[id number] LIZETH Administration Lorazepam 1 mg 09/11/22 10:48 09/12/22 21:27 Lorazepam 2 Mg/Ml Inj IV 1 mg Q6HR PRN Administration Agitation Metoprolol Succinate 50 mg 09/11/22 09:00 09/12/22 14:56 Metoprolol Succinate (Er) 50 Mg Tab.Er.24h PO 50 mg DAILY LIZETH Administration Metoprolol Succinate 25 mg 09/10/22 21:00 09/12/22 20:22 Metoprolol Succinate (Er) 25 Mg Tab.Er.24h PO 25 mg HS LIZETH Administration Miscellaneous Information 1 each 09/12/22 14:33 Magnesium Replacement Protocol 1 Each Misc MISCELLANE DAILY PRN Per Protocol Protocol Miscellaneous Information 1 each 09/12/22 14:33 Potassium Replacement Protocol 1 Each Misc MISCELLANE DAILY PRN Per Protocol Protocol Morphine Sulfate 4 mg 09/10/22 03:19 09/10/22 07:57 Morphine Sulfate 4 Mg/Ml Syringe IV 4 mg Q4HR PRN Administration Severe Pain (Scale 7 to 10) Naloxone HCl 0.2 mg 09/10/22 03:19 Naloxone 0.4 Mg/Ml 1 Ml Vial IV Q2M PRN Opioid Reversal Ondansetron HCl 4 mg 09/10/22 11:46 09/12/22 12:22 Ondansetron 4 Mg/2 Ml Vial IVP 4 mg Q6HR PRN Administration Nausea And Vomiting Pantoprazole Sodium 40 mg 09/11/22 21:00 09/12/22 20:21 Pantoprazole 40 Mg/10 Ml Vial IVP 40 mg BID LIZETH Administration Scopolamine 1 patch 09/12/22 12:45 09/12/22 13:17 Scopolamine 1 Mg/72 Hr Patch TRANSDERM 1 patch Q72H LIZETH Administration Topiramate 50 mg 09/10/22 10:45 09/12/22 20:22 Topiramate 25 Mg Tab PO 50 mg BID LIZETH Administration Intake and Output 09/12/22 09/13/22 09/13/22 22:59 06:59 14:59 Output Total 150 400 Balance -150 -400 Output: Gastric Drainage 150 400 Other: Voiding Method Toilet # Voids 1 2 # Bowel Movements 2 09/11/22 05:50 09/12/22 06:18
--- NOTE | 2022-09-13 11:26 | CA ---
Transthoracic Echo Report Name: Edel Dunham Age: 41 Gender: F : 1980 Exam Date: 09/13/2022 08:59 Exam Location: [place] Echo Ht (in): 64 Wt (lb): 129 Ordering Physician: Ami Diaz MD Attending/Referring Phys: [id number] [employer] Collector Mercedez Aguilar [facility] Procedure CPT: Indications: Arrhytmia, chest pain Cardiac Hx: Technical Quality: Fair Contrast 1: Total Dose (mL): Contrast 2: Total Dose (mL): MEASUREMENTS (Male / Female) Normal Values 2D ECHO LV Diastolic Diameter PLAX 3.8 cm 4.2 - 5.9 / 3.9 - 5.3 cm LV Systolic Diameter PLAX 2.8 cm IVS Diastolic Thickness 0.7 cm 0.6 - 1.0 / 0.6 - 0.9 cm LVPW Diastolic Thickness 0.7 cm 0.6 - 1.0 / 0.6 - 0.9 cm LV Relative Wall Thickness 0.4 M-MODE Aortic Root Diameter MM 2.3 cm LA Systolic Diameter MM 3.1 cm LA Ao Ratio MM 1.4 AV Cusp Separation MM 2.1 cm DOPPLER AV Peak Velocity 109.6 cm/s AV Peak Gradient 4.8 mmHg AV Mean Velocity 76.5 cm/s AV Mean Gradient 2.6 mmHg AV Velocity Time Integral 21.7 cm LVOT Peak Velocity 86.7 cm/s LVOT Peak Gradient 3.0 mmHg LVOT Velocity Time Integral 20.8 cm Mitral E Point Velocity 89.1 cm/s Mitral A Point Velocity 41.1 cm/s Mitral E to A Ratio 2.2 MV Deceleration Time 171.8 ms LV E' Lateral Velocity 12.5 cm/s Mitral E to LV E' Lateral Ratio 7.1 LV E' Septal Velocity 10.9 cm/s Mitral E to LV E' Septal Ratio 8.2 TR Peak Velocity 206.0 cm/s TR Peak Gradient 17.0 mmHg Right Atrial Pressure 15.0 mmHg Pulmonary Artery Systolic Pressu 32.0 mmHg Right Ventricular Systolic Press 32.0 mmHg FINDINGS Left Ventricle Normal Left ventricular size, wall thickness, systolic function with no obvious regional wall motion abnormalities. Left ventricular ejection fraction is estimated at 55-60%. Right Ventricle Normal right ventricular size and function. Right Atrium Normal right atrial size. Left Atrium Normal left atrial size. Mitral Valve Structurally normal mitral valve. No mitral regurgitation. Aortic Valve Trileaflet aortic valve. No aortic valve stenosis or regurgitation. Tricuspid Valve Structurally normal tricuspid valve. Trace tricuspid regurgitation. Pulmonic Valve Structurally normal pulmonic valve. No pulmonic regurgitation. Pericardium No pericardial effusion. Aorta Normal size aortic root. CONCLUSIONS Normal LV size and systolic function. No significant abnormality on the Doppler exam. No pericardial effusion. No pulmonary hypertension Previewed by: Dr. Bertin Vazquez MD (Electronically Signed) Final Date: 13 September 2022 11:25
--- NOTE | 2022-09-13 15:21 | P.PN ---
Subjective Progress Note Date: 09/13/22 CHIEF COMPLAINT: Small bowel obstruction HISTORY OF PRESENT ILLNESS: Patient lying in bed comfortably. Patient did have flatus and 3 small bowel movements yesterday. Her pain and nausea have decreased. Small bowel follow-through show small bowel obstruction within the lower left abdomen distal jejunum lesion suspected. NG tube 400 mL output. Patient does report having blurry vision and is on a scopolamine patch. Cardiology consulted for cardiac risk assessment and has been cleared for surgery. PHYSICAL EXAM: VITAL SIGNS: Reviewed GENERAL: Well-developed in no acute distress. HEENT: No sclera icterus. Extraocular movements grossly intact. Moist buccal mucosa. Head is atraumatic, normocephalic. Hears conversational speech. No nasal drainage. NECK: Supple without lymphadenopathy. CHEST: Non-labored respirations and equal bilateral excursions. CARDIOVASCULAR: Palpable 2+ radial pulses. ABDOMEN: Soft. Mildly distended. Diffuse tenderness MUSCULOSKELETAL: No clubbing or cyanosis. NEUROLOGIC: No focal or lateralizing signs. Cranial nerves II through XII grossly intact. PSYCH: Appropriate affect. Alert and oriented to person, place and time. SKIN: Well perfused. Good skin turgor. ASSESSMENT: 1. Small bowel obstruction 2. History of open cecostomy PLAN: -Patient scheduled for robotic lysis of adhesions tomorrow, 09/14/[address] Diaz -Continue NG tube for decompression -Keep patient nothing by mouth -Scopolamine patch discontinued due to blurry vision. Physician Cna Instructor note has been reviewed by physician. Signing provider agrees with the documented findings, assessment, and plan of care. Objective - Vital Signs Vital signs: Vital Signs Temp 97.7 F 09/13/22 08:00 Pulse 74 09/13/22 08:00 Resp 16 09/13/22 08:00 BP 127/84 09/13/22 08:00 Pulse Ox 98 09/13/22 08:00 FiO2 Intake & Output 09/12/22 09/13/22 09/13/22 18:59 06:59 18:59 Output Total 550 Balance -550 Output: Gastric Drainage 550 Other: Voiding Method Toilet Toilet # Voids 2 2 # Bowel Movements 2 - Labs CBC & Chem 7: 09/13/22 06:02 09/13/22 06:02 Labs: Abnormal Lab Results - Last 24 Hours (Table) 09/13/22 09/13/22 Range/Units 06:02 06:02 Hct 37.0 L (37.2-46.3) % Potassium 3.3 L (3.5-5.5) mmol/L Carbon Dioxide 17.0 L (21.6-31.8) mmol/L Anion Gap 15.00 H (4.00-12.00) mmol/L Glucose 68 L (70-110) mg/dL Total Protein 5.3 L (6.2-8.2) d/dL Albumin 3.6 L (3.8-4.9) d/dL
--- NOTE | 2022-09-13 20:17 | PN ---
PROGRESS NOTE DATE OF SERVICE: 09/13/2022 SUBJECTIVE: This 41-year-old woman was admitted with abdominal distention and features of small bowel obstruction. Dr. Diaz is planning surgery. OBJECTIVE: VITAL SIGNS: Pulse is 68, blood pressure 120/76, respirations 15. CHEST: Clear to auscultation. CARDIOVASCULAR: S1, S2. ABDOMEN: Soft, minimal distention. LABORATORY DATA: Reviewed. ASSESSMENT: 1. Acute small bowel obstruction. 2. Hypovolemic hyponatremia. 3. Hypertension. 4. Ventricular tachycardia history. RECOMMENDATIONS: Recommend to continue current management and continue symptomatic treatment. Closely follow with Cardiology. Otherwise, supplement potassium and check Mag as well. Closely monitor. Further recommendations to follow. MMODL / IJN: [id number] /
[2022-09-13] MEDS: METOPROLOL SUCCINATE (ER) 25 MG TAB.ER.24H PO SCH (21:08)
[2022-09-13] MEDS: LORazepam 2 MG/ML INJ IV PRN (21:31)
[2022-09-14] MEDS: 0.9% NACL WITH KCL 40 MEQ/L 1,000 ML IV SCH ×2 (06:14→21:09)
[2022-09-14] MEDS: ENOXAPARIN 40 MG/0.4 ML SYRINGE SQ SCH ×2 (08:15→10:57)
[2022-09-14] MEDS: PANTOPRAZOLE 40 MG/10 ML VIAL IVP SCH ×2 (08:17→21:09)
[2022-09-14] MEDS: METOPROLOL SUCCINATE (ER) 50 MG TAB.ER.24H PO SCH (08:17)
[2022-09-14] MEDS: TOPIRAMATE 25 MG TAB PO SCH ×2 (08:17→21:08)
[2022-09-14] MEDS ORDERED: LACTATED RINGERS 1,000 ML IV ONE ×2 (09:50→13:05)
[2022-09-14] MEDS ORDERED: ONDANSETRON 4 MG/2 ML VIAL IVP ONE (10:02)
[2022-09-14] MEDS ORDERED: DEXAMETHASONE SOD PHOSPHATE 4 MG/ML 1 ML VIAL IVP ONE (10:02)
[2022-09-14] MEDS ORDERED: MIDAZOLAM 2 MG/2 ML VIAL IVP ONE (10:58)
[2022-09-14] MEDS ORDERED: SODIUM CHLORIDE 0.9% 100 ML BAG ONE (11:29)
[2022-09-14] MEDS ORDERED: SUCCINYLCHOLINE CHLORIDE 200 MG/10 ML VIAL IV ONE (11:29)
[2022-09-14] MEDS ORDERED: KETOROLAC 15 MG/ML 1 ML VIAL ONE (11:29)
[2022-09-14] MEDS ORDERED: GLYCOPYRROLATE 0.2 MG/ML 2 ML VIAL ONE (11:29)
[2022-09-14] MEDS ORDERED: fentaNYL (PF) 50 MCG/ML 2 ML AMP ONE (11:29)
[2022-09-14] MEDS ORDERED: ceFAZolin 1,000 MG VIAL ONE (11:29)
[2022-09-14] MEDS ORDERED: ROCURONIUM 10 MG/ML (5 ML VIAL) IV ONE (11:29)
[2022-09-14] MEDS ORDERED: NEOSTIGMINE 1 MG/ML 10 ML VIAL ONE (11:29)
[2022-09-14] MEDS ORDERED: PROPOFOL 10 MG/ML 20 ML VIAL IV ONE (11:29)
[2022-09-14] MEDS ORDERED: LIDOCAINE 2% INJ 20 MG/ML (2 ML VIAL) ONE (11:29)
[2022-09-14] MEDS ORDERED: SODIUM CHLORIDE 0.9% 50 ML with ceFAZolin 2,000 MG IV ONE ×2 (11:34)
--- NOTE | 2022-09-14 11:36 | P.PN ---
Subjective Progress Note Date: 09/14/22 CHIEF COMPLAINT: Abdominal pain HISTORY OF PRESENT ILLNESS: The patient is a 41-year-old female presents with over 1 week history of abdominal pain. Initial diagnostic studies were performed. She reports passing flatus and having bowel movements of the barium enema. She'll reports generalized abdominal pain. ROS: Has nausea and vomiting. No fevers or chills. No new chest pain. PHYSICAL EXAM: VITAL SIGNS: Reviewed CONSTITUTIONAL: Well developed and in no acute distress. EYES: Conjuctivae without sclera icterus. Extraocular movements grossly intact. HEAD, EARS, NOSE, THROAT: Moist buccal mucosa. Head is atraumatic, normocephalic. Hears conversational speech. No nasal drainage. RESPIRATORY: Non-labored respirations and equal bilateral excursions. CARDIOVASCULAR: Palpable 2+ radial pulses. ABDOMEN: Diffusely tender, worse right lower quadrant. MUSCULOSKELETAL: No gross deformity of the lower extremities noted. No clubbing. No cyanosis. SKIN: Good skin turgor. Well perfused. NEUROLOGIC: Cranial nerves II through XII grossly intact. No focal or lateralizing signs. PSYCH: Appropriate affect. Alert and oriented to person, place and time. CLINICAL LABS: Reviewed. STUDIES: Small bowel follow-through with barium independently reviewed demonstrates blockage of the lower back and abdomen. Results were also discussed and shared with radiologist with findings consistent with bowel obstruction. ASSESSMENT: 1. Small bowel obstruction due to adhesions PLAN: 1. She has confirmed bowel obstruction with transition point of the lower mid abdomen and still has abdominal pain despite conservative management. Recommend lysis of adhesions, laparoscopic. Possibility of open technique described 2. He has personal history of V. tach and as a result elevated risk for cardiac event Objective - Vital Signs Vital signs: Vital Signs Temp 98.0 F 09/14/22 10:08 Pulse 61 09/14/22 11:13 Resp 16 09/14/22 11:13 BP 134/91 09/14/22 11:13 Pulse Ox 100 09/14/22 11:13 FiO2 Intake & Output 09/13/22 09/14/22 09/14/22 18:59 06:59 18:59 Other: Voiding Method Toilet Toilet # Voids 1 1 - Labs CBC & Chem 7: 09/13/22 06:02 09/13/22 06:02
[2022-09-14] MEDS ORDERED: BUPIVACAINE (PF) 0.25% 30 ML VIAL SQ ONE ×2 (11:55→12:10)
--- NOTE | 2022-09-14 11:59 | P.PN ---
Subjective Progress Note Date: 09/14/22 History of present illness: This is a 41-year-old female patient of Dr. Almendarez with past medical history of wide complex tachycardia, atrial tachycardia, superior mesenteric thrombosis, postural orthostatic hypotension, hypertension. She also has history of previous ruptured appendicitis with open cecostomy. Patient presented to the hospital due to abdominal pain, nausea and vomiting and diagnosed with a small bowel obstruction with plan for robotic lysis of adhesions on 09/14. We have been asked to see the patient for cardiac risk assessment. Patient denies having any chest pain or shortness of breath, no palpitations, no lightheadedness or dizziness. In 2019, patient had recurrent palpitations and dizzy spells and found to have nonsustained wide complex tachycardia on event monitor. Patient underwent EP study at that time revealed normal sinus node function with no evidence of atrial or ventricular arrhythmias. Rate related right bundle branch block appearance was noted. This is consistent with wide complex tachycardia that she has had on the monitor. Most likely patient had a atrial tachycardia with aberrancy nonsustained. Ventricular tachycardia was ruled out at that time and patient was to be maintained on low dose beta blockers. Telemetry sinus rhythm with no episodes of tachycardia. Chest x-ray: 09/12 feeding tube terminates in the stomach. Lungs are unremarkab CBC is unremarkable. His sodium 130, potassium 3.3 and replaced, BUN 9.3 creatinine 0.7. Blood sugar 68. Liver function tests normal. Magnesium 1.8. Home cardiac medications: Aspirin 81 mg daily, Toprol-XL 50 mg daily and 25 mg at bedtime Echocardiogram 12/2019 revealed EF of 60%, estimated RVSP 23 mmHg Exercise tolerance test 2020 no evidence of ischemia Cardiac MRI: Structurally normal heart 09/14 Patient is seen today in follow-up. She is scheduled for lysis of adhesions today. Echocardiogram revealed normal LV size and systolic function. No significant abnormality. No pulmonary hypertension. No pericardial effusion. Echocardiogram results reviewed with the patient. Repeat blood work reveals potassium 3.3, creatinine 0.7. WBC 8.4, hemoglobin 12.4. Physical examination: Gen: This is a 41-year-old female patient resting in bed and appears to be comfortable. VS: reviewed HEENT: Head is atraumatic, normocephalic. Pupils equal, round. Sclerae is anicteric. NG tube in place NECK: Supple. No JVD. LUNGS: Clear to auscultation. No wheezes or rhonchi. No intercostal retractions. HEART: Regular rate and rhythm. No murmur. EXTREMITIES: No pedal edema. NEUROLOGICAL: Patient is awake, alert and oriented x3. Assessment: Small bowel obstruction scheduled for lysis of adhesions on 09/14 History of atrial tachycardia Superior mesenteric thrombosis Postural orthostatic hypotension Hypertension Plan: Continue patient's home cardiac medications Patient is cleared from cardiology for surgery. Maintain patient on beta evelio as prescribed. Cardiology will sign off this case and follow on an as-needed basis. Please reconsult for any new concerns. Patient may follow-up in the office in one to 2 weeks. Nurse practitioner note has been reviewed, I agree with documented findings and plan of care. Patient was seen and examined. Objective - Vital Signs Vital signs: Vital Signs Temp 98.8 F 09/14/22 07:54 Pulse 81 09/14/22 07:54 Resp 16 09/14/22 07:54 BP 134/88 09/14/22 07:54 Pulse Ox 97 09/14/22 07:54 FiO2 Intake & Output 09/13/22 09/14/22 09/14/22 18:59 06:59 18:59 Other: Voiding Method Toilet # Voids 1 1 - Labs CBC & Chem 7: 09/13/22 06:02 09/13/22 06:02 Labs: Abnormal Lab Results - Last 24 Hours (Table) 09/13/22 09/13/22 Range/Units 06:02 06:02 Hct 37.0 L (37.2-46.3) % Potassium 3.3 L (3.5-5.5) mmol/L Carbon Dioxide 17.0 L (21.6-31.8) mmol/L Anion Gap 15.00 H (4.00-12.00) mmol/L Glucose 68 L (70-110) mg/dL Total Protein 5.3 L (6.2-8.2) d/dL Albumin 3.6 L (3.8-4.9) d/dL
[2022-09-14 13:41] LABS: BUN/Creat Ratio 10.83 Ratio (12.00-20.00); Blood Urea Nitrogen 6.5 mg/dL (9.0-27.0); Calcium 9.4 mg/dL (8.7-10.3); Carbon Dioxide 16.2 mmol/L (21.6-31.8); Chloride 108 mmol/L (96-109); Glucose 66 mg/dL (70-110); Potassium 3.4 mmol/L (3.5-5.5); Sodium 140 mmol/L (135-145)
--- NOTE | 2022-09-14 14:00 | P.PN ---
Subjective Progress Note Date: 09/14/22 This is a pleasant 41-year-old female who was recently admitted with abdominal pain and distention found to have small bowel obstruction currently nothing by mouth with an NG tube and scheduled to undergo surgical intervention with Dr. Jackson today. Patient has been seen and evaluated by cardiology for surgical clearance. Will await surgical report. Patient is afebrile with no reported chest pains or shortness of breath. Will follow-up on resumption of diet per surgical recommendations. Review of systems: Constitutional: No reports of fatigue, fever, or chills Cardiovascular: No reports of chest pain or palpitations Respiratory: No reports of shortness of breath or cough GI: reports of nausea, no reports of vomiting, reports abdominal discomfort : No reports of dysuria or retention Neurovascular: reports of generalized weakness All medications have been reviewed PHYSICAL EXAMINATION: GENERAL: The patient is alert and oriented x4, Well developed, well nourished. HEENT: Pupils are round and equally reacting to light. EOMI. no scleral icterus. No conjunctival pallor. Normocephalic, atraumatic. No pharyngeal erythema. No thyromegaly. CARDIOVASCULAR: S1 and S2 muffled PULMONARY: diminished breath sounds bilaterally with no wheezing or rhonchi noted. ABDOMEN: soft. Nontender on exam. non-distended, normoactive bowel sounds. No palpable organomegaly. MUSCULOSKELETAL: No joint swelling or deformity. EXTREMITIES: No cyanosis, clubbing, or pedal edema. NEUROLOGICAL: Gross neurological examination did not reveal any focal deficits. Diffuse weakness SKIN: No rashes. Assessment: Abdominal pain with acute small bowel obstruction Hypovolemic hyponatremia, improved Hypokalemia Hypertension history Ventricular tachycardia history GI prophylaxis DVT prophylaxis Full code Plan: Patient continue on gentle IV hydration of normal saline with potassium added a nd follow-up labs pending General surgery following with plans for surgical intervention for small bowel obstruction today and patient continues with NG tube and nothing by mouth Will await surgical report Follow-up on repeat labs in a.m. Will add incentive spirometer and encouraged increased activity as tolerated The impression and plan of care has been dictated by Miley Brito, nurse practitioner as directed. Dr. Philip MD I have performed a history and examination and MDM of this patient, discussed the same with the dictator, and agree with the dictator's assessment and plan as written ,documented as a scribe. Based on total visit time, I have performed more than 50% of the visit. Any additional findings or plans will be noted. Objective - Vital Signs Vital signs: Vital Signs Temp 97.9 F 09/14/22 13:17 Pulse 110 H 09/14/22 13:17 Resp 12 09/14/22 13:17 BP 140/98 09/14/22 13:17 Pulse Ox 100 09/14/22 13:17 FiO2 Intake & Output 09/13/22 09/14/22 09/14/22 18:59 06:59 18:59 Intake Total 1050 Output Total 5 Balance 1045 Intake: IV 1050 Output: Estimated Blood Loss 5 Other: Voiding Method Toilet Toilet # Voids 1 1 - Labs CBC & Chem 7: 09/13/22 06:02 09/14/22 07:37
[2022-09-14 14:23] LABS: HGB 13.1 d/dL (12.0-15.0); MCH 29.4 pg (27.0-32.0); MCHC 33.6 d/dL (32.0-37.0); MCV 87.4 FL (80.0-97.0); Mean Platelet Volume 10.9 FL (9.5-12.2); NRBC Per 100 WBC 0 X 10*3/uL (0.00-0.01); Platelet Count 220 X 10*3/uL (140-440); RBC 4.46 X 10*6/uL (4.10-5.20); RDW 13.9 % (11.5-14.5); WBC 7.47 X 10*3/uL (4.50-10.00)
[2022-09-14] MEDS: MORPHINE SULFATE 4 MG/ML SYRINGE IV PRN (14:27)
[2022-09-14 16:21] LABS: Basophils # (A) 0.03 X 10*3/uL (0.00-0.10); Basophils % (A) 0.4 %; Eosinophils # (A) 0.09 X 10*3/uL (0.04-0.35); Eosinophils % (A) 1.2 %; Lymphocytes % (A) 20.1 %; Monocytes # (A) 0.66 X 10*3/uL (0.20-1.00); Monocytes % (A) 8.8 %; Neutrophils # (A) 5.13 X 10*3/uL (1.80-7.70); Neutrophils % (A) 68.7 %
[2022-09-14] MEDS: ACETAMINOPHEN TAB 500 MG TAB PO SCH ×2 (17:29→21:08)
[2022-09-14] MEDS: KETOROLAC 15 MG/ML 1 ML VIAL IVP SCH ×2 (17:29→21:09)
[2022-09-14] MEDS: METOPROLOL SUCCINATE (ER) 25 MG TAB.ER.24H PO SCH (21:08)
[2022-09-14] MEDS: LORazepam 2 MG/ML INJ IV PRN (21:20)
[2022-09-15] MEDS ORDERED: HYDROmorphone 0.5 MG/0.5 ML SYRINGE IVP PRN (00:48)
[2022-09-15] MEDS ORDERED: LACTATED RINGERS 1,000 ML IV SCH ×2 (00:48)
[2022-09-15] MEDS: KETOROLAC 15 MG/ML 1 ML VIAL IVP SCH ×4 (06:31→23:35)
[2022-09-15] MEDS: ACETAMINOPHEN TAB 500 MG TAB PO SCH ×4 (06:31→23:34)
[2022-09-15] MEDS: ENOXAPARIN 40 MG/0.4 ML SYRINGE SQ SCH (08:36)
[2022-09-15] MEDS: TOPIRAMATE 25 MG TAB PO SCH ×2 (08:37→20:46)
[2022-09-15] MEDS: METOPROLOL SUCCINATE (ER) 50 MG TAB.ER.24H PO SCH (08:37)
[2022-09-15] MEDS: PANTOPRAZOLE 40 MG/10 ML VIAL IVP SCH ×2 (08:37→20:46)
[2022-09-15] MEDS: LORazepam 2 MG/ML INJ IV PRN ×2 (08:37→23:35)
[2022-09-15] MEDS: 0.9% NACL WITH KCL 40 MEQ/L 1,000 ML IV SCH ×2 (09:32→23:42)
[2022-09-15 13:07] LABS: African American GFR (CKD) >90 (>60 ml/min/1.73 sqM); Anion Gap 10 mmol/L; Blood Urea Nitrogen 6 mg/dL (7-17); Calcium 9.3 mg/dL (8.4-10.2); Carbon Dioxide 19 mmol/L (22-30); Chloride 107 mmol/L (98-107); Glucose 126 mg/dL (74-99); Non-African American GFR(CKD) >90 (>60 ml/min/1.73 sqM); Potassium 3.5 mmol/L (3.5-5.1); Sodium 136 mmol/L (137-145)
--- NOTE | 2022-09-15 15:13 | P.PN ---
Subjective Progress Note Date: 09/15/22 CHIEF COMPLAINT: Small bowel obstruction HISTORY OF PRESENT ILLNESS: Patient is postop day #1 status post robotic- assisted laparoscopic lysis of adhesions for small bowel obstruction. Patient sitting up in bed. She tolerated regular diet. She does report only eating a small amount. She denies any nausea or vomiting. Her pain is controlled. She reports pain is located mostly on the sides bilaterally. She denies any flatus or bowel movement. She has been up and ambulating. Denies any difficulty urinating. Afebrile. k 3.5 PHYSICAL EXAM: VITAL SIGNS: Reviewed GENERAL: Well-developed in no acute distress. HEENT: No sclera icterus. Extraocular movements grossly intact. Moist buccal mucosa. Head is atraumatic, normocephalic. Hears conversational speech. No nasal drainage. NECK: Supple without lymphadenopathy. CHEST: Non-labored respirations and equal bilateral excursions. CARDIOVASCULAR: Palpable 2+ radial pulses. ABDOMEN: Soft. Mildly distended. Minimal tenderness on the right and left sides. Incision sites clean dry and intact. MUSCULOSKELETAL: No clubbing or cyanosis. NEUROLOGIC: No focal or lateralizing signs. Cranial nerves II through XII grossly intact. PSYCH: Appropriate affect. Alert and oriented to person, place and time. SKIN: Well perfused. Good skin turgor. ASSESSMENT: 1. Small bowel obstruction 2. History of open cecostomy PLAN: -Patient can be discharged from surgical standpoint -Continue regular diet -Continue pain management -Add simethicone gas drops -Encouraged patient to ambulate -Encouraged patient to use incentive spirometer -Lovenox DVT prophylaxis Physician President And Chief Executive Officer note has been reviewed by physician. Signing provider agrees with the documented findings, assessment, and plan of care. Objective - Vital Signs Vital signs: Vital Signs Temp 98.0 F 09/15/22 07:55 Pulse 70 09/15/22 07:55 Resp 16 09/15/22 07:55 BP 128/77 09/15/22 07:55 Pulse Ox 99 09/15/22 07:55 FiO2 Intake & Output 09/14/22 09/15/22 09/15/22 18:59 06:59 18:59 Intake Total 1150 Output Total 5 Balance 1145 Intake: IV 1150 Output: Estimated Blood Loss 5 Other: Voiding Method Toilet Toilet # Voids 4 2 - Labs CBC & Chem 7: 09/14/22 07:37 09/15/22 12:29 Labs: Abnormal Lab Results - Last 24 Hours (Table) 09/14/22 Range/Units 07:37 Potassium 3.4 L (3.5-5.5) mmol/L Carbon Dioxide 16.2 L (21.6-31.8) mmol/L Anion Gap 15.80 H (4.00-12.00) mmol/L BUN 6.5 L (9.0-27.0) mg/dL BUN/Creatinine Ratio 10.83 L (12.00-20.00) Ratio Glucose 66 L (70-110) mg/dL
--- NOTE | 2022-09-15 16:11 | P.PN ---
Subjective Progress Note Date: 09/15/22 This is a pleasant 41-year-old female who was recently admitted with abdominal pain and distention found to have small bowel obstruction currently nothing by mouth with an NG tube and scheduled to undergo surgical intervention with Dr. Jackson today. Patient has been seen and evaluated by cardiology for surgical clearance. Will await surgical report. Patient is afebrile with no reported chest pains or shortness of breath. Will follow-up on resumption of diet per surgical recommendations. 09/15/2022 Patient is seen and evaluated in follow-up status post laparoscopic lysis of adhesions for small bowel obstruction with Dr. Jackson yesterday. Patient was maintained on clear liquids and diet is being advanced. Surgery evaluated the patient recommending possible discharge later today if tolerating diet and having bowel activity. Patient has been encouraged to increased ambulation and frequent walking in the halls. Patient currently continued on Lovenox injections for DVT prophylaxis and will continue in the outpatient setting. Discussed with patient along with nursing staff about educating on self injections. Patient does have history of previous DVT and will have patient fol low-up with hematology outpatient for further studies. Patient is currently afebrile report some abdominal discomfort and reports no nausea or vomiting. Slowly increasing intake although not much of an appetite as of yet. Patient encouraged to continue with incentive spirometer at least 10 times every hour while awake. Review of systems: Constitutional: No reports of fatigue, fever, or chills Cardiovascular: No reports of chest pain or palpitations Respiratory: No reports of shortness of breath or cough GI: No reports of nausea, no reports of vomiting, reports abdominal discomfort at the sites although slightly improved : No reports of dysuria or retention Neurovascular: reports of generalized weakness All medications have been reviewed PHYSICAL EXAMINATION: GENERAL: The patient is alert and oriented x4, Well developed, thin built HEENT: Pupils are round and equally reacting to light. EOMI. no scleral icterus. No conjunctival pallor. Normocephalic, atraumatic. No pharyngeal erythema. No thyromegaly. CARDIOVASCULAR: S1 and S2 muffled PULMONARY: diminished breath sounds bilaterally with no wheezing or rhonchi noted. ABDOMEN: soft. mildly tender on exam. non-distended, normoactive bowel sounds. No palpable organomegaly. MUSCULOSKELETAL: No joint swelling or deformity. EXTREMITIES: No cyanosis, clubbing, or pedal edema. NEUROLOGICAL: Gross neurological examination did not reveal any focal deficits. Diffuse weakness SKIN: No rashes. Assessment: Abdominal pain with acute small bowel obstruction status post laparoscopic lysis of adhesions Hypovolemic hyponatremia, improved Hypokalemia, improved Hypertension history Ventricular tachycardia history GI prophylaxis DVT prophylaxis Full code Plan: Patient continue on gentle IV hydration of normal saline with potassium added follow-up labs with a potassium of 3.5 Patient is status post laparoscopic lysis of adhesions for small bowel obstruction and diet being advanced to regular diet as patient was tolerating clear liquids. Patient reports no bowel activity as of yet and not passing gas Encouraged increased activity as tolerated and frequent walking the halls Per surgery patient is cleared for discharge later today if tolerating diet and bowel activity Patient lives alone and feels uncomfortable going home and will monitor overnight with discharge in the a.m. The impression and plan of care has been dictated by Miley Brito, nurse practitioner as directed. Dr. Philip MD I have performed a history and examination and MDM of this patient, discussed the same with the dictator, and agree with the dictator's assessment and plan as written ,documented as a scribe. Based on total visit time, I have performed more than 50% of the visit. Any additional findings or plans will be noted. Objective - Vital Signs Vital signs: Vital Signs Temp 98.0 F 09/15/22 07:55 Pulse 70 09/15/22 07:55 Resp 16 09/15/22 07:55 BP 128/77 09/15/22 07:55 Pulse Ox 99 09/15/22 07:55 FiO2 Intake & Output 09/14/22 09/15/22 09/15/22 18:59 06:59 18:59 Intake Total 1150 Output Total 5 Balance 1145 Intake: IV 1150 Output: Estimated Blood Loss 5 Other: Voiding Method Toilet Toilet # Voids 4 2 - Labs CBC & Chem 7: 09/14/22 07:37 09/15/22 12:29 Labs: Abnormal Lab Results - Last 24 Hours (Table) 09/14/22 Range/Units 07:37 Potassium 3.4 L (3.5-5.5) mmol/L Carbon Dioxide 16.2 L (21.6-31.8) mmol/L Anion Gap 15.80 H (4.00-12.00) mmol/L BUN 6.5 L (9.0-27.0) mg/dL BUN/Creatinine Ratio 10.83 L (12.00-20.00) Ratio Glucose 66 L (70-110) mg/dL
[2022-09-15] MEDS ORDERED: POTASSIUM CHLORIDE ER 20 MEQ TAB.ER PO STA (16:12)
[2022-09-15] MEDS: SIMETHICONE 40 MG/0.6 ML DROPS 2,000 MG/30 ML BOTTLE PO SCH ×3 (16:50→20:47)
[2022-09-15 17:21] LABS: Potassium 3.4 mmol/L (3.5-5.1)
[2022-09-15] MEDS: METOPROLOL SUCCINATE (ER) 25 MG TAB.ER.24H PO SCH (20:46)
[2022-09-16 01:43] VITALS: RESP 16
[2022-09-16] MEDS: ACETAMINOPHEN TAB 500 MG TAB PO SCH (06:35)
[2022-09-16] MEDS: KETOROLAC 15 MG/ML 1 ML VIAL IVP SCH (06:35)
[2022-09-16] MEDS: ENOXAPARIN 40 MG/0.4 ML SYRINGE SQ SCH (09:44)
[2022-09-16] MEDS: PANTOPRAZOLE 40 MG/10 ML VIAL IVP SCH (09:44)
[2022-09-16] MEDS: SIMETHICONE 40 MG/0.6 ML DROPS 2,000 MG/30 ML BOTTLE PO SCH (09:44)
[2022-09-16] MEDS: TOPIRAMATE 25 MG TAB PO SCH (09:44)
[2022-09-16] MEDS: METOPROLOL SUCCINATE (ER) 50 MG TAB.ER.24H PO SCH (09:44)
[2022-09-16 12:06] VITALS: BP 142/90; PULSE 62; TEMP 98.2
--- NOTE | 2022-09-16 12:26 | P.PN ---
Subjective Progress Note Date: 09/16/22 CHIEF COMPLAINT: Small bowel obstruction HISTORY OF PRESENT ILLNESS: Patient is postop day #2 status post robotic- assisted laparoscopic lysis of adhesions for small bowel obstruction. She has been up and ambulating. She is tolerating diet. She is having flatus. She did have a small bowel movement with small amount of blood. This can be an expected finding. Her pain is controlled. She's afebrile. PHYSICAL EXAM: VITAL SIGNS: Reviewed GENERAL: Well-developed in no acute distress. HEENT: No sclera icterus. Extraocular movements grossly intact. Moist buccal mucosa. Head is atraumatic, normocephalic. Hears conversational speech. No nasal drainage. NECK: Supple without lymphadenopathy. CHEST: Non-labored respirations and equal bilateral excursions. CARDIOVASCULAR: Palpable 2+ radial pulses. ABDOMEN: Soft. Mildly distended. Incision sites clean dry and intact. MUSCULOSKELETAL: No clubbing or cyanosis. NEUROLOGIC: No focal or lateralizing signs. Cranial nerves II through XII grossly intact. PSYCH: Appropriate affect. Alert and oriented to person, place and time. SKIN: Well perfused. Good skin turgor. ASSESSMENT: 1. Small bowel obstruction 2. History of open cecostomy PLAN: -Patient can be discharged from surgical standpoint -Continue regular diet -Continue pain management -Encouraged patient to ambulate -Encouraged patient to use incentive spirometer -Lovenox DVT prophylaxis Physician Dub Room Engineer note has been reviewed by physician. Signing provider agrees with the documented findings, assessment, and plan of care. Objective - Vital Signs Vital signs: Vital Signs Temp 98.2 F 09/16/22 08:00 Pulse 62 09/16/22 08:00 Resp 16 09/16/22 08:00 BP 142/90 09/16/22 08:00 Pulse Ox 98 09/16/22 08:00 FiO2 Intake & Output 09/15/22 09/16/22 09/16/22 18:59 06:59 18:59 Intake Total 118 Balance 118 Intake: Oral 118 Other: Voiding Method Toilet # Voids 1 2 - Labs CBC & Chem 7: 09/14/22 07:37 09/15/22 16:36 Labs: Abnormal Lab Results - Last 24 Hours (Table) 09/15/22 09/15/22 Range/Units 12:29 16:36 Sodium 136 L (137-145) mmol/L Potassium 3.4 L (3.5-5.1) mmol/L Carbon Dioxide 19 L 20 L (22-30) mmol/L BUN 6 L (7-17) mg/dL Glucose 126 H (74-99) mg/dL
[2022-09-16 13:01] LABS: Basophils # (A) 0.02 X 10*3/uL (0.00-0.10); Basophils % (A) 0.4 %; Eosinophils # (A) 0.05 X 10*3/uL (0.04-0.35); HCT 33.9 % (37.2-46.3); HGB 11.1 d/dL (12.0-15.0); Lymphocytes # (A) 1.69 X 10*3/uL (0.90-5.00); Lymphocytes % (A) 33.5 %; MCH 28.7 pg (27.0-32.0); MCHC 32.7 d/dL (32.0-37.0); MCV 87.6 FL (80.0-97.0); Mean Platelet Volume 10.9 FL (9.5-12.2); Monocytes # (A) 0.47 X 10*3/uL (0.20-1.00); Monocytes % (A) 9.3 %; NRBC Per 100 WBC 0 X 10*3/uL (0.00-0.01); Neutrophils # (A) 2.78 X 10*3/uL (1.80-7.70); Neutrophils % (A) 55.2 %; Platelet Count 222 X 10*3/uL (140-440); RBC 3.87 X 10*6/uL (4.10-5.20); RDW 14.2 % (11.5-14.5); WBC 5.04 X 10*3/uL (4.50-10.00)
[2022-09-16 14:18] LABS: BUN/Creat Ratio 10.29 Ratio (12.00-20.00); Blood Urea Nitrogen 7.2 mg/dL (9.0-27.0); Calcium 9.4 mg/dL (8.7-10.3); Carbon Dioxide 21.3 mmol/L (21.6-31.8); Chloride 108 mmol/L (96-109); Glucose 116 mg/dL (70-110); Potassium 3.9 mmol/L (3.5-5.5); Sodium 139 mmol/L (135-145)
--- NOTE | 2022-09-17 09:58 | P.OP ---
Date of Procedure: 09/14/22 Description of Procedure: SURGEON: JAH CARPENTER MD PREOPERATIVE DIAGNOSES: 1. Small bowel obstruction 2. Asthma 3. Gastroesophageal reflux disease 4. Hypertensive heart disease 5. Migraines 6. Ventricular tachycardia 7. Motion sickness 8. Personal history of peritonitis due to ruptured appendix POSTOPERATIVE DIAGNOSES: 1. Small bowel obstruction due to adhesions 1. Small bowel obstruction 2. Asthma 3. Gastroesophageal reflux disease 4. Hypertensive heart disease 5. Migraines 6. Ventricular tachycardia 7. Motion sickness 8. Personal history of peritonitis due to ruptured appendix OPERATION: 1. Robotic-assisted da Julio Xi laparoscopic extensive lysis of adhesions, over 1 hour COMPLICATIONS: None. Anesthesia: GETA, local Estimated Blood Loss (ml): 5 Pathology: None. OPERATIVE FINDINGS: 1. 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 Severe interloop adhesions resected without enterotomies 3. Small bowel obstruction decompressed INDICATIONS: The patient is a 41-year-old female presents with bowel obstruction. Small bowel follow-through performed demonstrated area of obstruction. Surgical intervention with lysis of adhesions, possible bowel resection were described. Informed consent was obtained. Robotic assisted laparoscopic approach was described. Benefits and risks of the procedure including but not limited to bleeding, infection, injury to the small bowel was described. Informed consent was obtained. DESCRIPTION OF PROCEDURE: Patient was brought to the operating room, placed in supine position. After general induction, the abdomen had been prepped and draped in standard sterile fashion. The robotic da Julio XI system was primed. After a timeout protocol was performed, the patient had been prepped and draped in standard sterile fashion. The robot was docked along the left lateral abdomen. The patient was repositioned in Trendelenburg position of 7-degrees. A 5 mm 0 degrees laparoscopic trocar entry was performed along the left upper quadrant. No injury to the bowel, viscera or mesentery was identified. The abdomen was insufflated to 15 mmHg pressure. Diagnostic laparoscopy demonstrated small bowel obstruction with adhesions of the left lower quadrant and right lower quadrant. Abdominal wall to small bowel adhesions were identified. Next, three 8 mm robotic ports were placed along left lateral abdomen. The 5 mm trocar was exchanged for a 8 mm trocar. Please note that the ports were placed at least 9 cm away from the target anatomy. Instruments were interchanged by the graduate assistant athletic trainer including graspers, and scissors with cautery. I had sat at the console. The small bowel was investigated from the terminal ileum proximally to the ligament of Treitz. Extensive lysis of adhesions were identified involving the small bowel from her prior appendectomy site. Severe interloop adhesions also confirmed of the right lower quadrant also lysed. Separately, abdominal wall to small bowel adhesions were found in the left lower quadrant lysed using scissor s. All adhesions were lysed from the ligament of Treitz to the terminal ileum. No enterotomies had occurred. The robot was undocked. All pneumoperitoneum and instruments were evacuated from the abdominal cavity. The incisions were cleansed using dilute measuring approximately an reapproximated using 4-0 Monocryl in an interrupted subcuticular fashion. Please note along the trocar sites, local anesthetic was placed as a field block prior to insertion of all instruments. Liquid glue was applied to the skin. At the end of the procedure needle, sponge, and instrument count had been verified correct by the extrusion technician. The patient was transferred to postanesthesia care unit in stable condition.
--- NOTE | 2022-09-20 16:03 | P.DS ---
Providers Date of admission: 09/10/22 03:20 Expected date of discharge: 09/15/22 Attending physician: Huan Palacios Consults: 09/10/22 03:19 Consult Physician Urgent Consulting Provider: Ami Diaz Consult Reason/Comments: small bowel obstruction Do you want consulting provider notified?: Yes 09/13/22 08:47 Consult Physician Routine Consulting Provider: Munir Harvey Consult Reason/Comments: cardiac risk assessment Do you want consulting provider notified?: Yes Primary care physician: Arthur Burns Hospital Course: Final diagnosis Abdominal pain with acute small bowel obstruction status post laparoscopic lysis of adhesions Hypovolemic hyponatremia, improved Hypokalemia, improved Hypertension history Ventricular tachycardia history GI prophylaxis DVT prophylaxis Full code Discharge disposition Patient is being discharged in a stable condition with guarded prognosis to home. Patient will follow-up with Dr. uBrns in the outpatient setting upon discharge. Patient is to continue with current diet and close outpatient follow-up with general surgery as scheduled. Patient also to follow-up with hematology outpatient. Total time taken is greater than 35 minutes. Hospital course This is a 41-year-old female who was recently admitted with abdominal pain found to have an acute small bowel obstruction evaluated by general surgery and is status post laparoscopic lysis of adhesions. Patient reports the passing gas and urinating with no difficulties all no no bowel movement as of yet. Patient is tolerating diet and diet has been advanced per surgery. Patient instructed to follow-up with surgery in the outpatient setting. Encouraged increased activity as tolerated and close outpatient follow-up with primary care provider as well as hematology. Patient will continue on subcutaneous Lovenox daily for the next few days as patient has history of DVTs in the past. Patient has been cleared by consultations for discharge. Please refer to consultation notes for further HPI. Currently no reports of chest pain, shortness of breath, or palpitations. Patient is afebrile. No reports of nausea or vomiting and patient is tolerating diet. Patient will be discharged home today. Guarded prognosis Physical exam: Gen: This is a 41-year-old female who is awake, alert and oriented 3, well- developed, well-nourished HEENT: Head is atraumatic, normocephalic. Pupils equal, round. Sclerae is anicteric. NECK: Supple. No JVD. No lymphadenopathy. No thyromegaly. LUNGS: Clear to auscultation. No wheezes or rhonchi. No intercostal retr actions. HEART: Regular rate and rhythm. No murmur. ABDOMEN: Soft. Bowel sounds are present. No masses. No tenderness. EXTREMITIES: No pedal edema. No calf tenderness. NEUROLOGICAL: Patient is awake, alert and oriented x3. Cranial nerves 2 through 12 are grossly intact. Please refer to medication reconciliation sheet for a list of medications. The impression and plan of care has been dictated by Miley Brito, Nurse Practitioner as directed. Dr. Philip MD I have performed a history and examination and MDM of this patient, discussed the same with the dictator, and agree with the dictator's assessment and plan as written ,documented as a scribe. Based on total visit time, I have performed more than 50% of the visit. Patient Condition at Discharge: Fair Plan - Discharge Summary Discharge Rx Participant: No New Discharge Prescriptions: New Simethicone 40 mg/0.6 ml Drops [Mylicon Drops] 40 mg PO QID #7 ml Acetaminophen Tab [Tylenol] 1,000 mg PO Q6HR tab Enoxaparin [Lovenox] 30 mg SQ DAILY #10 each Pantoprazole Sodium [Protonix] 40 mg PO DAILY #30 tab Continue Metoprolol Succinate [Toprol Xl] 50 mg PO DAILY Fremanezumab-Vfrm [Ajovy Autoinjector] 225 mg SQ QMONTHLY Vitamin B Complex [B-Complex] 1 tab PO DAILY Cholecalciferol [Vitamin D3 (25 Mcg = 1000 Iu)] 25 mcg PO DAILY Aspirin EC [Ecotrin Low Dose] 81 mg PO DAILY Topiramate 50 mg PO BID Ketorolac [Toradol] 10 mg PO Q6HR PRN #15 tab PRN Reason: Pain traMADol HCL 50 mg PO Q6H PRN 3 Days #12 tab PRN Reason: Pain Ondansetron Odt [Zofran ODT] 4 mg PO Q8HR PRN #15 tab PRN Reason: Nausea And Vomiting Metoprolol Succinate (ER) [Toprol XL] 25 mg PO HS Ascorbic Acid [Vitamin C] 500 mg PO DAILY Famotidine [Pepcid] 10 mg PO DAILY Albuterol Inhaler [Ventolin Hfa Inhaler] 1 - 2 puff INHALATION RT-Q6H PRN PRN Reason: Shortness Of Breath Discontinued Ferrous Sulfate [Slow Fe] 142 mg PO DAILY Discharge Medication List Metoprolol Succinate [Toprol Xl] 50 mg PO DAILY 08/24/17 [History] Fremanezumab-Vfrm [Ajovy Autoinjector] 225 mg SQ QMONTHLY 04/28/20 [History] Ascorbic Acid [Vitamin C] 500 mg PO DAILY 09/06/22 [History] Aspirin EC [Ecotrin Low Dose] 81 mg PO DAILY 09/06/22 [History] Cholecalciferol [Vitamin D3 (25 Mcg = 1000 Iu)] 25 mcg PO DAILY 09/06/22 [History] Famotidine [Pepcid] 10 mg PO DAILY 09/06/22 [History] Ketorolac [Toradol] 10 mg PO Q6HR PRN #15 tab 09/06/22 [Rx] Metoprolol Succinate (ER) [Toprol XL] 25 mg PO HS 09/06/22 [History] Ondansetron Odt [Zofran ODT] 4 mg PO Q8HR PRN #15 tab 09/06/22 [Rx] Topiramate 50 mg PO BID 09/06/22 [History] Vitamin B Complex [B-Complex] 1 tab PO DAILY 09/06/22 [History] traMADol HCL 50 mg PO Q6H PRN 3 Days #12 tab 09/06/22 [Rx] Albuterol Inhaler [Ventolin Hfa Inhaler] 1 - 2 puff INHALATION RT-Q6H PRN 09/10/22 [History] Acetaminophen Tab [Tylenol] 1,000 mg PO Q6HR tab 09/15/22 [Rx] Enoxaparin [Lovenox] 30 mg SQ DAILY #10 each 09/15/22 [Rx] Pantoprazole Sodium [Protonix] 40 mg PO DAILY #30 tab 09/15/22 [Rx] Simethicone 40 mg/0.6 ml Drops [Mylicon Drops] 40 mg PO QID #7 ml 09/15/22 [Rx] Follow up Appointment(s)/Referral(s): Mala Triplett MD [STAFF PHYSICIAN] - 1 Week (hematology follow up for previous DVT hx) Ami Diaz MD [STAFF PHYSICIAN] - 09/20/22 Grant,Arthur, DO [Primary Care Provider] - 1-2 days Patient Instructions/Handouts: Bowel Obstruction (DC), Lysis of Abdominal Adhesions (DC) Activity/Diet/Wound Care/Special Instructions: Activity Limited until follow-up Follow-up with primary care provider on discharge Follow-up with general surgery in one week Continue current diet slowly advance as tolerated Continue with Lovenox injections daily for the next 10 days and close outpatient follow-up Recommend follow-up with hematology outpatient in one week Telehealth follow up with Dr. Diaz on 09/20/22 No lifting over 10 pounds for 2 weeks ok to shower Discharge Disposition: HOME SELF-CARE
== END 2022-09-16 12:26 | disposition home or self-care (01) | DRG 336 ==
LOC: EC 21:12 → 6NMEDSUR 09-10 03:19 → OBSVTOIN 09-10 03:20 → 6NMEDSUR 09-10 03:38
PROVIDERS: ADMIT Hospitalist; ATTEND Hospitalist
PROC: 0D9670Z Drainage of Stomach with Drainage Device, Via Natural or Artificial Opening (ICD-10-PCS; principal; 2022-09-14 13:25)
PROC: 0DN84ZZ Release Small Intestine, Percutaneous Endoscopic Approach (ICD-10-PCS; principal; 2022-09-14 13:25)
PROC: 8E0W4CZ Robotic Assisted Procedure of Trunk Region, Percutaneous Endoscopic Approach (ICD-10-PCS; principal; 2022-09-14 13:25)
DX: K56.50 Intestinal adhesions [bands], unspecified as to partial versus complete obstruction (principal); E87.1 Hypo-osmolality and hyponatremia; I11.9 Hypertensive heart disease without heart failure; I95.1 Orthostatic hypotension; E87.6 Hypokalemia; E86.1 Hypovolemia; J45.909 Unspecified asthma, uncomplicated; M26.609 Unspecified temporomandibular joint disorder, unspecified side; K21.9 Gastro-esophageal reflux disease without esophagitis; G43.909 Migraine, unspecified, not intractable, without status migrainosus; Z79.82 Long term (current) use of aspirin; Z79.899 Other long term (current) drug therapy; Z86.79 Personal history of other diseases of the circulatory system; Z87.891 Personal history of nicotine dependence; Z86.718 Personal history of other venous thrombosis and embolism; Z88.1 Allergy status to other antibiotic agents; Z88.5 Allergy status to narcotic agent
CPT/HCPCS: 36415; 71045; 74019; 74177; 74250; 80048; 80051; 80053; 81001; 81025; 83605; 83690; 83735; 85025; 93306; 96361; 96374; 96375; 99285

== ENCOUNTER → 2023-04-19 | Outpatient (CLI) | payer BC ==
--- NOTE | 2023-04-19 20:30 | US ---
EXAMINATION TYPE: US gallbladder DATE OF EXAM: 04/19/2023 COMPARISON: 09/09/2022 CLINICAL INDICATION: Female, 42 years old with history of R10.11 RUQ PAIN; TECHNIQUE: Multiple sonographic images of the right upper quadrant are obtained. FINDINGS: EXAM MEASUREMENTS: Liver Length: 15.0 cm Gallbladder Wall: 0.16 cm CBD: 0.30 cm Right Kidney: 10.5 x 3.8 x 4.9 cm Pancreas: wnl Liver: wnl Gallbladder: wnl Evidence for sonographic Pichardo's sign: No CBD: wnl Right Kidney: wnl IMPRESSION: Unremarkable sonographic examination of the right upper quadrant.
== END | disposition home or self-care (01) ==
LOC: RADUSWWP 07:15
PROVIDERS: ATTEND Surgery Plastic and Reconstructive Surgery
DX: R10.11 Right upper quadrant pain (principal)
CPT/HCPCS: 76705

== ENCOUNTER → 2024-05-31 | Outpatient (CLI) | payer BC | END | disposition home or self-care (01) | LOC: LABWHC1 10:55 | PROVIDERS: ATTEND Family Medicine | DX: R20.2 Paresthesia of skin (principal) | CPT/HCPCS: 36415; 86618 ==

== ENCOUNTER → 2024-09-06 | Outpatient (CLI) | payer BC ==
--- NOTE | 2024-09-06 18:02 | MM ---
Reason for Exam: Screening (asymptomatic). Last mammogram was performed 2 year(s) and 3 month(s) ago. Patient History: Menarche at age 11. Patient has no children. Premenopausal. Hormonal Contraceptives for 25 years from age 15 until age 39. Mother had breast cancer, age 56. Risk Values: Mila 5 year model risk: 1.4%. NCI Lifetime model risk: 20.1%. Prior Study Comparison: 03/30/2018 Bilateral Screening Mammogram, [facility]. 06/29/2022 Bilateral MG screening mammo w CAD, [facility]. Tissue Density: There are scattered areas of fibroglandular density. Findings: Analyzed By CAD. There is no suspicious group of microcalcifications or new suspicious mass in either breast. Overall Assessment: Benign, BI-RAD 2 Management: Screening Mammogram of both breasts in 1 year. SEE NOTE BELOW IN REGARDS TO THE PATIENT'S INCREASED LIFETIME RISK SCORE. Patient should continue monthly self-breast exams. A clinical breast exam by your physician is recommended on an annual basis. This exam should not preclude additional follow-up of suspicious palpable abnormalities. Note on Mila scores and lifetime risk: 1. A Mila score greater than 3% is considered moderate risk. If this is the case, consider specialist referral to assess eligibility for a risk reducing agent. 2. If overall lifetime risk for the development of breast cancer is 20% or higher, the patient may qualify for future screening with alternating mammogram and breast MRI. [facility], , 09/06/2024 5:59 PM. Electronically signed and approved by: Dariana Watson M.D. Radiologist
== END | disposition home or self-care (01) ==
LOC: RADMAMWWP 11:02
PROVIDERS: ATTEND Family Medicine
DX: Z12.31 Encounter for screening mammogram for malignant neoplasm of breast (principal); R92.323 Mammographic fibroglandular density, bilateral breasts; Z80.3 Family history of malignant neoplasm of breast; Z92.0 Personal history of contraception
CPT/HCPCS: 77063; 77067